=== PATIENT | male | born 1950 | race Caucasian/White ===

== ENCOUNTER 2019-06-21 09:45 | Emergency (ER) | payer MEDICARE, MEDICAID, SELFPAY ==
[2019-06-21 09:46] VITALS: BP 129/80; PULSE 106; RESP 15; TEMP 36.4; O2SAT 96; BMI 20.7
--- NOTE | 2019-06-21 10:43 | ED.VISSUMM ---
- ER Visit Summary Date of Service: 06/21/19 Chief Complaint: Nasal congestion and left-sided sinus pressure History of Present Illness: The patient is a 68 M presents with history of stroke, hypertension, high cholesterol bladder cancer and pulmonary fibrosis. Patient smokes. States last night he had a nosebleed in the left is since resolved. Has not bled at all today. He is on no blood thinners. He also states that it for at least 2 weeks he has had nasal congestion green and cloudy. Denies fever. He was seen in urgent care today and they sent him to the ER. Denies any problems moving his arms or legs. Physical Examination: Older male no acute distress vital signs stable afebrile. H EENT exam except for dried blood in his left nares but no active bleeding. Exact sinus pressure on the left maxillary sinus. Forehead nontender. Posterior pharynx normal. Moist his membranes. Neck nontender no lymphadenopathy. Lungs coarse breath sounds. Scattered wheezes from smoking. No rales or rhonchi. Heart regular rate and rhythm no murmur. Abdomen soft nontender. Patient is moving all 4 extremities. Neurovascular intact. No edema. Normal emt/dispatcher strength. Normal dorsi plantarflexion. Neurologic exam normal. NIH is 0. Test Results: None Emergency Department Course and Treatment: Clinically patient exam is unremarkable other than sinus congestion. A recent nosebleed that is stopped. Be treated with Zithromax for sinusitis. Treatment Plan: Zithromax. Follow-up as needed. Disposition: Discharge Impression: Left maxillary sinusitis This note was generated with [employer] dictation software. It may contain incorrect words, spelling, and punctuation that were not noted in review of the chart prior to signing ED Disposition - Plan for ED Patient: [facility] [[facility] Provider] -
--- NOTE | 2019-06-21 10:47 | DCINST.ED_ITS ---
ED Disposition - Plan for ED Patient: Disposition: Home or Assisted Living Instructions: Acute Sinusitis Prescriptions: Azithromycin [Zithromax Z-Jaron] 250 mg PO UD #1 box Transmission Status: Sent to [facility]errals: [facility] [Primary Care Provider] - 1 Week if not improving Additional Instructions: Stop smoking. There will be a Zithromax prescription at your pharmacy [facility].
[2019-06-21 11:05] VITALS: PULSE 97; RESP 16; O2SAT 95
--- NOTE | 2019-06-21 11:05 | ED.RN ---
REVIEWED D/C INSTRUCTIONS, FOLLOW UP CARE, PRESCRIPTION, AND S/S THAT WOULD WARRANT A RETURN TO THE ED WITH PT. PT VERBALIZED AN UNDERSTANDING AND DENIES FURTHER QUESTIONS FOR THIS RN. PT SKIN P/W/D, RESP EVEN AND UNLABORED, PT A&O X 3, NO DISTRESS NOTED. PT AMBULATED OUT OF ED, GAIT STEADY.
== END 2019-06-21 11:06 | disposition home or self-care (01) ==
LOC: ED 11:01
PROVIDERS: Emergency Provider Emergency Medicine; PCP Family Medicine
DX: J32.0 Chronic maxillary sinusitis (principal); I10 Essential (primary) hypertension; E78.00 Pure hypercholesterolemia, unspecified; J84.10 Pulmonary fibrosis, unspecified; F17.200 Nicotine dependence, unspecified, uncomplicated; Z79.82 Long term (current) use of aspirin; Z86.73 Personal history of transient ischemic attack (TIA), and cerebral infarction without residual deficits
CPT/HCPCS: 99282

== ENCOUNTER 2019-06-24 20:19 | Emergency (ER) | payer MEDICARE, MEDICAID, SELFPAY ==
[2019-06-24 20:21] VITALS: BP 168/85; PULSE 129; RESP 20; TEMP 36.6; O2SAT 94; BMI 21.2
--- NOTE | 2019-06-24 20:51 | ED.VISSUMM ---
- ER Visit Summary Date of Service: 06/24/19 Chief Complaint: [] History of Present Illness: The patient is a 68 M [] Physical Examination: [] Test Results: [] Emergency Department Course and Treatment: [] Treatment Plan: [] Disposition: [] Impression: [] This note was generated with [employer] dictation software. It may contain incorrect words, spelling, and punctuation that were not noted in review of the chart prior to signing ED Disposition - Plan for ED Patient: Referrals: Daquan Andrews MD [Primary Care Provider] -
--- NOTE | 2019-06-24 20:57 | ED.VIS.GEN ---
History of Present Illness Chief Complaint: Nosebleed Informant: Patient Onset: Days Context: Sudden Onset Timing: Intermittent Narrative: Patient is a 68-year-old male presenting with epistaxis. He states his most recent nosebleed started about 15 minutes prior to arrival. He states he had intermittent nosebleeds over the past few days. He states 2 years ago he had similar episode and eventually had to be cauterized in the emergency room. He does not have any ENT doctor. He is on a baby aspirin but takes no other blood thinners. He denies any trauma. He states he holds the bridge of his nose when he does bleed. He bleeds for up to 45 minutes at a time. He denies any other complaints at this time. Past Medical History - Allergies and Home Meds Allergies/Adverse Reactions: Allergies Penicillins Allergy (Verified 06/24/19 20:23) Unknown Primary Care Physician: Daquan Andrews MD [Primary Care Provider] - Past Medical History: None Surgical History: noncontributory Lives: Spouse/ Significant Other Smoking Status: Current every day smoker Alcohol: Sober Review of Systems General: Denies: Chills, Fever, Sweats Eyes: Denies: Visual changes - bilaterally, Diplopia ENT: Reports: - - nosebleed . Denies: Rhinorrhea, Sore throat Cardiovascular: Denies: Chest pain, Palpitations Respiratory: Denies: Dyspnea, Cough, Dyspnea on exertion Gastrointestinal: Denies: Abdominal pain, Nausea, Vomiting, Diarrhea, Melena, Hematochezia Skin: Denies: Rash, Wounds Neurological: Denies: Headache, Weakness, Numbness Hematologic: Denies: Easy bruising, Easy bleeding Physical Exam Vital Signs/Narrative: Vital Signs Temp Pulse Resp BP Pulse Ox 06/24/19 20:21 97.9 F 129 H 20 H 168/85 H 94 Inital Vital Signs reviewed: Yes General: Well nourished, Well developed, No Acute Distress Head: Normocephalic, Atraumatic Eyes: Perrl, EOMI ENT: Moist mucous membranes, No rhinorrhea, - - Brisk epistaxis from the left naris, source of bleeding seems to be the anterior nasal septum, no bleeding noted in the posterior oropharynx. No bleeding from the right Neck: Supple, Nontender Cardiovascular: Regular rhythm, No murmurs, Tachycardia Respiratory: No distress, CTA bilaterally, Chest nontender Abdomen: Soft, Nontender, Nondistended, Normal bowel sounds Back: Nontender, Normal Inspection Extremities: Nontender, No edema Skin: Normal color, No rash. Negative for: Pallor Neurological: Alert, Oriented x3, Cranial nerves II-XII grossly intact, Normal Strength, Normal Sensation Psychological: Normal affect, Normal Mood Diagnostic/Tx/Re-eval Laboratory Data 06/24/19 06/24/19 21:30 21:30 WBC 10.4 RBC 5.26 Hgb 16.3 Hct 49.4 MCV 93.9 MCH 31.0 MCHC 33.0 RDW Std Deviation 51.2 H RDW Coeff of Debra 14.7 H Plt Count 210 MPV 11.1 Immature Gran % (Auto) 0.600 Neut % (Auto) 60.4 Lymph % (Auto) 25.9 [place] % (Auto) 10.7 H Eos % (Auto) 2.0 Baso % (Auto) 0.4 Absolute Neuts (auto) 6.3 Absolute Lymphs (auto) 2.68 Nucleated RBC % 0 PT 12.6 INR 1.0 - Medical Decision Making Patient is evaluated for recurrent episodes of epistaxis. Patient does have consistent bleeding despite nasal pressure. 5.5 cm anterior nasal packing is placed. This tamponade the bleeding. Patient remains hemodynamically stable and has no further bleeding. Because of patient's recurrent episodes of bleeding I did check an H&H. This was normal if not slightly hemoconcentrated. Patient does admit to smoking. This is likely why he has a slight elevation of his red blood cell count. Patient does admit to history of alcohol and drug abuse. Initially the bleeding stopped with a 5.5 cm anterior nasal packing. When patient was ambulated he started bleeding again. 7.5 cm packing was placed. Patient continued to bleed despite pressure. Patient was asked to clear his nose of clots and then Vaseline gauze was packed into the nose. Again patient had bleeding that appeared to be anterior. Patient is given a gram of TXA. Patient continued to have bleeding and we ultimately called ENT on-call, Dr. Whalen. Patient evaluated by Dr. Whalen and cauterized. Patient had no further bleeding. No packing was placed. Patient is given return precautions. Patient is counseled on signs and symptoms requiring return to the emergency room. Patient verbalizes agreement and understand this plan. Patient discharged home in stable and improved condition. ED Disposition - Plan for ED Patient: Disposition: Home or Assisted Living Diagnosis: Epistaxis Instructions: Nosebleed Referrals: Aquilino Whalen MD [STAFF PHYSICIAN] - Additional Instructions: Follow up with ENT as needed.
[2019-06-24] MEDS: Mixture 30 ML Bottle 10 ML TOPICAL (21:28)
[2019-06-24 21:39] LABS: Absolute Lymphocyte Count 2.68 X10^3/uL (0.83-4.51); Absolute Neutrophil Count 6.3 X10^3/uL (2.0-7.7); Basophil# 0.04 X10^3/uL; Basophil% 0.4 % (0-1); Eosinophil# 0.21 X10^3/uL; Hematocrit 49.4 % (40-54); Hemoglobin 16.3 g/dL (13.0-16.5); Lymphocyte # 2.68 X10^3/ul (4.0); Lymphocyte % 25.9 % (19-41); Mean Corpuscular Volume 93.9 fL (80-94); Mean Platelet Vol. 11.1 fl (6.2-12.0); Monocyte# 1.11 X10^3/uL; Monocyte% 10.7 % (0-10); NRBC Flagged by Analyzer 0 % (0-5); Neutrophil # 6.26 X10^3/uL (2.7-7.7); Neutrophil % 60.4 % (47-70); Platelet Count 210 K/mm3 (150-450); RBC Distribution Width CV 14.7 % (11.6-14.6); RBC Distribution Width SD 51.2 fl (35.1-43.9); Red Blood Count 5.26 M/mm3 (4.6-6.2); White Blood Count 10.4 K/mm3 (4.4-11.0)
[2019-06-24 21:55] LABS: Prothrombin Time (Protime)PT. 12.6 SECONDS (11.7-14.9)
[2019-06-24] MEDS: Ibuprofen 600 MG Tablet PO (22:33)
[2019-06-24 23:41] VITALS: BP 126/76; PULSE 107; RESP 16; O2SAT 90
[2019-06-25] MEDS: Oxymetazoline 0.05% 1 SPRAY SPRAY.BTL 2 SPRAY NASAL (00:20)
[2019-06-25] MEDS: Silver Nitrate (BKC) 1 EACH TOPICAL (00:40)
--- NOTE | 2019-06-25 00:43 | PCM.OPRPT ---
Problem List (1) Epistaxis Status: Acute Report of Operation Date of Procedure: 06/25/19 Pre-Operative Diagnosis: Epistaxis, not controlled with nasal packing Post-Operative Diagnosis: Same Surgery/Procedure Performed:: Control of epistaxis, complex (40578) Description of Surgical Findings:: Mr. Avelar is a 68-year-old male presents emergency department for persistent left-sided nasal bleeding. He reports he has had off-and-on bleeding over the last several days and was treated recently for a presumed sinus infection by his primary care physician. He presented to the emergency department this evening however despite several attempts at packing was unable to get persistent control of the bleeding and subsequently I was consulted for evaluation. He denies any prior history of nasal trauma and other than a daily aspirin is not on any anticoagulation therapy. With patient permission, the left nasal cavity examined. There is no to be marketed rightward nasal septal deviation. There is a nasal pack in place which was removed. Vaseline gauze is in place and removed. The persistent clot is suctioned clear. There is noted to be an area of granulation tissue of the left nasal septum and this was cauterized with silver nitrate. Oxymetazoline was used to rinse the nasal cavity and the patient is asked to expectorate any retained material. He was able to then ambulate throughout the ER without recurrence of bleeding. This appeared to satisfactory control his bleeding and as such no further packing was required. Type of Anesthesia:: None Anesthesiologist: none Specimen's removed: none Estimated Blood Loss (mL): 50 mL Fluids Replaced: 0 Grafts/Implants Used: none - Complications none - Admit VTE Documentation VTE Present on Admission: No VTE Mechan Device Prophylaxis: None VTE Pharm Prophylaxis ordered?: No
== END 2019-06-25 00:57 | disposition home or self-care (01) ==
PROVIDERS: Emergency Provider Emergency Medicine; PCP Family Medicine
DX: R04.0 Epistaxis (principal); F17.200 Nicotine dependence, unspecified, uncomplicated; Z79.82 Long term (current) use of aspirin
CPT/HCPCS: 30903; 85025; 85610; 96374; 99283; A4216

== ENCOUNTER 2022-05-21 11:40 | Outpatient (CLI) | payer OTHER, SELFPAY ==
--- NOTE | 2022-05-21 12:50 | PR.HP_ITS ---
History of Present Illness Arrival date:: 05/21/22 Arrival time:: 12:50 Date of Referral:: 05/09/22 Date of Evaluation: 05/21/22 Referring Physician: ALYX Primary Diagnosis: COPD severe mMRC Breathless Scale: When is the patient short of breath? Y/N Grade: Description of Breathlessness: 0 I only get breathless with strenuous exercise. 1 I get short of breath when hurrying on level ground or walking up a slight hill. 2 On level ground, I walk slower than people of the same age because of breathless, or have to stop for breath when walking at my own pace. 3 I stop for breath after walking 100 yards or after a few minutes on level ground. 4 I am too breathless to leave the house or I am breathless when dressing. Respiratory Problems: Yes: Retain Secretions, Fatigue, Wheezing, Able to Speak in Full Sentences, Dizziness, Ankle Swelling, Hoarseness, Anxiety, Dyspnea at Rest, Dyspnea with Activity, Dyspnea Lying Down Flat, Cough with Secretions No: Limited Range of Motion, Chest Pain, Panic - Secretions Normal Color:: clear Thick:: Yes Thin:: No Amount/Day:: 2 TBSP Cough:: Yes AM: Yes PM: Yes Night Time: Yes Hx of Sleep Apnea: No Do you snore loudly (louder than talking or can be heard through closed doors)?: No Do you often feel tired/ fatigued/ sleepy during daytime?: No Has anyone observed you stop breathing during sleep?: No History of Hypertension (for STOP score): Yes STOP Results: Negative Home Medications: Home Medications albuterol sulfate 90 mcg/actuation aerosol inhaler (Ventolin HFA) 2 puff inhalation Q6H PRN PRN Sob &/Or Wheezing 02/21/15 amlodipine 5 mg tablet 5 mg PO DAILY 02/21/15 aspirin 81 mg chewable tablet 81 mg PO DAILY@0800 02/21/15 budesonide-formoterol HFA 160 mcg-4.5 mcg/actuation aerosol inhaler (Symbicort) 2 puff inhalation BID 02/21/15 ipratropium bromide 17 mcg/actuation HFA aerosol inhaler (Atrovent HFA) 1 puff inhalation 4X/DAY 02/21/15 lisinopril 40 mg tablet 40 mg PO BID 02/21/15 pravastatin 80 mg tablet 80 mg PO QHS 02/21/15 trazodone 100 mg tablet 100 mg PO QHS 02/21/15 azithromycin 250 mg tablet 250 mg PO UD ##1 06/21/19 Allergies/Adverse Reactions: Allergies Penicillins Allergy (Verified 06/24/19 20:23) Unknown Medical Utilization Do you use a spacer device with your inhalers?: No Number of hospital visits in the last year?: 0 Number of emergency room visits in the last year?: 0 Do you see your physician on a regular schedule?: Yes How often?: every 6 months Advanced Directives - Advanced Directives Power of Director Of Direct Marketing: No Living Will: No Advance Directives Information Provided: No Advance Directives on File: No DNR Order?:: No Past Medical History - Covid-19 Screening 65 years or older:: Yes Has a chronic lung disease or moderate to severe asthma:: Yes Social History - Smoking History Smoking Status: Current every day smoker Years Smokin Packs Smoked per Day: 1.5 Hx Tobacco Use: Yes - down to 4 cigarettes a day - Alcohol Use Alcohol Usage: No - Substance Abuse Hx Substance Use: No - Occupation Occupation (List type of work in comments):: Retired - Hobbies, Recreation, Social Activities Hobbies: Watch TV, Other - aa meetings Recreational Activities: I am able to engage in all my recreational activities Functioning ADL/IADL - Current Ability Current Ability: Independent Self-Care (e.g.,grooming, dressing, & bathing), Independent Ambulation, Independent Transfer, Independent Household tasks (e.g., light meal prep, laundry, shopping) - Pt Functioning Prior to Problem Prior Functioning: Self-Care (e.g.,grooming, dressing, & bathing): Independent, Ambulation: Independent, Transfer: Independent, Household tasks (e.g., light meal prep, laundry, shopping): Independent Social Environment - Status Marital Status: - Current Living Arrangements Living Environment:: Alone - Children How many children do you have?: 0 - Safety Do you feel safe in your surroundings?: Yes - Assistance Do you need any assistance at home?: no Review of Systems Review of Systems: Right click = Denies (Slash). Left click = Reports ([place]) Respiratory: Reports: Cough, Hemoptysis, SOB upon Exertion, Sputum production, Wheezing, Appetite, Normal, Fatigue. Denies: Pleuritic Pain, SOB at Rest, Dizziness/Lightheadedness, PVD, Sexual changes, Sleep, Normal Is Patient Pain Free?: No Risk Factor Assessment - Vital Signs Pulse Rate: 105 Pulse Rhythm: Regular Pulse Ox: 92 Blood Pressure: 110/72 - Diabetes Nutrition Referral for Diabetes: No - Obesity Height: 5 ft 8 in Weight:: 54.885 kg Weight in Pounds: 121.0 lbs Body Mass Index (BMI): 18.3 Nutritional Referral for Obesity: No - Physical Activity Physical Inactivity: Recreational activity - Risk Stratification Risk Guidelines: Lowest Risk: Risk Factor for Obesity, Moderate Risk: Risk Factor for Dyslipidemia, Risk Factor for Diabetes, Risk Factor for Sedentary Lifestyle, Risk Factor for Depression, Highest Risk: Risk Factor for Smoking, Risk Factor for Hypertension Motivation - Motivation to Participate On a scale of 1 to 10, how prepared are you to commit to attending program?: 10 What do you see as barriers to successfully being able to complete the program?: nothing What do you see as the benefits of succesfully completing the program? In other words, what do you hope to get out of participating in the program?: breath bett er, feel better Are there issues you are dealing with that will interfere with completing the program?: no Do you have a spouse or signficant other, family or friends who will help support you to complete the program?: yes Diagnostic Data Review - Pulmonary Function Test Gold Classification: GOLD class III(severe COPD)with FEV1/FVC<70, 30%</=FEV1< 50% predicted
[2022-05-21 13:48] VITALS: BP 110/72; PULSE 105; O2SAT 92; BMI 18.3
--- NOTE | 2022-05-21 13:49 | PCM.PR.TP ---
General Information2 - General Information Admitting Diagnosis: COPD severe - Education/Goals [place] Patient Goals: Quit Smoking: Initial Assessment, Increase muscle strength: Initial Assessment, Experience less dyspnea: Initial Assessment, Improve energy level: Initial Assessment, Participate in home exercise: Initial Assessment, Improve the ability to cope with ADLs: Initial Assessment, Understand how to use medications: Initial Assessment, Increase knowledge of oxygen use: Initial Assessment, Control panic/anxiety: Initial Assessment, Improve diet and nutrition: Initial Assessment, Improve my quality of life: Initial Assessment, Reduce Stress/relaxation techniques: Initial Assessment Exercise - Initial Assessment - Visit Date of Eval: 05/21/22 - Problem/Goals Problems: Deconditioning, No regular exercise, Knowledge deficit exercise guidelines, Knowledge deficit exercise safety Goals:: Resistance: 2-3x/weekly - Physician Prescribed Exercise Modalities: Treadmill, Rower, Airdyne, NuStep, SciFit, Lateral Loan Documentation Specialist Frequency (days/week): 3 Duration (Minutes):: 30-45 min Intensity: 60-80% of age predicted maximum heart rate reserve Current METSs:: 3 Resting Blood Pressure: 110/70 - Plan Plan and Plan to Review:: Benefits of exercise, Core components of exercise, How to measure dyspnea level, How to monitor dyspnea level, Exercise intensity, Exercise safety guideline, Home exercise guidelines, Yas: 3-/13 Nutrition/Wt Mgmt - Initial - Visit Date of Eval: 05/21/22 - initial eval - Problems/Goals Problems: Underweight Goals: Prevent further wt loss - Weight Management Admit Height:: 5 ft 8 in Admit Weight:: 54.885 kg Admit BMI:: 18.3 - Intervention Referral to dietitian:: No Will attend diet classes:: Yes Intervention/Plan: Instruct on ideal BMI & set weight loss goal w/patient, Assist pt to ID & incorporate diet changes for weight loss by S9, Refer to Structured Weight Loss program as appropriate, Encourage goal of using 250-300dcal per session for weight loss, Other additional plan/interventions Psychosocial - Initial Assess - Visit Date of Eval: 05/21/22 - initial eval - Problems/Goals History of Emotional Disorders: Anxious Psychosocial Goals: 1. Patient is free from overwhelming symtoms of depression (or anxiety Self-reported stressors: Other - Referral to Behavioral Health PS - Interventions: Yes Attend Stress Management Classes, No Referral to Behavioral Health if PHQ-9 score >9:, No [facility]erral [facility], No Referral to Physician if PHQ-9 if score is 5-9: - Intervention/Plan: See List Interventions/Plan:: Assess stressors,coping strategies & signs of derpression on admission, Instruct/assist pt to develop coping & personal stress Mgt strategies, Refer to Behavioral Health if appropriate, Refer to Physician if appropriate, Instruct patient to recognize signs & symptoms of depression, Instruct patient to recog, Other additional plan/intervention Oxygen & Oxygen Titration Init - Visit Date of Eval: 05/21/22 - initial eval - Initial Assessment Oxygen on Admission: Continuous home use - 2-4 liters SpO2:: 92 Patient Reports:: Prod cough daily >1 Tbsp - Goal Oxygen & Oxygen Tritration Goals: Uses O2 as Rx'd/safely - Plans Plan: Monitor SpO2 rest & with exercise, Recommend appropriate FiO2 to Pt/MD, Assist to contact DME for O2, Train appropriate O2 use at rest, Train appropriate O2 use with exercise, Train O2 safety & systems Reviewed prescribed medications:: Purpose, Schedule, Side effects, Importance of compliance Core Components - Initial - Visit Date of Eval: 05/21/22 - initial eval - Hypertension Hypertension Diagnosis:: Hypertension ICD-10 I10 BP: 110/70 [place] [employer] Hypertension Guidelines: [place] [employer] Hypertension Guidelines. Normal BP Less than 120/80. Elevated BP 120/80. Hypertension Stage 1: BP 130-139/80-89. Hypertesnion Stage 2: BP 140 or higher/90 or higher. Hypertension Crisis: BP higher than 180/120 Low Sodium diet: No Outcomes/Goals: Able to verbalize/achieve optimal blood pressure <130/80, Incorporates diet changes & exercise for blood pressure control by DC, Other additional outcomes/goals - Tobacco - Initial Assessment Tobacco Program Goals: Complete smoking cessation. Attend education classes. Improve Knowledge Test score Stages of Change:: Contemplate Do you have family support?: Yes Tobacco Use: Cigarettes - down to 4 cigarettes a day Do you use smokeless tobacco?: No Smoking Cessation Referral:: Yes Individual Education/Counseling:: Yes Education Schedule Given:: Yes Gave Education Materials For:: Tobacco Triggers, Pulmonary Disease, Risk Factors, Breathing Techniques, Medical Compliance, Pulmonary A&P, Exacerbation Signs & Symptoms, Stress & Relaxation - Exacerbation Mgmt & Airway Clearance Problems:: Poor knowledge of O2 use/safety Goals: Other Patient Reports:: Prod cough daily >1 Tbsp Plan: Monitor SpO2 rest & with exercise, Recommend appropriate FiO2 to Pt/MD, Assist to contact DME for O2, Train appropriate O2 use at rest, Train appropriate O2 use with exercise, Train O2 safety & systems - Medication Interventions/plans: Instruct on medication effects & side effects, Review medication list w/patient every two weeks, Instruct importance of taking meds as ordered & assist problem solving, Other additional Medication Goals: Adherence to prescribed medications, Correct technique/timing & care of MDI, DPI, nebulizer, and spacer. Does pt report taking home meds as prescribed?: Yes - Diabetes Referral to dietitian:: No Referral to Diabetic Clinic:: No Will attend diet classes:: Yes Core Components - 30 DAYS Core Components - 60 DAYS Core Components - 90 DAYS Core Components - Final Patient Health Questionnaire Initial Assessment 1. Little interest or pleasure in doing things: More than half the days 2. Feeling down, depressed, or hopeless: Nearly every day 3. Trouble falling or staying asleep, or sleeping too much: Nearly every day 4. Feeling tired or having little energy: Nearly every day 5. Poor appetite or overeating: Nearly every day 6. Feeling bad about yourself -- or that you are a failure or have let yourself or your family down: Nearly every day 7. Trouble concentrating on things, such as reading the newspaper or watching television: Not at all 8. Moving or speaking so slowly that other people could have noticed. Or the opposite - being so fidgety or restless that you have been moving around a lot more than usual: Not at all 9. Thoughts that you would be better off , or of hurting yourself in some way: Not at all How difficult have these problems made it for you to do your work, take care of things at home, or get along with other people?: Very difficult Total Score: 17 Knowledge Questionaire (BCKQ) - Information Information: [place] COPD Knowledge Questionnaire (BCKQ) This questionnaire is designed to find out what you know about your lung problem. It should be completed without help form anyone else. This usually takes between 10 and 20 minutes. Your answers will help us to find out what information you need to help you to understand and manage your lung condition. [place] which you think is the correct answer. - Questions b. COPD can only be confirmed by breathing tests: True c. In COPD ther is usually gradual worsening over time: True d. In COPD oxygen levels in the blood are always low: True e. COPD is usually in people less than 40 years old: False [place] than 80% of COPD cases are caused by cigarette smoking: True b. COPD can be caused by occupational dust exposure: True c. Longstanding asthma can develop into COPD: Don't know d. COPD is commonly an inherited disease: False e. Women are less vunerable to the effects of cigarette than men: False a. Swelling of the ankles is common in COPD:: False b. Fatigue [tiredness] is common in COPD: True c. Wheezing is common in COPD: True d. Crushing chest pain is common in COPD: Don't know e. Rapid weight loss is common in COPD: True a. Severe breathlessness prevents travel by air: False b. Breathlessness can be worsened by eating large meals: Don't know c. Breathlessness means that your oxygen levels are low: True d. Breathlessness is a normal response to exercise: Don't know e. Breathlessness is primarily caused by a narrowing of the bronchial tubes: True a. Coughing phlegm is a common symptom in COPD: True b. Clearing phlegm is more difficult if you get dehydrated: Don't know c. Bronchodilator inhalers can help clear phlegm: True d. Phlegm causes harm if swallowed: Don't know e. Clearing phlegm can be assisted by breathing exercises: Don't know a. Chest infections often cause coughing of blood: True b. Chest infection phlegm usually becomes coloured (ylw/grn): True cExerbations (episodes of worsening) can occur in the absence of chest infection: Don't know d. Chest infections are always accompanied by a high temperature: Don't know e. Steroid tablets should be taken whenever there is an exacerbation: Don't know aWalking excercises better than breathing to improve fitness: True b. Exercise should be avoided as it strains the lungs: False c. Exercise can help maintain your bone density: Don't know d. Exercise helps relieve depression: True e. Exercise should be stopped if it makes you breathless: Don't know a. Stopping smoking will reduce the risk of heart disease: True b. Stopping smoking will slow down further lung damage: True c. Stopping smoking is pointless as the damage is done: False d.Stopping smoking usually results in improved lung function: True eNicotine replacement therapy only available on prescription: Don't know a. A flu jab is recommended every year: True b. You can get flu from having a flu jab: Don't know c. You can only have a flu jab if you are 65 or over: False d. A pneumonia jab protects against all forms of pneumonia: False e.You can have a pneumonia jab and a flu job on the same day: True a. Bronchodilators act quickly (within 10 minutes): True b. Both short & long acting bronchodilators can be taken on the same day: True c. Spacers (volumatic,nebuhaler,serochamber)should be dried w/atowel after washing: False d. A spacer device increases the medication to the lungs: Don't know e. Tremor may be a side effect of bronchodilators: Don't know a. To be effective, the course should last at least 10 days: Don't know b. Excessive use of antibiotics can cause resistant bacteria (germs): Don't know c. Antibiotics will clear all chest infections: True d. Antibiotic treatment is necessary for an exacerbation (worsening) however mild: Don't know e. Seek advice if antibiotics cause severe diarrhoea: Don't know a. Steroid tablets help strengthen muscles: Don't know b. Steroid tablets should be avoided if there is a chest infection: Don't know c. The risk of long-term side effects due to steroids is less w/short courses then w/continous treatment: True dIndigestion is common side effect from using steroid tablet: Don't know e. Steroid tablets can increase your appetite: Don't know a. Inhaled steroids should be stopped if you are given steroid tablets: Don't know bSteroid inhalers can be used for rapid relief breathlessnes: Don't know c. Spacer devices reduce the risk of getting thrush in the mouth: Don't know d.Steroid inhaler should be taken before your bronchodilator: Don't know e. Inhaled steroids improve lung function in COPD: Don't know COPD Assessment Test [CAT] - Questions Never cough = 0, Cough all the time = 5: 4 No phlegm = 0, Chest full of phlegm = 5: 5 No chest tightness = 0, Chest very tight = 5: 4 No breathless w/exertion = 0, Very breathless w/exertion = 5: 5 No limitations w/activity = 0, Very limited w/activity = 5: 2 Confident leaving home = 0, Not at all confident = 5: 5 Sleep soundly = 0, Don't sleep soundly = 5: 5 Lots of energy = 0, No energy at all = 5: 5 Total CAT score:: 35 Self-Efficacy Initial Assessment We would like to know how confident you are in doing certain activities. Please select your confidence level for:: Select your confidence level for the following using the scale 1-10 where 1 is not at all confident and 10 is totally confident. Your score is the average of all 6 responses. Fatigue: How confident are you that you can keep the fatigue caused by your disease from interfering with the things you want to do? Select Number: 2 Physical Discomfort or Pain: How confident are you that you can keep the physical discomfort or pain of your disease from interfering with the things you want to do? Select Number: 2 Emotional Distress: How confident are you that you can keep the emotional distress caused by your disease from interfering with the things you want to do? Select Number: 5 Other Symptoms or Health Problems: How confident are you that you can keep other symptoms or health problems from interfering with the things you want to do? Select Number: 5 Different Tasks and Activities: How confident are you that you can do the different tasks and activities needed to manage your health condition so as to reduce your need to see a doctor? Select Number: 8 Medication: How confident are you that you can do things other than just taking medication to reduce how much your illness affects your everyday life? Select Number: 8 Total Score:: 5 Nutrition Survey - Nutrition Survey Initial Have you lost >10 lbs over the past 2 months without trying?: Yes Are you following a special diet at home for diabetes, low fat, or low salt?: No Are you interested in meeting with a dietitian for help understanding your diet?: No Do you eat less than 3 meals a day?: Yes Do you eat fatty meats (franco, sausage, ribs, etc), fried foods, desserts, large amounts of salad dressings, margarine, butter, or cheese most days?: Yes Do you have food allergies? [Enter types in comment field]: No Do you eat in restaurants more than 3 times a week?: No Do you season food with salt, seasoning salt, or garlic salt?: Yes Do you used canned, boxed, frozen meals, or soups, seasoning packets?: Yes Total Score:: 5
[2022-05-21 14:07] VITALS: BP 110/70; O2SAT 92; BMI 18.3
== END 2022-05-21 23:59 | disposition home or self-care (01) ==
DX: J44.9 Chronic obstructive pulmonary disease, unspecified (principal)

== ENCOUNTER 2022-05-30 10:30 | Outpatient (RCR) | payer OTHER, SELFPAY | END 2022-06-10 23:59 | LOC: PR 10:30 | DX: J44.9 Chronic obstructive pulmonary disease, unspecified (principal) | CPT/HCPCS: 97150; 94626 ==

== ENCOUNTER 2022-06-23 11:02 | Outpatient (RCR) | payer OTHER, SELFPAY ==
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
== END 2022-07-08 23:59 ==
LOC: PR 11:02
DX: J44.9 Chronic obstructive pulmonary disease, unspecified (principal)

== ENCOUNTER → 2022-11-03 | Outpatient (CLI) | payer OTHER, SELFPAY ==
--- NOTE | 2022-11-03 13:14 | CT_ITS ---
STUDY: CT CHEST WITHOUT CONTRAST REASON FOR EXAM: Male, 72 years old. HX OF PULMONARY NODULE. COPD. RADIATION DOSAGE (If Supplied By Facility): CTDIvol = ( 5.34 ) mGy, DLP = ( 201.86 ) mGycm TECHNIQUE: Transaxial imaging was performed without the administration of intravenous contrast material. Multiplanar coronal and sagittal images were reformatted. Individualized dose optimization techniques were used for this CT. COMPARISON: No relevant priors. FINDINGS: CHEST Hyperinflation. Diffuse emphysematous changes worse in the upper lobes. There is a 7 cm x 1 cm linear irregular density in the right lung apex and right upper lobe suggestive of a scarring with bronchiectasis. Linear scarring is also seen in the posterior aspect of the superior segment of the right lower lobe. Mild scarring in the right lower lobe as well. There is a 5.6 mm x 7.3 mm noncalcified nodule in the anterior aspect of the right middle lobe as seen on axial image #87 and coronal image #72. This abuts the posterior aspect of the right minor fissure. Focal calcific pleural plaques at the right lung base. There are calcifications of the coronary arteries. Mildly enlarged pretracheal lymph node is seen measuring 1.7 cm. Normal hilar regions. Normal unenhanced pulmonary arteries. There is atherosclerotic calcification of the aortic arch with tortuosity and elongation of the aortic arch and descending thoracic aorta. There are multi-level degenerative changes of the thoracic spine. There is no demonstrated abnormality of the visualized upper abdomen. CT/Chest without Contrast IMPRESSION: Hyperinflation and COPD with emphysematous changes. Findings suggestive scarring in the right upper lobe and right lung apex. 5.6 mm x 7.3 mm noncalcified nodule in the right middle lobe adjacent to the right minor fissure. 6 month follow-up CT scan is recommended for further evaluation. Electronically Signed: Brett Arango MD at 10:03 EDT ,
== END | disposition home or self-care (01) ==
LOC: CT 13:13
DX: R91.1 Solitary pulmonary nodule (principal)
CPT/HCPCS: 71250

== ENCOUNTER 2023-01-16 19:07 | Inpatient (IN) | payer MEDICARE, MEDICAID, SELFPAY ==
[2023-01-16] VITALS (27 sets, daily range): BP systolic 122–165; BP diastolic 76–145; PULSE 128–144; RESP 17–32; TEMP 36.9–37.4; O2SAT 89–97; BMI 18.6
--- NOTE | 2023-01-16 19:27 | EKG12_ITS ---
Test Reason : SOB Blood Pressure : / mmHG Vent. Rate : 139 BPM Atrial Rate : 139 BPM P-R Int : 122 ms QRS Dur : 144 ms QT Int : 298 ms P-R-T Axes : 090 171 061 degrees QTc Int : 453 ms Suspect arm lead reversal, interpretation assumes no reversal Sinus tachycardia with occasional Premature ventricular complexes and Fusion complexes Possible Left atrial enlargement Right bundle branch block Abnormal ECG Confirmed by FRED MATOS, RENE ([id number]), staff editor RAFIQ LLAMAS ([id number]) on 01/22/2023 2:17:48 PM Referred By: RJ Confirmed By:RENE IBARRA MD
[2023-01-16] MEDS: 0.9% Normal Saline (1000mL) 1,000 ML 999 ML IV ×3 (19:37→22:16)
[2023-01-16] MEDS: Albuterol 2.5 MG/3 ML VIAL.NEB. INHALATION (19:48)
[2023-01-16] MEDS: Ipratropium/Albuterol Sulfate 3 ML AMPUL.NEB INHALATION (19:48)
--- NOTE | 2023-01-16 20:04 | RAD_ITS ---
STUDY: X-RAY CHEST REASON FOR EXAM: Male, 72 years old. dyspnea TECHNIQUE: Single AP portable view of the chest. COMPARISON: CT scan 11/03/2022. FINDINGS: Severe hyperexpansion and COPD. Stable linear scarring across the right upper lobe. Infiltrate throughout most of the left lung consistent with pneumonia. No gross effusions. Normal size heart. Normal mediastinum and arti. Normal visualized pulmonary arteries. Normal visualized aortic arch and descending thoracic aorta. There are diffuse degenerative changes of the visualized thoracic spine. Normal visualized ribs, clavicles, and shoulders. There is no demonstrated abnormality of the visualized soft tissue structures of the upper abdomen. RAD/Chest 1 View (Portable) IMPRESSION: Airspace densities throughout the left lung most consistent with pneumonia. Severe COPD. Electronically Signed: Jorge L Conrad MD at 20:36 EDT ,
[2023-01-16 20:09] LABS: Absolute Neutrophil Count 15.1 X10^3/uL (2.0-7.7); Basophil# 0.12 X10^3/uL; Basophil% 0.7 % (0-1); Eosinophil# 0.13 X10^3/uL; Eosinophils% 0.8 % (0-5); Hematocrit 50.1 % (40-54); Hemoglobin 16.1 g/dL (13.0-16.5); Lymphocyte % 1.8 % (19-41); Mean Corp Hgb Conc 32.1 g/dL (32-36); Mean Corpuscular Hgb 29.3 pg (27.0-32.0); Mean Corpuscular Volume 91.1 fL (80-94); Mean Platelet Vol. 12.3 fl (6.2-12.0); Monocyte# 1.18 X10^3/uL; NRBC Flagged by Analyzer 0 % (0-5); Neutrophil # 15.06 X10^3/uL (2.7-7.7); Neutrophil % 88.9 % (47-70); POSITIVE DIFFERENTIAL YES; POSITIVE MORPHOLOGY YES; Platelet Count 236 K/mm3 (150-450); RBC Distribution Width CV 15.9 % (11.6-14.6); RBC Distribution Width SD 52.9 fl (35.1-43.9); White Blood Count 16.9 K/mm3 (4.4-11.0)
[2023-01-16 20:13] LABS: Differential Indicated SCAN CRITERIA MET
[2023-01-16 20:23] LABS: ALB/GLOB Ratio 0.6 RATIO (0.9-2.4); AST(SGOT) 14 U/L (15-37); Alanine Aminotransfer ALT/SGPT 12 U/L (16-61); Albumin, Serum 2.9 g/dL (3.2-5.0); Alkaline Phosphatase 103 U/L (45-117); Anion Gap 10 (5-15); BUN 25 mg/dL (7-18); BUN/Creat Ratio 20.5 RATIO (10-20); Chloride 95 mmol/L (98-107); Creatinine, Serum 1.22 mg/dL (0.70-1.30); EST Glomerular Filtration Rate 62 mL/min (>60); Est Glom Filt Rate - Afr Amer 76 mL/min (>60); Estimated Creatinine Clearance 44.35 ml/min; Globulin 5.1 g/dL (2.2-4.2); Glucose 154 mg/dL (74-106); Potassium 4.3 mmol/L (3.5-5.1); Sodium Level 129 mmol/L (136-145); Troponin-I HS 8 pg/mL (3.0-78.0)
[2023-01-16 20:24] LABS: Bacteria 0 SEEN /hpf (None Seen); Mucous, Urine 0 SEEN /hpf (<or=2+); Squamous Epithelial Cells - UA 0 SEEN /hpf (0-5); White Blood Cells 0 SEEN /hpf (0-5)
[2023-01-16 20:25] LABS: International Normalized Ratio 1.1; Partial Thromboplast Time 31.9 Seconds (24.1-36.2); Prothrombin Time (Protime)PT. 14.5 SECONDS (11.7-14.9)
[2023-01-16 20:27] LABS: Color, Urine Yellow (Yellow); Glucose, Dipstick Normal (Normal); Ketone-Dipstick 15 mg/dl (Negative); Leukocyte Esterase-Dipstick Negative /ul (Negative); Nitrite-Dipstick Negative (Negative); Occult Blood-Urine 10 /ul (Negative); Protein-Dipstick 30 mg/dl (Negative); Urine Bilirubin Dipstick Negative (Negative); Urine Clarity Clear (Clear); Urine Urobilinogen 1 mg/dl (Normal)
[2023-01-16 20:34] LABS: Anisocytosis RARE; Lactic Acid 2.6 mmol/L (0.4-1.9); Macrocytosis RARE; Ovalocyte RARE; Platelet Estimate ADEQUATE (ADEQ)
[2023-01-16 20:38] LABS: D-Dimer Quantitative (DVT/PE) 1.59 FEU/ug/m (0.27-0.49)
--- NOTE | 2023-01-16 20:41 | CT_ITS ---
STUDY: CTA CHEST REASON FOR EXAM: Male, 72 years old. dyspnea RADIATION DOSAGE (If Supplied By Facility): CTDIvol = ( 5.81 ) mGy, DLP = ( 159.36 ) mGycm TECHNIQUE: The examination was performed with the intravenous administration of IV 100mL Isovue-300. Post-processing of the angiographic images was performed, with multiplanar reformation and 3D reconstruction. Individualized dose optimization techniques were used for this CT. COMPARISON: 11/03/2022. FINDINGS: Normal enhancement of the main pulmonary artery and right and left pulmonary arteries. Normal enhancement of the bilateral peripheral pulmonary arteries. There is no demonstrated pulmonary embolism. Normal thoracic aorta and visualized great vessels. There is no demonstrated aortic dissection. Normal heart and pericardium. Normal mediastinum. Normal hilar regions. Normal visualized trachea and bronchi. The lungs are markedly hyper expanded, with flattening of the hemidiaphragms. There is marked COPD. Stable cortical scarring across the right upper lobe. Stable indeterminate microspiculated nodules in the right middle lobe based on the minor fissure with greatest dimension of 1.1 cm. Stable Extensive pulmonary opacification throughout the left upper lobe most consistent with pneumonia. No effusions. There are degenerative changes of thoracic spine. Normal visualized upper abdomen. CT/CTA Chest W/WO Contrast IMPRESSION: No demonstrated pulmonary embolism or arterial dissection. Severe COPD. Extensive infiltrate of the left upper lobe consistent with pneumonia. There are 2 suspicious nodules of the right middle lobe, suggest follow-up in 6 months. Electronically Signed: Jorge L Conrad MD at 21:20 EDT ,
[2023-01-16 20:45] LABS: Red Blood Cells-Urine 0-5 SEEN /hpf (0-5)
[2023-01-16] MEDS: Ceftriaxone 1 GM/50 ML BAG IV (21:15)
--- NOTE | 2023-01-16 21:51 | EKG12_ITS ---
Test Reason : REPEAT Blood Pressure : / mmHG Vent. Rate : 129 BPM Atrial Rate : 129 BPM P-R Int : 126 ms QRS Dur : 154 ms QT Int : 316 ms P-R-T Axes : 089 184 058 degrees QTc Int : 462 ms Sinus tachycardia with occasional Premature ventricular complexes and Fusion complexes Possible Left atrial enlargement Right bundle branch block Abnormal ECG Confirmed by RENE IBARRA MD ([id number]), development editor RAFIQ LLAMAS ([id number]) on 01/22/2023 2:18:22 PM Also confirmed by RENE IBARRA MD ([id number]), development editor RAFIQ LLAMAS ([id number]) on 01/22/2023 2:19:10 PM Referred By: RJ Confirmed By:RENE IBARRA MD
[2023-01-16] MEDS: Azithromycin 500 MG in Dextrose 5%-Water (250mL Bag) 250 ML 250 MG IV (21:57)
--- NOTE | 2023-01-16 22:39 | PCM.HP.STD ---
HPI - General General Date of Admission: 01/16/23 Date of Service: 01/16/23 Chief Complaint: Dyspnea, worsening. HPI Narrative The patient is a 72 y/o M w/ PMHx: Hypertension, Severe End Stage COPD/Hx Agent [place] exposure with Chronic Hypoxic Respiratory Failure ( 3L NC), Chronic issues per records with recurrent epistaxis, Tobacco use, Former EtOH abuse (sober) who presents to the [facility] ED on 01/16/23 with history of difficulty breathing which has been worsening over the last several days with upon EMS arrival ability to only speak in 1-2 word sentences with oxygenation noted to be 84% on his home 3 L nasal cannula supplementation prompting ED evaluation. He notes that the cough has been productive of various colors. He denies any fevers or chills. He does report significant wheezing. Work-up in the ED included T99.2, heart rate 134, BP 122/89, respiratory rate 23, initially 94% on 3 L with most recent vital signs heart rate 135, respiratory rate 24, 92% on 6 L nasal cannula as patient desaturated, CBC with WBC 16.9, hemoglobin 16.1, platelets 236 with left shift and lymphopenia, coags with D-dimer 1.59 otherwise not marked appearing, CMP with sodium 129, chloride 95, BUN/creatinine 25/1.22, glucose 156, lactic acid 2.6, hepatic profile not marked appearing, troponin 8, urinalysis with specific IV 1.020, ketone 15, occult blood 10, negative nitrite, negative leukocyte Estrace with no obvious evidence of UTI, chest x-ray with airspace densities throughout the left lung most consistent with pneumonia, severe COPD, CTPA with no evidence of any pulmonary embolism or arterial dissection, severe COPD, extensive infiltrate left upper lobe consistent with pneumonia with 2 suspicious nodules in the right middle lobe with recommended follow-up within 6 months per radiology, EKG with ST with repeat once slowed following IVFs w/ ST without acute evidence of ischemia. In the ED patient administered 1 L normal saline, albuterol and DuoNeb therapy as well as IV Rocephin and IV azithromycin. [facility] Medical History Agent orange exposure Chronic respiratory failure with hypoxia COPD (chronic obstructive pulmonary disease) Hypertension Tobacco use Home Medications albuterol sulfate 90 mcg/actuation aerosol inhaler (Ventolin HFA) 2 puff inhalation Q6H PRN PRN Sob &/Or Wheezing 02/21/15 [History Last Taken Unknown] doxycycline hyclate 100 mg tablet 100 mg PO BID 01/16/23 [History Last Taken Unknown] prednisone 10 mg tablet 10 mg PO 01/16/23 [History Last Taken Unknown] Allergy/AdvReac Type Severity Reaction Status Date / Time Penicillins Allergy Unknown Verified 01/16/23 19:11 Family History (Updated 01/16/23 @ 23:[address] Jackelyn Mcmanus MD) Mother CAD (coronary artery disease) Heart disease Hypertension Myocardial infarction Father Hypertension Brain aneurysm Surgical History (Updated 01/16/23 @ 23:[address] Jackelyn Mcmanus MD) No history of previous surgery Surgical History no surgical history no surgical history Social History (Updated 01/16/23 @ 23:[address] Jackelyn Mcmanus MD) household members: none Smoking Status: Current every day smoker tobacco type: cigarettes Smokeless tobacco user: other alcohol intake: former details: Sober x 16 years. substance use type: does not use ROS ROS Narrative Admission Review of Systems: CONSTITUTIONAL: No weight loss, fever, chills, + weakness or fatigue. HEENT: Eyes: No visual loss, blurred vision, double vision or yellow sclerae. Ears, Nose, Throat: No hearing loss, sneezing, congestion, runny nose or sore throat. SKIN: No rash or itching, lesions, wounds. CARDIOVASCULAR: No chest pain, chest pressure or chest discomfort, palpitations, edema, orthopnea, syncopal events. RESPIRATORY: + Notable shortness of breath, cough with productive sputum, wheezing. No hemoptysis. GASTROINTESTINAL: + anorexia. No nausea, vomiting or diarrhea, abdominal pain, melena, BRBPR. GENITOURINARY: No dysuria, frequency, urgency or retention. NEUROLOGICAL: No headache, dizziness, syncope, paralysis, ataxia, numbness or tingling in the extremities, focal weakness, change in bowel or bladder control, seizure. MUSCULOSKELETAL: + muscle, back pain, joint pain or stiffness. HEMATOLOGIC: + bleeding or bruising. LYMPHATICS: No enlarged nodes. No history of splenectomy. PSYCHIATRIC: No history of depression or anxiety. ENDOCRINOLOGIC: No reports of sweating, cold or heat intolerance. No polyuria or polydipsia. ALLERGIES: + History of rhinitis. Vital Signs Vital Signs Vital Signs: 01/16/23 19:07 01/16/23 19:36 01/16/23 19:10 Temperature 99 F 99 F Temperature Source Temporal Temporal Pulse Rate 144 H 134 H Respiratory Rate 22 H 23 H Respiratory Effort Respiratory Depth Respiratory Pattern Blood Pressure 138/91 H 122/89 H Blood Pressure Mean 106 100 Pulse Ox 90 94 Oxygen Delivery Method Nasal Cannula Nasal Cannula Nasal Cannula Oxygen Flow Rate (L/min) 3 3 3 01/16/23 20:07 01/16/23 20:10 01/16/23 20:00 Temperature 99.2 F H Temperature Source Oral Pulse Rate 136 H 135 H Respiratory Rate 23 H 23 H Respiratory Effort Short of Breath Labored Accessory Muscle Use Respiratory Depth Deep Respiratory Pattern Tachypnea Blood Pressure 138/82 H 125/90 H Blood Pressure Mean 100 101 Pulse Ox 93 94 Oxygen Delivery Method Nasal Cannula Nasal Cannula Nasal Cannula Oxygen Flow Rate (L/min) 3 4 3 01/16/23 19:49 01/16/23 20:30 01/16/23 20:40 Temperature Temperature Source Pulse Rate 131 H 141 H 137 H Respiratory Rate 24 H 29 H 17 Respiratory Effort Respiratory Depth Respiratory Pattern Tachypnea Blood Pressure 165/145 H Blood Pressure Mean 154 Pulse Ox 93 Oxygen Delivery Method Oxygen Flow Rate (L/min) 01/16/23 20:45 01/16/23 21:00 01/16/23 21:10 Temperature Temperature Source Pulse Rate 138 H 135 H Respiratory Rate 21 H 28 H Respiratory Effort Respiratory Depth Respiratory Pattern Blood Pressure 123/81 H 133/77 H Blood Pressure Mean 93 93 Pulse Ox 94 92 90 Oxygen Delivery Method Nasal Cannula Oxygen Flow Rate (L/min) 01/16/23 21:15 01/16/23 21:20 01/16/23 21:30 Temperature Temperature Source Pulse Rate 135 H 139 H 135 H Respiratory Rate 25 H 21 H 24 H Respiratory Effort Respiratory Depth Respiratory Pattern Blood Pressure 130/78 H Blood Pressure Mean 94 Pulse Ox 93 89 92 Oxygen Delivery Method Nasal Cannula Nasal Cannula Nasal Cannula Oxygen Flow Rate (L/min) 3 3 6 01/16/23 22:19 Temperature 98.4 F Temperature Source Oral Pulse Rate 128 H Respiratory Rate 28 H Respiratory Effort Respiratory Depth Respiratory Pattern Blood Pressure 124/83 H Blood Pressure Mean 96 Pulse Ox 94 Oxygen Delivery Method Nasal Cannula Oxygen Flow Rate (L/min) 6 Weight Weight: 122 lb 11.2 oz Body Mass Index (BMI) 18.6 Physical Exam Narrative Physical Examination: General: Awake, alert, oriented x 3 and cooperative, seated upright in the ED bed, fatigued, ongoing significant tachypnea, accessory muscle usage, belly breathing, fatigued, evidence of respiratory distress. Skin: Normal color, normal turgor, no icterus, no cyanosis except occasional staged ecchymoses/abrasion. HEENT: AT/NC, EOMI, PERRLA, dry MM, no carotid bruits or JVD noted. Lungs: Severely diffusely diminished with increased respiratory rate and accessory muscle usage, belly breathing, evidence of respiratory distress, no rales no rales, mildly rhonchorous left posterior base and mid region as well as laterally, and expiratory wheezing noted. Heart: Tachycardic with regular rhythm; no gallop, rub audible. Abdomen: Soft, cachectic appearing, NTTP, ND, distant normal BS, no HSM. Extremities: No cyanosis, clubbing, or edema. Neurological: Patient awake, alert, oriented as noted, cognitive function intact; pupils equally reactive to light and accommodation, cranial nerves II-XII grossly normal, moving all 4 extremities, no focal deficits, strength severely globally decreased secondary to acute presentation. Psychiatric: Affect appears fatigued, flat, evidence of respiratory distress as noted, no acute evidence of depressive or anxiety feelings. Results Lab / Micro Data 01/16/23 19:43 01/16/23 19:43 Labs: Laboratory Results - last 24 hr 01/16/23 19:43: WBC 16.9 H, RBC 5.50, Hgb 16.1, Hct 50.1, MCV 91.1, MCH 29.3, MCHC 32.1, RDW Std Deviation 52.9 H, RDW Coeff of Debra 15.9 H, Plt Count 236, MPV 12.3 H, Immature Gran % (Auto) 0.800, Neut % (Auto) 88.9 H, Lymph % (Auto) 1.8 L, [place] % (Auto) 7.0, Eos % (Auto) 0.8, Baso % (Auto) 0.7, Absolute Neuts (auto) 15.1 H, Absolute Lymphs (auto) 0.30 L, Nucleated RBC % 0, Differential Comment SEE COMMENT, Platelet Estimate ADEQUATE, Anisocytosis RARE, Macrocytosis RARE, Ovalocytes RARE, PT 14.5, INR 1.1, APTT 31.9, D-Dimer Quant (PE/DVT) 1.59 H*, Sodium 129 L, Potassium 4.3, Chloride 95 L, Carbon Dioxide 24.0, Anion Gap 10, BUN 25 H, Creatinine 1.22, Estim Creat Clear Calc 44.35, Est GFR (MDRD) Af Amer 76, Est GFR (MDRD) Non-Af 62, BUN/Creatinine Ratio 20.5 H, Glucose 154 H, Lactic Acid 2.6 H*, Calcium 10.0, Total Bilirubin 0.70, AST 14 L, ALT 12 L, Alkaline Phosphatase 103, Troponin I High Sens 8, Total Protein 8.0, Albumin 2.9 L, Globulin 5.1 H, Albumin/Globulin Ratio 0.6 L 01/16/23 20:14: Urine Color Yellow, Urine Clarity Clear, Urine pH 6.0, Ur Specific [place] 1.020, Urine Protein 30 H, Urine Glucose (UA) Normal, Urine Ketones 15 H, Urine Occult Blood 10 H, Urine Nitrite Negative, Urine Bilirubin Negative, Urine Urobilinogen 1 H, Ur Leukocyte Esterase Negative, Urine RBC 0-5 SEEN, Urine WBC 0 SEEN, Ur Squamous Epith Cells 0 SEEN, Urine Bacteria 0 SEEN, Urine Mucus 0 SEEN Micro: Microbiology 01/16/23 19:50 Nasal Secretion SARS-CoV-2 & FLU Antigen (Rapid) - Final Radiology Impression Chest X-Ray 01/16/23 20:04 IMPRESSION: Airspace densities throughout the left lung most consistent with pneumonia. Severe COPD. Electronically Signed: Jorge L Conrad MD at 20:36 EDT Reading Location ID and State: [facility] / [place] , Service support , Chest CTA 01/16/23 20:41 IMPRESSION: No demonstrated pulmonary embolism or arterial dissection. Severe COPD. Extensive infiltrate of the left upper lobe consistent with pneumonia. There are 2 suspicious nodules of the right middle lobe, suggest follow-up in 6 months. Electronically Signed: Jorge L Conrad MD at 21:20 EDT , Assessment & Plan Assessment/Plan (1) Pneumonia: PLAN: Plan The patient is a 72 y/o M w/ PMHx: Hypertension, Severe End Stage COPD/Hx Agent [place] exposure with Chronic Hypoxic Respiratory Failure ( 3L NC), Chronic issues per records with recurrent epistaxis, Tobacco use, Former EtOH abuse (sober) who presents to the [facility] ED on 01/16/23 with history of difficulty breathing which has been worsening over the last several days with upon EMS arrival ability to only speak in 1-2 word sentences with oxygenation noted to be 84% on his home 3 L nasal cannula supplementation prompting ED evaluation. #1. Acute Sepsis secondary to Acute on Chronic Hypoxic Respiratory Failure secondary to L sided Pneumonia and concurrent Acute on Chronic COPD exacerbation with underlying Severe End Stage COPD/Hx [place] exposure w/ mild Lactic acidosis suspected secondary to primarily hypoxia rather than acute infection but certainly could be from infection: Will admit to PCU, will obtain ABG, given appearance currently will request BIPAP, once able transition to NC and maintain on oxygen with wean as tolerated to home 3L NC oxygen supplementation, continue ATC duonebs, PRN albuterol, maintain on IV Rocephin and Azithromycin w/ MRSA screen requested, HOB, IS parameters w/ requested sputum cultures, COVID PCR, full respiratory viral panel and urine antigens, LA trending per protocol. #2. Hyperglycemia: Admission glucose 154, likely stress response and recent steroid usage outpatient, will obtain hemoglobin A1c to be cautious however again suspect these are likely the etiology. #3. Severe protein calorie malnutrition: Evidenced by habitus, reduced BMI, muscle and fat loss secondary to underlying severe chronic COPD and debility, nutrition consulted for education and teaching as well as recommendations. #4. Tobacco Abuse: Encouraged cessation, inpatient consultation per RT, NR if desired. #5. Hypertension: Per current list on a regimen, BP normal range upon ED presentation, will have as needed IV hydralazine but if elevated above goal low threshold to add oral regimen if appropriate. #6. DVT prophylaxis: SCDs, will hold on chemoprophylaxis as patient has significant history of epistaxis and given higher flow oxygen needs at this point would be higher risk especially following review of his frequent ED visits. #7. CODE status: Patient does not have HCPOA or LW in place. Discussed a possible candidate who he would want to make decisions for him medically and he was unable to identify someone. Discussed CODE status at length including difference between FULL code, DNR-CCA and DNR-CC status. Following discussions about the differences in these status, requested Full Code. Discussed BIPAP and patient noted willingness to try and denied ever having used prior. Advanced Care Planning Face to Face Time: 16 minutes. Charges/Coding Visit Charges Inpatient E&M: 90784 Init Hosp L3 Procedures Hospitalists Procedures: 34716 Advncd Care Plan 30 Min
--- NOTE | 2023-01-16 22:55 | ED.VIS.DYS ---
HPI History of Present Illness Chief Complaint: Shortness of Breath Narrative Narrative: 72-year-old male presenting with shortness of breath. He states has been ongoing for couple of days. He denies fevers or chills but does feel like the left side of his chest is burning. He has history of COPD and has had pneumonia before. He is not having chest pain. He states he wears 3 L of oxygen at baseline. He also has sputum production. He states it is dark and thick. PFSH PFS Medical History Agent orange exposure COPD (chronic obstructive pulmonary disease) Hypertension Home Medications albuterol sulfate 90 mcg/actuation aerosol inhaler (Ventolin HFA) 2 puff inhalation Q6H PRN PRN Sob &/Or Wheezing 02/21/15 [History Last Taken Unknown] doxycycline hyclate 100 mg tablet 100 mg PO BID 01/16/23 [History Last Taken Unknown] prednisone 10 mg tablet 10 mg PO 01/16/23 [History Last Taken Unknown] Allergy/AdvReac Type Severity Reaction Status Date / Time Penicillins Allergy Unknown Verified 01/16/23 19:11 Social History Smoking Status: Current every day smoker tobacco type: cigarettes ROS ROS ED Constitutional Constitutional ED: Denies chills, fever(s) or sweats Eyes Eyes: Denies blurry vision or change in vision ENT ENT ED: Denies ear pain or sore throat Cardiovascular Cardiovascular: Reports racing heartbeat; Denies chest pain or palpitations Respiratory/Chest Respiratory/Chest: Reports cough and dyspnea; Denies sputum Gastrointestinal Gastrointestinal: Denies abdominal pain, constipation, diarrhea, nausea or vomiting Genitourinary Genitourinary ED: Denies dysuria, hematuria or urinary frequency Musculoskeletal Musculoskeletal: Denies arthralgias, myalgias or neck pain Integumentary Denies abscess, Abrasions or rash Neurologic Neurologic: Denies headache(s), paresthesias or weakness Psychiatric Psychiatric: Denies anxiety, depression, suicidal ideation or suicidal thoughts Endocrine Endocrinology: Denies polydipsia or polyuria EXAM Physical Exam Const Vital Signs: 01/16/23 19:07 01/16/23 19:36 01/16/23 19:10 Temperature 99 F 99 F Temperature Source Temporal Temporal Pulse Rate 144 H 134 H Respiratory Rate 22 H 23 H Respiratory Effort Respiratory Depth Respiratory Pattern Blood Pressure 138/91 H 122/89 H Blood Pressure Mean 106 100 Pulse Ox 90 94 Oxygen Delivery Method Nasal Cannula Nasal Cannula Nasal Cannula Oxygen Flow Rate (L/min) 3 3 3 01/16/23 20:07 01/16/23 20:10 01/16/23 20:00 Temperature 99.2 F H Temperature Source Oral Pulse Rate 136 H 135 H Respiratory Rate 23 H 23 H Respiratory Effort Short of Breath Labored Accessory Muscle Use Respiratory Depth Deep Respiratory Pattern Tachypnea Blood Pressure 138/82 H 125/90 H Blood Pressure Mean 100 101 Pulse Ox 93 94 Oxygen Delivery Method Nasal Cannula Nasal Cannula Nasal Cannula Oxygen Flow Rate (L/min) 3 4 3 01/16/23 19:49 01/16/23 20:30 01/16/23 20:40 Temperature Temperature Source Pulse Rate 131 H 141 H 137 H Respiratory Rate 24 H 29 H 17 Respiratory Effort Respiratory Depth Respiratory Pattern Tachypnea Blood Pressure 165/145 H Blood Pressure Mean 154 Pulse Ox 93 Oxygen Delivery Method Oxygen Flow Rate (L/min) 01/16/23 20:45 01/16/23 21:00 01/16/23 21:10 Temperature Temperature Source Pulse Rate 138 H 135 H Respiratory Rate 21 H 28 H Respiratory Effort Respiratory Depth Respiratory Pattern Blood Pressure 123/81 H 133/77 H Blood Pressure Mean 93 93 Pulse Ox 94 92 90 Oxygen Delivery Method Nasal Cannula Oxygen Flow Rate (L/min) 01/16/23 21:15 01/16/23 21:20 01/16/23 21:30 Temperature Temperature Source Pulse Rate 135 H 139 H 135 H Respiratory Rate 25 H 21 H 24 H Respiratory Effort Respiratory Depth Respiratory Pattern Blood Pressure 130/78 H Blood Pressure Mean 94 Pulse Ox 93 89 92 Oxygen Delivery Method Nasal Cannula Nasal Cannula Nasal Cannula Oxygen Flow Rate (L/min) 3 3 6 01/16/23 22:19 Temperature 98.4 F Temperature Source Oral Pulse Rate 128 H Respiratory Rate 28 H Respiratory Effort Respiratory Depth Respiratory Pattern Blood Pressure 124/83 H Blood Pressure Mean 96 Pulse Ox 94 Oxygen Delivery Method Nasal Cannula Oxygen Flow Rate (L/min) 6 MDM MDM MDM Narrative Medical decision making narrative: Patient presented with tachycardia and shortness of breath. Given his hypoxia and tachycardia sepsis work-up was initiated. Patient given 2 L of IV fluids. EKG was obtained which shows a sinus tachycardia at a rate of 139 bpm with occasional PVCs on my interpretation. There is a right bundle branch block as well. Chest x-ray on my interpretation shows sided pneumonia. Patient given Rocephin and azithromycin. CBC shows a leukocytosis of 16.9. Hemoglobin stable at 16.1. Platelets 236. LFTs are unremarkable. Glucose 154 without anion gap. Sodium slightly low at 129 and chloride is low at 95. Lactic acid returned at 2.6. Urinalysis negative for infection. Patient given an additional liter of fluids to get his heart rate down as he is in sinus tachycardia. Repeat EKG was obtained and this shows a sinus rhythm at 129 bpm without sign of ischemic change on my interpretation. D-dimer was elevated so CTA of the chest was performed which shows some right-sided lung nodules which the patient was aware of. It also shows diffuse left upper lobe pneumonia. Discussed with hospitalist for admission. Impression: 1. Sepsis 2. Community-acquired pneumonia 3. Tachycardia 4. Dehydration 5. Lung nodules Lab Data Attestation: I reviewed the patient's lab results. Labs: Laboratory Results - last 24 hr 01/16/23 01/16/23 19:43 20:14 WBC 16.9 H RBC 5.50 Hgb 16.1 Hct 50.1 MCV 91.1 MCH 29.3 MCHC 32.1 RDW Std Deviation 52.9 H RDW Coeff of Debra 15.9 H Plt Count 236 MPV 12.3 H Immature Gran % (Auto) 0.800 Neut % (Auto) 88.9 H Lymph % (Auto) 1.8 L [place] % (Auto) 7.0 Eos % (Auto) 0.8 Baso % (Auto) 0.7 Absolute Neuts (auto) 15.1 H Absolute Lymphs (auto) 0.30 L Nucleated RBC % 0 Differential Comment SEE COMMENT Platelet Estimate ADEQUATE Anisocytosis RARE Macrocytosis RARE Ovalocytes RARE PT 14.5 INR 1.1 APTT 31.9 D-Dimer Quant (PE/DVT) 1.59 H* Sodium 129 L Potassium 4.3 Chloride 95 L Carbon Dioxide 24.0 Anion Gap 10 BUN 25 H Creatinine 1.22 Estim Creat Clear Calc 44.35 Est GFR (MDRD) Af Amer 76 Est GFR (MDRD) Non-Af 62 BUN/Creatinine Ratio 20.5 H Glucose 154 H Lactic Acid 2.6 H* Calcium 10.0 Total Bilirubin 0.70 AST 14 L ALT 12 L Alkaline Phosphatase 103 Troponin I High Sens 8 Total Protein 8.0 Albumin 2.9 L Globulin 5.1 H Albumin/Globulin Ratio 0.6 L Urine Color Yellow Urine Clarity Clear Urine pH 6.0 Ur Specific [place] 1.020 Urine Protein 30 H Urine Glucose (UA) Normal Urine Ketones 15 H Urine Occult Blood 10 H Urine Nitrite Negative Urine Bilirubin Negative Urine Urobilinogen 1 H Ur Leukocyte Esterase Negative Urine RBC 0-5 SEEN Urine WBC 0 SEEN Ur Squamous Epith Cells 0 SEEN Urine Bacteria 0 SEEN Urine Mucus 0 SEEN Radiography Diagnostic Testing: Clinical Impression(s) from Imaging Studies Chest X-Ray 01/16/23 20:04 IMPRESSION: Airspace densities throughout the left lung most consistent with pneumonia. Severe COPD. Electronically Signed: Jorge L Conrad MD at 20:36 EDT , Chest CTA 01/16/23 20:41 IMPRESSION: No demonstrated pulmonary embolism or arterial dissection. Severe COPD. Extensive infiltrate of the left upper lobe consistent with pneumonia. There are 2 suspicious nodules of the right middle lobe, suggest follow-up in 6 months. Electronically Signed: Jorge L Conrad MD at 21:20 EDT , Discharge Plan Triage Chief Complaint: Shortness of Breath ED Provider: Erwin Higuera Dx/Rx/DC Orders Prescriptions: No Action albuterol sulfate [Ventolin HFA] 1 INHALER inhaler 2 puff inhalation Q6H PRN PRN (Reason: Sob &/Or Wheezing) doxycycline hyclate 100 mg tablet 100 mg PO BID Patient Comments: Take 1 tablet by mouth twice daily for 7 days. prednisone 10 mg tablet 10 mg PO Patient Comments: Take 4 tabs daily for 3 days, then 2 tabs daily for 3 days, then 1 tab daily for 3 days with food. [facility] Provider[place] [facility] Referrals: [place] [Primary Care Provider] -
[2023-01-16 23:43] LABS: Magnesium 2.2 mg/dL (1.6-2.6); Phosphorus 2.1 mg/dL (2.5-4.9)
[2023-01-16 23:52] LABS: Reflex Lactate? Y
[2023-01-17] VITALS (25 sets, daily range): BP systolic 91–140; BP diastolic 58–106; PULSE 113–145; RESP 12–29; TEMP 36.4–36.7; O2SAT 92–99; BMI 18.4; BMI 18.8
[2023-01-17] MEDS: Ipratropium/Albuterol Sulfate 3 ML AMPUL.NEB INHALATION ×4 (01:00→19:23)
[2023-01-17] MEDS: 0.9% Normal Saline (1000mL) 1,000 ML 100 ML IV (01:13)
[2023-01-17] MEDS: guaiFENesin 1,200 MG Tablet 1200 MG PO ×3 (01:24→22:16)
[2023-01-17 01:30] LABS: Lactic Acid 2.1 mmol/L (0.4-1.9)
[2023-01-17 01:36] LABS: Procalcitonin 5.19 ng/mL (0.00-0.09)
[2023-01-17] MEDS: 0.9% Saline Lock 10 ML Syringe IV ×2 (01:50→15:53)
[2023-01-17 06:20] LABS: Allen Test Positive; Base Excess -4 mmol/L (-2 to +2); Bicarbonate 22.1 mmol/L (22-26); Blood Gas Specimen Type ART; O2 Delivery Device Cannula; PO2 77 mmHG (75-100); SITE R Radial; SO2 94 % (95-99); Total Carbon Dioxide 23 mmol/L; pCO2 43.1 mmHg (35-45); pH 7.32 (7.35-7.45)
[2023-01-17 06:34] LABS: Absolute Lymphocyte Count 0.29 X10^3/uL (0.83-4.51); Absolute Neutrophil Count 9.8 X10^3/uL (2.0-7.7); Basophil# 0.04 X10^3/uL; Basophil% 0.3 % (0-1); Eosinophil# 0.44 X10^3/uL; Eosinophils% 3.7 % (0-5); Hemoglobin 14.1 g/dL (13.0-16.5); Lymphocyte # 0.29 X10^3/ul (0.83-4.51); Lymphocyte % 2.5 % (19-41); Mean Corpuscular Hgb 29.4 pg (27.0-32.0); Mean Corpuscular Volume 91.7 fL (80-94); Mean Platelet Vol. 11.4 fl (6.2-12.0); Monocyte# 1.14 X10^3/uL; Monocyte% 9.7 % (0-10); NRBC Flagged by Analyzer 0 % (0-5); Neutrophil # 9.82 X10^3/uL (2.7-7.7); Neutrophil % 83.3 % (47-70); POSITIVE DIFFERENTIAL YES; Platelet Count 187 K/mm3 (150-450); RBC Distribution Width CV 15.9 % (11.6-14.6); RBC Distribution Width SD 54.2 fl (35.1-43.9); White Blood Count 11.8 K/mm3 (4.4-11.0)
[2023-01-17 06:42] LABS: Differential Indicated SCAN CRITERIA MET
[2023-01-17 07:10] LABS: Differential Comment SCANNED
[2023-01-17 07:14] LABS: ALB/GLOB Ratio 0.5 RATIO (0.9-2.4); AST(SGOT) 15 U/L (15-37); Alanine Aminotransfer ALT/SGPT 10 U/L (16-61); Albumin, Serum 2.1 g/dL (3.2-5.0); Alkaline Phosphatase 79 U/L (45-117); Anion Gap 7 (5-15); BUN 16 mg/dL (7-18); BUN/Creat Ratio 23.5 RATIO (10-20); Calcium,Total 8.7 mg/dL (8.5-10.1); Chloride 107 mmol/L (98-107); Creatinine, Serum 0.68 mg/dL (0.70-1.30); EST Glomerular Filtration Rate 122 mL/min (>60); Est Glom Filt Rate - Afr Amer 148 mL/min (>60); Estimated Creatinine Clearance 54.54 ml/min; Glucose 120 mg/dL (74-106); Potassium 3.7 mmol/L (3.5-5.1); Protein, Total 6.1 g/dL (6.4-8.2); Sodium Level 135 mmol/L (136-145)
--- NOTE | 2023-01-17 07:41 | PN.HOSP_ITS ---
Reason for Visit Reason for Visit: Diagnoses Pneumonia, unspecified organism (01/16/23) Objective Data Objective Data Vital Signs: Vital Signs Temp Pulse Resp BP Pulse Ox O2 Del Method O2 Flow Rate 97.6 F L 115 H 24 H 115/74 97 High Flow 8 01/17/23 01:00 01/17/23 06:00 01/17/23 06:00 01/17/23 06:00 01/17/23 06:00 01/17/23 06:00 01/17/23 06:00 FiO2 60 01/17/23 03:40 Oxygen Flow Rate (L/min) 8 Oxygen Delivery Method High Flow Weight: 123 lb 10.869 oz Body Mass Index (BMI) 18.8 Intake & Output: Intake and Output for Last 24 Hours 01/15/23 01/16/23 01/17/23 23:59 23:59 23:59 Intake Total 3305 / 3305 Output Total 150 / 150 Balance 3305 / 3305 -150 / -150 Lab / Micro Data 01/17/23 06:20 01/17/23 06:20 Labs: Laboratory Results - last 24 hr 01/16/23 19:43: WBC 16.9 H, RBC 5.50, Hgb 16.1, Hct 50.1, MCV 91.1, MCH 29.3, MCHC 32.1, RDW Std Deviation 52.9 H, RDW Coeff of Debra 15.9 H, Plt Count 236, MPV 12.3 H, Immature Gran % (Auto) 0.800, Neut % (Auto) 88.9 H, Lymph % (Auto) 1.8 L , [place] % (Auto) 7.0, Eos % (Auto) 0.8, Baso % (Auto) 0.7, Absolute Neuts (auto) 15.1 H, Absolute Lymphs (auto) 0.30 L, Nucleated RBC % 0, Differential Comment SEE COMMENT, Platelet Estimate ADEQUATE, Anisocytosis RARE, Macrocytosis RARE, Ovalocytes RARE, PT 14.5, INR 1.1, APTT 31.9, D-Dimer Quant (PE/DVT) 1.59 H*, Sodium 129 L, Potassium 4.3, Chloride 95 L, Carbon Dioxide 24.0, Anion Gap 10, BUN 25 H, Creatinine 1.22, Estim Creat Clear Calc 44.35, Est GFR (MDRD) Af Amer 76, Est GFR (MDRD) Non-Af 62, BUN/Creatinine Ratio 20.5 H, Glucose 154 H, Lactic Acid 2.6 H*, Calcium 10.0, Phosphorus 2.1 L, Magnesium 2.2, Total Bilirubin 0.70, AST 14 L, ALT 12 L, Alkaline Phosphatase 103, Troponin I High Sens 8, Total Protein 8.0, Albumin 2.9 L, Globulin 5.1 H, Albumin/Globulin Ratio 0.6 L 01/16/23 20:14: Urine Color Yellow, Urine Clarity Clear, Urine pH 6.0, Ur Specific [place] 1.020, Urine Protein 30 H, Urine Glucose (UA) Normal, Urine Ketones 15 H, Urine Occult Blood 10 H, Urine Nitrite Negative, Urine Bilirubin Negative, Urine Urobilinogen 1 H, Ur Leukocyte Esterase Negative, Urine RBC 0-5 SEEN, Urine WBC 0 SEEN, Ur Squamous Epith Cells 0 SEEN, Urine Bacteria 0 SEEN, Urine Mucus 0 SEEN 01/17/23 00:50: Lactic Acid 2.1 H*, Procalcitonin 5.19 H 01/17/23 06:20: WBC 11.8 H, RBC 4.80, Hgb 14.1, Hct 44.0, MCV 91.7, MCH 29.4, MCHC 32.0, RDW Std Deviation 54.2 H, RDW Coeff of Debra 15.9 H, Plt Count 187, MPV 11.4, Immature Gran % (Auto) 0.500, Neut % (Auto) 83.3 H, Lymph % (Auto) 2.5 L, [place] % (Auto) 9.7, Eos % (Auto) 3.7, Baso % (Auto) 0.3, Absolute Neuts (auto) 9.8 H, Absolute Lymphs (auto) 0.29 L, Nucleated RBC % 0, Differential Comment SCANNED Sodium 135 L, Potassium 3.7, Chloride 107, Carbon Dioxide 21.0, Anion Gap 7, BUN 16, Creatinine 0.68 L, Estim Creat Clear Calc 54.54, Est GFR (MDRD) Af Amer 148, Est GFR (MDRD) Non-Af 122, BUN/Creatinine Ratio 23.5 H, Glucose 120 H, Calcium 8.7, Total Bilirubin 0.40, AST 15, ALT 10 L, Alkaline Phosphatase 79, Total Protein 6.1 L, Albumin 2.1 L, Globulin 4.0, Albumin/Globulin Ratio 0.5 L Micro: Microbiology 01/17/23 00:45 Mucosa - Nasopharyngeal Coronavirus COVID-19 PCR - Final 01/16/23 00:45 Mucosa - Nasopharyngeal Respiratory Panel (PCR) - Final 01/17/23 00:27 Urine, Random Legionella Antigen - Final 01/17/23 00:27 Urine, Random Streptococcus pneumoniae Antigen (M - Final 01/16/23 19:50 Nasal Secretion SARS-CoV-2 & FLU Antigen (Rapid) - Final ABG Data ABG results: ABG 01/17/23 06:16 Specimen Type ART Sample Site R Radial pH 7.32 L Bicarbonate Actual 22.1 Total CO2 23 Base Excess -4 L O2 Saturation 94 L ABG pCO2 43.1 ABG pO2 77 Lino Test Positive O2 Delivery Device Cannula Liter Flow 8.0 Radiography Diagnostic Testing: Radiology Impression Chest X-Ray 01/16/23 20:04 IMPRESSION: Airspace densities throughout the left lung most consistent with pneumonia. Severe COPD. Electronically Signed: Jorge L Conrad MD at 20:36 EDT , Chest CTA 01/16/23 20:41 IMPRESSION: No demonstrated pulmonary embolism or arterial dissection. Severe COPD. Extensive infiltrate of the left upper lobe consistent with pneumonia. There are 2 suspicious nodules of the right middle lobe, suggest follow-up in 6 months. Electronically Signed: Jorge L Conrad MD at 21:20 EDT , Physical Exam Narrative Seen and examined. Patient has mild to minimal dyspnea on exertion progressively worsening for 5 years. For last several days patient got very short of breath with brownish sputum production and left-sided pleuritic chest pain. Chest pain has much improved. History of COPD and pneumonia before. Wears 2 L of home oxygen at baseline. Denies chronic heart disease including CAD or CHF Physical exam General: Alert, Oriented x3, Cooperative HEENT: Atraumatic, PERRLA, EOMI, Normocephalic Oral: Oral mucosa dry. No Gingival or Mucosal Lesions/ Ulcerations Neck: Supple, No JVD, Negative Carotid Bruits Lungs: Air entry severely diminished. Bilateral coarse rhonchi predominant left side with pleural rub. Severe hypoxia and tachypnea. Cardiovascular: Sinus tachycardia, Normal S1, Normal S2, No murmurs Abdomen: Bowel Sounds Present, Soft, Non Tender, Non-Distended : No renal angle tenderness. No suprapubic tenderness. Extremities: No edema, Capillary Refill Less than 3 Seconds Skin: Dry skin with fine scales Musculoskeletal: No Tenderness to Palpation of Joints or Extremities. Moderate muscle atrophy of extremities, vertebral and chest muscles Neurological: Cranial nerves II-XII grossly intact, DTR 2+/4. No acute focal neurological deficit. Psych/Mental Status: Normal Affect, Appropriate. Assessment & Plan Assessment/Plan (1) Pneumonia: PLAN: Plan The patient is a 72 y/o M brought to ED by EMS for shortness of breath for several days, speaking 1-2 words, hypoxia 84% on 3 L of home oxygen. #1. Acute Sepsis secondary to Acute on Chronic Hypoxic Respiratory Failure due to COPD exacerbation from left-sided pneumonia with end-stage COPD, chronic scarring/bronchiectasis or any exposure: Patient is being admitted in PCU. The patient presented with sepsis with clinical indicators of tachycardia, tachypnea, dyspnea, severe hypoxia requiring 12 L of oxygen due to left-sided pneumonia with acute sepsis-related organ dysfunction as evidenced by acute on chronic hypoxic respiratory failure and lactic acidosis and high procalcitonin. Chest x-ray individually reviewed and shows left upper lobe dense alveolar opacity and lower lobe with infiltrate. Severe hyperexpansion and COPD. Stable scarring over right upper lobe. CTPA individually reviewed. No PE but severe COPD with extensive infiltrate of left upper lobe. Cobweb appearance/traction bronchiectasis left upper lobe with blebs consistent right upper lobe. 2 suspicious nodule in right middle lobes suggesting follow-up in 6 months. Press Pipe Inspector/director product development consulted Respiratory panel negative. COVID-19 PCR and urinary antigens are negative. Patient on IV Solu-Medrol, bronchodilator, incentive spirometry and Pep. IV c eftriaxone and Zithromax.Clinically patient looks better with improvement in shortness of breath. He follows [facility] director product development. #2. Hyperglycemia: Admission glucose 154, likely stressresponse and steroid. A1c 6.1% suggestive of prediabetes. #3. 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 #4. Tobacco Abuse: Encouraged cessation, inpatient consultation per RT, NR if desired. #5. Hypertension: BP 123/70. #6. DVT prophylaxis: SCDs, will hold on chemoprophylaxis as patient has significant history of epistaxis and given higher flow oxygen needs at this point would be higher risk especially following review of his frequent ED visits. #7. CODE status: Patient does not have HCPOA or LW in place. Discussed a possible candidate who he would want to make decisions for him medically and he was unable to identify someone. Discussed CODE status at length including difference between FULL code, DNR-CCA and DNR-CC status. Following discussions about the differences in these status, requested Full Code. Discussed BIPAP and patient noted willingness to try and denied ever having used prior. Charges/Coding Addendum Addendum: Total time of the visit including total time spent in counseling or coordination of care, (more than 50% of the total time, spent in obtaining medical informatio n from nurses and other ancillary care providers,explaining to the patient about labs, imaging, diagnosis and management of active complex medical conditions), , review of labs and imaging and discussion with director product development is 45 minutes. Visit Charges Inpatient E&M: 78875 Subs Hosp L3
[2023-01-17 08:00] LABS: Hemoglobin A1c 6.1 % (3.8-5.6)
[2023-01-17] MEDS: Multivitamins,Ther W-Minerals Tablet 1 TABLET PO (08:39)
--- NOTE | 2023-01-17 12:24 | CON.PCM.CC_ITS ---
Assessment & Plan Assessment/Plan (1) CAP (community acquired pneumonia): QUALIFIERS: Laterality: left Lung location: upper lobe of lung Qualified Code(s): J18.9 - Pneumonia, unspecified organism (2) COPD exacerbation: (3) Acute and chronic respiratory failure with hypoxia: (4) Agent orange exposure: (5) Tobacco use: PLAN: Plan * Chest CT done on this admission showing new findings in left upper lobe. Given recent CT chest in October with no findings on left upper lung, the patient's current presentation these changes are most likely related to an infectious process. The right upper lobe scar seen on right lung in October and appears to be improving. Nodules in the right middle lobe appear to be stable from October 2022. However given his history patient remains high risk and would recommend repeat CT scan in 6 to 8 weeks to ensure resolution and further evaluation of nodules in right middle lobe. This was discussed with the patient and he is agreeable and verbalized understanding * Continue current antibiotic regimen. Legionella is negative however continue azithromycin due to its antiinflammatory properties COPD exacerbation. He will need 5-7 days of antibiotics. Follow-up sputum culture * Continue Solu-Medrol 40 every 8 and as needed DuoNebs * Wean oxygen as tolerated * Patient was counseled about the importance of smoking cessation HPI Consult Data Date of Consult: 01/17/23 HPI Narrative HPI Narrative: GARY LIU, is a 72 M with past medical history of lifelong tobacco use, end- stage COPD, chronic hypoxic respiratory failure on 3 L of oxygen at home, and hypertension. Patient presented with worsening shortness of breath and cough productive of sputum. He reports that he has not been feeling well for the past couple of weeks. He also reports that he had seen his junior assistant manager at the [employer] and was given oral antibiotics a few weeks ago. He started to feel better but then felt worse again. He reported that he noted desaturation at home on his 3 L of oxygen as low as 74%. He continues to smoke. Patient underwent CTA scan of his chest which was negative for PE however showed infiltrate involving left upper lung and nodules in the right lung. Patient reports that he is aware of right lung nodules and that his junior assistant manager at the [employer] has been following them. [facility] Medical History Agent orange exposure Chronic respiratory failure with hypoxia COPD (chronic obstructive pulmonary disease) Hypertension Tobacco use Home Medications albuterol sulfate 90 mcg/actuation aerosol inhaler (Ventolin HFA) 2 puff inh alation Q6H PRN PRN Sob &/Or Wheezing 02/21/15 [History Last Taken Unknown] doxycycline hyclate 100 mg tablet 100 mg PO BID 01/16/23 [History Last Taken Unknown] prednisone 10 mg tablet 20 mg PO BID infection 01/16/23 [History Last Taken 01/16/23 40 mg] Allergy/AdvReac Type Severity Reaction Status Date / Time Penicillins Allergy Unknown Verified 01/16/23 19:11 Family History Mother CAD (coronary artery disease) Heart disease Hypertension Myocardial infarction Father Hypertension Brain aneurysm Surgical History No history of previous surgery Surgical History no surgical history Social History household members: none Smoking Status: Current every day smoker tobacco type: cigarettes Smokeless tobacco user: other alcohol intake: former details: Sober x 16 years. substance use type: does not use ROS ROS Narrative Negative except as mentioned above in HPI Physical Exam Narrative General alert oriented in no acute distress HEENT. Normocephalic atraumatic, pupils equal and reactive Respiratory reduced air entry bilaterally, mild end expiratory wheeze, no crackles Cardiac S1-S2, regular rate and rhythm GI abdomen soft and nontender MSK no lower extremity edema Skin no rashes Neuro moves all extremities, no dysarthria, no facial droop Medical Records Data Attestation: I reviewed the patient's medical records Lab / Micro Data Attestation: I reviewed the patient's lab results. 01/17/23 06:20 01/17/23 06:20 Labs: Laboratory Results - last 24 hr 01/16/23 19:43: WBC 16.9 H, RBC 5.50, Hgb 16.1, Hct 50.1, MCV 91.1, MCH 29.3, MCHC 32.1, RDW Std Deviation 52.9 H, RDW Coeff of Debra 15.9 H, Plt Count 236, MPV 12.3 H, Immature Gran % (Auto) 0.800, Neut % (Auto) 88.9 H, Lymph % (Auto) 1.8 L , [place] % (Auto) 7.0, Eos % (Auto) 0.8, Baso % (Auto) 0.7, Absolute Neuts (auto) 15.1 H, Absolute Lymphs (auto) 0.30 L, Nucleated RBC % 0, Differential Comment SEE COMMENT, Platelet Estimate ADEQUATE, Anisocytosis RARE, Macrocytosis RARE, Ovalocytes RARE, PT 14.5, INR 1.1, APTT 31.9, D-Dimer Quant (PE/DVT) 1.59 H*, Sodium 129 L, Potassium 4.3, Chloride 95 L, Carbon Dioxide 24.0, Anion Gap 10, BUN 25 H, Creatinine 1.22, Estim Creat Clear Calc 44.35, Est GFR (MDRD) Af Amer 76, Est GFR (MDRD) Non-Af 62, BUN/Creatinine Ratio 20.5 H, Glucose 154 H, Lactic Acid 2.6 H*, Calcium 10.0, Phosphorus 2.1 L, Magnesium 2.2, Total Bilirubin 0.70, AST 14 L, ALT 12 L, Alkaline Phosphatase 103, Troponin I High Sens 8, Tot al Protein 8.0, Albumin 2.9 L, Globulin 5.1 H, Albumin/Globulin Ratio 0.6 L 01/16/23 20:14: Urine Color Yellow, Urine Clarity Clear, Urine pH 6.0, Ur Specific [place] 1.020, Urine Protein 30 H, Urine Glucose (UA) Normal, Urine Ketones 15 H, Urine Occult Blood 10 H, Urine Nitrite Negative, Urine Bilirubin Negative, Urine Urobilinogen 1 H, Ur Leukocyte Esterase Negative, Urine RBC 0-5 SEEN, Urine WBC 0 SEEN, Ur Squamous Epith Cells 0 SEEN, Urine Bacteria 0 SEEN, Urine Mucus 0 SEEN 01/17/23 00:50: Lactic Acid 2.1 H*, Procalcitonin 5.19 H 01/17/23 06:20: WBC 11.8 H, RBC 4.80, Hgb 14.1, Hct 44.0, MCV 91.7, MCH 29.4, MCHC 32.0, RDW Std Deviation 54.2 H, RDW Coeff of Debra 15.9 H, Plt Count 187, MPV 11.4, Immature Gran % (Auto) 0.500, Neut % (Auto) 83.3 H, Lymph % (Auto) 2.5 L, [place] % (Auto) 9.7, Eos % (Auto) 3.7, Baso % (Auto) 0.3, Absolute Neuts (auto) 9.8 H, Absolute Lymphs (auto) 0.29 L, Nucleated RBC % 0, Differential Comment SCANNED, Sodium 135 L, Potassium 3.7, Chloride 107, Carbon Dioxide 21.0, Anion Gap 7, BUN 16, Creatinine 0.68 L, Estim Creat Clear Calc 54.54, Est GFR (MDRD) Af Amer 148, Est GFR (MDRD) Non-Af 122, BUN/Creatinine Ratio 23.5 H, Glucose 120 H, Hemoglobin A1c 6.1 H, Calcium 8.7, Total Bilirubin 0.40, AST 15, ALT 10 L, Alkaline Phosphatase 79, Total Protein 6.1 L, Albumin 2.1 L, Globulin 4.0, Albumin/Globulin Ratio 0.5 L Micro: Microbiology 01/17/23 00:45 Mucosa - Nasopharyngeal Coronavirus COVID-19 PCR - Final 01/16/23 00:45 Mucosa - Nasopharyngeal Respiratory Panel (PCR) - Final 01/17/23 00:27 Urine, Random Legionella Antigen - Final 01/17/23 00:27 Urine, Random Streptococcus pneumoniae Antigen (M - Final 01/16/23 19:50 Nasal Secretion SARS-CoV-2 & FLU Antigen (Rapid) - Final ABG Data ABG results: ABG 01/17/23 06:16 Specimen Type ART Sample Site R Radial pH 7.32 L Bicarbonate Actual 22.1 Total CO2 23 Base Excess -4 L O2 Saturation 94 L ABG pCO2 43.1 ABG pO2 77 Lino Test Positive O2 Delivery Device Cannula Liter Flow 8.0 Radiology Impression Chest X-Ray 01/16/23 20:04 IMPRESSION: Airspace densities throughout the left lung most consistent with pneumonia. Severe COPD. Electronically Signed: Jorge L Conrad MD at 20:36 EDT , Chest CTA 01/16/23 20:41 IMPRESSION: No demonstrated pulmonary embolism or arterial dissection. Severe COPD. Extensive infiltrate of the left upper lobe consistent with pneumonia. There are 2 suspicious nodules of the right middle lobe, suggest follow-up in 6 months. Electronically Signed: Jorge L Conrad MD at 21:20 EDT , Charges/Coding Visit Charges Inpatient E&M: 31704 Init Hosp L3
--- NOTE | 2023-01-17 15:30 | CASEMGMT ---
RN?CM?ELECTRICAL TECH/PROJECT MANAGER?CM?to room to meet with patient for initial transition planning/care coordination?assessment.?RN?CM?introduced self and role at [facility].? Pt voices understanding and consents to?assessment?at this time.? Pt resting in bed in no distress at this time.? Pt is A/O at this time and answers all questions appropriately.?? Care providers, pharmacy, and demographics verified/updated at this time. 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 [place] for [place]term [place], MCR, [facility] [employer] Prescription Benefit:?Yes Living Will/HPOA:?Pt does not currently have LW/HCPOA and declines info at this time.? Pt made aware that he can contact as an out-pt and make appt in the future if he decides he would like to talk with someone about this or would like to utilize [facility] social work for advanced directive completion.? LNOK: No contacts listed on pt's chart. Pt states he has no one. Pt states his parents, siblings, aunts/uncles, and cousins have all and states he has no nieces and nephews. He states he has a son but has seen him since he was 7 yrs-old. He states his landlord is Sotero Baez who owns [employer] in [place] but he does not know his phone #. He states he does not want him contacted unless necessary. Pt states he has no friends he wants listed as emergency contact or anyone else. Living Arrangements: Lives alone in 1st-floor/one-story apartment w/no steps to enter. Pt is independent w/ADL's, IADL's, and manages his own medications. Transportation:?Pt states drives self and states no transportation concerns at this time.?He states he will be able to contact someone to take him home. Made aware, if unable to find transportation home, to let staff know. DME: States has the following DME:?shower chair, functioning glucometer w/supplies, pulse ox, nebulizer, and oxygen through [facility]. Pt states he wears 2-3 L/M continuous. Has a concentrator @ home and POC @ his home, but states does not have anyone that can get it from his home to bring to the hospital to go home on @ d/c. Pt states no need for further DME at this time.? HHC/SNF: No hx of either. Pt wishes to return home and denies need for HHC. He states he would like an aide to assist w/cleaning/home mgnt tasks. He has not checked the [facility] yet to see if he would qualify for this or not. RN CM advised him to inquire @ the [facility] about this. Pt wishes to return home and states has no concerns with going home at time of discharge.?CM?to follow for any increase in home oxygen needs and any further discharge planning/needs.? Pt voices no further concerns/needs at this time.? Advised pt to ask for?CM?if any further questions/concerns/needs arise.? Voices understanding. PLAN:??Home. Follow for any increase in home oxygen needs. [facility] to be contacted @ d/c to deliver portable O2 tank to [facility] for pt to go home on. Jose Antonio SIMMONSN?RN?CM
[2023-01-17] MEDS: Metoprolol Tartrate 25 MG Tablet PO (18:59)
[2023-01-17] MEDS: Albuterol 2.5 MG/3 ML VIAL.NEB. INHALATION (21:29)
[2023-01-17] MEDS: 0.9% Normal Saline (250mL Bag) 250 ML 15 ML IV (22:20)
[2023-01-17] MEDS: Ceftriaxone 1 GM/50 ML BAG IV (22:28)
[2023-01-17] MEDS: Azithromycin 500 MG in Dextrose 5%-Water (250mL Bag) 250 ML 250 MG IV (23:33)
[2023-01-18] VITALS (48 sets, daily range): BP systolic 61–164; BP diastolic 47–91; PULSE 21–128; RESP 14–95; TEMP 35.6–38.7; O2SAT 84–966; BMI 18.9
[2023-01-18] MEDS: 0.9% Saline Lock 10 ML Syringe IV ×2 (05:50→23:06)
[2023-01-18] MEDS: Metoprolol Tartrate 25 MG Tablet PO (06:29)
[2023-01-18] MEDS: Ipratropium/Albuterol Sulfate 3 ML AMPUL.NEB INHALATION ×5 (07:18→22:38)
--- NOTE | 2023-01-18 08:09 | PCM.PN.HOSP ---
Reason for Visit Reason for Visit: Diagnoses Pneumonia, unspecified organism (01/16/23) Chronic obstructive pulmonary disease with (acute) exacerbation (01/16/23) Acute and chronic respiratory failure with hypoxia (01/16/23) Tobacco use (01/16/23) Contact with and (suspected) exposure to other hazardous, chiefly nonmedicinal, chemicals (01/16/23) Objective Data Objective Data Vital Signs: Vital Signs Temp Pulse Resp BP Pulse Ox O2 Del Method O2 Flow Rate 96.1 F L 115 H 20 H 126/72 H 86 High Flow 10 01/18/23 08:04 01/18/23 08:04 01/18/23 08:04 01/18/23 08:04 01/18/23 08:04 01/18/23 08:04 01/18/23 08:04 FiO2 60 01/17/23 03:40 Oxygen Flow Rate (L/min) 10 Oxygen Delivery Method High Flow Weight: 124 lb 8.979 oz Body Mass Index (BMI) 18.9 Intake & Output: Intake and Output for Last 24 Hours 01/16/23 01/17/23 01/18/23 23:59 23:59 23:59 Intake Total 3305 / 3305 1470 / 1470 322.25 / 322.25 Output Total 1150 / 1150 150 / 150 Balance 3305 / 3305 320 / 320 172.25 / 172.25 Lab / Micro Data 01/17/23 06:20 01/17/23 06:20 Micro: Microbiology 01/17/23 00:45 Mucosa - Nasopharyngeal Coronavirus COVID-19 PCR - Final 01/16/23 00:45 Mucosa - Nasopharyngeal Respiratory Panel (PCR) - Final 01/17/23 00:27 Urine, Random Legionella Antigen - Final 01/17/23 00:27 Urine, Random Streptococcus pneumoniae Antigen (M - Final 01/16/23 19:50 Nasal Secretion SARS-CoV-2 & FLU Antigen (Rapid) - Final Physical Exam Narrative Seen and examined. Patient has been tachycardia in the evening it was about 120s, though due to respiratory failure. Patient also refusing to wear BiPAP therefore discussed with nursing staff for Airvo. In the morning is still very short of breath tachycardic and tachypneic, hypoxic 86% on 10 L of high flow oxygen therefore transferred to ICU Physical exam General: Alert, Oriented x3, Cooperative HEENT: Atraumatic, PERRLA, EOMI, Normocephalic Oral: Oral mucosa dry. No Gingival or Mucosal Lesions/ Ulcerations Neck: Supple, No JVD, Negative Carotid Bruits Lungs: Air entry severely diminished. Bilateral rhonchi predominant left side with pleural rub. Severe hypoxia and tachypnea. Cardiovascular: Sinus tachycardia, Normal S1, Normal S2, No murmurs Abdomen: Bowel Sounds Present, Soft, Non Tender, Non-Distended : No renal angle tenderness. No suprapubic tenderness. Extremities: No edema, Capillary Refill Less than 3 Seconds Skin: Dry skin with fine scales Musculoskeletal: No Tenderness to Palpation of Joints or Extremities. Moderate muscle atrophy of extremities, vertebral and chest muscles Neurological: Cranial nerves II-XII grossly intact, DTR 2+/4. No acute focal neurological deficit. Psych/Mental Status: Normal Affect, Appropriate. Assessment & Plan Assessment/Plan (1) Pneumonia: QUALIFIERS: Pneumonia type: due to unspecified organism Laterality: left Lung location: upper lobe of lung Qualified Code(s): J18.9 - Pneumonia, unspecified organism PLAN: Plan The patient is a 72 y/o M brought to ED by EMS for shortness of breath for several days, speaking 1-2 words, hypoxia 84% on 3 L of home oxygen. Patient has mild to minimal dyspnea on exertion progressively worsening for 5 years. For last several days patient got very short of breath with brownish sputum production and left-sided pleuritic chest pain. Chest pain has much improved. History of COPD and pneumonia before. Wears 2 L of home oxygen at baseline. Denies chronic heart disease including CAD or CHF #1. Acute Sepsis secondary to Acute on Chronic Hypoxic and hypercarbic respiratory Failure due to COPD exacerbation from left-sided pneumonia with end-stage COPD, chronic scarring/bronchiectasis or any exposure: Patient is being admitted in PCU. The patient presented with sepsis with clinical indicators of tachycardia, tachypnea, dyspnea, severe hypoxia requiring 12 L of oxygen due to left-sided pneumonia with acute sepsis-related organ dysfunction as evidenced by acute on chronic hypoxic respiratory failure and lactic acidosis and high procalcitonin. Chest x-ray individually reviewed and shows left upper lobe dense alveolar opacity and lower lobe with infiltrate. Severe hyperexpansion and COPD. Stable scarring over right upper lobe. CTPA individually reviewed. No PE but severe COPD with extensive infiltrate of left upper lobe. Cobweb appearance/traction bronchiectasis left upper lobe with blebs consistent right upper lobe. 2 suspicious nodule in right middle lobes suggesting follow-up in 6 months. Cool Roofing Installer/hospital cook consulted Respiratory panel negative. COVID-19 PCR and urinary antigens are negative. Patient on IV Solu-Medrol, bronchodilator, incentive spirometry and Pep. IV ceftriaxone and Zithromax.Clinically patient looks better with improvement in shortness of breath. He follows [place] hospital cook. 01/18: Patient was tachycardic last night in 120s now 115/min. Tachycardia mainly due to increased respiratory drive. Patient was refusing BiPAP. Patient is hypoxic even on 2 L of high flow oxygen therefore discussed with car greaser and patient transferred to ICU. In ICU, decision made to intubate and intubated. After intubation, patient was put on Precedex and midazolam as needed. After that patient blood pressure dropped therefore started on IV Levophed. Right IJ CVC catheter in progress by car greaser. IV antibiotics also uptitrated to IV cefepime and vancomycin. Continue azithromycin. ABG after intubation 7.15/74/89 on ventilator, AC mode 100% FiO2/450 mm / 14/8 mmHg. #2. Hyperglycemia: Admission glucose 154, likely stressresponse and steroid. A1c 6.1% suggestive of prediabetes. #3. 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 #4. Tobacco Abuse: Encouraged cessation, inpatient consultation per RT, NR if desired. #5. Hypertension: BP 123/70. 01/18 shock, multifactorial unclear whether sedative medications/distributive or septic shock. There is high suspicion of sepsis with clinical indicators of tachycardia, tachypnea, leukocytosis with lymphopenia due to left-sided pneumonia with with acute sepsis-related organ dysfunction as evidenced by Acute combined respiratory failure requiring noninvasive and then invasive ventilator, hypotension, refractory to IV fluid, requiring IV vasopressors. Patient is on resuscitation, CVC catheter and IV Levophed drip. #6. DVT prophylaxis: SCDs, will hold on chemoprophylaxis as patient has significant history of epistaxis and given higher flow oxygen needs at this point would be higher risk especially following review of his frequent ED visits. #7. CODE status: Patient does not have HCPOA or LW in place. Patient reaffirmed that he wants to get intubated and ventilator before intubation. Charges/Coding Visit Charges Inpatient E&M: 60379 [facility] Hosp L3
[2023-01-18] MEDS: guaiFENesin 1,200 MG Tablet 1200 MG PO (08:13)
[2023-01-18] MEDS: Multivitamins,Ther W-Minerals Tablet 1 TABLET PO (08:13)
--- NOTE | 2023-01-18 08:19 | EKG12_ITS ---
Test Reason : Blood Pressure : / mmHG Vent. Rate : 112 BPM Atrial Rate : 112 BPM P-R Int : 132 ms QRS Dur : 162 ms QT Int : 382 ms P-R-T Axes : 092 168 067 degrees QTc Int : 521 ms Suspect arm lead reversal, interpretation assumes no reversal Sinus tachycardia with Premature atrial complexes with Aberrant conduction Possible Left atrial enlargement Right bundle branch block Abnormal ECG When compared with ECG of 16-JAN-2023 21:58, MANUAL COMPARISON REQUIRED, DATA IS UNCONFIRMED Confirmed by FRED MATOS, RENE ([id number]), social media editor RAFIQ LLAMAS ([id number]) on 03/12/2023 6:52:26 AM Referred By: TOD Confirmed By:RENE IBARRA MD
[2023-01-18 09:09] LABS: Allen Test Positive; Base Excess -1 mmol/L (-2 to +2); Bicarbonate 26.3 mmol/L (22-26); Blood Gas Specimen Type ART; O2 Delivery Device CPAP; PO2 52 mmHG (75-100); SITE L Radial; SO2 78 % (95-99); Total Carbon Dioxide 28 mmol/L; pCO2 63.7 mmHg (35-45); pH 7.22 (7.35-7.45)
--- NOTE | 2023-01-18 09:15 | RAD_ITS ---
INDICATION: dyspnea EXAMINATION/TECHNIQUE: X-RAY - XR Chest 1 View COMPARISON: 01/16/2023. FINDINGS: LINES/DEVICES: None. LUNGS: Extensive left lung infiltrate increased since previous exam. No evidence of pleural effusions. MEDIASTINUM AND CARDIOVASCULAR STRUCTURES: Cardiac silhouette not enlarged. Central airways and mediastinal contour are unremarkable. BONES AND SOFT TISSUES: Stable soft tissues and osseous structures. RAD/Chest 1 View (Portable) IMPRESSION: Left lung infiltrate increased since the previous exam. Electronically Signed: Madi Baxter MD at 9:42 EDT ,
--- NOTE | 2023-01-18 09:56 | NURSING ---
0940 Report given to ICU nurse
[2023-01-18] MEDS: Succinylcholine Chloride 200 MG/10 ML SYRINGE 50 MG IV (10:21)
[2023-01-18] MEDS: Etomidate 20 MG/10 ML Vial IV (10:21)
[2023-01-18] MEDS: fentaNYL drip 100 ML 10 MCG CONT INF ×2 (10:22→23:48)
--- NOTE | 2023-01-18 10:27 | RAD_ITS ---
INDICATION: oral endotube placement EXAMINATION/TECHNIQUE: X-RAY - XR Chest 1 View COMPARISON: FINDINGS: LINES/DEVICES: New endotracheal tube with its approximately 5.2 cm proximal to the linda. Nasogastric tube extends below the level of the diaphragm. The sidehole is close to the gastroesophageal junction. LUNGS: Persistent extensive left lung infiltrate essentially unchanged. No evidence of pleural effusions. MEDIASTINUM AND CARDIOVASCULAR STRUCTURES: Cardiac silhouette not enlarged. Central airways and mediastinal contour are unremarkable. BONES AND SOFT TISSUES: Unremarkable. RAD/Chest 1 View (Portable) IMPRESSION: Status post intubation and nasogastric tube placement as described above. Extensive left lung infiltrate essentially unchanged. Electronically Signed: Madi Baxter MD at 11:26 EDT ,
--- NOTE | 2023-01-18 10:50 | RAD_ITS ---
INDICATION: OG Placement, ETT PLACEMENT EXAMINATION/TECHNIQUE: X-RAY - XR Abdomen 1 View COMPARISON: None. FINDINGS: BOWEL GAS PATTERN: Orogastric tube with the tip in the region of the stomach however the sidehole is close to the gastroesophageal junction and should be advanced. Specific somewhat distended gaseous bowel loops. The pelvic region is not entirely excluded on this exam. Rectal line is seen. FREE AIR: Not assessed on a single supine view. ORGANOMEGALY: Not seen. CALCIFICATIONS: No abnormal calcifications observed. LOWER CHEST: No acute pathology. BONES AND SOFT TISSUES: No acute pathology. RAD/Abdomen Single View IMPRESSION: Orogastric tube with tip in the region of the stomach but the sidehole is close to the gastroesophageal junction and should be advanced. Distended gaseous bowel loops could be due to ileus. Early bowel obstruction is less likely but possible. Electronically Signed: Madi Baxter MD at 12:04 EDT ,
[2023-01-18] MEDS: Norepinephrine 8 MG in 0.9% Normal Saline (250mL Bag) 242 ML 9.4 MG CONT INF (11:05)
[2023-01-18] MEDS: dexMEDEtomidine 400 MCG in 0.9% Normal Saline (100mL Bag) 96 ML 7.1 MCG CONT INF (11:17)
[2023-01-18 11:23] LABS: Base Excess -3 mmol/L (-2 to +2); Bicarbonate 25.9 mmol/L (22-26); Blood Gas Specimen Type ART; Mode AC; O2 Delivery Device Adult Vent; PEEP 8; PO2 89 mmHG (75-100); RR 14; SITE R Brach; SO2 93 % (95-99); Total Carbon Dioxide 28 mmol/L; pCO2 74.5 mmHg (35-45); pH 7.15 (7.35-7.45)
[2023-01-18] MEDS: Vancomycin HCl 1,500 MG in 0.9% Normal Saline (500mL Bag) 500 ML 250 MG IV (11:36)
--- NOTE | 2023-01-18 11:57 | PCM.RX.CS ---
Consult Antibiotic Management Pharmacy has been consulted to manage selected antiobiotic: Vancomycin Type of Intervention Type of Consult: New start Suspected Infection Suspected Infection: Pneumonia Prior Doses of Antibiotics Prior Doses of Antibiotics Received/Current Regimen: Vancomycin 1500 mg IV x 1 given 01/18/23 @ 1136 Labs Labs: Sodium 135 mmol/L (136-145) L 01/17/23 06:20 Potassium 3.7 mmol/L (3.5-5.1) 01/17/23 06:20 Chloride 107 mmol/L (98-107) 01/17/23 06:20 Carbon Dioxide 21.0 mmol/L (21.0-32.0) 01/17/23 06:20 Anion Gap 7 (5-15) 01/17/23 06:20 BUN 16 mg/dL (7-18) 01/17/23 06:20 Creatinine 0.68 mg/dL (0.70-1.30) L 01/17/23 06:20 Est GFR (MDRD) Af Amer 148 mL/min (>60) 01/17/23 06:20 Est GFR (MDRD) Non-Af 122 mL/min (>60) 01/17/23 06:20 BUN/Creatinine Ratio 23.5 RATIO (10-20) H 01/17/23 06:20 Glucose 120 mg/dL (74-106) H 01/17/23 06:20 Microbiology Microbiology: Microbiology 01/16/23 20:14 Urine, Clean Catch Urine Culture - Preliminary Culture exhibits no growth. 01/17/23 00:45 Mucosa - Nasopharyngeal Coronavirus COVID-19 PCR - Final 01/16/23 00:45 Mucosa - Nasopharyngeal Respiratory Panel (PCR) - Final 01/17/23 00:27 Urine, Random Legionella Antigen - Final 01/17/23 00:27 Urine, Random Streptococcus pneumoniae Antigen (M - Final 01/16/23 19:50 Nasal Secretion SARS-CoV-2 & FLU Antigen (Rapid) - Final Dosing Weight Weight used for dosin.5 kg Estimated Creatinine Clearance Estimated Creatinine Clearance: 54 Goal Trough Goal Trough: 15-20 mcg/mL Pharmacy Plan for Drug Dosing Pharmacy Plan for Drug Dosing: Vancomycin 1500 mg IV x 1 loading dose, followed by 500 mg IV Q12H starting 01/19/23 @ 0000. Trough prior to 4th dose. Pharmacy Service will continue to monitor and adjust dosing as required. Follow-Up Labs Follow-Up Labs: Trough: Vancomycin Date/Time Labs Ordered Labs to be done on [date and time ordered]: 01/19/23 @ 9381
--- NOTE | 2023-01-18 12:00 | RAD_ITS ---
INDICATION: L IJ CVC EXAMINATION/TECHNIQUE: X-RAY - XR Chest 1 View COMPARISON: Prior examination of the same date done earlier. FINDINGS: LINES/DEVICES: New left internal jugular central venous catheter with its tip just within the superior vena cava. Orogastric tube in stable position. LUNGS: Since the left lung infiltrate is again seen. No definite pleural effusions. MEDIASTINUM AND CARDIOVASCULAR STRUCTURES: Cardiac silhouette not enlarged. Central airways and mediastinal contour are unremarkable. BONES AND SOFT TISSUES: Unremarkable. RAD/CXR for Line Placement IMPRESSION: 1. Status post left internal jugular central venous catheter placement. 2. Otherwise no significant change. Electronically Signed: Madi Baxter MD at 12:48 EDT ,
[2023-01-18] MEDS: Enoxaparin 40 MG/0.4 ML Syringe SC (12:26)
[2023-01-18] MEDS: Methylprednisolone Sod Succ 40 MG/ML VIAL IV ×3 (12:27→23:09)
--- NOTE | 2023-01-18 12:30 | PN.CC_ITS ---
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 Acute hypoxic and hypercapnic respiratory failure, requiring intubation on 01/18/2023 2. Septic shock likely secondary to left-sided pneumonia 3. COPD exacerbation 4. Tobacco use 5. Pulmonary nodules Plan * Patient was intubated and sedated this morning due to worsening respiratory status and inability to tolerate BiPAP. * Chest x-ray showing worsening left-sided pneumonia with almost complete whiteout of left hemithorax. Emergent bronchoscopy today showed mucous plug in the left lung as well. This was aspirated however there was no significant improvement of his chest x-ray. * Multiple ventilator adjustments performed today in order to address his hypercapnia and hypoxia * Given his worsening hemodynamics and respiratory status he was switched to vancomycin and cefepime. Continue azithromycin. Obtained deep tracheal aspirate for cultures. Repeat blood cultures. * He received a liter of normal saline, will administer another liter for a total of 30 cc/kg and he is currently on Levophed. Wean levo as tolerated * Increase Solu-Medrol to 40 every 6 and scheduled DuoNebs * Wean FiO2 as tolerated * DVT prophylaxis subcu Lovenox * Chest CT done on this admission showing new findings in left upper lobe. Given recent CT chest in October with no findings on left upper lung, the patient's current presentation these changes are most likely related to an infectious process. The right upper lobe scar seen on right lung in October and appears to be improving. Nodules in the right middle lobe appear to be stable from October 2022. However given his history patient remains high risk and would recommend repeat CT scan in 6 to 8 weeks to ensure resolution and further evaluation of nodules in right middle lobe. This was discussed with the patient and he is agreeable and verbalized understanding Critical care time spent 40 minutes excluding procedures in addressing above problems Subjective Subjective Twice doing much worse this morning. He was tachypneic and in respiratory distress upon evaluation. He was refusing to wear his BiPAP. Decision was made to transfer patient to the ICU. In the ICU he continued to be tachypneic despite being on BiPAP he was pulling low tidal volumes on AVAPS mode. Decision was made to intubate the patient. There was no family contact in his chart. And he noted that he would like to be full code. Intubation was successful with on first attempt however patient was not returnin g appropriate tidal volumes on the ventilator although he was not hypoxic. Bronchoscope introduced into the ET tube showed mucous plug into the left main and that was suctioned. Unfortunately there was no specimen trap available so a sample could not be collected. Objective Data Objective Data Vital Signs: Vital Signs Temp Pulse Resp BP Pulse Ox O2 Del Method O2 Flow Rate 37.2 C 88 18 65/49 L 98 Mechanical Ventilator 01/18/23 11:01/18/23 11:01/18/23 11:01/18/23 11:01/18/23 11:01/18/23 11:01/18/23 08:04 FiO2 100 01/18/23 11:05 Oxygen Flow Rate (L/min) 10 Oxygen Delivery Method Mechanical Ventilator Weight: 56.5 kg Body Mass Index (BMI) 18.9 Intake & Output: Intake and Output for Last 24 Hours 01/16/23 01/17/23 01/18/23 23:59 23:59 23:59 Intake Total 3305 / 3305 1470 / 1470 322.25 / 322.25 Output Total 1150 / 1150 200 / 200 Balance 3305 / 3305 320 / 320 122.25 / 122.25 Lab / Micro Data Attestation: I reviewed the patient's lab results. 01/17/23 06:20 01/17/23 06:20 Micro: Microbiology 01/16/23 20:14 Urine, Clean Catch Urine Culture - Preliminary Culture exhibits no growth. 01/17/23 00:45 Mucosa - Nasopharyngeal Coronavirus COVID-19 PCR - Final 01/16/23 00:45 Mucosa - Nasopharyngeal Respiratory Panel (PCR) - Final 01/17/23 00:27 Urine, Random Legionella Antigen - Final 01/17/23 00:27 Urine, Random Streptococcus pneumoniae Antigen (M - Final 01/16/23 19:50 Nasal Secretion SARS-CoV-2 & FLU Antigen (Rapid) - Final ABG Data ABG results: ABG 01/18/23 01/18/23 09:06 11:17 Specimen Type ART ART Sample Site L Radial R Brach pH 7.22 L 7.15 L* Bicarbonate Actual 26.3 H 25.9 Total CO2 28 28 Base Excess -1 -3 L O2 Saturation 78 L 93 L O2 % 52.0 100.0 ABG pCO2 63.7 H 74.5 H* ABG pO2 52 L 89 Lino Test Positive Respiration Rate 14 O2 Delivery Device CPAP Adult Vent Vent Mode AC Tidal Volume 450.0 POC PEEP 8 Crit Call To/Read Back Yes Blood Gas Notified Whom LOIS Attestation: I personally reviewed and interpreted this ABG as follows: Interpretation: resp acidosis Radiography Diagnostic Testing: Radiology Impression Chest X-Ray 01/18/23 09:15 IMPRESSION: Left lung infiltrate increased since the previous exam. Electronically Signed: Madi Baxter MD at 9:42 EDT , Chest X-Ray 01/18/23 10:27 IMPRESSION: Status post intubation and nasogastric tube placement as described above. Extensive left lung infiltrate essentially unchanged. Electronically Signed: Madi Baxter MD at 11:26 EDT , KUB X-Ray 01/18/23 10:50 IMPRESSION: Orogastric tube with tip in the region of the stomach but the sidehole is close to the gastroesophageal junction and should be advanced. Distended gaseous bowel loops could be due to ileus. Early bowel obstruction is less likely but possible. Electronically Signed: Madi Batxer MD at 12:04 EDT , Physical Exam Narrative General intubated and sedate Respiratory reduced air entry bilaterally, mechanical breath sounds Cardiac S1-S2, regular rate and rhythm GI abdomen soft and nontender MSK no lower extremity edema Skin no rashes Neuro intubated and sedated Sepsis Attestation Sepsis Attestation: Agree w/Sepsis Possible Source of Sepsis: Pulmonary Sepsis Organ Dysfunction Criteria Present: SBP < 90 mmHg or MAP < 65 mmHg and Acute Respiratory Failure (New need for BiPAP/CPAP or MV) Fluid Resuscitation Fluid resuscitation indicated?: Yes Fluid Resuscitation ordered: 30 ml/kg fluid bolus ordered Reason for lesser fluid bolus:: Other (Patient had received fluids from the day before as well) Sepsis Note Date exam was performed: 01/18/23 Time exam was performed: 09:00 Sepsis Attestation: Sepsis re-evaluation was performed Response to fluids: Non Fluid responsive hypotension and Vasopressors started Charges/Coding Procedures Hospitalists Procedures: 80083 Critial Care 1st Hr
--- NOTE | 2023-01-18 12:49 | PCM.OP.PRO ---
Procedure Report Date of Procedure: 01/18/23 Central Line Procedure Note INDICATION: Shock PROCEDURE DENTAL SCHEDULER: Rita Khan MD Consent The procedure was emergent, the patient was unable to provide consent, and a designee was not immediately available. PROCEDURE SUMMARY: A time out was performed. My hands were washed immediately prior to the procedure. I wore a surgical cap, mask with protective eyewear, full gown and sterile gloves throughout the procedure. The patient was placed in Trendelenburg position. LEFT chest region was prepped using chlorhexidine scrub and draped in sterile fashion using a full drape and sterile probe cover and sterile gel employed. The medial and lateral heads of the sternocleidomastoid muscle were identified as was the carotid pulse. The Internal Jugular vein was identified using the ultrasound. The CVC catheter was flushed prior to use Using real-time out of plane guidance, the introducer needle was inserted into the Internal Jugular vein under direct ultrasound visualization. Venous blood was withdrawn. The syringe was removed and a guidewire was advanced into the introducer needle. The guidewire was visualized in the Internal Jugular Vein by ultrasound. A small incision was made at the skin surface with a scalpel and the introducer needle was exchanged for a dilator over the guidewire. After appropriate dilation was obtained, the dilator was exchanged over the wire for a 7 fr 16 cm central venous catheter. The wire was removed and the catheter was sutured in place at 16cm. sterile dressing and biopatch placed over the catheter. The patient tolerated the procedure without any hemodynamic compromise. At time of procedure completion, all ports aspirated and flushed properly. Post-procedure chest x-ray is pending at this time. Estimated blood loss is <5ml Procedures Hospitalists Procedures: 54559 Insert Non-tunnel CV Cath
--- NOTE | 2023-01-18 12:56 | PRO.PCM_ITS ---
Procedure Report Date of Procedure: 01/18/23 Endotracheal Intubation Procedure Note INDICATION: Acute hypoxic and hypercapnic resp failure, failed bipap PROCEDURE PERIOPERATIVE MANAGER: Rita Khan MD The procedure was emergent, the patient was unable to provide consent, and a designee was not immediately available. PROCEDURE SUMMARY: A time out was performed. My hands were washed immediately prior to the procedure. I wore a surgical cap, mask and gloves throughout the procedure. The patient was placed on a cardiac monitor technician including continuous pulse oximetry. Rapid Sequence Intubation was conducted. The patient received 20 mg of etomidate for induction and 50 mg of Succinylcholine for adequate paralysis. Using a Mac 4 Direct laryngoscope and a size 7.5 endotracheal tube with stylet, the patient was intubated on the 1st attempt. The stylet was removed and cuff balloon was inflated. Appropriate endotracheal tube position was confirmed by direct visualization of vocal cord passage, fogging of the tube, CO2 colormetric indicator and symmetric breath sounds. The tube was secured at 27 cm at the lips. Patient was not returning appropriate tidal volumes on the ventilator although he was not hypoxic. Bronchoscope introduced into the ET tube showed mucous plug into the left main and that was suctioned. Unfortunately there was no specimen trap available so a sample could not be collected. Slight improvement of TV, RT at bedside noted a leak in vent circuit and fixed it with improvement of tidal volumes Procedures Hospitalists Procedures: [id number] Insert Emergency Airway
--- NOTE | 2023-01-18 13:03 | PCM.OP.PRO ---
Procedure Report Date of Procedure: 01/18/23 Procedure: bedside flexible bronchoscopy Consent: < emergent> Indication: airway surveillance, Patient was not returning appropriate tidal volumes, concern for mucus plug Monitoring: EKG, blood pressure, pulse oximetry Anesthesia: pt intubated and sedated in the ICU Physician: Rita Khan MD Complications: none Entry: A bronchoscope was lubricated and introduced through the indwelling <ETT> in the standard fashion. Specimens: <none> Findings Holly was sharp, left main bronchus had a large mucous plug which was suctioned easily. There was copious secretions from the left lung. Lingula and left lower lobe as well as subsegments evaluated. No endobronchial lesions. Right long and right subsegments evaluated no endobronchial lesions, less copious secretions in comparison to the left side. There was no specimen trap available in the unit to collect sample. Summary left main bronchus mucous plug Assessment & Plan Assessment/Plan (1) Acute and chronic respiratory failure with hypoxia: Procedures Pulmonary CF Procedures Pulmonary: OTHER (84054 Bronchoscopy)
[2023-01-18 13:05] LABS: Lactic Acid 1.8 mmol/L (0.4-1.9)
[2023-01-18] MEDS: Lactated Ringers 1,000 ML 999 ML IV (14:08)
[2023-01-18] MEDS: Cefepime HCl 1 GM in 0.9% Normal Saline (50mL MB+) 50 ML IV ×2 (14:11→20:35)
[2023-01-18 14:19] LABS: Blood Gas Specimen Type VEN; O2 Delivery Device Adult Vent; PEEP 5; RR 18; SITE R Brach; VBG BASE EXCESS -3 mmol/L (-1.0-3.5); VBG Bicarbonate 24 mmol/L (22-26); VBG PO2 50 mmHg (25-40); VBG SO2 80 % (50-70); VBG TCO2 25 mmol/L (23-33); VBG pCO2 49.8 mmHg (41-51); VBG pH 7.28 (7.32-7.42)
[2023-01-18 16:11] LABS: Hematocrit 42.9 % (40-54); Hemoglobin 13.2 g/dL (13.0-16.5); Mean Corp Hgb Conc 30.8 g/dL (32-36); Mean Corpuscular Hgb 28.8 pg (27.0-32.0); Mean Corpuscular Volume 93.7 fL (80-94); Mean Platelet Vol. 11.3 fl (6.2-12.0); POSITIVE DIFFERENTIAL YES; POSITIVE MORPHOLOGY YES; Platelet Count 215 K/mm3 (150-450); RBC Distribution Width CV 16.1 % (11.6-14.6); RBC Distribution Width SD 56.1 fl (35.1-43.9); Red Blood Count 4.58 M/mm3 (4.6-6.2); White Blood Count 16.1 K/mm3 (4.4-11.0)
[2023-01-18 16:23] LABS: Anion Gap 5 (5-15); BUN 24 mg/dL (7-18); BUN/Creat Ratio 35.7 RATIO (10-20); Chloride 109 mmol/L (98-107); Creatinine, Serum 0.67 mg/dL (0.70-1.30); EST Glomerular Filtration Rate 124 mL/min (>60); Est Glom Filt Rate - Afr Amer 150 mL/min (>60); Estimated Creatinine Clearance 54.93 ml/min; Glucose 131 mg/dL (74-106); Magnesium 1.9 mg/dL (1.6-2.6); Potassium 3.8 mmol/L (3.5-5.1); Sodium Level 139 mmol/L (136-145)
[2023-01-18] MEDS: Jevity 1.5 1,000 ML 20 ML GT (16:24)
[2023-01-18 16:39] LABS: Differential Indicated MANUAL DIFF
[2023-01-18 16:42] LABS: Lymphocyte 2 % (19-41); Metamyelocyte 6 % (0-1); Monocyte 8 % (0-10); Neutrophil-Band 16 % (0-5); Neutrophil-Segmented 68 % (47-70); Platelet Estimate ADEQUATE (ADEQ); Red Cell Morphology NORM C+C NORMAL (NORM C&C); Total Cells Counted 100 (MANUAL DIFF)
[2023-01-18 16:44] LABS: Absolute Lymphocyte Count 0.32 X10^3/uL (0.83-4.51); Absolute Neutrophil Count 14.5 X10^3/uL (2.0-7.7); Lymphocyte # 0.32 X10^3/ul (0.83-4.51)
[2023-01-18 17:07] LABS: Bedside Glucose 116 mg/dL (74-106)
[2023-01-18 17:47] LABS: M R Staph aureus DNA By PCR Negative (Negative); Probe Check PASS; Specimen Processing Control PASS
--- NOTE | 2023-01-18 19:15 | NURSING ---
Received report from bryon RN, levophed reported to be running at 5mcg/min. IV pumps checked to verify drips/ rates, levo noted to be running at 10 mcg/min. Titrated pt to 5mcg, MAP stable.
[2023-01-18] MEDS: Azithromycin 500 MG in Dextrose 5%-Water (250mL Bag) 250 ML 250 MG IV (21:14)
[2023-01-18] MEDS: dexMEDEtomidine 400 MCG in 0.9% Normal Saline (100mL Bag) 96 ML 15.5 MCG CONT INF (22:58)
[2023-01-18] MEDS: Chlorhexidine 15 ML PO (23:06)
[2023-01-18] MEDS: Vancomycin IV 500 MG/100 ML BAG 100 MG IV (23:06)
[2023-01-19] VITALS (52 sets, daily range): BP systolic 71–134; BP diastolic 51–96; PULSE 90–184; RESP 13–90; TEMP 36.6–39.4; O2SAT 65–95; BMI 19.4
[2023-01-19 00:10] LABS: Bedside Glucose 226 mg/dL (74-106)
[2023-01-19] MEDS: Acetaminophen 650 MG/20 ML UDC GT ×2 (00:47→05:41)
[2023-01-19 03:47] LABS: Absolute Lymphocyte Count 0.22 X10^3/uL (0.83-4.51); Absolute Neutrophil Count 11.7 X10^3/uL (2.0-7.7); Basophil# 0.02 X10^3/uL; Basophil% 0.1 % (0-1); Eosinophil# 0.02 X10^3/uL; Eosinophils% 0.1 % (0-5); Hematocrit 42.9 % (40-54); Hemoglobin 13.6 g/dL (13.0-16.5); Lymphocyte # 0.22 X10^3/ul (0.83-4.51); Lymphocyte % 1.6 % (19-41); Mean Corp Hgb Conc 31.7 g/dL (32-36); Mean Corpuscular Hgb 29.4 pg (27.0-32.0); Mean Corpuscular Volume 92.7 fL (80-94); Mean Platelet Vol. 11.6 fl (6.2-12.0); Monocyte# 1.29 X10^3/uL; Monocyte% 9.6 % (0-10); NRBC Flagged by Analyzer 0.4 % (0-5); Neutrophil # 11.66 X10^3/uL (2.7-7.7); Neutrophil % 87.1 % (47-70); POSITIVE DIFFERENTIAL YES; POSITIVE MORPHOLOGY YES; Platelet Count 192 K/mm3 (150-450); RBC Distribution Width CV 16.3 % (11.6-14.6); RBC Distribution Width SD 55.8 fl (35.1-43.9); Red Blood Count 4.63 M/mm3 (4.6-6.2); White Blood Count 13.4 K/mm3 (4.4-11.0)
[2023-01-19 03:51] LABS: Ionized Calcium 5.05 mg/dL (4.36-5.20)
[2023-01-19 03:52] LABS: Differential Indicated SCAN CRITERIA MET; Ionized Calcium Order 5.05
[2023-01-19 04:04] LABS: ALB/GLOB Ratio 0.4 RATIO (0.9-2.4); AST(SGOT) 16 U/L (15-37); Alanine Aminotransfer ALT/SGPT 16 U/L (16-61); Albumin, Serum 1.6 g/dL (3.2-5.0); Alkaline Phosphatase 71 U/L (45-117); Anion Gap 4 (5-15); BUN 26 mg/dL (7-18); Calcium,Total 8.9 mg/dL (8.5-10.1); Chloride 111 mmol/L (98-107); EST Glomerular Filtration Rate 89 mL/min (>60); Est Glom Filt Rate - Afr Amer 108 mL/min (>60); Estimated Creatinine Clearance 61.03 ml/min; Globulin 4.1 g/dL (2.2-4.2); Glucose 188 mg/dL (74-106); Protein, Total 5.7 g/dL (6.4-8.2); Sodium Level 142 mmol/L (136-145)
[2023-01-19 04:19] LABS: Differential Comment SCANNED
[2023-01-19] MEDS: Norepinephrine 8 MG in 0.9% Normal Saline (250mL Bag) 242 ML 5.6 MG CONT INF (04:51)
[2023-01-19] MEDS: dexMEDEtomidine 400 MCG in 0.9% Normal Saline (100mL Bag) 96 ML 11.3 MCG CONT INF (05:07)
--- NOTE | 2023-01-19 05:26 | RAD_ITS ---
EXAM: XR CHEST, 1 VIEW CLINICAL INDICATION: pneumonia pneumonia TECHNIQUE: Frontal view of the chest. COMPARISON: Chest x-ray 01/18/2023 and 01/16/2023. FINDINGS: LUNGS AND PLEURAL SPACES: There are persistent pulmonary infiltrates in the left lung field. There is increased density in the left lower lung field compared to previous study consistent with worsened infiltrate and are probably small left pleural effusion. There is a new density overlying the right midlung field which also extends beyond the right chest wall and is probably overlying artifact. No pneumothorax. HEART: Unremarkable. Cardiac silhouette not enlarged. MEDIASTINUM: See below. BONES/JOINTS: There are multilevel degenerative changes in the visualized spine. SOFT TISSUES: See above. TUBES, LINES AND DEVICES: There is a nasogastric tube with its tip overlying the stomach. Sidehole for the tube is above the level of diaphragmatic hiatus and is probably in the distal esophagus. The nasogastric tube should be advanced at least 5 cm. The endotracheal tube (ETT) is in satisfactory position with tip 5.1 cm above the linda. There is a left internal jugular central venous catheter with its tip overlying the superior vena cava. RAD/Chest 1 View (Portable) IMPRESSION: 1. Nasogastric tube should be advanced at least 5 cm. 2. Endotracheal tube and central line are in adequate position. 3. Persistent left pulmonary infiltrates with interval worsening in the left basilar region. Overlying small left pleural effusion is suspected. Electronically Signed: Gordon Keller MD at 6:32 EDT ,
[2023-01-19 05:39] LABS: Base Excess -1 mmol/L (-2 to +2); Bicarbonate 25.2 mmol/L (22-26); Blood Gas Specimen Type ART; Mode AC; O2 Delivery Device Adult Vent; PEEP 5; PO2 61 mmHG (75-100); RR 16; SITE R Radial; SO2 89 % (95-99); Total Carbon Dioxide 27 mmol/L; pCO2 47.3 mmHg (35-45); pH 7.33 (7.35-7.45)
[2023-01-19] MEDS: Cefepime HCl 1 GM in 0.9% Normal Saline (50mL MB+) 50 ML IV ×3 (05:41→21:41)
[2023-01-19] MEDS: Methylprednisolone Sod Succ 40 MG/ML VIAL IV ×4 (05:45→23:41)
[2023-01-19] MEDS: 0.9% Saline Lock 10 ML Syringe IV ×2 (05:51→23:47)
[2023-01-19] MEDS: CHLORHEXIDINE GLUC 2% CLOTH 1 EACH TOWELETTE TOPICAL ×2 (05:52→21:58)
--- NOTE | 2023-01-19 05:55 | ECHOD_ITS ---
Reason For Study: SOB Procedure This was a 2D Doppler, Color Flow transthoracic echocardiogram. The study was technically difficult. Exam performed portable in ICU/CCU. Left Ventricle Normal LV size. D shaped septum in systole and diastole. The estimated ejection fraction is 50 %. No regional wall motion abnormalities noted. Right Ventricle Severely dilated right ventricle. Moderate global right ventricular systolic dysfunction. Atria Normal left atrium. Normal right atrium. Mitral Valve Normal mitral valve. Tricuspid Valve Normal tricuspid valve. Moderate (2+) tricuspid valve insufficiency. Pulmonary artery systolic pressure is 47 mmHg. Aortic Valve Trisinus/trileaflet aortic valve. Pulmonic Valve Normal pulmonic valve. Great Vessels Normal aortic root. The pulmonary artery is normal size. No collapse of the inferior vena cava. Plethoric inferior vena cava. The inferior vena cava is dilated. Pericardium/Pleural No pericardial effusion. MMode/2D Measurements & Calculations LVIDd: 4.0 cm IVSd: 0.85 cm LAV(MOD-bp): 45.3 ml LVIDs: 2.6 cm LVPWd: 0.72 cm LAV(MOD-bp) Indexed: 27.1 ml/m2 RVDd: 4.9 cm FS: 35.3 % LAV(MOD-sp2): 46.7 ml LAV(MOD-sp4): 40.6 ml SV(MOD-sp4): 29.9 ml SV(sp4-el): 27.8 ml LVAd ap4: 20.2 cm2 LVLd ap4: 6.6 cm EDV(MOD-sp4): 55.1 ml EDV(sp4-el): 52.4 ml LVAs ap4: 12.5 cm2 LVLs ap4: 5.4 cm ESV(MOD-sp4): 25.2 ml ESV(sp4-el): 24.6 ml EF(MOD-sp4): 54.2 % EF(sp4-el): 53.1 % LA A4 area: 15.2 cm2 LA dimension(2D): 2.8 cm Doppler Measurements & Calculations Ao V2 max: 86.1 cm/sec LV V1 max: 59.6 cm/sec PA V2 max: 34.2 cm/sec Ao max P.0 mmHg LV V1 max P.4 mmHg Ao V2 mean: 66.2 cm/sec LV V1 mean P.71 mmHg Ao mean P.9 mmHg LV V1 mean: 39.6 cm/sec Ao V2 VTI: 10.8 cm LV V1 VTI: 8.2 cm AV (velocity ratio): 0.76 TR max conrad: 284.6 cm/sec TR max P.4 mmHg ECHO/Echo Complete Interpretation Summary Normal LV size. D shaped septum in systole and diastole. The estimated ejection fraction is 50 %. Severely dilated right ventricle. Moderate global right ventricular systolic dysfunction. Pulmonary artery systolic pressure is 47 mmHg. Ordering Physician: Iftikhar Dumont Referring Physician: [facility] Performed By: Madeleine Hernandez RDCS, RVT
[2023-01-19 06:12] LABS: Bedside Glucose 161 mg/dL (74-106)
[2023-01-19] MEDS: TITRATION PARAMETER CHANGE 1 EACH IV (06:51)
[2023-01-19] MEDS: Ipratropium/Albuterol Sulfate 3 ML AMPUL.NEB INHALATION ×4 (07:09→22:52)
[2023-01-19] MEDS: Chlorhexidine 15 ML PO ×2 (08:38→20:30)
[2023-01-19] MEDS: Enoxaparin 40 MG/0.4 ML Syringe SC (08:38)
[2023-01-19] MEDS: Multivitamins,Ther W-Minerals Tablet 1 TABLET PO (08:49)
--- NOTE | 2023-01-19 09:55 | PN.CC_ITS ---
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 Acute hypoxic and hypercapnic respiratory failure, requiring intubation on 01/18/2023 2. Septic shock likely secondary to left-sided pneumonia 3. COPD exacerbation 4. Tobacco use 5. Pulmonary nodules Plan * Patient was intubated and sedated on 01/18 due to worsening respiratory status and inability to tolerate BiPAP. * He is satting around 90 to 92% on PEEP of 8 and 65% FiO2. Instructed RN to place patient good lung down i.e.: on his right side as his left lung is merritt out. There are minimal secretions. * MRSA swab was negative. DC vancomycin. Continue cefepime and azithromycin. Follow sputum and blood cultures * He remains on Levophed at 2 mics which is improved from yesterday. Obtain echocardiogram * Continue Solu-Medrol and DuoNebs * Wean FiO2 as tolerated * Advance tube feeds to goal. Advance NG tube 5 cm discussed with RN * DVT prophylaxis subcu Lovenox * GI prophylaxis Protonix * Chest CT done on this admission showing new findings in left upper lobe. Given recent CT chest in October with no findings on left upper lung, the patient's current presentation these changes are most likely related to an infectious process. The right upper lobe scar seen on right lung in October and appears to be improving. Nodules in the right middle lobe appear to be stable from October 2022. However given his history patient remains high risk and would recommend repeat CT scan in 6 to 8 weeks to ensure resolution and further evaluation of nodules in right middle lobe. This was discussed with the patient and he is agreeable and verbalized understanding * Prior to becoming ill. Patient informed manager social responsibility and myself that he has no family and that he lives alone. * Poor prognosis given unilateral pneumonia and underlying severe COPD with multiple lung nodules Critical care time spent 40 minutes excluding procedures in addressing above problems Subjective Subjective He remains on the vent, difficulty weaning down his FiO2 due to hypoxia. Discussed today on multidisciplinary rounds, concern that pt has no family or next of kin. Before he got ill and intubated he mentioned to the SW that he has no relatives. Objective Data Objective Data Vital Signs: Vital Signs Temp Pulse Resp BP Pulse Ox O2 Del Method O2 Flow Rate 39.1 C H 101 H 16 85/58 L 93 Mechanical Ventilator 10 01/19/23 07:00 01/19/23 07:09 01/19/23 07:09 01/19/23 07:00 01/19/23 07:09 01/19/23 07:09 01/18/23 08:04 FiO2 70 01/19/23 07:09 Oxygen Flow Rate (L/min) 10 Oxygen Delivery Method Mechanical Ventilator Weight: 58 kg Body Mass Index (BMI) 19.4 Intake & Output: Intake and Output for Last 24 Hours 01/17/23 01/18/23 01/19/23 23:59 23:59 23:59 Intake Total 1470 / 1470 2599.25 / 2618.63 369.78 / 369.78 Output Total 1150 / 1150 1720 / 1720 280 / 280 Balance 320 / 320 879.25 / 898.63 89.78 / 89.78 Lab / Micro Data Attestation: I reviewed the patient's lab results. 01/19/23 03:40 01/19/23 03:40 Labs: Laboratory Results - last 24 hr 01/18/23 11:50: Lactic Acid 1.8 01/18/23 16:00: WBC 16.1 H, RBC 4.58 L, Hgb 13.2, Hct 42.9, MCV 93.7, MCH 28.8, MCHC 30.8 L, RDW Std Deviation 56.1 H, RDW Coeff of Debra 16.1 H, Plt Count 215, MPV 11.3, Immature Gran % (Auto) [employer], Neut % (Auto) [employer], Lymph % (Auto) [employer], [place] % (Auto) [employer], Eos % (Auto) [employer], Baso % (Auto) [employer], Absolute Neuts (auto) 14.5 H, Absolute Lymphs (auto) 0.32 L, Total Counted 100, Neutrophils % (Manual) 68, Band Neutrophils % 16 H, Lymphocytes % (Manual) 2 L, Monocytes % (Manual) 8, Metamyelocytes % 6 H, Nucleated RBC % [employer], Diff Path Review September, Platelet Estimate ADEQUATE, RBC Morphology NORM C+C, Sodium 139, Potassium 3.8, Chloride 109 H, Carbon Dioxide 25.0, Anion Gap 5, BUN 24 H, Creatinine 0.67 L, Estim Creat Clear Calc 54.93, Est GFR (MDRD) Af Amer 150, Est GFR (MDRD) Non-Af 124, BUN/Creatinine Ratio 35.7 H, Glucose 131 H, Calcium 9.0, Magnesium 1.9, MRSA (PC R) Negative 01/18/23 16:49: POC Glucose 116 H 01/18/23 23:51: POC Glucose 226 H 01/19/23 03:40: WBC 13.4 H, RBC 4.63, Hgb 13.6, Hct 42.9, MCV 92.7, MCH 29.4, MCHC 31.7 L, RDW Std Deviation 55.8 H, RDW Coeff of Debra 16.3 H, Plt Count 192, MPV 11.6, Immature Gran % (Auto) 1.500 H, Neut % (Auto) 87.1 H, Lymph % (Auto) 1.6 L, [place] % (Auto) 9.6, Eos % (Auto) 0.1, Baso % (Auto) 0.1, Absolute Neuts (auto) 11.7 H, Absolute Lymphs (auto) 0.22 L, Nucleated RBC % 0.4, Differential Comment SCANNED, Sodium 142, Potassium 4.0, Chloride 111 H, Carbon Dioxide 27.0, Anion Gap 4 L, BUN 26 H, Creatinine 0.90, Estim Creat Clear Calc 61.03, Est GFR (MDRD) Af Amer 108, Est GFR (MDRD) Non-Af 89, BUN/Creatinine Ratio 29.0 H, Glucose 188 H, Calcium 8.9, Magnesium 2.0, Total Bilirubin 0.30, AST 16, ALT 16, Alkaline Phosphatase 71, Total Protein 5.7 L, Albumin 1.6 L, Globulin 4.1, Albumin/Globulin Ratio 0.4 L 01/19/23 03:48: Ionized Calcium 5.05 01/19/23 05:37: POC Glucose 161 H Micro: Microbiology 01/16/23 20:14 Urine, Clean Catch Urine Culture - Final Culture exhibits no growth. 01/17/23 22:30 Sputum, Expectorated/Coughed Gram Stain - Final 01/17/23 00:45 Mucosa - Nasopharyngeal Coronavirus COVID-19 PCR - Final 01/16/23 00:45 Mucosa - Nasopharyngeal Respiratory Panel (PCR) - Final 01/17/23 00:27 Urine, Random Legionella Antigen - Final 01/17/23 00:27 Urine, Random Streptococcus pneumoniae Antigen (M - Final 01/16/23 19:50 Nasal Secretion SARS-CoV-2 & FLU Antigen (Rapid) - Final ABG Data ABG results: ABG 01/18/23 01/18/23 01/19/23 11:17 14:14 05:34 Specimen Type ART BRADLY ART Sample Site R Brach R Brach R Radial pH 7.15 L* 7.33 L Bicarbonate Actual 25.9 25.2 Total CO2 28 27 Base Excess -3 L -1 O2 Saturation 93 L 89 L O2 % 100.0 70.0 ABG pCO2 74.5 H* 47.3 H ABG pO2 89 61 L Lino Test N/A VBG pH 7.28 L VBG pO2 50 H VBG HCO3 24 VBG Total CO2 25 VBG O2 Sat (Calc) 80 H VBG Base Excess -3 L POC Mix VBG pCO2 Pt Tmp 49.8 Respiration Rate 14 18 16 O2 Delivery Device Adult Vent Adult Vent Adult Vent Vent Mode AC AC Tidal Volume 450.0 450.0 POC PEEP 8 5 5 Crit Call To/Read Back Yes Blood Gas Notified Whom LOIS Attestation: I personally reviewed and interpreted this ABG as follows: Interpretation: improved resp acidosis Radiography Diagnostic Testing: Radiology Impression Chest X-Ray 01/18/23 10:27 IMPRESSION: Status post intubation and nasogastric tube placement as described above. Extensive left lung infiltrate essentially unchanged. Electronically Signed: Madi Baxter MD at 11:26 EDT , KUB X-Ray 01/18/23 10:50 IMPRESSION: Orogastric tube with tip in the region of the stomach but the sidehole is close to the gastroesophageal junction and should be advanced. Distended gaseous bowel loops could be due to ileus. Early bowel obstruction is less likely but possible. Electronically Signed: Madi Baxter MD at 12:04 EDT , Chest X-Ray 01/18/23 12:00 IMPRESSION: 1. Status post left internal jugular central venous catheter placement. 2. Otherwise no significant change. Electronically Signed: Madi Baxter MD at 12:48 EDT , Chest X-Ray 01/19/23 05:26 IMPRESSION: 1. Nasogastric tube should be advanced at least 5 cm. 2. Endotracheal tube and central line are in adequate position. 3. Persistent left pulmonary infiltrates with interval worsening in the left basilar region. Overlying small left pleural effusion is suspected. Electronically Signed: Gordon Keller MD at 6:32 EDT , Physical Exam Narrative General intubated and sedate Respiratory reduced air entry bilaterally, mechanical breath sounds Cardiac S1-S2, regular rate and rhythm GI abdomen soft and nontender MSK no lower extremity edema Skin no rashes Neuro intubated and sedated Charges/Coding Procedures Hospitalists Procedures: 29907 Critial Care 1st Hr
[2023-01-19] MEDS: fentaNYL drip 100 ML 10 MCG CONT INF (09:58)
[2023-01-19] MEDS: Pantoprazole Sodium 40 MG in 0.9% Normal Saline (100mL MB+) 100 ML 330 MG IV (11:08)
[2023-01-19] MEDS: Vital AF 1.2 Cal Liquid 1,000 ML 40 ML GT (11:12)
[2023-01-19] MEDS: Polyethylene Glycol 3350 17 GM PACKET PO (11:52)
[2023-01-19] MEDS: Senna/Docusate Sodium 1 Tablet PO (11:52)
[2023-01-19] MEDS: Amiodarone 150 MG in Dextrose 5%-Water (100mL Bag) 100 ML 600 MG IV BOLUS (13:19)
[2023-01-19 13:31] LABS: International Normalized Ratio 1.3; Prothrombin Time (Protime)PT. 15.7 SECONDS (11.7-14.9)
[2023-01-19 13:32] LABS: Partial Thromboplast Time 30.2 Seconds (24.1-36.2)
[2023-01-19] MEDS: Amiodarone 360 MG in Dextrose 5% Viaflo Bag 192.8 ML 33.3 MG CONT INF (13:32)
[2023-01-19 13:34] LABS: Troponin-I HS 26 pg/mL (3.0-78.0)
[2023-01-19] MEDS: Heparin Injection (Vial) 5,000 UNIT/ML VIAL IV ×2 (13:52→21:40)
[2023-01-19] MEDS: HEPARIN/D5w 25,000 UNITS 25,000 UNITS/250 ML IV.SOLN. 8 UNITS CONT INF (14:00)
[2023-01-19] MEDS: dexMEDEtomidine 400 MCG in 0.9% Normal Saline (100mL Bag) 96 ML 10.2 MCG CONT INF ×2 (14:03→23:39)
[2023-01-19] MEDS: Magnesium Sulfate 4gm/100mL 4 GM/100 ML IV.SOLN. IV (14:28)
[2023-01-19 15:42] LABS: Troponin-I HS 26 pg/mL (3.0-78.0)
--- NOTE | 2023-01-19 16:04 | CON.PCM.CA_ITS ---
Assessment & Plan Assessment/Plan (1) Afib: QUALIFIERS: Atrial fibrillation type: persistent (not longstanding) Qualified Code(s): I48.19 - Other persistent atrial fibrillation PLAN: He appears to have persistent atrial fibrillation. This is likely the result of his significant lung condition. My recommendation at this time is to continue with IV amiodarone as well as anticoagulation with heparin. We will decide how to triaged him further. His left ventricular systolic function is noted to be borderline but he does have a dilated right ventricle. (2) RVF (right ventricular failure): PLAN: He does have evidence of right ventricular failure. The plan will be to keep him on the current medical therapy. He is probably volume dependent. There is no evidence of pulmonary embolism present. * The above has been discussed with dirt shoveler. HPI Consult Data Date of Consult: 01/19/23 HPI Narrative HPI Narrative: GARY LIU, is a 72 M who presents with a history of lifelong tobacco use end-stage COPD chronic hypoxic failure and hypertension. He was being treated for pneumonia and went into atrial fibrillation with a rapid ventricular response rate with hypotension. Cardiology was called to evaluate him. Prior to this he was being bolused with intravenous amiodarone. He was subsequently intubated and started on pressor agents. At this time history is not very immediately available. [facility] Medical History Agent orange exposure Chronic respiratory failure with hypoxia COPD (chronic obstructive pulmonary disease) Hypertension Tobacco use Home Medications albuterol sulfate 90 mcg/actuation aerosol inhaler (Ventolin HFA) 2 puff inhalation Q6H PRN PRN Sob &/Or Wheezing 02/21/15 [History Last Taken Unknown] doxycycline hyclate 100 mg tablet 100 mg PO BID 01/16/23 [History Last Taken Unknown] prednisone 10 mg tablet 20 mg PO BID infection 01/16/23 [History Last Taken 01/16/23 40 mg] Allergy/AdvReac Type Severity Reaction Status Date / Time Penicillins Allergy Unknown Verified 01/16/23 19:11 Family History Mother CAD (coronary artery disease) Heart disease Hypertension Myocardial infarction Father Hypertension Brain aneurysm Surgical History No history of previous surgery Surgical History no surgical history Social History household members: none Smoking Status: Current every day smoker tobacco type: cigarettes Smokeless tobacco user: other alcohol intake: former details: Sober x 16 years. substance use type: does not use ROS Constitutional Constitutional: Denies fever(s) or weight loss Eyes Eyes: Reports systems reviewed and no addt'l complaints, except as documented ENT HEENT: Reports systems reviewed and no addt'l complaints, except as documented Cardiovascular Cardiovascular: Denies chest pain at rest, chest pain with activity, dyspnea at rest, dyspnea on exertion, edema, palpitations or paroxysmal nocturnal dyspnea Respiratory/Chest Respiratory/Chest: Reports dyspnea on exertion, productive cough, shortness of breath at rest and shortness of breath with exertion Gastrointestinal Gastrointestinal: Denies change in bowel habits, nausea, vomiting or weight changes Genitourinary Genitourinary: Denies difficulty urinating Musculoskeletal Musculoskeletal: Denies joint stiffness or muscle weakness Integumentary Integumentary: Denies lesions Neurologic Neurologic: Denies dizziness or syncope Psychiatric Psychiatric: Denies anxiety Endocrine Endocrinology: Denies excessive sweating or fatigue Hematologic/Lymphatic Hematologic/Lymphatic: Denies anemia Allergic/Immunologic Allergic/Immunologic: Denies seasonal rhinorrhea Physical Exam Const no apparent distress Constitutional Narrative: Intubated HEENT hearing grossly normal bilaterally Head and Scalp: atraumatic Eyes EOMs intact bilaterally Neck General: normal visual inspection Chest inspection of chest normal and palpation of chest normal Resp normal respiratory effort Auscultation: clear to auscultation bilaterally Cardio S1 normal heart sound and S2 normal heart sound Cardio Narrative: Irregular rate and rhythm Jugular Venous Distention: JVD GI normal to inspection, nondistended, normoactive bowel sounds Extremity normal capillary refill and no pedal edema Peripheral Pulses: Yes pulses 2+ throughout and femoral pulses present Skin no rashes or lesions noted Neuro oriented x3 and CN's II-XII intact bilaterally Psych Appearance: grossly normal and appropriate Risk Stratification Risk Stratification Applicable: No Objective Data Vital Signs: Vital Signs Temp Pulse Resp BP Pulse Ox O2 Del Method O2 Flow Rate 97.9 F 131 H 16 111/62 92 Mechanical Ventilator 01/19/23 14:00 01/19/23 14:12 01/19/23 14:12 01/19/23 14:00 01/19/23 14:12 01/19/23 14:00 01/18/23 08:04 FiO2 65 01/19/23 14:12 Oxygen Flow Rate (L/min) 10 Oxygen Delivery Method Mechanical Ventilator Weight: 127 lb 13.89 oz Body Mass Index (BMI) 19.4 Intake & Output: Intake and Output for Last 24 Hours 01/17/23 01/18/23 01/19/23 23:59 23:59 23:59 Intake Total 1470 / 1470 2599.25 / 2618.63 1115.18 / 1115.18 Output Total 1150 / 1150 1720 / 1720 280 / 280 Balance 320 / 320 879.25 / 898.63 835.18 / 835.18 Lab / Micro Data 01/19/23 03:40 01/19/23 03:40 Labs: Laboratory Results - last 24 hr 01/18/23 16:00: WBC 16.1 H, RBC 4.58 L, Hgb 13.2, Hct 42.9, MCV 93.7, MCH 28.8, MCHC 30.8 L, RDW Std Deviation 56.1 H, RDW Coeff of Debra 16.1 H, Plt Count 215, MPV 11.3, Immature Gran % (Auto) [employer], Neut % (Auto) [employer], Lymph % (Auto) [employer], [place] % (Auto) [employer], Eos % (Auto) [employer], Baso % (Auto) [employer], Absolute Neuts (auto) 14.5 H, Absolute Lymphs (auto) 0.32 L, Total Counted 100, Neutrophils % (Manual) 68, Band Neutrophils % 16 H, Lymphocytes % (Manual) 2 L, Monocytes % (Manual) 8, Metamyelocytes % 6 H, Nucleated RBC % [employer], Diff Path Review May foll, Platelet Estimate ADEQUATE, RBC Morphology NORM C+C, Sodium 139, Potassium 3.8, Chloride 109 H, Carbon Dioxide 25.0, Anion Gap 5, BUN 24 H, Creatinine 0.67 L, Estim Creat Clear Calc 54.93, Est GFR (MDRD) Af Amer 150, Est GFR (MDRD) Non-Af 124, BUN/Creatinine Ratio 35.7 H, Glucose 131 H, Calcium 9.0, Magnesium 1.9, MRSA (PCR) Negative 01/18/23 16:49: POC Glucose 116 H 01/18/23 23:51: POC Glucose 226 H 01/19/23 03:40: WBC 13.4 H, RBC 4.63, Hgb 13.6, Hct 42.9, MCV 92.7, MCH 29.4, MCHC 31.7 L, RDW Std Deviation 55.8 H, RDW Coeff of Debra 16.3 H, Plt Count 192, MPV 11.6, Immature Gran % (Auto) 1.500 H, Neut % (Auto) 87.1 H, Lymph % (Auto) 1.6 L, [place] % (Auto) 9.6, Eos % (Auto) 0.1, Baso % (Auto) 0.1, Absolute Neuts (auto) 11.7 H, Absolute Lymphs (auto) 0.22 L, Nucleated RBC % 0.4, Differential Comment SCANNED, Sodium 142, Potassium 4.0, Chloride 111 H, Carbon Dioxide 27.0, Anion Gap 4 L, BUN 26 H, Creatinine 0.90, Estim Creat Clear Calc 61.03, Est GFR (MDRD) Af Amer 108, Est GFR (MDRD) Non-Af 89, BUN/Creatinine Ratio 29.0 H, Glucose 188 H, Calcium 8.9, Magnesium 2.0, Total Bilirubin 0.30, AST 16, ALT 16, Alkaline Phosphatase 71, Total Protein 5.7 L, Albumin 1.6 L, Globulin 4.1, Albumin/Globulin Ratio 0.4 L 01/19/23 03:48: Ionized Calcium 5.05 01/19/23 05:37: POC Glucose 161 H 01/19/23 12:55: Troponin I High Sens 26 01/19/23 13:05: PT 15.7 H, INR 1.3, APTT 30.2 01/19/23 15:10: Troponin I High Sens 26 Micro: Microbiology 01/18/23 11:00 Sputum, Induced/Lukens Gram Stain - Final 01/18/23 11:00 Sputum, Induced/Lukens Respiratory Culture - Preliminary GNR Poss Pseudomonas sp 01/16/23 20:14 Blood Culture (Wb) - Right Forearm Blood Culture - Preliminary No growth in 48 hours. 01/16/23 19:43 Blood Culture (Wb) - Anticubital Left Blood Culture - Preliminary No growth in 48 hours. 01/17/23 22:30 Sputum, Expectorated/Coughed Gram Stain - Final 01/17/23 22:30 Sputum, Expectorated/Coughed Respiratory Culture - Preliminary GNR Poss Pseudomonas sp 01/16/23 20:14 Urine, Clean Catch Urine Culture - Final Culture exhibits no growth. ABG Data ABG results: ABG 01/19/23 05:34 Specimen Type ART Sample Site R Radial pH 7.33 L Bicarbonate Actual 25.2 Total CO2 27 Base Excess -1 O2 Saturation 89 L O2 % 70.0 ABG pCO2 47.3 H ABG pO2 61 L Lino Test N/A Respiration Rate 16 O2 Delivery Device Adult Vent Vent Mode AC Tidal Volume 450.0 POC PEEP 5 Cardiology Labs/Tests 01/18/23 16:00: WBC 16.1 H, RBC 4.58 L, Hgb 13.2, Hct 42.9, MCV 93.7, MCH 28.8, MCHC 30.8 L, Plt Count 215, MPV 11.3, Immature Gran % (Auto) [employer], Neut % (Auto) [employer], Lymph % (Auto) [employer], [place] % (Auto) [employer], Eos % (Auto) [employer], Baso % (Auto) [employer], Absolute Neuts (auto) 14.5 H, Total Counted 100, Neutrophils % (Manual) 68, Band Neutrophils % 16 H, Lymphocytes % (Manual) 2 L, Monocytes % (Manual) 8, Metamyelocytes % 6 H, Nucleated RBC % [employer], Sodium 139, Potassium 3.8, Chloride 109 H, Carbon Dioxide 25.0, Anion Gap 5, BUN 24 H, Creatinine 0.67 L, Est GFR (MDRD) Af Amer 150, Est GFR (MDRD) Non-Af 124, BUN/Creatinine Ratio 35.7 H, Glucose 131 H, Calcium 9.0, Magnesium 1.9 01/19/23 03:40: WBC 13.4 H, RBC 4.63, Hgb 13.6, Hct 42.9, MCV 92.7, MCH 29.4, MCHC 31.7 L, Plt Count 192, MPV 11.6, Immature Gran % (Auto) 1.500 H, Neut % (Auto) 87.1 H, Lymph % (Auto) 1.6 L, [place] % (Auto) 9.6, Eos % (Auto) 0.1, Baso % (Auto) 0.1, Absolute Neuts (auto) 11.7 H, Nucleated RBC % 0.4, Sodium 142, Potassium 4.0, Chloride 111 H, Carbon Dioxide 27.0, Anion Gap 4 L, BUN 26 H, Creatinine 0.90, Est GFR (MDRD) Af Amer 108, Est GFR (MDRD) Non-Af 89, BUN/Creatinine Ratio 29.0 H, Glucose 188 H, Calcium 8.9, Magnesium 2.0, Total Bilirubin 0.30 01/19/23 03:48: Ionized Calcium 5.05 01/19/23 05:34: pH 7.33 L, Bicarbonate Actual 25.2, Base Excess -1, O2 Saturation 89 L, ABG pCO2 47.3 H, ABG pO2 61 L, Lino Test N/A 01/19/23 13:05: PT 15.7 H, INR 1.3, APTT 30.2 Rhythm: EKG: ECHO: Stress Test: Cardiac Cath: PCI: CT Surgery: Holter monitor: EPS: PPM: CXR: Chest CT Scan: Radiography Diagnostic Testing: Radiology Impression Chest X-Ray 01/19/23 05:26 IMPRESSION: 1. Nasogastric tube should be advanced at least 5 cm. 2. Endotracheal tube and central line are in adequate position. 3. Persistent left pulmonary infiltrates with interval worsening in the left basilar region. Overlying small left pleural effusion is suspected. Electronically Signed: Gordon Keller MD at 6:32 EDT Reading Location ID and State: [facility] / [place] , Service support , Echocardiogram 01/19/23 05:55 Interpretation Summary Normal LV size. D shaped septum in systole and diastole. The estimated ejection fraction is 50 %. Severely dilated right ventricle. Moderate global right ventricular systolic dysfunction. Pulmonary artery systolic pressure is 47 mmHg. Ordering Physician: Iftikhar Dumont Referring Physician: [facility] Performed By: Madeleine Hernandez RDCS, RVT
[2023-01-19] MEDS: Lactated Ringers 1,000 ML 75 ML IV (16:22)
[2023-01-19 17:25] LABS: Bedside Glucose 273 mg/dL (74-106)
--- NOTE | 2023-01-19 18:05 | PN.HOSP_ITS ---
Reason for Visit Reason for Visit: Shortness of breath Subjective Subjective Patient is a 72-year-old white male with severe end-stage COPD and history of agent orange exposure chronically on 3 L nasal cannula who presented to emergency department on 01/16/2023 with worsening shortness of breath. Patient reported that his symptoms had been worsening over the last several days and upon EMS arrival was only able to speak in 1-2 word sentences with his oxygen s aturation 84% on his baseline 3 L nasal cannula. Patient reported he has had a cough with sputum production of various colors. He denied any fever or chills but did report significant wheezing at home. Initial vital signs in the emergency department showed a temperature of 99.2, heart rate 134, blood pressure 122/89, respiratory was 23 and oxygen saturation was initially 94% on 3 L however he desatted and required an increased titration to 6 L nasal cannula. CBC showed a white count of 16.9 with a hemoglobin of 16.1 and a platelet count of 236,000. Left shift was present. Coags were normal and his D-dimer was 1.59. CMP showed chronic hyponatremia with a stable sodium of 129, glucose of 156 and a lactic acidosis with a lactic acid of 2.6. Initial troponin was 8 and his UA showed dehydration with a specific gravity of 1.02, ketones, occult blood, but no signs of infection. Chest x-ray showed air space densities throughout the left lung consistent with pneumonia and severe COPD. CTA of his chest showed no evidence of PE or dissection but did show severe COPD with extensive infiltrate in his left upper lobe consistent with pneumonia and 2 suspicious nodules in the right middle lobe. EKG showed sinus rhythm initially with improved with IV fluids. There was no evidence of ischemia. He was given IV fluids, nebulizers and IV Rocephin and azithromycin in the emergency depar tment. He was initially mated to the medical floor. COVID PCR and strep pneumo and Legionella antigens were negative. He was also placed on IV steroids and was improved initially. Pulmonary medicine was consulted. Patient's respiratory status slowly worsened throughout the day on 01/17/2023 to 01/18/2023 and he required intubation in the afternoon of 01/18/2023 by pulmonary medicine. A central line was also placed at that time. Flexible bronchoscopy was done as well. Follow-up chest x-ray at the time of worsening showed worsening left- sided pneumonia with almost complete whiteout of his left hemithorax an emergent bronchoscopy was performed as noted and showed mucous plugging of the left lung. That was aspirated however his chest x-ray did not dramatically improved. Given his worsening status he was transition from ceftriaxone azithromycin to vancomycin and cefepime and azithromycin was continued. Repeat cultures were performed. Echocardiogram was today and showed an EF of 50% with a severely dilated RV and moderate global RV dysfunction with pulmonary artery systolic pressures of 47 mmHg. Patient has no next of kin and prior to intubation he did mention to social work that he has no relatives. During the day today he developed A-fib with RVR and hypotension. He was given IV amiodarone. At this time he remains on pressors which have had to be uptitrated throughout the day today. Objective Data Objective Data Vital Signs: Vital Signs Temp Pulse Resp BP Pulse Ox O2 Del Method O2 Flow Rate 97.9 F 99 16 111/62 91 Mechanical Ventilator 10 01/19/23 14:00 01/19/23 17:12 01/19/23 17:12 01/19/23 14:00 01/19/23 17:12 01/19/23 16:00 01/18/23 08:04 FiO2 65 01/19/23 17:12 Oxygen Flow Rate (L/min) 10 Oxygen Delivery Method Mechanical Ventilator Weight: 58 kg Body Mass Index (BMI) 19.4 Intake & Output: Intake and Output for Last 24 Hours 01/17/23 01/18/23 01/19/23 23:59 23:59 23:59 Intake Total 1470 / 1470 2599.25 / 2618.63 1115.18 / 1115.18 Output Total 1150 / 1150 1720 / 1720 280 / 280 Balance 320 / 320 879.25 / 898.63 835.18 / 835.18 Lab / Micro Data 01/19/23 03:40 01/19/23 03:40 Labs: Laboratory Results - last 24 hr 01/18/23 23:51: POC Glucose 226 H 01/19/23 03:40: WBC 13.4 H, RBC 4.63, Hgb 13.6, Hct 42.9, MCV 92.7, MCH 29.4, MCHC 31.7 L, RDW Std Deviation 55.8 H, RDW Coeff of Debra 16.3 H, Plt Count 192, MPV 11.6, Immature Gran % (Auto) 1.500 H, Neut % (Auto) 87.1 H, Lymph % (Auto) 1.6 L, [place] % (Auto) 9.6, Eos % (Auto) 0.1, Baso % (Auto) 0.1, Absolute Neuts (auto) 11.7 H, Absolute Lymphs (auto) 0.22 L, Nucleated RBC % 0.4, Differential Comment SCANNED, Sodium 142, Potassium 4.0, Chloride 111 H, Carbon Dioxide 27.0, Anion Gap 4 L, BUN 26 H, Creatinine 0.90, Estim Creat Clear Calc 61.03, Est GFR (MDRD) Af Amer 108, Est GFR (MDRD) Non-Af 89, BUN/Creatinine Ratio 29.0 H, Glucose 188 H, Calcium 8.9, Magnesium 2.0, Total Bilirubin 0.30, AST 16, ALT 16, Alkaline Phosphatase 71, Total Protein 5.7 L, Albumin 1.6 L, Globulin 4.1, Albumin/Globulin Ratio 0.4 L 01/19/23 03:48: Ionized Calcium 5.05 01/19/23 05:37: POC Glucose 161 H 01/19/23 12:55: Troponin I High Sens 26 01/19/23 13:05: PT 15.7 H, INR 1.3, APTT 30.2 01/19/23 15:10: Troponin I High Sens 26 01/19/23 17:06: POC Glucose 273 H Micro: Microbiology 01/18/23 11:00 Sputum, Induced/Lukens Gram Stain - Final 01/18/23 11:00 Sputum, Induced/Lukens Respiratory Culture - Preliminary GNR Poss Pseudomonas sp 01/16/23 20:14 Blood Culture (Wb) - Right Forearm Blood Culture - Preliminary No growth in 48 hours. 01/16/23 19:43 Blood Culture (Wb) - Anticubital Left Blood Culture - Preliminary No growth in 48 hours. 01/17/23 22:30 Sputum, Expectorated/Coughed Gram Stain - Final 01/17/23 22:30 Sputum, Expectorated/Coughed Respiratory Culture - Preliminary GNR Poss Pseudomonas sp 01/16/23 20:14 Urine, Clean Catch Urine Culture - Final Culture exhibits no growth. 01/17/23 00:45 Mucosa - Nasopharyngeal Coronavirus COVID-19 PCR - Final 01/16/23 00:45 Mucosa - Nasopharyngeal Respiratory Panel (PCR) - Final 01/17/23 00:27 Urine, Random Legionella Antigen - Final 01/17/23 00:27 Urine, Random Streptococcus pneumoniae Antigen (M - Final 01/16/23 19:50 Nasal Secretion SARS-CoV-2 & FLU Antigen (Rapid) - Final ABG Data ABG results: ABG 01/19/23 05:34 Specimen Type ART Sample Site R Radial pH 7.33 L Bicarbonate Actual 25.2 Total CO2 27 Base Excess -1 O2 Saturation 89 L O2 % 70.0 ABG pCO2 47.3 H ABG pO2 61 L Lino Test N/A Respiration Rate 16 O2 Delivery Device Adult Vent Vent Mode AC Tidal Volume 450.0 POC PEEP 5 Radiography Diagnostic Testing: Radiology Impression Chest X-Ray 01/19/23 05:26 IMPRESSION: 1. Nasogastric tube should be advanced at least 5 cm. 2. Endotracheal tube and central line are in adequate position. 3. Persistent left pulmonary infiltrates with interval worsening in the left basilar region. Overlying small left pleural effusion is suspected. Electronically Signed: Gordon Keller MD at 6:32 EDT Reading Location ID and State: [facility] / [place] , Service support , Echocardiogram 01/19/23 05:55 Interpretation Summary Normal LV size. D shaped septum in systole and diastole. The estimated ejection fraction is 50 %. Severely dilated right ventricle. Moderate global right ventricular systolic dysfunction. Pulmonary artery systolic pressure is 47 mmHg. Ordering Physician: Iftikhar Dumont Referring Physician: [facility] Performed By: Madeleine Hernandez, CARTER, RVT Physical Exam Const Constitutional Narrative: Older white male who appears much older than stated age lying in bed, currently intubated and sedated and on pressor HEENT head/scalp atraumatic and moist oral mucous membranes HEENT Narrative: ET tube in place, dentition is poor Resp No normal respiratory effort, no retractions and no use of accessory muscles Resp Narrative: Diffusely diminished with significant diminishment in the right lung field, scattered rhonchi, patient intubated on a ventilator Auscultation: rhonchi; Negative for rales or wheezes Cardio regular rate, regular rhythm, S1 normal heart sound, S2 normal heart sound, no murmurs, no rub, no gallops and no clicks GI normal to inspection, nondistended, normoactive bowel sounds and non-tender Extremity no clubbing, cyanosis or edema Extremity Narrative: Pedal pulses are 2+ Skin Skin Narrative: Left IJ in place-clean and dry Neuro Neuro Narrative: Intubated and sedated-exam is difficult Psych Psych Narrative: Unable to examine due to intubation and sedation Assessment & Plan Assessment/Plan (1) Afib: QUALIFIERS: Atrial fibrillation type: persistent (not longstanding) Qualified Code(s): I48.19 - Other persistent atrial fibrillation (2) RVF (right ventricular failure): (3) Acute and chronic respiratory failure with hypoxia: PLAN: Plan Acute hypoxic respiratory failure secondary to right-sided pneumonia/acute exacerbation of COPD -Intubated 01/18/2023 -Remains on significant vent settings with an FiO2 of 65% -Status post bronchoscopy -MRSA swab was negative -Vancomycin discontinued and patient will remain on cefepime and azithromycin awaiting blood culture and sputum culture results -Echocardiogram shows significant right-sided heart failure and elevated pulmonary pressures -Would likely benefit from Lasix once more hemodynamically stable -Continue aggressive pulmonary toilet -Chest CT done on admission showed significant findings in left upper lobe that were new compared to previous -Overall prognosis is poor with severe pneumonia and COPD with multiple lung nodules -Pulmonary medicine/critical care following-appreciate input Septic shock due to the above -Remains on Levophed -We will wean pressors as able -Continue antibiotics as ordered -Await cultures to finalize -LR at 75 cc/h added by pulmonary medicine New onset A-fib with RVR -Echocardiogram performed and shows RV dysfunction likely related to pulmonary issues at baseline -LV is normal -Suspect this was precipitated by pulmonary dysfunction -Was bolused with amiodarone and will continue amiodarone drip as well as heparin drip -No PE noted on presentation History of COPD -See above Pulmonary nodules -If patient survives will need follow-up CT after discharge Hypertension -Antihypertensives on hold due to pressor requirement -Monitor for ability to reinitiate DM-2 -Hemoglobin A1c is 6.1 -We will add sliding scale insulin as blood sugars have been elevated due to acute infection and use of steroids -Every 6 hours SSI added -Trend blood sugars DVT/GI prophylaxis -Patient is now on a heparin drip -Protonix 40 daily Code Status -Full Code Charges/Coding Visit Charges Inpatient E&M: 01473 Subs Hosp L1
--- NOTE | 2023-01-19 19:00 | NURSING ---
Received verbal report at shift change that patients levophed was running at 10mcg/ min. Upon verifying pumps, Levophed noted to be running at 15 mcg, levo documented in MAR as running at 10mcg/min. Titrated levo in MAR to 15mcg/min at this time.
[2023-01-19 19:20] LABS: Troponin-I HS 21 pg/mL (3.0-78.0)
[2023-01-19] MEDS: Amiodarone 360 MG in Dextrose 5% Viaflo Bag 192.8 ML 16.7 MG CONT INF (19:44)
[2023-01-19 20:34] LABS: Partial Thromboplast Time 42.7 Seconds (24.1-36.2)
--- NOTE | 2023-01-19 20:45 | NURSING ---
2044- pt's cardiac monitors shows pt w/ conversion to sinus rhythm from afib. EKG to confirm, EKG cortexted to provider.
--- NOTE | 2023-01-19 20:52 | EKG12_ITS ---
Test Reason : Rhythm Change Blood Pressure : / mmHG Vent. Rate : 102 BPM Atrial Rate : 102 BPM P-R Int : 138 ms QRS Dur : 168 ms QT Int : 366 ms P-R-T Axes : 085 138 069 degrees QTc Int : 477 ms Sinus tachycardia Possible Left atrial enlargement Right bundle branch block Abnormal ECG When compared with ECG of 19-JAN-2023 12:47, MANUAL COMPARISON REQUIRED, DATA IS UNCONFIRMED Confirmed by FRED MATOS, RENE ([id number]), editor house organ RAFIQ LLAMAS ([id number]) on 02/24/2023 1:02:24 PM Referred By: Erin Confirmed By:RENE IBARRA MD
[2023-01-19] MEDS: Norepinephrine 8 MG in 0.9% Normal Saline (250mL Bag) 242 ML 28.1 MG CONT INF (21:51)
--- NOTE | 2023-01-19 22:00 | NURSING ---
According to MAR, levo showing infused at 2144, levo not actually infused until 2150.
[2023-01-19] MEDS: Azithromycin 500 MG in Dextrose 5%-Water (250mL Bag) 250 ML 250 MG IV (22:31)
[2023-01-19] MEDS: fentaNYL drip 100 ML 5 MCG CONT INF (23:39)
[2023-01-19] MEDS: Insulin Lispro 100 UNIT/ML INSULN.PEN SC (23:40)
[2023-01-19] MEDS: Glycerin/Hypromellose/PEG400 15 ml Bottle 2 DRP EACH EYE (23:40)
[2023-01-19 23:50] LABS: Bedside Glucose 380 mg/dL (74-106)
[2023-01-20] VITALS (55 sets, daily range): BP systolic 70–124; BP diastolic 54–77; PULSE 94–114; RESP 15–19; TEMP 37.3–38.3; O2SAT 89–96
[2023-01-20] MEDS: TITRATION PARAMETER CHANGE 1 EACH IV (01:33)
[2023-01-20] MEDS: Ipratropium/Albuterol Sulfate 3 ML AMPUL.NEB INHALATION ×6 (02:04→22:51)
[2023-01-20 04:13] LABS: Absolute Lymphocyte Count 0.27 X10^3/uL (0.83-4.51); Absolute Neutrophil Count 13.2 X10^3/uL (2.0-7.7); Basophil# 0.14 X10^3/uL; Basophil% 0.9 % (0-1); Eosinophil# 0.01 X10^3/uL; Eosinophils% 0.1 % (0-5); Hematocrit 39.8 % (40-54); Hemoglobin 12.5 g/dL (13.0-16.5); Lymphocyte # 0.27 X10^3/ul (0.83-4.51); Lymphocyte % 1.8 % (19-41); Mean Corp Hgb Conc 31.4 g/dL (32-36); Mean Corpuscular Hgb 29.4 pg (27.0-32.0); Mean Corpuscular Volume 93.6 fL (80-94); Mean Platelet Vol. 11.5 fl (6.2-12.0); Monocyte# 0.85 X10^3/uL; Monocyte% 5.7 % (0-10); NRBC Flagged by Analyzer 0.4 % (0-5); Neutrophil % 88.5 % (47-70); POSITIVE DIFFERENTIAL YES; POSITIVE MORPHOLOGY YES; Platelet Count 163 K/mm3 (150-450); RBC Distribution Width CV 16.6 % (11.6-14.6); Red Blood Count 4.25 M/mm3 (4.6-6.2); White Blood Count 14.9 K/mm3 (4.4-11.0)
[2023-01-20] MEDS: 0.9% Saline Lock 10 ML Syringe IV ×3 (04:15→05:15)
[2023-01-20 04:16] LABS: Differential Indicated SCAN CRITERIA MET
[2023-01-20 05:00] LABS: ALB/GLOB Ratio 0.4 RATIO (0.9-2.4); AST(SGOT) 3365 U/L (15-37); Alanine Aminotransfer ALT/SGPT 2100 U/L (16-61); Albumin, Serum 1.5 g/dL (3.2-5.0); Alkaline Phosphatase 75 U/L (45-117); Anion Gap 3 (5-15); BUN 47 mg/dL (7-18); BUN/Creat Ratio 40.9 RATIO (10-20); Calcium,Total 8.9 mg/dL (8.5-10.1); Chloride 109 mmol/L (98-107); Creatinine, Serum 1.15 mg/dL (0.70-1.30); Differential Comment SCANNED; EST Glomerular Filtration Rate 67 mL/min (>60); Est Glom Filt Rate - Afr Amer 81 mL/min (>60); Estimated Creatinine Clearance 50.64 ml/min; Globulin 4.1 g/dL (2.2-4.2); Glucose 333 mg/dL (74-106); Potassium 3.9 mmol/L (3.5-5.1); Protein, Total 5.6 g/dL (6.4-8.2); Sodium Level 140 mmol/L (136-145)
[2023-01-20] MEDS: Insulin Lispro 100 UNIT/ML INSULN.PEN SC ×4 (05:05→23:29)
[2023-01-20] MEDS: Cefepime HCl 1 GM in 0.9% Normal Saline (50mL MB+) 50 ML IV ×3 (05:05→21:20)
[2023-01-20] MEDS: Glycerin/Hypromellose/PEG400 15 ml Bottle 2 DRP EACH EYE ×5 (05:06→22:32)
[2023-01-20] MEDS: Methylprednisolone Sod Succ 40 MG/ML VIAL IV ×4 (05:06→23:29)
[2023-01-20 05:12] LABS: Partial Thromboplast Time 39.8 Seconds (24.1-36.2)
[2023-01-20 05:16] LABS: Bedside Glucose 322 mg/dL (74-106)
[2023-01-20] MEDS: Lactated Ringers 1,000 ML 75 ML IV (05:51)
[2023-01-20] MEDS: Heparin Injection (Vial) 5,000 UNIT/ML VIAL IV ×2 (05:52→20:09)
--- NOTE | 2023-01-20 07:43 | US_ITS ---
STUDY: ABDOMINAL ULTRASOUND - RIGHT UPPER QUADRANT REASON FOR VISIT: Male, 72 years old transaminitis TECHNIQUE: Ultrasound evaluation of the right upper quadrant was performed with real-time and static reynoso-scale imaging. TECHNICAL QUALITY: Limited. Examination limited due to the patient?s condition. COMPARISON: None. FINDINGS: Liver: The liver measures 16.1 cm. There is increased echogenicity consistent with fatty infiltration. The bile ducts are within normal limits. There is hepatic color flow. The direction of portal flow is hepatopetal. There is no demonstrated mass lesion. Gallbladder: Normal distended gallbladder. The gallbladder wall measures 2.5 mm. There is a negative sonographic Berman''s sign. Small amount of pericholecystic fluid. There are no gallstones. Sludge is seen within the gallbladder lumen. Common Bile Duct (C.B.D.): The common bile duct measures 7.6 mm. Pancreas: Normal body of the pancreas. Tilt portion is obscured uterine bowel gas. There is normal echogenicity of the pancreas. There is no demonstrated pancreatic mass or cyst. Right Kidney: Normal size of the right kidney. The right kidney measures 11.4 cm x 4.8 cm x 3.8 cm. Normal renal cortex. The right cortex measures 1.1 cm. There is no demonstrated renal mass or cyst. There is no right hydronephrosis. Minimal ascites. US/Liver IMPRESSION: Fatty infiltration of the liver. Sludge in the gallbladder lumen. Minimal pericholecystic fluid. Limited visualization of the pancreas due to overlying bowel gas. Minimal ascites. Electronically Signed: Brett Arango MD at 15:25 EDT ,
--- NOTE | 2023-01-20 08:05 | PCM.PN.CARD ---
Subjective Subjective Patient seen and evaluated. Still intubated. Sedated. Objective Data Vital Signs: Vital Signs Temp Pulse Resp BP Pulse Ox O2 Del Method O2 Flow Rate 100.0 F H 99 18 104/63 92 Mechanical Ventilator 10 01/20/23 04:00 01/20/23 07:04 01/20/23 07:04 01/20/23 07:00 01/20/23 07:04 01/20/23 07:00 01/18/23 08:04 FiO2 75 01/20/23 07:04 Oxygen Flow Rate (L/min) 10 Oxygen Delivery Method Mechanical Ventilator Weight: 132 lb 0.91 oz Body Mass Index (BMI) 20.0 Intake & Output: Intake and Output for Last 24 Hours 01/18/23 01/19/23 01/20/23 23:59 23:59 23:59 Intake Total 2599.25 / 2618.63 2239.89 / 2259.31 1974.58 / 1974.58 Output Total 1720 / 1720 605 / 605 230 / 230 Balance 879.25 / 898.63 1634.89 / 1654.31 1744.58 / 1744.58 Lab / Micro Data 01/20/23 04:06 01/20/23 04:06 Labs: Laboratory Results - last 24 hr 01/19/23 12:55: Troponin I High Sens 26 01/19/23 13:05: PT 15.7 H, INR 1.3, APTT 30.2 01/19/23 15:10: Troponin I High Sens 26 01/19/23 17:06: POC Glucose 273 H 01/19/23 18:50: Troponin I High Sens 21 01/19/23 20:15: APTT 42.7 H 01/19/23 23:32: POC Glucose 380 H 01/20/23 04:06: WBC 14.9 H, RBC 4.25 L, Hgb 12.5 L, Hct 39.8 L, MCV 93.6, MCH 29.4, MCHC 31.4 L, RDW Std Deviation 57.0 H, RDW Coeff of Debra 16.6 H, Plt Count 163, MPV 11.5, Immature Gran % (Auto) 3.000 H, Neut % (Auto) 88.5 H, Lymph % (Auto) 1.8 L, Stephenson % (Auto) 5.7, Eos % (Auto) 0.1, Baso % (Auto) 0.9, Absolute Neuts (auto) 13.2 H, Absolute Lymphs (auto) 0.27 L, Nucleated RBC % 0.4, Differential Comment SCANNED, Sodium 140, Potassium 3.9, Chloride 109 H, Carbon Dioxide 28.0, Anion Gap 3 L, BUN 47 H, Creatinine 1.15, Estim Creat Clear Calc 50.64, Est GFR (MDRD) Af Amer 81, Est GFR (MDRD) Non-Af 67, BUN/Creatinine Ratio 40.9 H, Glucose 333 H, Calcium 8.9, Magnesium 3.0 H, Total Bilirubin 0.30, AST 3365 H, ALT 2100 H, Alkaline Phosphatase 75, Total Protein 5.6 L, Albumin 1.5 L, Globulin 4.1, Albumin/Globulin Ratio 0.4 L 01/20/23 04:15: Ionized Calcium 5.20 01/20/23 04:45: APTT 39.8 H 01/20/23 04:53: POC Glucose 322 H Micro: Microbiology 01/18/23 11:00 Sputum, Induced/Lukens Gram Stain - Final 01/18/23 11:00 Sputum, Induced/Lukens Respiratory Culture - Final Pseudomonas aeruginosa 01/17/23 22:30 Sputum, Expectorated/Coughed Gram Stain - Final 01/17/23 22:30 Sputum, Expectorated/Coughed Respiratory Culture - Final Pseudomonas aeruginosa 01/16/23 20:14 Blood Culture (Wb) - Right Forearm Blood Culture - Preliminary No growth in 48 hours. 01/16/23 19:43 Blood Culture (Wb) - Anticubital Left Blood Culture - Preliminary No growth in 48 hours. 01/16/23 20:14 Urine, Clean Catch Urine Culture - Final Culture exhibits no growth. Cardiology Labs/Tests 01/19/23 13:05: PT 15.7 H, INR 1.3, APTT 30.2 01/19/23 20:15: APTT 42.7 H 01/20/23 04:06: WBC 14.9 H, RBC 4.25 L, Hgb 12.5 L, Hct 39.8 L, MCV 93.6, MCH 29.4, MCHC 31.4 L, Plt Count 163, MPV 11.5, Immature Gran % (Auto) 3.000 H, Neut % (Auto) 88.5 H, Lymph % (Auto) 1.8 L, Stephenson % (Auto) 5.7, Eos % (Auto) 0.1, Baso % (Auto) 0.9, Absolute Neuts (auto) 13.2 H, Nucleated RBC % 0.4, Sodium 140, Potassium 3.9, Chloride 109 H, Carbon Dioxide 28.0, Anion Gap 3 L, BUN 47 H, Creatinine 1.15, Est GFR (MDRD) Af Amer 81, Est GFR (MDRD) Non-Af 67, BUN/Creatinine Ratio 40.9 H, Glucose 333 H, Calcium 8.9, Magnesium 3.0 H, Total Bilirubin 0.30 01/20/23 04:15: Ionized Calcium 5.20 01/20/23 04:45: APTT 39.8 H Rhythm: EKG: ECHO: Stress Test: Cardiac Cath: PCI: CT Surgery: Holter monitor: EPS: PPM: CXR: Chest CT Scan: Radiography Diagnostic Testing: Radiology Impression Echocardiogram 01/19/23 05:55 Interpretation Summary Normal LV size. D shaped septum in systole and diastole. The estimated ejection fraction is 50 %. Severely dilated right ventricle. Moderate global right ventricular systolic dysfunction. Pulmonary artery systolic pressure is 47 mmHg. Ordering Physician: Iftikhar Dumont Referring Physician: [facility] Performed By: Madeleine Hernandez, CARTER, RVT Physical Exam Const Constitutional Narrative: Older white male who appears much older than stated age lying in bed, currently intubated and sedated and on pressor HEENT head/scalp atraumatic and moist oral mucous membranes HEENT Narrative: ET tube in place, dentition is poor Resp No normal respiratory effort, no retractions and no use of accessory muscles Resp Narrative: Diffusely diminished with significant diminishment in the right lung field, scattered rhonchi, patient intubated on a ventilator Auscultation: rhonchi; Negative for rales or wheezes Cardio regular rate, regular rhythm, S1 normal heart sound, S2 normal heart sound, no murmurs, no rub, no gallops and no clicks GI normal to inspection, nondistended, normoactive bowel sounds and non-tender Extremity no clubbing, cyanosis or edema Extremity Narrative: Pedal pulses are 2+ Skin Skin Narrative: Left IJ in place-clean and dry Neuro Neuro Narrative: Intubated and sedated-exam is difficult Psych Psych Narrative: Unable to examine due to intubation and sedation Assessment & Plan Assessment/Plan (1) Afib: QUALIFIERS: Atrial fibrillation type: persistent (not longstanding) Qualified Code(s): I48.19 - Other persistent atrial fibrillation PLAN: He appears to have persistent atrial fibrillation. He appears to have converted to sinus rhythm. Echocardiographic findings demonstrated borderline preserved left ventricular systolic function and a dilated right ventricle. Recommendation will be to continue anticoagulation for now Now that the acute phase is over we will probably wait for this bag of amiodarone to be done and then discontinue. (2) RVF (right ventricular failure): PLAN: He does have evidence of right ventricular failure. The plan will be to keep him on the current medical therapy. He is probably volume dependent. There is no evidence of pulmonary embolism present. The above has been discussed with cupola liner helper. His markedly elevated liver enzymes could be secondary to shock liver. I doubt it is from intravenous amiodarone however it may be helpful to discontinue this at this time.
--- NOTE | 2023-01-20 08:10 | RAD_ITS ---
STUDY: X-RAY CHEST REASON FOR EXAM: Male, 72 years old. Hypoxia TECHNIQUE: Single AP portable view of the chest. COMPARISON: Comparison is made with prior study dated January 19, 2023. FINDINGS: An endotracheal tube is in situ. The tip is at 4.7 sinus proximal to the linda. An orogastric tube is seen with stability left hemidiaphragm. A left-sided internal jugular venous catheter seen with the tip in the midportion of the superior vena cava. This is unchanged. Persistent consolidation in the right upper lobe. Small left pleural effusion with infiltrate in the posteromedial segment of the left lower lobe. Since prior study, there has been improvement in aeration of the left hemithorax. Stable linear scarring in the right upper lobe with decreased bronchovascular markings suggestive of emphysematous change. There is no demonstrated pleural abnormality. Normal size heart. Normal mediastinum and arti. Normal visualized pulmonary arteries. Normal visualized aortic arch and descending thoracic aorta. There are diffuse degenerative changes of the visualized thoracic spine. Normal visualized ribs, clavicles, and shoulders. There is no demonstrated abnormality of the visualized soft tissue structures of the upper abdomen. RAD/Chest 1 View (Portable) IMPRESSION: Persistent consolidation in the left hemithorax although there has been improvement. All the support tubes are in good position. Electronically Signed: Brett Arango MD at 9:13 EDT ,
[2023-01-20] MEDS: Chlorhexidine 15 ML PO ×2 (08:26→19:51)
[2023-01-20] MEDS: dexMEDEtomidine 400 MCG in 0.9% Normal Saline (100mL Bag) 96 ML 10.5 MCG CONT INF ×2 (08:33→17:24)
[2023-01-20] MEDS: Pantoprazole Sodium 40 MG in 0.9% Normal Saline (100mL MB+) 100 ML 330 MG IV (08:46)
[2023-01-20] MEDS: Midazolam 2 MG/2 ML Syringe IV (08:51)
[2023-01-20] MEDS: Insulin Glargine-YFGN 100 UNIT/ML Pen 14 UNIT SC (09:44)
[2023-01-20] MEDS: Furosemide 20 MG/2 ML VIAL IV (11:03)
[2023-01-20 11:48] LABS: Bedside Glucose 287 mg/dL (74-106)
[2023-01-20 12:34] LABS: Partial Thromboplast Time 49.2 Seconds (24.1-36.2)
--- NOTE | 2023-01-20 13:30 | PN.CC_ITS ---
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 Acute hypoxic and hypercapnic respiratory failure, requiring intubation on 01/18/2023. Currently behaving like ARDS 2. Septic shock secondary to left-sided Pseudomonas pneumonia 3. COPD exacerbation 4. Shock liver 5. A-fib with RVR 6. Pulmonary hypertension with RV dysfunction 7. Tobacco use 8. Pulmonary nodules 9. Debility Plan * Patient was intubated and sedated on 01/18 due to worsening respiratory status and inability to tolerate BiPAP. * Patient is currently behaving like ARDS requiring high PEEP and FiO2 and difficulty oxygenating. This may be further worsening his pulmonary hypertension. He was given a bolus of 500 cc overnight due to worsening hypotension and concern for RV failure. However given ARDS picture he would benefit from light diuresis as we are having difficulty oxygenating him. He was given a small dose of Lasix today. DC IV fluids for now continue tube feeds. He may require to be proned if he continues to deteriorate * Multiple attempts at adjusting vent settings today. He is now on a PEEP of 12 and FiO2 of 85% * Due to his hypotension he developed shock liver. Amiodarone was discontinued. liver US ordered * Instructed RN to place patient good lung down i.e.: on his right side as his left lung is merritt out. There are minimal secretions. * Serum cultures growing Pseudomonas. Continue cefepime * He remains on Levophed * Continue Solu-Medrol and DuoNebs * Wean FiO2 as tolerated * DVT prophylaxis subcu Lovenox * GI prophylaxis Protonix * Regimen MiraLAX and senna docusate daily * Chest CT done on this admission showing new findings in left upper lobe. Given recent CT chest in October with no findings on left upper lung, the patient's current presentation these changes are most likely related to an infectious process. The right upper lobe scar seen on right lung in October and appears to be improving. Nodules in the right middle lobe appear to be stable from October 2022. However given his history patient remains high risk and would recommend repeat CT scan in 6 to 8 weeks to ensure resolution and further evaluation of nodules in right middle lobe. This was discussed with the patient and he is agreeable and verbalized understanding * Prior to becoming ill. Patient informed criminal justice social worker and myself that he has no family and that he lives alone. * Poor prognosis given unilateral pneumonia and underlying severe COPD with multiple lung nodules Critical care time spent 35 minutes excluding procedures in addressing above problems Subjective Subjective Patient was hypotensive overnight and required increased Levophed. He has shock liver. He has also been having difficulty oxygenating. Objective Data Objective Data Vital Signs: Vital Signs Temp Pulse Resp BP Pulse Ox O2 Del Method O2 Flow Rate 38.3 C H 110 H 17 90/63 93 Mechanical Ventilator 10 01/20/23 12:00 01/20/23 13:23 01/20/23 13:23 01/20/23 12:00 01/20/23 13:23 01/20/23 12:00 01/18/23 08:04 FiO2 85 01/20/23 13:23 Oxygen Flow Rate (L/min) 10 Oxygen Delivery Method Mechanical Ventilator Weight: 59.9 kg Body Mass Index (BMI) 20.0 Intake & Output: Intake and Output for Last 24 Hours 01/18/23 01/19/23 01/20/23 23:59 23:59 23:59 Intake Total 2599.25 / 2618.63 2239.89 / 2259.31 2613.17 / 2613.17 Output Total 1720 / 1720 605 / 605 1330 / 1330 Balance 879.25 / 898.63 1634.89 / 1654.31 1283.17 / 1283.17 Lab / Micro Data 01/20/23 04:06 01/20/23 04:06 Labs: Laboratory Results - last 24 hr 01/19/23 12:55: Troponin I High Sens 01/19/23 13:05: PT 15.7 H, INR 1.3, APTT 30.2 01/19/23 15:10: Troponin I High Sens 01/19/23 17:06: POC Glucose 273 H 01/19/23 18:50: Troponin I High Sens 01/19/23 20:15: APTT 42.7 H 01/19/23 23:32: POC Glucose 380 H 01/20/23 04:06: WBC 14.9 H, RBC 4.25 L, Hgb 12.5 L, Hct 39.8 L, MCV 93.6, MCH 29.4, MCHC 31.4 L, RDW Std Deviation 57.0 H, RDW Coeff of Debra 16.6 H, Plt Count 163, MPV 11.5, Immature Gran % (Auto) 3.000 H, Neut % (Auto) 88.5 H, Lymph % (Auto) 1.8 L, [place] % (Auto) 5.7, Eos % (Auto) 0.1, Baso % (Auto) 0.9, Absolute Neuts (auto) 13.2 H, Absolute Lymphs (auto) 0.27 L, Nucleated RBC % 0.4, Differential Comment SCANNED, Sodium 140, Potassium 3.9, Chloride 109 H, Carbon Dioxide 28.0, Anion Gap 3 L, BUN 47 H, Creatinine 1.15, Estim Creat Clear Calc 50.64, Est GFR (MDRD) Af Amer 81, Est GFR (MDRD) Non-Af 67, BUN/Creatinine Ratio 40.9 H, Glucose 333 H, Calcium 8.9, Magnesium 3.0 H, Total Bilirubin 0.30, AST 3365 H, ALT 2100 H, Alkaline Phosphatase 75, Total Protein 5.6 L, Albumin 1.5 L, Globulin 4.1, Albumin/Globulin Ratio 0.4 L 01/20/23 04:15: Ionized Calcium 5.20 01/20/23 04:45: APTT 39.8 H 01/20/23 04:53: POC Glucose 322 H 01/20/23 10:59: POC Glucose 287 H 01/20/23 11:45: APTT 49.2 H Micro: Microbiology 01/18/23 11:50 Blood Culture (Wb) - Left Forearm Blood Culture - Preliminary No growth in 48 hours. 01/18/23 11:50 Blood Culture (Wb) - Port Blood Culture - Preliminary No growth in 48 hours. 01/18/23 11:00 Sputum, Induced/Lukens Gram Stain - Final 01/18/23 11:00 Sputum, Induced/Lukens Respiratory Culture - Final Pseudomonas aeruginosa 01/17/23 22:30 Sputum, Expectorated/Coughed Gram Stain - Final 01/17/23 22:30 Sputum, Expectorated/Coughed Respiratory Culture - Final Pseudomonas aeruginosa 01/16/23 20:14 Blood Culture (Wb) - Right Forearm Blood Culture - Preliminary No growth in 48 hours. 01/16/23 19:43 Blood Culture (Wb) - Anticubital Left Blood Culture - Preliminary No growth in 48 hours. 01/16/23 20:14 Urine, Clean Catch Urine Culture - Final Culture exhibits no growth. 01/17/23 00:45 Mucosa - Nasopharyngeal Coronavirus COVID-19 PCR - Final 01/16/23 00:45 Mucosa - Nasopharyngeal Respiratory Panel (PCR) - Final 01/17/23 00:27 Urine, Random Legionella Antigen - Final 01/17/23 00:27 Urine, Random Streptococcus pneumoniae Antigen (M - Final 01/16/23 19:50 Nasal Secretion SARS-CoV-2 & FLU Antigen (Rapid) - Final Radiography Diagnostic Testing: Radiology Impression Chest X-Ray 01/20/23 08:10 IMPRESSION: Persistent consolidation in the left hemithorax although there has been improvement. All the support tubes are in good position. Electronically Signed: Brett Arango MD at 9:13 EDT , Physical Exam Narrative General intubated and sedated, critically ill looking Respiratory reduced air entry bilaterally, mechanical breath sounds Cardiac S1-S2, regular rate and rhythm GI abdomen soft and nontender MSK no lower extremity edema Skin no rashes Neuro intubated and sedated
[2023-01-20] MEDS: Vital AF 1.2 Cal Liquid 1,000 ML 55 ML GT (14:17)
[2023-01-20] MEDS: Acetaminophen 650 MG/20 ML UDC GT (14:27)
--- NOTE | 2023-01-20 15:34 | CASEMGMT ---
NAI called [facility] and left a message for community mental health social worker Adam. [facility] [place]. NAI is checking to see if [facility] has any contact people listed for patient. Pat JAQUEZ
--- NOTE | 2023-01-20 15:40 | CASEMGMT ---
NAI received a return call from Adam at the [facility]. The only emergency contact they have listed for patient is a friend/other named Nasreen [phone]. NAI attempted to call this number and a recording indicating the number has been changed or disconnected. NAI looked up the phone number for patient's landlord and called him, however there was no answer. NAI will try again. Pat Salazar INFORMATION DIRECTOR GISELE
[2023-01-20] MEDS: HEPARIN/D5w 25,000 UNITS 25,000 UNITS/250 ML IV.SOLN. 11 UNITS CONT INF (16:28)
--- NOTE | 2023-01-20 16:28 | PN.HOSP_ITS ---
Reason for Visit Reason for Visit: Shortness of breath Subjective Subjective Patiently converted back to normal sinus rhythm last evening with amiodarone however he has had some intermittent spurts of A-fib with RVR periodically since that time. Oxygen demands are increasing. No next of kin identified and overall prognosis is poor. Objective Data Objective Data Vital Signs: Vital Signs Temp Pulse Resp BP Pulse Ox O2 Del Method O2 Flow Rate 100.9 F H 106 H 17 83/62 L 93 Mechanical Ventilator 10 01/20/23 12:00 01/20/23 15:05 01/20/23 15:05 01/20/23 14:00 01/20/23 15:05 01/20/23 14:00 01/18/23 08:04 FiO2 85 01/20/23 15:05 Oxygen Flow Rate (L/min) 10 Oxygen Delivery Method Mechanical Ventilator Weight: 59.9 kg Body Mass Index (BMI) 20.0 Intake & Output: Intake and Output for Last 24 Hours 01/18/23 01/19/23 01/20/23 23:59 23:59 23:59 Intake Total 2599.25 / 2618.63 2239.89 / 2259.31 2658.97 / 2658.97 Output Total 1720 / 1720 605 / 605 1330 / 1330 Balance 879.25 / 898.63 1634.89 / 1654.31 1328.97 / 1328.97 Lab / Micro Data 01/20/23 04:06 01/20/23 04:06 Labs: Laboratory Results - last 24 hr 01/19/23 17:06: POC Glucose 273 H 01/19/23 18:50: Troponin I High Sens 21 01/19/23 20:15: APTT 42.7 H 01/19/23 23:32: POC Glucose 380 H 01/20/23 04:06: WBC 14.9 H, RBC 4.25 L, Hgb 12.5 L, Hct 39.8 L, MCV 93.6, MCH 29.4, MCHC 31.4 L, RDW Std Deviation 57.0 H, RDW Coeff of Debra 16.6 H, Plt Count 163, MPV 11.5, Immature Gran % (Auto) 3.000 H, Neut % (Auto) 88.5 H, Lymph % (Auto) 1.8 L, [place] % (Auto) 5.7, Eos % (Auto) 0.1, Baso % (Auto) 0.9, Absolute Neuts (auto) 13.2 H, Absolute Lymphs (auto) 0.27 L, Nucleated RBC % 0.4, Differential Comment SCANNED, Sodium 140, Potassium 3.9, Chloride 109 H, Carbon Dioxide 28.0, Anion Gap 3 L, BUN 47 H, Creatinine 1.15, Estim Creat Clear Calc 50.64, Est GFR (MDRD) Af Amer 81, Est GFR (MDRD) Non-Af 67, BUN/Creatinine Ratio 40.9 H, Glucose 333 H, Calcium 8.9, Magnesium 3.0 H, Total Bilirubin 0.30, AST 3365 H, ALT 2100 H, Alkaline Phosphatase 75, Total Protein 5.6 L, Albumin 1.5 L, Globulin 4.1, Albumin/Globulin Ratio 0.4 L 01/20/23 04:15: Ionized Calcium 5.20 01/20/23 04:45: APTT 39.8 H 01/20/23 04:53: POC Glucose 322 H 01/20/23 10:59: POC Glucose 287 H 01/20/23 11:45: APTT 49.2 H Micro: Microbiology 01/18/23 11:50 Blood Culture (Wb) - Left Forearm Blood Culture - Preliminary No growth in 48 hours. 01/18/23 11:50 Blood Culture (Wb) - Port Blood Culture - Preliminary No growth in 48 hours. 01/18/23 11:00 Sputum, Induced/Lukens Gram Stain - Final 01/18/23 11:00 Sputum, Induced/Lukens Respiratory Culture - Final Pseudomonas aeruginosa 01/17/23 22:30 Sputum, Expectorated/Coughed Gram Stain - Final 01/17/23 22:30 Sputum, Expectorated/Coughed Respiratory Culture - Final Pseudomonas aeruginosa 01/16/23 20:14 Blood Culture (Wb) - Right Forearm Blood Culture - Preliminary No growth in 48 hours. 01/16/23 19:43 Blood Culture (Wb) - Anticubital Left Blood Culture - Preliminary No growth in 48 hours. 01/16/23 20:14 Urine, Clean Catch Urine Culture - Final Culture exhibits no growth. 01/17/23 00:45 Mucosa - Nasopharyngeal Coronavirus COVID-19 PCR - Final 01/16/23 00:45 Mucosa - Nasopharyngeal Respiratory Panel (PCR) - Final 01/17/23 00:27 Urine, Random Legionella Antigen - Final 01/17/23 00:27 Urine, Random Streptococcus pneumoniae Antigen (M - Final 01/16/23 19:50 Nasal Secretion SARS-CoV-2 & FLU Antigen (Rapid) - Final Radiography Diagnostic Testing: Radiology Impression Liver Ultrasound 01/20/23 07:43 IMPRESSION: Fatty infiltration of the liver. Sludge in the gallbladder lumen. Minimal pericholecystic fluid. Limited visualization of the pancreas due to overlying bowel gas. Minimal ascites. Electronically Signed: Brett Arango MD at 15:25 EDT , Chest X-Ray 01/20/23 08:10 IMPRESSION: Persistent consolidation in the left hemithorax although there has been improvement. All the support tubes are in good position. Electronically Signed: Brett Arango MD at 9:13 EDT , Physical Exam Const Constitutional Narrative: Older white male who appears much older than stated age lying in bed, currently intubated and sedated and on pressors HEENT head/scalp atraumatic and moist oral mucous membranes HEENT Narrative: ET tube in place, dentition is poor Resp No normal respiratory effort, no retractions and no use of accessory muscles Resp Narrative: Diffusely diminished with significant diminishment in the right lung field, scattered rhonchi, patient intubated on a ventilator Auscultation: rhonchi; Negative for rales or wheezes Cardio regular rhythm, S1 normal heart sound, S2 normal heart sound, no murmurs, no rub, no gallops and no clicks Cardio Narrative: Mild tachycardia with regular rhythm GI normal to inspection, nondistended, normoactive bowel sounds and non-tender Extremity no clubbing, cyanosis or edema Extremity Narrative: Pedal pulses are 2+ Skin Skin Narrative: Left IJ in place-clean and dry Neuro Neuro Narrative: Intubated and sedated Psych Psych Narrative: Unable to examine due to intubation and sedation Assessment & Plan Assessment/Plan (1) Afib: QUALIFIERS: Atrial fibrillation type: persistent (not longstanding) Qualified Code(s): I48.19 - Other persistent atrial fibrillation (2) RVF (right ventricular failure): (3) Acute and chronic respiratory failure with hypoxia: PLAN: Plan Acute hypoxic respiratory failure secondary to right-sided pseudomonal pneumonia/acute exacerbation of COPD -Intubated 01/18/2023 -Remains on significant vent settings with an FiO2 of 90% and PEEP of 12 -Status post bronchoscopy -MRSA swab was negative -Cultures showing Pseudomonas-continue cefepime -Echocardiogram shows significant right-sided heart failure and elevated pulmonary pressures -Would likely benefit from gentle diuresis once more hemodynamically stable -Continue aggressive pulmonary toilet -Chest CT done on admission showed significant findings in left upper lobe that were new compared to previous -Overall prognosis is poor with severe pneumonia and COPD with multiple lung nodules -Pulmonary medicine/critical care following-appreciate input Septic shock due to the above -Remains on Levophed--> wean as able -We will wean pressors as able -Continue antibiotics as ordered -Await cultures to finalize -IV fluids discontinued as I suspect patient may be mildly volume overloaded and has ARDS concerns -Low-dose diuretics attempted today Shock liver -Amiodarone discontinued due to transaminase elevation -Liver ultrasound pending -Trend liver enzymes New onset A-fib with RVR -Echocardiogram performed and shows RV dysfunction likely related to pulmonary issues at baseline -LV is normal -Suspect this was precipitated by pulmonary dysfunction -Continue heparin drip -Amiodarone discontinued due to transaminase elevation -No PE noted on presentation History of COPD -See above Pulmonary nodules -If patient survives will need follow-up CT after discharge Hypertension -Antihypertensives on hold due to pressor requirement -Monitor for ability to reinitiate DM-2 -Hemoglobin A1c is 6.1 -Blood sugars are markedly elevated with a fasting this morning of 300 -Add glargine 14 units -Continue SSI -Every 6 hours SSI added -Trend blood sugars DVT/GI prophylaxis -Patient is now on a heparin drip -Protonix 40 daily Code Status -Full Code -Prognosis is extremely poor Charges/Coding Visit Charges Inpatient E&M: 62144 Subs Hosp L2
[2023-01-20 16:35] LABS: Bedside Glucose 198 mg/dL (74-106)
--- NOTE | 2023-01-20 17:54 | NURSING ---
Friend Celine Grace [phone] came to visit she available to answers questions pertaining to [place] if neccessary
[2023-01-20 18:36] LABS: Partial Thromboplast Time 53.9 Seconds (24.1-36.2)
--- NOTE | 2023-01-20 19:00 | NURSING ---
EMAR showing fentanyl should be infused/ empty at 1939, said fentanyl bag still running at 2100
[2023-01-20] MEDS: Azithromycin 500 MG in Dextrose 5%-Water (250mL Bag) 250 ML 250 MG IV (21:55)
[2023-01-20] MEDS: fentaNYL drip 100 ML 5 MCG CONT INF (22:32)
[2023-01-20 23:54] LABS: Bedside Glucose 323 mg/dL (74-106)
[2023-01-21] VITALS (58 sets, daily range): BP systolic 70–154; BP diastolic 51–80; PULSE 84–130; RESP 15–20; TEMP 35.6–37.4; O2SAT 90–97; BMI 21.4
[2023-01-21] MEDS: Ipratropium/Albuterol Sulfate 3 ML AMPUL.NEB INHALATION ×3 (02:01→15:39)
[2023-01-21 02:19] LABS: Partial Thromboplast Time 101.3 Seconds (24.1-36.2)
[2023-01-21 03:38] LABS: Ionized Calcium Order 5.12
[2023-01-21 03:39] LABS: Ionized Calcium 5.12 mg/dL (4.36-5.20)
[2023-01-21] MEDS: CHLORHEXIDINE GLUC 2% CLOTH 1 EACH TOWELETTE TOPICAL (03:59)
[2023-01-21] MEDS: Glycerin/Hypromellose/PEG400 15 ml Bottle 2 DRP EACH EYE ×4 (04:00→22:07)
--- NOTE | 2023-01-21 04:13 | EKG12_ITS ---
Test Reason : afib Blood Pressure : / mmHG Vent. Rate : 134 BPM Atrial Rate : 000 BPM P-R Int : 000 ms QRS Dur : 172 ms QT Int : 316 ms P-R-T Axes : 000 119 035 degrees QTc Int : 471 ms Atrial fibrillation with rapid ventricular response Right bundle branch block Left posterior fascicular block Bifascicular block Abnormal ECG No previous ECGs available Confirmed by FRED MATOS, RENE ([id number]), sound editor RAFIQ LLAMAS ([id number]) on 02/18/2023 10:32:06 AM Referred By: Yonathan Confirmed By:RENE IBARRA MD
[2023-01-21 04:22] LABS: ALB/GLOB Ratio 0.4 RATIO (0.9-2.4); AST(SGOT) 1035 U/L (15-37); Alanine Aminotransfer ALT/SGPT 1768 U/L (16-61); Albumin, Serum 1.5 g/dL (3.2-5.0); Alkaline Phosphatase 97 U/L (45-117); Anion Gap 6 (5-15); BUN 73 mg/dL (7-18); BUN/Creat Ratio 45.3 RATIO (10-20); Calcium,Total 8.6 mg/dL (8.5-10.1); Chloride 109 mmol/L (98-107); Creatinine, Serum 1.61 mg/dL (0.70-1.30); EST Glomerular Filtration Rate 45 mL/min (>60); Est Glom Filt Rate - Afr Amer 55 mL/min (>60); Estimated Creatinine Clearance 36.17 ml/min; Globulin 4.2 g/dL (2.2-4.2); Glucose 312 mg/dL (74-106); Magnesium 3.1 mg/dL (1.6-2.6); Potassium 4.3 mmol/L (3.5-5.1); Protein, Total 5.7 g/dL (6.4-8.2); Sodium Level 140 mmol/L (136-145)
[2023-01-21 05:07] LABS: HEPATITIS B SURFACE AG Negative (Negative); Hep C Antibodies Non Reactive (Non Reactive); Hepatitis A IgM Antibody Negative (Negative); Hepatitis B Core AB IgM Negative (Negative)
[2023-01-21] MEDS: Insulin Lispro 100 UNIT/ML INSULN.PEN SC ×4 (05:24→23:06)
[2023-01-21] MEDS: Methylprednisolone Sod Succ 40 MG/ML VIAL IV ×4 (05:25→23:06)
[2023-01-21] MEDS: Cefepime HCl 1 GM in 0.9% Normal Saline (50mL MB+) 50 ML IV ×3 (05:25→22:03)
[2023-01-21] MEDS: 0.9% Saline Lock 10 ML Syringe IV ×3 (05:30→23:10)
[2023-01-21 05:52] LABS: Bedside Glucose 280 mg/dL (74-106)
[2023-01-21] MEDS: TITRATION PARAMETER CHANGE 1 EACH IV (05:54)
--- NOTE | 2023-01-21 05:55 | RAD_ITS ---
EXAM: XR CHEST, 1 VIEW CLINICAL INDICATION: Hypoxia Hypoxia TECHNIQUE: Frontal view of the chest. COMPARISON: Chest x-ray 01/20/2023. FINDINGS: LUNGS AND PLEURAL SPACES: There are infiltrates in the left upper and lower lung alvarez as well as a small left pleural effusion. These show no significant interval change. There are fibrotic changes and emphysematous changes in the right upper lung field. No pneumothorax. HEART: Unremarkable. Cardiac silhouette not enlarged. MEDIASTINUM: Central airways and mediastinal contour are unremarkable. BONES/JOINTS: There are multilevel degenerative changes in the visualized spine. SOFT TISSUES: Unremarkable. TUBES, LINES AND DEVICES: Endotracheal tube tip is 5.4 cm above the linda. Left internal jugular central venous catheter tip overlies the superior vena cava. Nasogastric tube extends at least as far as the body the stomach. RAD/Chest 1 View (Portable) IMPRESSION: 1. Tubes are in adequate position. 2. Left pulmonary infiltrates and pleural effusion, not significantly changed. 3. COPD. Electronically Signed: Gordon Keller MD at 7:48 EDT ,
[2023-01-21] MEDS: dexMEDEtomidine 400 MCG in 0.9% Normal Saline (100mL Bag) 96 ML 8 MCG CONT INF (07:09)
[2023-01-21 07:14] LABS: Absolute Lymphocyte Count 0.54 X10^3/uL (0.83-4.51); Absolute Neutrophil Count 24.7 X10^3/uL (2.0-7.7); Basophil# 0.05 X10^3/uL; Basophil% 0.2 % (0-1); Hemoglobin 11.9 g/dL (13.0-16.5); Lymphocyte # 0.54 X10^3/ul (0.83-4.51); Mean Corpuscular Hgb 28.8 pg (27.0-32.0); Mean Corpuscular Volume 99.3 fL (80-94); Mean Platelet Vol. 12.6 fl (6.2-12.0); Monocyte# 1.16 X10^3/uL; Monocyte% 4.2 % (0-10); NRBC Flagged by Analyzer 0.5 % (0-5); Neutrophil # 24.72 X10^3/uL (2.7-7.7); Neutrophil % 90.5 % (47-70); POSITIVE DIFFERENTIAL YES; POSITIVE MORPHOLOGY YES; Platelet Count 145 K/mm3 (150-450); RBC Distribution Width CV 17.7 % (11.6-14.6); RBC Distribution Width SD 64.4 fl (35.1-43.9); Red Blood Count 4.13 M/mm3 (4.6-6.2); White Blood Count 27.3 K/mm3 (4.4-11.0)
[2023-01-21] MEDS: Digoxin 250 MCG/ML Ampul 500 MCG IV (07:51)
[2023-01-21 07:58] LABS: Differential Indicated SCAN CRITERIA MET
[2023-01-21 09:45] LABS: Pathologist Review Reviewed
--- NOTE | 2023-01-21 09:56 | PN.CC_ITS ---
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 Acute hypoxic and hypercapnic respiratory failure, requiring intubation on 01/18/2023. Currently behaving like ARDS 2. Septic shock secondary to left-sided Pseudomonas pneumonia 3. COPD exacerbation 4. Shock liver 5. A-fib with RVR 6. Pulmonary hypertension with RV dysfunction 7. Tobacco use 8. Pulmonary nodules 9. Debility Plan * Patient was intubated and sedated on 01/18 due to worsening respiratory status and inability to tolerate BiPAP. * Patient is currently behaving like ARDS requiring high PEEP and FiO2 and difficulty oxygenating. This may be further worsening his pulmonary hypertension. Patient tolerated Lasix yesterday and he was in negative balance which improved his oxygenation. He is now on PEEP of 12 and FiO2 of 65%. His kidney function however appears to be worsening. will hold further diuresis today. he may require to be proned if his oxygenation deteriorates * I have reviewed his vent settings and adjusted throughout the day * Due to his hypotension he developed shock liver. Amiodarone was discontinued. liver US shows no acute findings. He required a dose of digoxin this AM for another run of afib with RVR * Sputum cultures growing Pseudomonas. Continue cefepime. However patient has a white count today that is worsening and had a Tmax of 38.3 overnight. Repeat blood cultures. His levo requirements are stable. Will consult ID * He was hyperglycemic overnight. Noted adjustments of insulin regimen by primary team * Continue Solu-Medrol and DuoNebs * Wean FiO2 as tolerated * DVT prophylaxis subcu Lovenox * GI prophylaxis Protonix * Bowel Regimen MiraLAX and senna docusate daily. Continues to be constipated will administer a couple of doses of lactulose * Chest CT done on this admission showing new findings in left upper lobe. Given recent CT chest in October with no findings on left upper lung, the patient's current presentation these changes are most likely related to an infectious process. The right upper lobe scar seen on right lung in October and appears to be improving. Nodules in the right middle lobe appear to be stable from October 2022. However given his history patient remains high risk and would recommend repeat CT scan in 6 to 8 weeks to ensure resolution and further evaluation of nodules in right middle lobe. * Prior to becoming ill. Patient informed drug abuse social worker and myself that he has no family and that he lives alone. * Poor prognosis given unilateral pneumonia and underlying severe COPD with multiple lung nodules Critical care time spent 35 minutes excluding procedures in addressing above problems Subjective Subjective Patient discussed on multidisciplinary rounds this morning. He went into A-fib with RVR which responded to digoxin. He continues to have an ARDS-like picture with high PEEP and high FiO2 requirements. His kidney function appears to be worsening. Discussed with social work if no family be located then he may need state appointed guardian. Objective Data Objective Data Vital Signs: Vital Signs Temp Pulse Resp BP Pulse Ox O2 Del Method O2 Flow Rate 36.1 C L 113 H 16 79/56 L 92 Mechanical Ventilator 10 01/21/23 04:00 01/21/23 07:51 01/21/23 07:00 01/21/23 07:00 01/21/23 07:00 01/21/23 08:00 01/18/23 08:04 FiO2 75 01/21/23 08:00 Oxygen Flow Rate (L/min) 10 Oxygen Delivery Method Mechanical Ventilator Weight: 64.1 kg Body Mass Index (BMI) 21.4 Intake & Output: Intake and Output for Last 24 Hours 01/19/23 01/20/23 01/21/23 23:59 23:59 23:59 Intake Total 2239.89 / 2259.31 3273.92 / 3290.22 253.5 / 253.5 Output Total 605 / 605 1825 / 1825 105 / 105 Balance 1634.89 / 1654.31 1448.92 / 1465.22 148.5 / 148.5 Lab / Micro Data 01/21/23 03:28 01/21/23 03:25 Labs: Laboratory Results - last 24 hr 01/18/23 16:00: Diff Path Review Reviewed 01/20/23 08:00: Hepatitis A IgM Ab Negative, Hep Bs Antigen Negative, Hep B Core IgM Ab Negative, Hepatitis C Ab (EIA) Non Reactive, Hep C Ab Comment Comment 01/20/23 10:59: POC Glucose 287 H 01/20/23 11:45: APTT 49.2 H 01/20/23 16:17: POC Glucose 198 H 01/20/23 18:00: APTT 53.9 H 01/20/23 23:26: POC Glucose 323 H 01/21/23 02:00: APTT 101.3 H* 01/21/23 03:25: Sodium 140, Potassium 4.3, Chloride 109 H, Carbon Dioxide 25.0, Anion Gap 6, BUN 73 H, Creatinine 1.61 H, Estim Creat Clear Calc 36.17, Est GFR (MDRD) Af Amer 55 L, Est GFR (MDRD) Non-Af 45 L, BUN/Creatinine Ratio 45.3 H, Glucose 312 H, Calcium 8.6, Magnesium 3.1 H, Total Bilirubin 0.30, AST 1035 H, ALT 1768 H, Alkaline Phosphatase 97, Total Protein 5.7 L, Albumin 1.5 L, Globulin 4.2, Albumin/Globulin Ratio 0.4 L 01/21/23 03:28: WBC 27.3 H, RBC 4.13 L, Hgb 11.9 L, Hct 41.0, MCV 99.3 H D, MCH 28.8, MCHC 29.0 L D, RDW Std Deviation 64.4 H, RDW Coeff of Debra 17.7 H, Plt Count 145 L, MPV 12.6 H, Immature Gran % (Auto) 3.100 H, Neut % (Auto) 90.5 H, Lymph % (Auto) 2.0 L, [place] % (Auto) 4.2, Eos % (Auto) 0.0, Baso % (Auto) 0.2, Absolute Neuts (auto) 24.7 H, Absolute Lymphs (auto) 0.54 L, Nucleated RBC % 0.5 01/21/23 03:36: Ionized Calcium 5.12 01/21/23 04:50: Ammonia 74.0 H 01/21/23 05:24: POC Glucose 280 H Micro: Microbiology 01/18/23 11:50 Blood Culture (Wb) - Left Forearm Blood Culture - Preliminary No growth in 48 hours. 01/18/23 11:50 Blood Culture (Wb) - Port Blood Culture - Preliminary No growth in 48 hours. 01/18/23 11:00 Sputum, Induced/Lukens Gram Stain - Final 01/18/23 11:00 Sputum, Induced/Lukens Respiratory Culture - Final Pseudomonas aeruginosa 01/17/23 22:30 Sputum, Expectorated/Coughed Gram Stain - Final 01/17/23 22:30 Sputum, Expectorated/Coughed Respiratory Culture - Final Pseudomonas aeruginosa 01/16/23 20:14 Blood Culture (Wb) - Right Forearm Blood Culture - Preliminary No growth in 48 hours. 01/16/23 19:43 Blood Culture (Wb) - Anticubital Left Blood Culture - Preliminary No growth in 48 hours. 01/16/23 20:14 Urine, Clean Catch Urine Culture - Final Culture exhibits no growth. 01/17/23 00:45 Mucosa - Nasopharyngeal Coronavirus COVID-19 PCR - Final 01/16/23 00:45 Mucosa - Nasopharyngeal Respiratory Panel (PCR) - Final 01/17/23 00:27 Urine, Random Legionella Antigen - Final 01/17/23 00:27 Urine, Random Streptococcus pneumoniae Antigen (M - Final 01/16/23 19:50 Nasal Secretion SARS-CoV-2 & FLU Antigen (Rapid) - Final Radiography Diagnostic Testing: Radiology Impression Liver Ultrasound 01/20/23 07:43 IMPRESSION: Fatty infiltration of the liver. Sludge in the gallbladder lumen. Minimal pericholecystic fluid. Limited visualization of the pancreas due to overlying bowel gas. Minimal ascites. Electronically Signed: Brett Arango MD at 15:25 EDT , Chest X-Ray 01/21/23 05:55 IMPRESSION: 1. Tubes are in adequate position. 2. Left pulmonary infiltrates and pleural effusion, not significantly changed. 3. COPD. Electronically Signed: Gordon Keller MD at 7:48 EDT , Physical Exam Narrative General intubated and sedated, critically ill looking Respiratory reduced air entry bilaterally, mechanical breath sounds Cardiac S1-S2, regular rate and rhythm GI abdomen soft and nontender MSK no lower extremity edema Skin no rashes Neuro intubated and sedated Charges/Coding Procedures Hospitalists Procedures: [id number] [facility]
[2023-01-21] MEDS: Polyethylene Glycol 3350 17 GM PACKET PO (10:17)
[2023-01-21] MEDS: Chlorhexidine 15 ML PO ×2 (10:17→20:26)
[2023-01-21 10:18] LABS: Blood Gas Specimen Type VEN; O2 Delivery Device Adult Vent; PEEP 12; RR 16; SITE Not entered; VBG BASE EXCESS -4 mmol/L (-1.0-3.5); VBG Bicarbonate 25 mmol/L (22-26); VBG PO2 51 mmHg (25-40); VBG SO2 72 % (50-70); VBG TCO2 28 mmol/L (23-33); VBG pCO2 75.8 mmHg (41-51); VBG pH 7.13 (7.32-7.42)
[2023-01-21] MEDS: Senna/Docusate Sodium 1 Tablet PO (10:18)
[2023-01-21] MEDS: Lactulose 20 GM/30 ML UDC 10 GM PO ×2 (10:24→20:25)
[2023-01-21] MEDS: Pantoprazole Sodium 40 MG in 0.9% Normal Saline (100mL MB+) 100 ML 330 MG IV (10:24)
--- NOTE | 2023-01-21 10:28 | CASEMGMT ---
NAI contacted patient's visitor Celine Grace ([phone]) to inquire about patient's family. Kiki said patient's family has all . Patient just has some friends that care a lot about him. NAI asked about patient's son. Celine said she does not know patient's son's name or whereabouts. Celine said when patient mentioned to her he had a son he was embarrassed that he walked out and never had a relationship with his son. Celine said she will see if she can find out anything. NAI called patient's landlord and left him a voice mail requesting a return call. Pat JAQUEZ
[2023-01-21 10:31] LABS: Partial Thromboplast Time 73.6 Seconds (24.1-36.2)
[2023-01-21 10:31] LABS: Differential Comment SCANNED
[2023-01-21] MEDS: Vital AF 1.2 Cal Liquid 1,000 ML 55 ML GT (10:43)
[2023-01-21] MEDS: Insulin Glargine-YFGN 100 UNIT/ML Pen 25 UNIT SC (11:22)
[2023-01-21 11:45] LABS: Allen Test Positive; Base Excess -3 mmol/L (-2 to +2); Bicarbonate 25.3 mmol/L (22-26); Blood Gas Specimen Type ART; Mode AC; O2 Delivery Device Adult Vent; PEEP 12; PO2 58 mmHG (75-100); RR 18; SITE R Radial; SO2 82 % (95-99); Total Carbon Dioxide 27 mmol/L; pCO2 66.4 mmHg (35-45); pH 7.19 (7.35-7.45)
[2023-01-21 13:10] LABS: Allen Test Positive; Base Excess -3 mmol/L (-2 to +2); Bicarbonate 24.7 mmol/L (22-26); Blood Gas Specimen Type ART; Mode AC; O2 Delivery Device Adult Vent; PEEP 12; PO2 60 mmHG (75-100); RR 20; SITE R Radial; SO2 84 % (95-99); Total Carbon Dioxide 27 mmol/L; pCO2 62.5 mmHg (35-45); pH 7.21 (7.35-7.45)
--- NOTE | 2023-01-21 14:18 | PN.HOSP_ITS ---
Reason for Visit Reason for Visit: Shortness of breath Subjective Subjective Patient had another brief episode of A-fib with RVR last night. Was given digoxin actually self converted back to normal sinus rhythm. Remains in normal sinus rhythm this morning. Oxygen has been weaned slightly but still remains on 12 of PEEP. Current FiO2 is 65%. Dramatic increase in white count overnight so repeat cultures are been obtained. Objective Data Objective Data Vital Signs: Vital Signs Temp Pulse Resp BP Pulse Ox O2 Del Method O2 Flow Rate 96.2 F L 98 20 H 133/80 H 92 Mechanical Ventilator 10 01/21/23 12:00 01/21/23 12:00 01/21/23 12:00 01/21/23 12:00 01/21/23 12:00 01/21/23 12:00 01/18/23 08:04 FiO2 70 01/21/23 12:00 Oxygen Flow Rate (L/min) 10 Oxygen Delivery Method Mechanical Ventilator Weight: 64.1 kg Body Mass Index (BMI) 21.4 Intake & Output: Intake and Output for Last 24 Hours 01/19/23 01/20/23 01/21/23 23:59 23:59 23:59 Intake Total 2239.89 / 2259.31 3273.92 / 3290.22 1523.63 / 1523.63 Output Total 605 / 605 1825 / 1825 255 / 255 Balance 1634.89 / 1654.31 1448.92 / 1465.22 1268.63 / 1268.63 Lab / Micro Data 01/21/23 03:28 01/21/23 03:25 Labs: Laboratory Results - last 24 hr 01/18/23 16:00: Diff Path Review Reviewed 01/20/23 08:00: Hepatitis A IgM Ab Negative, Hep Bs Antigen Negative, Hep B Core IgM Ab Negative, Hepatitis C Ab (EIA) Non Reactive, Hep C Ab Comment Comment 01/20/23 16:17: POC Glucose 198 H 01/20/23 18:00: APTT 53.9 H 01/20/23 23:26: POC Glucose 323 H 01/21/23 02:00: APTT 101.3 H* 01/21/23 03:25: Sodium 140, Potassium 4.3, Chloride 109 H, Carbon Dioxide 25.0, Anion Gap 6, BUN 73 H, Creatinine 1.61 H, Estim Creat Clear Calc 36.17, Est GFR (MDRD) Af Amer 55 L, Est GFR (MDRD) Non-Af 45 L, BUN/Creatinine Ratio 45.3 H, Glucose 312 H, Calcium 8.6, Magnesium 3.1 H, Total Bilirubin 0.30, AST 1035 H, ALT 1768 H, Alkaline Phosphatase 97, Total Protein 5.7 L, Albumin 1.5 L, Globulin 4.2, Albumin/Globulin Ratio 0.4 L 01/21/23 03:28: WBC 27.3 H, RBC 4.13 L, Hgb 11.9 L, Hct 41.0, MCV 99.3 H D, MCH 28.8, MCHC 29.0 L D, RDW Std Deviation 64.4 H, RDW Coeff of Debra 17.7 H, Plt Count 145 L, MPV 12.6 H, Immature Gran % (Auto) 3.100 H, Neut % (Auto) 90.5 H, Lymph % (Auto) 2.0 L, Clinch % (Auto) 4.2, Eos % (Auto) 0.0, Baso % (Auto) 0.2, Absolute Neuts (auto) 24.7 H, Absolute Lymphs (auto) 0.54 L, Nucleated RBC % 0.5, Differential Comment SCANNED 01/21/23 03:36: Ionized Calcium 5.12 01/21/23 04:50: Ammonia 74.0 H 01/21/23 05:24: POC Glucose 280 H 01/21/23 10:05: APTT 73.6 H Micro: Microbiology 01/18/23 11:50 Blood Culture (Wb) - Left Forearm Blood Culture - Preliminary No growth in 48 hours. 01/18/23 11:50 Blood Culture (Wb) - Port Blood Culture - Preliminary No growth in 48 hours. 01/18/23 11:00 Sputum, Induced/Lukens Gram Stain - Final 01/18/23 11:00 Sputum, Induced/Lukens Respiratory Culture - Final Pseudomonas aeruginosa 01/17/23 22:30 Sputum, Expectorated/Coughed Gram Stain - Final 01/17/23 22:30 Sputum, Expectorated/Coughed Respiratory Culture - Final Pseudomonas aeruginosa 01/16/23 20:14 Blood Culture (Wb) - Right Forearm Blood Culture - Preliminary No growth in 48 hours. 01/16/23 19:43 Blood Culture (Wb) - Anticubital Left Blood Culture - Preliminary No growth in 48 hours. 01/16/23 20:14 Urine, Clean Catch Urine Culture - Final Culture exhibits no growth. 01/17/23 00:45 Mucosa - Nasopharyngeal Coronavirus COVID-19 PCR - Final 01/16/23 00:45 Mucosa - Nasopharyngeal Respiratory Panel (PCR) - Final 01/17/23 00:27 Urine, Random Legionella Antigen - Final 01/17/23 00:27 Urine, Random Streptococcus pneumoniae Antigen (M - Final 01/16/23 19:50 Nasal Secretion SARS-CoV-2 & FLU Antigen (Rapid) - Final ABG Data ABG results: ABG 01/21/23 01/21/23 01/21/23 10:13 11:40 13:07 Specimen Type BRADLY ART ART Sample Site Not entered R Radial R Radial pH 7.19 L* 7.21 L Bicarbonate Actual 25.3 24.7 Total CO2 27 27 Base Excess -3 L -3 L O2 Saturation 82 L 84 L O2 % 65.0 65.0 65.0 ABG pCO2 66.4 H 62.5 H ABG pO2 58 L 60 L Lino Test Positive Positive VBG pH 7.13 L* VBG pO2 51 H VBG HCO3 25 VBG Total CO2 28 VBG O2 Sat (Calc) 72 H VBG Base Excess -4 L POC Mix VBG pCO2 Pt Tmp 75.8 H* Respiration Rate 16 18 20 O2 Delivery Device Adult Vent Adult Vent Adult Vent Vent Mode AC AC Tidal Volume 450.0 500.0 500.0 POC PEEP 12 12 12 Crit Call To/Read Back Yes Yes Yes Blood Gas Notified Whom LOIS ABREU Blood Gas Notified Time 10:15:10 11:42:57 13:08:33 Radiography Diagnostic Testing: Radiology Impression Liver Ultrasound 01/20/23 07:43 IMPRESSION: Fatty infiltration of the liver. Sludge in the gallbladder lumen. Minimal pericholecystic fluid. Limited visualization of the pancreas due to overlying bowel gas. Minimal ascites. Electronically Signed: Brett Arango MD at 15:25 EDT , Chest X-Ray 01/21/23 05:55 IMPRESSION: 1. Tubes are in adequate position. 2. Left pulmonary infiltrates and pleural effusion, not significantly changed. 3. COPD. Electronically Signed: Gordon Keller MD at 7:48 EDT Reading Location ID and State: [facility] / [place] , Service support , Physical Exam Const Constitutional Narrative: Cachectic, chronically ill-appearing, older white male who appears much older than stated age lying in bed, currently intubated and sedated and on pressors, nursing at bedside HEENT head/scalp atraumatic and moist oral mucous membranes HEENT Narrative: ET tube and OG in place Head and Scalp: normocephalic Resp No normal respiratory effort, no retractions and no use of accessory muscles Resp Narrative: Diffusely diminished with significant diminishment in the right lung field, scattered rhonchi but seem to be somewhat improved, patient intubated on a ventilator Auscultation: rhonchi; Negative for rales or wheezes Cardio regular rate, regular rhythm, S1 normal heart sound, S2 normal heart sound, no murmurs, no rub, no gallops and no clicks GI normal to inspection, nondistended, normoactive bowel sounds, soft to palpation and non-tender Extremity no clubbing, cyanosis or edema Extremity Narrative: Pedal pulses are 2+ Skin Skin Narrative: Left IJ in place-clean and dry Neuro Neuro Narrative: Intubated and sedated Psych Psych Narrative: Unable to examine due to intubation and sedation Assessment & Plan Assessment/Plan (1) Afib: QUALIFIERS: Atrial fibrillation type: persistent (not longstanding) Qualified Code(s): I48.19 - Other persistent atrial fibrillation (2) RVF (right ventricular failure): (3) Acute and chronic respiratory failure with hypoxia: (4) Severe malnutrition: PLAN: Plan Acute hypoxic respiratory failure secondary to right-sided pseudomonal pneumonia/acute exacerbation of COPD -Intubated 01/18/2023 -Remains on significant vent settings with an FiO2 of 65% and PEEP of 12 -Status post bronchoscopy -MRSA swab was negative -Cultures showing Pseudomonas-continue cefepime -Echocardiogram shows significant right-sided heart failure and elevated pulmonary pressures -Diuresis as able--did well with diuretics yesterday and patient is in negative balance now which has improved his oxygenation some however renal function is up today likely related to hypotension previously -Continue aggressive pulmonary toilet -Chest CT done on admission showed significant findings in left upper lobe that were new compared to previous -Overall prognosis is poor with severe pneumonia and COPD with multiple lung nodules -Pulmonary medicine/critical care following-appreciate input Septic shock due to the above -Remains on Levophed--> wean as able -We will wean pressors as able -Continue antibiotics as ordered -White count has increased significantly in the last 24 hours and he was febrile through the night -Repeat blood cultures were obtained -ID consultation pending -Await cultures to finalize -IV fluids discontinued as I suspect patient may be mildly volume overloaded and has ARDS concerns -Low-dose diuretics attempted today Shock liver -Amiodarone discontinued due to transaminase elevation -Transaminases are trending down -Ammonia level is elevated and lactulose was added -Liver ultrasound showed fatty infiltration with sludge in the gallbladder and minimal pericholecystic fluid with minimal ascites -Trend liver enzymes Pulmonary hypertension with RV dysfunction -Diuresis per pulmonary medicine New onset A-fib with RVR -Echocardiogram performed and shows RV dysfunction likely related to pulmonary issues at baseline -LV is normal -Suspect this was precipitated by pulmonary dysfunction -Continue heparin drip -Patient was given a dose of digoxin this morning and spontaneously converted -Amiodarone discontinued due to transaminase elevation -No PE noted on presentation History of COPD -See above Pulmonary nodules -If patient survives will need follow-up CT after discharge Hypertension -Antihypertensives on hold due to pressor requirement -Monitor for ability to reinitiate DM-2 -Hemoglobin A1c is 6.1 -Blood sugars are markedly elevated with a fasting this morning of 312 -Increase glargine to 25 units -Continue SSI but increase to high-dose -Every 6 hours SSI added -Trend blood sugars DVT/GI prophylaxis -Patient is now on a heparin drip -Protonix 40 daily Code Status -Full Code -Prognosis is extremely poor--> there are no next of kin in the area however apparently there is a son that lives in [place] who the patient has not seen since he was 7 years old and we are coming to contact him Charges/Coding Visit Charges Inpatient E&M: 85630 Subs Hosp L2
--- NOTE | 2023-01-21 15:23 | PCM.CONS.GEN ---
Assessment & Plan Assessment/Plan (1) Septic shock: PLAN: septic shock due to pseudomonas pneumonia with end stage COPD - on azithro/cefepime. LFTs now improving. Hep panel neg. Fever resolved. wbc up but is on iv steroids. Will repeat covid pcr due to lymphopenia and transaminitis and check full resp pcr panel as well. Will follow, thank you, d/w Dr. Abreu (2) CAP (community acquired pneumonia): QUALIFIERS: Laterality: left Lung location: upper lobe of lung Qualified Code(s): J18.9 - Pneumonia, unspecified organism HPI Consult Data Date of Consult: 01/21/23 HPI Narrative Reason for Consultation: pneumonia HPI Narrative: GARY LIU, is a 72 M with COPD, on 3L at home, presented with aobut 2 weeks worsening cough, SOB. Started on po doxy as outpt without much improvement. Admitted here from ED 01/16 with fever up to 102.9. Started on azithro, cefepime. Remains on vent. ROS unobtainable due to intubation PFSH Medical History Agent orange exposure Chronic respiratory failure with hypoxia COPD (chronic obstructive pulmonary disease) History of alcoholism Hypertension Tobacco use Home Medications albuterol sulfate 90 mcg/actuation aerosol inhaler (Ventolin HFA) 2 puff inhalation Q6H PRN PRN Sob &/Or Wheezing 02/21/15 [History Last Taken Unknown] doxycycline hyclate 100 mg tablet 100 mg PO BID 01/16/23 [History Last Taken Unknown] prednisone 10 mg tablet 20 mg PO BID infection 01/16/23 [History Last Taken 01/16/23 40 mg] Allergy/AdvReac Type Severity Reaction Status Date / Time Penicillins Allergy Unknown Verified 01/16/23 19:11 Family History Mother CAD (coronary artery disease) Heart disease Hypertension Myocardial infarction Father Hypertension Brain aneurysm Surgical History No history of previous surgery Surgical History no surgical history Social History household members: none Smoking Status: Current every day smoker tobacco type: cigarettes Smokeless tobacco user: other alcohol intake: former details: Sober x 16 years. substance use type: does not use Physical Exam Const no apparent distress HEENT normocephalic and head/scalp atraumatic Eyes PERRL Neck supple and No nodes Resp Effort and Inspection: mechanically ventilated Auscultation: rhonchi and diminished lung sounds Cardio Rate: tachycardic GI soft to palpation, non-tender and non-distended Extremity General Extremity: Negative for edema Skin no rashes or lesions noted Neuro Neuro Narrative: not following commands Lab / Micro Data Attestation: I reviewed the patient's lab results. 01/21/23 03:28 01/21/23 03:25 Labs: Laboratory Results - last 24 hr 01/18/23 16:00: Diff Path Review Reviewed 01/20/23 08:00: Hepatitis A IgM Ab Negative, Hep Bs Antigen Negative, Hep B Core IgM Ab Negative, Hepatitis C Ab (EIA) Non Reactive, Hep C Ab Comment Comment 01/20/23 16:17: POC Glucose 198 H 01/20/23 18:00: APTT 53.9 H 01/20/23 23:26: POC Glucose 323 H 01/21/23 02:00: APTT 101.3 H* 01/21/23 03:25: Sodium 140, Potassium 4.3, Chloride 109 H, Carbon Dioxide 25.0, Anion Gap 6, BUN 73 H, Creatinine 1.61 H, Estim Creat Clear Calc 36.17, Est GFR (MDRD) Af Amer 55 L, Est GFR (MDRD) Non-Af 45 L, BUN/Creatinine Ratio 45.3 H, Glucose 312 H, Calcium 8.6, Magnesium 3.1 H, Total Bilirubin 0.30, AST 1035 H, ALT 1768 H, Alkaline Phosphatase 97, Total Protein 5.7 L, Albumin 1.5 L, Globulin 4.2, Albumin/Globulin Ratio 0.4 L 01/21/23 03:28: WBC 27.3 H, RBC 4.13 L, Hgb 11.9 L, Hct 41.0, MCV 99.3 H D, MCH 28.8, MCHC 29.0 L D, RDW Std Deviation 64.4 H, RDW Coeff of Debra 17.7 H, Plt Count 145 L, MPV 12.6 H, Immature Gran % (Auto) 3.100 H, Neut % (Auto) 90.5 H, Lymph % (Auto) 2.0 L, [place] % (Auto) 4.2, Eos % (Auto) 0.0, Baso % (Auto) 0.2, Absolute Neuts (auto) 24.7 H, Absolute Lymphs (auto) 0.54 L, Nucleated RBC % 0.5, Differential Comment SCANNED 01/21/23 03:36: Ionized Calcium 5.12 01/21/23 04:50: Ammonia 74.0 H 01/21/23 05:24: POC Glucose 280 H 01/21/23 10:05: APTT 73.6 H Micro: Microbiology 01/18/23 11:50 Blood Culture (Wb) - Left Forearm Blood Culture - Preliminary No growth in 48 hours. 01/18/23 11:50 Blood Culture (Wb) - Port Blood Culture - Preliminary No growth in 48 hours. ABG Data ABG results: ABG 01/21/23 01/21/23 01/21/23 10:13 11:40 13:07 Specimen Type BRADLY ART ART Sample Site Not entered R Radial R Radial pH 7.19 L* 7.21 L Bicarbonate Actual 25.3 24.7 Total CO2 27 27 Base Excess -3 L -3 L O2 Saturation 82 L 84 L O2 % 65.0 65.0 65.0 ABG pCO2 66.4 H 62.5 H ABG pO2 58 L 60 L Lino Test Positive Positive VBG pH 7.13 L* VBG pO2 51 H VBG HCO3 25 VBG Total CO2 28 VBG O2 Sat (Calc) 72 H VBG Base Excess -4 L POC Mix VBG pCO2 Pt Tmp 75.8 H* Respiration Rate 16 18 20 O2 Delivery Device Adult Vent Adult Vent Adult Vent Vent Mode AC AC Tidal Volume 450.0 500.0 500.0 POC PEEP 12 12 12 Crit Call To/Read Back Yes Yes Yes Blood Gas Notified Whom LOIS ABREU Blood Gas Notified Time 10:15:10 11:42:57 13:08:33 Radiology Impression Liver Ultrasound 01/20/23 07:43 IMPRESSION: Fatty infiltration of the liver. Sludge in the gallbladder lumen. Minimal pericholecystic fluid. Limited visualization of the pancreas due to overlying bowel gas. Minimal ascites. Electronically Signed: Brett Arango MD at 15:25 EDT , Chest X-Ray 01/21/23 05:55 IMPRESSION: 1. Tubes are in adequate position. 2. Left pulmonary infiltrates and pleural effusion, not significantly changed. 3. COPD. Electronically Signed: Gordon Keller MD at 7:48 EDT Reading Location ID and State: [facility] / [place] , Service support ,
--- NOTE | 2023-01-21 16:30 | CASEMGMT ---
Social Work Spoke with Lesli, Desk Maker regarding this patient, his situation, and possible need for emergency guardian for medical decision making. -MOSHE Flanagan
[2023-01-21 16:59] LABS: Partial Thromboplast Time 60.4 Seconds (24.1-36.2)
[2023-01-21] MEDS: HEPARIN/D5w 25,000 UNITS 25,000 UNITS/250 ML IV.SOLN. 10 UNITS CONT INF (18:16)
[2023-01-21] MEDS: dexMEDEtomidine 400 MCG in 0.9% Normal Saline (100mL Bag) 96 ML 9.6 MCG CONT INF (18:17)
[2023-01-21] MEDS: fentaNYL drip 100 ML 7.5 MCG CONT INF (18:18)
--- NOTE | 2023-01-21 18:39 | NURSING ---
Received phone call from Leonie Santana stating that she is patient's next of kin. States she is patient's niece through patient's late ex-. She states there are other family members as well. No information given about patient but got phone number at [phone] and notified that social work will call the next day.
[2023-01-21 20:55] LABS: Bedside Glucose 216 mg/dL (74-106)
[2023-01-21 20:55] LABS: Bedside Glucose 189 mg/dL (74-106)
[2023-01-21] MEDS: Azithromycin 500 MG in Dextrose 5%-Water (250mL Bag) 250 ML 250 MG IV (22:44)
--- NOTE | 2023-01-21 22:55 | NURSING ---
Bladder scan complete secondary to low output in dowd cath with no kinks or dependent loops noted in catheter, patient noted to have lower abdominal distention, patient found to have 312cc of urine in bladder with dowd cath in place.
[2023-01-21 23:33] LABS: Bedside Glucose 233 mg/dL (74-106)
[2023-01-22] VITALS (40 sets, daily range): BP systolic 78–150; BP diastolic 48–78; PULSE 94–120; RESP 18–23; TEMP 37.3–38.1; O2SAT 90–97; BMI 21.3
[2023-01-22 02:29] LABS: Bedside Glucose 233 mg/dL (74-106)
[2023-01-22] MEDS: 0.9% Normal Saline (250mL Bag) 250 ML 15 ML IV ×2 (03:09→21:23)
[2023-01-22 03:29] LABS: Absolute Lymphocyte Count 0.33 X10^3/uL (0.83-4.51); Absolute Neutrophil Count 28.3 X10^3/uL (2.0-7.7); Basophil# 0.13 X10^3/uL; Basophil% 0.4 % (0-1); Hematocrit 35.7 % (40-54); Hemoglobin 11.2 g/dL (13.0-16.5); Lymphocyte # 0.33 X10^3/ul (0.83-4.51); Lymphocyte % 1.1 % (19-41); Mean Corp Hgb Conc 31.4 g/dL (32-36); Mean Corpuscular Hgb 29.6 pg (27.0-32.0); Mean Corpuscular Volume 94.2 fL (80-94); Mean Platelet Vol. 11.9 fl (6.2-12.0); Monocyte# 0.88 X10^3/uL; Monocyte% 2.9 % (0-10); NRBC Flagged by Analyzer 0.4 % (0-5); Neutrophil # 28.25 X10^3/uL (2.7-7.7); Neutrophil % 91.8 % (47-70); POSITIVE COUNT YES; POSITIVE DIFFERENTIAL YES; Platelet Count 119 K/mm3 (150-450); RBC Distribution Width SD 58.8 fl (35.1-43.9); Red Blood Count 3.79 M/mm3 (4.6-6.2)
[2023-01-22 03:34] LABS: Ionized Calcium 4.98 mg/dL (4.36-5.20)
[2023-01-22 03:35] LABS: Differential Indicated SCAN CRITERIA MET
[2023-01-22 03:36] LABS: White Blood Count 30.8 K/mm3 (4.4-11.0)
[2023-01-22] MEDS: CHLORHEXIDINE GLUC 2% CLOTH 1 EACH TOWELETTE TOPICAL (03:53)
[2023-01-22 03:54] LABS: Partial Thromboplast Time 44.8 Seconds (24.1-36.2)
[2023-01-22 03:56] LABS: Differential Comment SCANNED
[2023-01-22 04:00] LABS: ALB/GLOB Ratio 0.3 RATIO (0.9-2.4); AST(SGOT) 580 U/L (15-37); Alanine Aminotransfer ALT/SGPT 1391 U/L (16-61); Albumin, Serum 1.3 g/dL (3.2-5.0); Alkaline Phosphatase 113 U/L (45-117); Anion Gap 4 (5-15); BUN 81 mg/dL (7-18); BUN/Creat Ratio 52.3 RATIO (10-20); Calcium,Total 8.3 mg/dL (8.5-10.1); Chloride 110 mmol/L (98-107); Creatinine, Serum 1.55 mg/dL (0.70-1.30); EST Glomerular Filtration Rate 47 mL/min (>60); Est Glom Filt Rate - Afr Amer 57 mL/min (>60); Estimated Creatinine Clearance 40.21 ml/min; Glucose 261 mg/dL (74-106); Magnesium 2.9 mg/dL (1.6-2.6); Potassium 4.6 mmol/L (3.5-5.1); Protein, Total 5.3 g/dL (6.4-8.2); Sodium Level 141 mmol/L (136-145)
[2023-01-22] MEDS: Heparin Injection (Vial) 5,000 UNIT/ML VIAL IV (04:05)
[2023-01-22] MEDS: dexMEDEtomidine 400 MCG in 0.9% Normal Saline (100mL Bag) 96 ML 9.6 MCG CONT INF (04:46)
[2023-01-22] MEDS: Vital AF 1.2 Cal Liquid 1,000 ML 55 ML GT ×2 (04:57→23:41)
[2023-01-22] MEDS: Cefepime HCl 1 GM in 0.9% Normal Saline (50mL MB+) 50 ML IV ×2 (05:00→12:31)
[2023-01-22] MEDS: Glycerin/Hypromellose/PEG400 15 ml Bottle 2 DRP EACH EYE ×3 (05:04→23:43)
[2023-01-22] MEDS: Insulin Lispro 100 UNIT/ML INSULN.PEN SC ×4 (05:04→23:40)
[2023-01-22] MEDS: Methylprednisolone Sod Succ 40 MG/ML VIAL IV ×3 (05:05→18:07)
--- NOTE | 2023-01-22 05:17 | EKG12_ITS ---
Test Reason : ARHYTHMIA Blood Pressure : / mmHG Vent. Rate : 138 BPM Atrial Rate : 000 BPM P-R Int : 000 ms QRS Dur : 158 ms QT Int : 336 ms P-R-T Axes : 000 131 051 degrees QTc Int : 509 ms Atrial fibrillation with rapid ventricular response Right bundle branch block Left posterior fascicular block Bifascicular block Abnormal ECG When compared with ECG of 18-JAN-2023 08:29, MANUAL COMPARISON REQUIRED, DATA IS UNCONFIRMED Confirmed by FRED MATOS, RENE ([id number]), writer editor RAFIQ LLAMAS ([id number]) on 02/24/2023 12:59:28 PM Referred By: SHARRON Confirmed By:RENE IBARRA MD
--- NOTE | 2023-01-22 05:27 | NURSING ---
RN and RT bedside with patient RT obtaining ABG when patient HR because tachy up into the 180's appeared to be in SVT or A-fib RVR, EKG obtained at bedside which confirms a-fib RVR. Dr. Janell Britt notified via phone of new findings.
[2023-01-22 05:34] LABS: Base Excess -1 mmol/L (-2 to +2); Bicarbonate 25.6 mmol/L (22-26); Blood Gas Specimen Type ART; Mode AC; O2 Delivery Device Adult Vent; PEEP 12; PO2 66 mmHG (75-100); RR 20; SITE R Radial; SO2 89 % (95-99); Total Carbon Dioxide 27 mmol/L; pCO2 55.6 mmHg (35-45); pH 7.27 (7.35-7.45)
[2023-01-22] MEDS: Digoxin 250 MCG/ML Ampul 500 MCG IV (05:49)
[2023-01-22 05:57] LABS: Bedside Glucose 229 mg/dL (74-106)
[2023-01-22] MEDS: Norepinephrine 8 MG in 0.9% Normal Saline (250mL Bag) 242 ML 1.9 MG CONT INF (06:00)
[2023-01-22] MEDS: 0.9% Saline Lock 10 ML Syringe IV ×2 (06:11→12:24)
[2023-01-22] MEDS: fentaNYL drip 100 ML 7.5 MCG CONT INF ×2 (07:09→18:38)
[2023-01-22] MEDS: Lactulose 20 GM/30 ML UDC 10 GM PO ×2 (07:55→21:23)
[2023-01-22] MEDS: Chlorhexidine 15 ML PO ×2 (07:55→21:24)
[2023-01-22] MEDS: Polyethylene Glycol 3350 17 GM PACKET PO (07:56)
[2023-01-22] MEDS: Insulin Glargine-YFGN 100 UNIT/ML Pen 30 UNIT SC (07:56)
[2023-01-22] MEDS: Pantoprazole Sodium 40 MG in 0.9% Normal Saline (100mL MB+) 100 ML 330 MG IV (07:56)
[2023-01-22] MEDS: Senna/Docusate Sodium 1 Tablet PO (07:56)
[2023-01-22] MEDS: Ipratropium/Albuterol Sulfate 3 ML AMPUL.NEB INHALATION ×4 (08:12→19:06)
--- NOTE | 2023-01-22 08:14 | VDLE_ITS ---
Reason For Study: Bilateral leg sweling RIGHT LEFT GSV is normal. GSV is normal. CFV is compressible, spontaneous, phasic, CFV is compressible, spontaneous, phasic, competent and demonstrates normal competent, and demonstrates normal augmentation. augmentation. FV is compressible, spontaneous, phasic, FV is compressible, spontaneous, phasic, competent and demonstrates normal competent and demonstrates normal augmentation. augmentation. POP V is compressible, spontaneous, phasic, POP V is compressible, spontaneous, phasic, competent and demonstrates normal competent and demonstrates normal augmentation. augmentation. T/P Trunk is compressible. T/P Trunk is compressible. PTV is compressible. PTV is compressible. RT PerV is compressible. LT PerV is compressible. Procedure This is a venous duplex using B-mode, color flow and spectral Doppler. Exam performed portable in ICU/CCU. A preliminary report was called and/or faxed to Dr. Khan. VL/Venous Duplex US - Herson Extrem Interpretation Summary Deep veins of the bilateral lower extremities are patent and compressible segme ntally. There is no evidence of bilateral lower extremity deep vein thrombosis. The bilateral great saphenous veins appear patent and compressible segmentally. Ordering Physician: Rita Khan Referring Physician: [facility] Performed By: Betsy Walker RVT
--- NOTE | 2023-01-22 08:52 | CASEMGMT ---
SW spoke with SW Retail Event Coordinator and patient's case is being discussed with Risk Management at [facility] regarding possible guardianship. Pat Salazar MSW GISELE
[2023-01-22 09:14] LABS: Lactic Acid 1.1 mmol/L (0.4-1.9)
[2023-01-22] MEDS: Alteplase 2 MG/2 ML Vial IV (09:46)
--- NOTE | 2023-01-22 09:52 | PCM.PN.ID ---
Physical Exam Narrative On vent, no fever, off pressor Const no apparent distress Resp Effort and Inspection: mechanically ventilated Auscultation: rhonchi Cardio regular rate and regular rhythm GI soft to palpation, non-tender and non-distended Skin no rashes or lesions noted ID ID: Route of nutrition/ use of supplements: [] Nutritional Intake: [] IV Site: [] Vargas Catheter: [] Assessment & Plan Assessment/Plan (1) Septic shock: PLAN: septic shock due to pseudomonas pneumonia with end stage COPD - on azithro/cefepime. LFTs now improving. Hep panel neg. Fever resolved. wbc up but is on iv steroids. Repeat covid and resp pcr panel neg. Off pressor this AM. Will follow (2) CAP (community acquired pneumonia): QUALIFIERS: Laterality: left Lung location: upper lobe of lung Qualified Code(s): J18.9 - Pneumonia, unspecified organism
[2023-01-22 10:19] LABS: Partial Thromboplast Time 73.6 Seconds (24.1-36.2)
[2023-01-22] MEDS: Digoxin 250 MCG/ML Ampul IV (11:02)
[2023-01-22 11:26] LABS: Ionized Calcium Order ORDER TUBE
[2023-01-22 11:27] LABS: Bedside Glucose 200 mg/dL (74-106)
--- NOTE | 2023-01-22 11:59 | PCM.PN.INT ---
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 Acute hypoxic and hypercapnic respiratory failure, requiring intubation on 01/18/2023. Currently behaving like ARDS 2. Septic shock secondary to left-sided Pseudomonas pneumonia 3. COPD exacerbation 4. Shock liver 5. A-fib with RVR 6. Pulmonary hypertension with RV dysfunction 7. Tobacco use 8. Pulmonary nodules 9. Debility Plan Patient was intubated and sedated on 01/18 due to worsening respiratory status and inability to tolerate BiPAP. Patient is currently behaving like ARDS requiring high PEEP and FiO2 and difficulty oxygenating. This may be further worsening his pulmonary hypertension. FiO2 increased to 80% overnight. Discussed with RT and RN patient's goal oxygen saturation is 88% given his ARDS and COPD. FiO2 weaned down to 65%. He remains on a PEEP of 12. He was hypercapnic yesterday adjusted vent settings. Today his pH is above 7.2 which is acceptable given his ARDS. Reduced respiratory rate to 18 as an attempt to maintain lung protective vent settings. Plateau remains below 30 however his peak pressure is between 32 and 36. He is at high risk of developing pneumothorax Due to his hypotension he developed shock liver. Amiodarone was discontinued. liver US shows no acute findings. He is currently on digoxin for A-fib. Will obtain level tomorrow as he is developing LAUREN Kidney function stable. Will administer another dose of Lasix today Sputum cultures growing Pseudomonas. Continue cefepime. His WBC count continues to trend up. Lactic acid within normal limits. Will obtain KUB as he has had no bowel movements despite lactulose. His abdomen is soft and he is tolerating tube feeds. He is also off Levophed today . DVT scan ordered he completed azithromycin for COPD exacerbation He remains hyperglycemic. Lantus increased to 20 twice daily Continue Solu-Medrol and DuoNebs He remains on heparin drip for A-fib GI prophylaxis Protonix Bowel Regimen MiraLAX and senna docusate daily Chest CT done on this admission showing new findings in left upper lobe. Given recent CT chest in October with no findings on left upper lung, the patient's current presentation these changes are most likely related to an infectious process. The right upper lobe scar seen on right lung in October and appears to be improving. Nodules in the right middle lobe appear to be stable from October 2022. However given his history patient remains high risk and would recommend repeat CT scan in 6 to 8 weeks to ensure resolution and further evaluation of nodules in right middle lobe. Prior to becoming ill. Patient informed social work associate and myself that he has no family and that he lives alone. Poor prognosis given unilateral pneumonia and underlying severe COPD with multiple lung nodules Critical care time spent 35 minutes excluding procedures in addressing above problems Subjective Subjective He remains on the vent. He was hypoxic overnight FiO2 increased to 80%. Discussed with RN and RT , goal oxygen saturation of 88 given his ARDS and severe COPD. Objective Data Objective Data Vital Signs: Vital Signs Temp Pulse Resp BP Pulse Ox O2 Del Method O2 Flow Rate 37.7 C H 99 19 H 97/54 L 92 Mechanical Ventilator 75 01/22/23 10:00 01/22/23 11:12 01/22/23 11:12 01/22/23 10:00 01/22/23 10:00 01/22/23 10:00 01/21/23 21:00 FiO2 65 01/22/23 11:12 Oxygen Flow Rate (L/min) 75 Oxygen Delivery Method Mechanical Ventilator Weight: 63.6 kg Body Mass Index (BMI) 21.3 Intake & Output: Intake and Output for Last 24 Hours 01/20/23 01/21/23 01/22/23 23:59 23:59 23:59 Intake Total 3273.92 / 3290.22 2316.89 / 2333.99 1864.08 / 1864.08 Output Total 1825 / 1825 955 / 955 1050 / 1050 Balance 1448.92 / 1465.22 1361.89 / 1378.99 814.08 / 814.08 Lab / Micro Data 01/22/23 03:20 01/22/23 03:20 Labs: Laboratory Results - last 24 hr 01/21/23 11:20: POC Glucose 189 H 01/21/23 16:35: APTT 60.4 H 01/21/23 18:46: POC Glucose 233 H 01/21/23 20:22: POC Glucose 216 H 01/21/23 23:05: POC Glucose 233 H 01/22/23 03:20: WBC 30.8 H*, RBC 3.79 L, Hgb 11.2 L, Hct 35.7 L, MCV 94.2 H D, MCH 29.6, MCHC 31.4 L D, RDW Std Deviation 58.8 H, RDW Coeff of Debra 17.0 H, Plt Count 119 L, MPV 11.9, Immature Gran % (Auto) 3.800 H, Neut % (Auto) 91.8 H, Lymph % (Auto) 1.1 L, [place] % (Auto) 2.9, Eos % (Auto) 0.0, Baso % (Auto) 0.4, Absolute Neuts (auto) 28.3 H, Absolute Lymphs (auto) 0.33 L, Nucleated RBC % 0.4, Differential Comment SCANNED, Diff Path Review September, Sodium 141, Potassium 4.6, Chloride 110 H, Carbon Dioxide 27.0, Anion Gap 4 L, BUN 81 H, Creatinine 1.55 H, Estim Creat Clear Calc 40.21, Est GFR (MDRD) Af Amer 57 L, Est GFR (MDRD) Non-Af 47 L, BUN/Creatinine Ratio 52.3 H, Glucose 261 H, Calcium 8.3 L, Magnesium 2.9 H, Total Bilirubin 0.30, AST 580 H, ALT 1391 H, Alkaline Phosphatase 113, Total Protein 5.3 L, Albumin 1.3 L, Globulin 4.0, Albumin/Globulin Ratio 0.3 L 01/22/23 03:30: APTT 44.8 H 01/22/23 03:31: Ionized Calcium 4.98 01/22/23 05:03: POC Glucose 229 H 01/22/23 08:35: Lactic Acid 1.1 01/22/23 10:00: APTT 73.6 H 01/22/23 11:03: POC Glucose 200 H Micro: Microbiology 01/16/23 19:43 Blood Culture (Wb) - Anticubital Left Blood Culture - Final No growth in 5 days. 01/16/23 20:14 Blood Culture (Wb) - Right Forearm Blood Culture - Final No growth in 5 days. 01/21/23 14:04 Mucosa - Nose Coronavirus COVID-19 PCR - Final 01/21/23 14:04 Mucosa - Nose Respiratory Panel (PCR) - Final 01/18/23 11:50 Blood Culture (Wb) - Left Forearm Blood Culture - Preliminary No growth in 48 hours. 01/18/23 11:50 Blood Culture (Wb) - Port Blood Culture - Preliminary No growth in 48 hours. 01/18/23 11:00 Sputum, Induced/Lukens Gram Stain - Final 01/18/23 11:00 Sputum, Induced/Lukens Respiratory Culture - Final Pseudomonas aeruginosa 01/17/23 22:30 Sputum, Expectorated/Coughed Gram Stain - Final 01/17/23 22:30 Sputum, Expectorated/Coughed Respiratory Culture - Final Pseudomonas aeruginosa 01/16/23 20:14 Urine, Clean Catch Urine Culture - Final Culture exhibits no growth. 01/17/23 00:45 Mucosa - Nasopharyngeal Coronavirus COVID-19 PCR - Final 01/16/23 00:45 Mucosa - Nasopharyngeal Respiratory Panel (PCR) - Final 01/17/23 00:27 Urine, Random Legionella Antigen - Final 01/17/23 00:27 Urine, Random Streptococcus pneumoniae Antigen (M - Final 01/16/23 19:50 Nasal Secretion SARS-CoV-2 & FLU Antigen (Rapid) - Final ABG Data ABG results: ABG 01/21/23 01/22/23 13:07 05:29 Specimen Type ART ART Sample Site R Radial R Radial pH 7.21 L 7.27 L Bicarbonate Actual 24.7 25.6 Total CO2 27 27 Base Excess -3 L -1 O2 Saturation 84 L 89 L O2 % 65.0 75.0 ABG pCO2 62.5 H 55.6 H ABG pO2 60 L 66 L Lino Test Positive N/A Respiration Rate 20 20 O2 Delivery Device Adult Vent Adult Vent Vent Mode AC AC Tidal Volume 500.0 500.0 POC PEEP 12 12 Crit Call To/Read Back Yes Blood Gas Not[facility] Notified Time 13:08:33 Radiography Diagnostic Testing: Radiology Impression Venous Doppler Study 01/22/23 08:14 Interpretation Summary Deep veins of the bilateral lower extremities are patent and compressible segmentally. There is no evidence of bilateral lower extremity deep vein thrombosis. The bilateral great saphenous veins appear patent and compressible segmentally. Ordering Physician: Rita Khan Referring Physician: [facility] Performed By: Betsy Walker RVT Physical Exam Narrative General intubated and sedated, critically ill looking Respiratory reduced air entry bilaterally, mechanical breath sounds Cardiac S1-S2, regular rate and rhythm GI abdomen soft and nontender MSK no lower extremity edema Skin no rashes Neuro intubated and sedated Charges/Coding Procedures Hospitalists Procedures: 84825 Critial Care 1st Hr
[2023-01-22] MEDS: Furosemide 20 MG/2 ML VIAL IV (12:24)
[2023-01-22] MEDS: Acetaminophen 650 MG/20 ML UDC GT ×2 (12:28→21:22)
[2023-01-22] MEDS: dexMEDEtomidine 400 MCG in 0.9% Normal Saline (100mL Bag) 96 ML 11.1 MCG CONT INF (12:34)
--- NOTE | 2023-01-22 12:45 | RAD_ITS ---
STUDY: X-RAY - ABDOMEN/PELVIS REASON FOR EXAM: Male, 72 years old. Constipation TECHNIQUE: Single AP view of the abdomen / pelvis. COMPARISON: Comparison is made with prior study dated January 18, 2023. FINDINGS: The tip of the nasogastric tube is in the distal portion of the stomach. Gaseous distention of the colon. No significant fecal material is seen. Fecal material and gas are seen in the rectum. A rectal tube is seen. The visualized liver, spleen and kidneys are grossly normal in size and morphology. Normal soft tissue structures. There are diffuse degenerative changes of the visualized lumbar spine. RAD/Abdomen Single View IMPRESSION: No significant amount of fecal material is seen in the colon. Gaseous distention of the colon down to the rectum. Electronically Signed: Brett Arango MD at 13:10 EDT ,
[2023-01-22] MEDS: Meropenem 1 GM in 0.9% Normal Saline (100mL MB+) 100 ML IV ×2 (13:42→21:24)
[2023-01-22] MEDS: Lactulose 20 GM/30 ML UDC 10 GM GT (13:43)
--- NOTE | 2023-01-22 13:54 | CHAPLAIN ---
Type of Pastoral Visit _x__ Initial Visit ___ Follow-up Visit ___ On-call Visit ___ General Patient Visit ___ Spiritual Assessment ___ Family Conference ___ Bereavement ___ Rapid Response ___ Code Blue ___ Other (describe below) Pastoral Care Referral From ___ Patient ___ Family ___ Nurse ___ Physician ___ Cottrell Blower ___ [place] Alarm Installer _x__ Other (describe below) Sacrament/Intervention ___ Active listening ___ Anointing ___ Yarsani ___ Bereavement ___ Communion ___ Mary exploration ___ ___ Life review _x__ Prayer ___ Reconciliation ___ Sacrament of Sick _x__ Supportive presence ___ Wedding ___ Other (describe below) Pastoral Comments patient is intubated and unable to respond at this time; calming presence and words given to patient whose eyes are partially open but not focusing; prayer given audibly with words of assurance that God is present to patient;
--- NOTE | 2023-01-22 15:38 | PN.HOSP_ITS ---
Reason for Visit Reason for Visit: Shortness of breath Subjective Subjective Mild RVR overnight. Patient seems to go in and out of this and is mildly tachycardic at baseline. White count continues to rise. Cultures are pending. FiO2 was increased to 70% overnight and PEEP is still at 12. Case has been discussed with risk-management regarding possible guardianship as we have not been able to contact any family. Objective Data Objective Data Vital Signs: Vital Signs Temp Pulse Resp BP Pulse Ox O2 Del Method O2 Flow Rate 100.3 F H 108 H 20 H 104/56 L 92 Mechanical Ventilator 75 01/22/23 14:00 01/22/23 14:00 01/22/23 14:00 01/22/23 14:00 01/22/23 14:00 01/22/23 14:00 01/21/23 21:00 FiO2 65 01/22/23 14:00 Oxygen Flow Rate (L/min) 75 Oxygen Delivery Method Mechanical Ventilator Weight: 63.6 kg Body Mass Index (BMI) 21.3 Intake & Output: Intake and Output for Last 24 Hours 01/20/23 01/21/23 01/22/23 23:59 23:59 23:59 Intake Total 3273.92 / 3290.22 2316.89 / 2333.99 2072.05 / 2072.05 Output Total 1825 / 1825 955 / 955 2100 / 2100 Balance 1448.92 / 1465.22 1361.89 / 1378.99 -27.95 / -27.95 Lab / Micro Data 01/22/23 03:20 01/22/23 03:20 Labs: Laboratory Results - last 24 hr 01/21/23 11:20: POC Glucose 189 H 01/21/23 16:35: APTT 60.4 H 01/21/23 18:46: POC Glucose 233 H 01/21/23 20:22: POC Glucose 216 H 01/21/23 23:05: POC Glucose 233 H 01/22/23 03:20: WBC 30.8 H*, RBC 3.79 L, Hgb 11.2 L, Hct 35.7 L, MCV 94.2 H D, MCH 29.6, MCHC 31.4 L D, RDW Std Deviation 58.8 H, RDW Coeff of Debra 17.0 H, Plt Count 119 L, MPV 11.9, Immature Gran % (Auto) 3.800 H, Neut % (Auto) 91.8 H, Lymph % (Auto) 1.1 L, [place] % (Auto) 2.9, Eos % (Auto) 0.0, Baso % (Auto) 0.4, Absolute Neuts (auto) 28.3 H, Absolute Lymphs (auto) 0.33 L, Nucleated RBC % 0.4, Differential Comment SCANNED, Diff Path Review September, Sodium 141, Potassium 4.6, Chloride 110 H, Carbon Dioxide 27.0, Anion Gap 4 L, BUN 81 H, Creatinine 1.55 H, Estim Creat Clear Calc 40.21, Est GFR (MDRD) Af Amer 57 L, Est GFR (MDRD) Non-Af 47 L, BUN/Creatinine Ratio 52.3 H, Glucose 261 H, Calcium 8.3 L, Magnesium 2.9 H, Total Bilirubin 0.30, AST 580 H, ALT 1391 H, Alkaline Phosphatase 113, Total Protein 5.3 L, Albumin 1.3 L, Globulin 4.0, Albumin/Globulin Ratio 0.3 L 01/22/23 03:30: APTT 44.8 H 01/22/23 03:31: Ionized Calcium 4.98 01/22/23 05:03: POC Glucose 229 H 01/22/23 08:35: Lactic Acid 1.1 01/22/23 10:00: APTT 73.6 H 01/22/23 11:03: POC Glucose 200 H Micro: Microbiology 01/16/23 19:43 Blood Culture (Wb) - Anticubital Left Blood Culture - Final No growth in 5 days. 01/16/23 20:14 Blood Culture (Wb) - Right Forearm Blood Culture - Final No growth in 5 days. 01/21/23 14:04 Mucosa - Nose Coronavirus COVID-19 PCR - Final 01/21/23 14:04 Mucosa - Nose Respiratory Panel (PCR) - Final 01/18/23 11:50 Blood Culture (Wb) - Left Forearm Blood Culture - Preliminary No growth in 48 hours. 01/18/23 11:50 Blood Culture (Wb) - Port Blood Culture - Preliminary No growth in 48 hours. 01/18/23 11:00 Sputum, Induced/Lukens Gram Stain - Final 01/18/23 11:00 Sputum, Induced/Lukens Respiratory Culture - Final Pseudomonas aeruginosa 01/17/23 22:30 Sputum, Expectorated/Coughed Gram Stain - Final 01/17/23 22:30 Sputum, Expectorated/Coughed Respiratory Culture - Final Pseudomonas aeruginosa 01/16/23 20:14 Urine, Clean Catch Urine Culture - Final Culture exhibits no growth. 01/17/23 00:45 Mucosa - Nasopharyngeal Coronavirus COVID-19 PCR - Final 01/16/23 00:45 Mucosa - Nasopharyngeal Respiratory Panel (PCR) - Final 01/17/23 00:27 Urine, Random Legionella Antigen - Final 01/17/23 00:27 Urine, Random Streptococcus pneumoniae Antigen (M - Final 01/16/23 19:50 Nasal Secretion SARS-CoV-2 & FLU Antigen (Rapid) - Final ABG Data ABG results: ABG 01/22/23 05:29 Specimen Type ART Sample Site R Radial pH 7.27 L Bicarbonate Actual 25.6 Total CO2 27 Base Excess -1 O2 Saturation 89 L O2 % 75.0 ABG pCO2 55.6 H ABG pO2 66 L Lino Test N/A Respiration Rate 20 O2 Delivery Device Adult Vent Vent Mode AC Tidal Volume 500.0 POC PEEP 12 Radiography Diagnostic Testing: Radiology Impression Venous Doppler Study 01/22/23 08:14 Interpretation Summary Deep veins of the bilateral lower extremities are patent and compressible segmentally. There is no evidence of bilateral lower extremity deep vein thrombosis. The bilateral great saphenous veins appear patent and compressible segmentally. Ordering Physician: Rita Khan Referring Physician: [facility] Performed By: Betsy Walker RVT X-Ray 01/22/23 12:45 IMPRESSION: No significant amount of fecal material is seen in the colon. Gaseous distention of the colon down to the rectum. Electronically Signed: Brett Arango MD at 13:10 EDT , Physical Exam Const Constitutional Narrative: Cachectic, chronically ill-appearing, older white male who appears much older than stated age lying in bed, currently intubated and sedated and on pressors, nursing at bedside HEENT head/scalp atraumatic and moist oral mucous membranes HEENT Narrative: ET tube and OG in place Resp No normal respiratory effort, no retractions and no use of accessory muscles Resp Narrative: Diffusely diminished with significant diminishment in the right lung field, scattered rhonchi right greater than left, patient intubated on a ventilator Auscultation: rhonchi; Negative for rales or wheezes Cardio regular rhythm, S1 normal heart sound, S2 normal heart sound, no murmurs, no rub, no gallops and no clicks Cardio Narrative: Mild tachycardia with regular rhythm GI normal to inspection, nondistended, normoactive bowel sounds, soft to palpation and non-tender Extremity no clubbing, cyanosis or edema Extremity Narrative: Pedal pulses are 2+ Skin Skin Narrative: Left IJ in place-clean and dry Neuro Neuro Narrative: Intubated and sedated Psych Psych Narrative: Unable to examine due to intubation and sedation Assessment & Plan Assessment/Plan (1) Afib: QUALIFIERS: Atrial fibrillation type: persistent (not longstanding) Qualified Code(s): I48.19 - Other persistent atrial fibrillation (2) RVF (right ventricular failure): (3) Acute and chronic respiratory failure with hypoxia: (4) Severe malnutrition: PLAN: Plan Acute hypoxic respiratory failure secondary to right-sided pseudomonal pneumonia/acute exacerbation of COPD -Intubated 01/18/2023 -Remains on significant vent settings with an FiO2 of 70% and PEEP of 12 -Status post bronchoscopy -MRSA swab was negative -Allowing for permissive hypercapnia with ARDS protocol -Cultures showing Pseudomonas-continue cefepime -Echocardiogram shows significant right-sided heart failure and elevated pulmonary pressures -Diuresis as able--patient did receive another dose of Lasix 20 mg IV push x1 dose today -Continue aggressive pulmonary toilet -Chest CT done on admission showed significant findings in left upper lobe that were new compared to previous -Overall prognosis is poor with severe pneumonia and COPD with multiple lung nodules--> -Pulmonary medicine/critical care following-appreciate input Septic shock due to the above -Levophed was able to be discontinued this morning -Continue antibiotics as ordered--> continue meropenem -White count has increased significantly in the last 24 hours and he was febrile through the night -Repeat blood and urine cultures are pending, COVID was negative, respiratory viral panel was negative -ID following -IV fluids discontinued as I suspect patient may be mildly volume overloaded and has ARDS concerns -Low-dose diuretics attempted today Shock liver -Amiodarone discontinued due to transaminase elevation -Transaminases continue to trend down -Ammonia level is elevated and lactulose was added -Liver ultrasound showed fatty infiltration with sludge in the gallbladder and minimal pericholecystic fluid with minimal ascites -Trend liver enzymes Pulmonary hypertension with RV dysfunction -Diuresis per pulmonary medicine New onset A-fib with RVR -Echocardiogram performed and shows RV dysfunction likely related to pulmonary issues at baseline -LV is normal -Suspect this was precipitated by pulmonary dysfunction -Continue heparin drip -Patient was given 1 dose of digoxin overnight and 2 doses today -Amiodarone discontinued due to transaminase elevation -No PE noted on presentation History of COPD -See above Pulmonary nodules -If patient survives will need follow-up CT after discharge Hypertension -Antihypertensives on hold due to pressor requirement -Monitor for ability to reinitiate DM-2 -Hemoglobin A1c is 6.1 -Blood sugars are markedly elevated with a fasting this morning of 261 -Basal insulin was increased to 20 units twice daily -Continue SSI but increase to high-dose -Every 6 hours SSI added -Trend blood sugars DVT/GI prophylaxis -Patient is now on a heparin drip -Protonix 40 daily Code Status -Full Code -Prognosis is extremely poor--> risk-management has been contacted with regards to pursuing guardianship as we have not been able to identify any family members Charges/Coding Visit Charges Inpatient E&M: 08316 Subs Hosp L2
[2023-01-22 18:12] LABS: Partial Thromboplast Time 55.1 Seconds (24.1-36.2)
[2023-01-22 18:27] LABS: Bedside Glucose 210 mg/dL (74-106)
[2023-01-22] MEDS: HEPARIN/D5w 25,000 UNITS 25,000 UNITS/250 ML IV.SOLN. 11 UNITS CONT INF (18:35)
--- NOTE | 2023-01-22 18:35 | CASEMGMT ---
Addendum entered by Reema Zamora 01/23/23 10:00: Addendum: Virgilio Vargas, she is pt's 1/2 niece, Britney is also 1/2 niece, and Benjamin is 1/2 nephew to patient. Original Note: [place] NOTE: RN CM informed that pt's niece was in to see pt and requested to talk w/CM. RN CM to room. Introduced self and role. Leonie Mendez @ pt's bedside. She refers to herself as pt's niece, but states, they are not blood-related. She states her aunt, Nasreen, was pt's significant other for approx 25 yrs and they lived together, but they never got . She states Nasreen was the love of his life and in 2019. She states she has known pt since she was about 10 yrs old and states, He helped raise me. She reports pt has stayed in contact with Nasreen's family even after his passing. She states pt has a son, Marcio, that he has not seen since he was a child, stating that pt admitted that he abandoned Marcio and his mom back then. Leonie states she and another one of her family members have been trying to do research to try and find any other living relatives and found out pt has a relative, Alicia. She states Alicia was going to be calling into [facility] to speak w/someone in ICU. Pt's niece, Alicia, called ICU while [facility]OR M[place]ILLA on unit. [place]ST[place]A spoke w/Alicia. Alicia states she is pt's niece and she has stayed in contact with patient over the years and states she last communicated w/pt via [employer] about 6 months ago. Alicia states she has 2 siblings, and all 3 of them are blood-related to pt. NieceAlicia (maiden name Avelar): [phone] NieceBritney Daniela: (maiden name Rosio): [phone] NephewBenjamin Rosio: [phone]. She states, as far as she knows there are no other living relatives to pt. She states pt does have a son, Marcio, but pt has not been in contact with him since he was a child. Virgilio Vargas, her does geneology and had located kaycee's son, Marcio 2-3 yrs ago, in the hopes of them reconnecting. Per her , Marcio had his name legally changed to Marcio Aguilar and would not provide his phone # to her , d/t He didn't want to have anything to do with Candelario. The only contact info her had for Marcio was an e-mail address: [email or web address] Jose Antonio MOORE RN CM
[2023-01-22] MEDS: Insulin Glargine-YFGN 100 UNIT/ML Pen 20 UNIT SC (21:24)
[2023-01-22] MEDS: dexMEDEtomidine 400 MCG in 0.9% Normal Saline (100mL Bag) 96 ML 8 MCG CONT INF (21:28)
[2023-01-23] VITALS (32 sets, daily range): BP systolic 85–178; BP diastolic 51–79; PULSE 20–120; RESP 18–27; TEMP 37.1–38.1; O2SAT 88–95; BMI 21.2
[2023-01-23 00:05] LABS: Bedside Glucose 183 mg/dL (74-106)
[2023-01-23] MEDS: Methylprednisolone Sod Succ 40 MG/ML VIAL IV ×4 (00:30→18:30)
[2023-01-23] MEDS: 0.9% Saline Lock 10 ML Syringe IV (00:31)
[2023-01-23] MEDS: CHLORHEXIDINE GLUC 2% CLOTH 1 EACH TOWELETTE TOPICAL (04:32)
[2023-01-23 04:33] LABS: Hematocrit 36.1 % (40-54); Mean Corp Hgb Conc 30.5 g/dL (32-36); Mean Corpuscular Hgb 28.7 pg (27.0-32.0); Mean Corpuscular Volume 94.3 fL (80-94); POSITIVE COUNT YES; POSITIVE DIFFERENTIAL YES; POSITIVE MORPHOLOGY YES; Platelet Count 129 K/mm3 (150-450); RBC Distribution Width CV 17.2 % (11.6-14.6); RBC Distribution Width SD 59.7 fl (35.1-43.9); Red Blood Count 3.83 M/mm3 (4.6-6.2)
[2023-01-23 04:36] LABS: Ionized Calcium 4.97 mg/dL (4.36-5.20)
[2023-01-23 04:49] LABS: Differential Indicated MANUAL DIFF; White Blood Count 33.1 K/mm3 (4.4-11.0)
[2023-01-23 04:51] LABS: Partial Thromboplast Time 58.7 Seconds (24.1-36.2)
[2023-01-23 05:04] LABS: Absolute Neutrophil Count 31.8 X10^3/uL (2.0-7.7); Lymphocyte 1 % (19-41); Metamyelocyte 1 % (0-1); Monocyte 2 % (0-10); Neutrophil # 31.75 X10^3/uL (2.7-7.7); Neutrophil-Band 6 % (0-5); Neutrophil-Segmented 90 % (47-70); Platelet Estimate ADEQUATE (ADEQ); Red Cell Morphology NORM C+C NORMAL (NORM C&C); Total Cells Counted 100 (MANUAL DIFF)
[2023-01-23 05:05] LABS: Absolute Lymphocyte Count 0.33 X10^3/uL (0.83-4.51); Lymphocyte # 0.33 X10^3/ul (0.83-4.51)
[2023-01-23] MEDS: Insulin Lispro 100 UNIT/ML INSULN.PEN SC ×3 (05:19→23:14)
[2023-01-23 05:20] LABS: ALB/GLOB Ratio 0.3 RATIO (0.9-2.4); AST(SGOT) 344 U/L (15-37); Alanine Aminotransfer ALT/SGPT 1154 U/L (16-61); Albumin, Serum 1.3 g/dL (3.2-5.0); Alkaline Phosphatase 124 U/L (45-117); Anion Gap 2 (5-15); BUN 95 mg/dL (7-18); BUN/Creat Ratio 57.2 RATIO (10-20); Calcium,Total 8.5 mg/dL (8.5-10.1); Chloride 113 mmol/L (98-107); Creatinine, Serum 1.66 mg/dL (0.70-1.30); EST Glomerular Filtration Rate 44 mL/min (>60); Est Glom Filt Rate - Afr Amer 53 mL/min (>60); Estimated Creatinine Clearance 37.19 ml/min; Globulin 4.2 g/dL (2.2-4.2); Glucose 185 mg/dL (74-106); Magnesium 3.2 mg/dL (1.6-2.6); Potassium 5.5 mmol/L (3.5-5.1); Protein, Total 5.5 g/dL (6.4-8.2); Sodium Level 144 mmol/L (136-145)
[2023-01-23 05:35] LABS: Base Excess 1 mmol/L (-2 to +2); Bicarbonate 27.7 mmol/L (22-26); Blood Gas Specimen Type ART; Mode AC; O2 Delivery Device Adult Vent; PEEP 12; PO2 62 mmHG (75-100); RR 18; SITE R Radial; SO2 88 % (95-99); Total Carbon Dioxide 30 mmol/L; pCO2 58.1 mmHg (35-45); pH 7.29 (7.35-7.45)
[2023-01-23 05:54] LABS: Bedside Glucose 165 mg/dL (74-106)
--- NOTE | 2023-01-23 05:55 | RAD_ITS ---
EXAM: XR CHEST, 1 VIEW CLINICAL INDICATION: hypoxia TECHNIQUE: Frontal view of the chest. COMPARISON: Single view chest 01/21/2023 FINDINGS: LUNGS AND PLEURAL SPACES: Continued patchy airspace disease in the left upper lobe, superimposed on chronic emphysematous changes. No pneumothorax. No effusion. HEART: Unremarkable. Cardiac silhouette not enlarged. MEDIASTINUM: Central airways and mediastinal contour are unremarkable. BONES/JOINTS: Unremarkable. SOFT TISSUES: Unremarkable. TUBES, LINES AND DEVICES: Stable endotracheal tube, enteric tube and left jugular central venous line. RAD/Chest 1 View (Portable) IMPRESSION: Continued patchy airspace disease in the left upper lobe, superimposed on chronic emphysematous changes. Findings likely indicate pneumonia. Electronically Signed: Paras Howard MD at 6:42 EDT ,
[2023-01-23] MEDS: fentaNYL drip 100 ML 7.5 MCG CONT INF (06:37)
[2023-01-23] MEDS: Ipratropium/Albuterol Sulfate 3 ML AMPUL.NEB INHALATION ×4 (07:13→19:00)
--- NOTE | 2023-01-23 09:34 | CT_ITS ---
STUDY: CT CHEST, ABDOMEN T PELVIS WITHOUT CONTRAST REASON FOR EXAM: Male, 72 years old. Sepsis. Endstage COPD. RADIATION DOSAGE (If Supplied By Facility): CTDIvol = ( 4.87 ) mGy, DLP = ( 455.87 ) mGycm TECHNIQUE: Transaxial imaging was performed without the administration of intravenous contrast material. Individualized dose optimization techniques were used for this CT. COMPARISON: Comparison is made with prior CT scan of thorax dated November 03, 2022. FINDINGS: CHEST An endotracheal tube is in situ. Emphysematous changes. Heterogeneous consolidation with cystic changes seen in the left upper lobe. This abuts the left major fissure. This also evidence of a small left pleural effusion with left basilar infiltrate. 1.3 cm nodular density in the posterior aspect of the right lower lobe. This may represent a focal infiltrate. Follow-up is recommended. There is no demonstrated pleural abnormality. There are calcifications of the coronary arteries. Normal mediastinum. Normal hilar regions. Normal unenhanced pulmonary arteries. There is atherosclerotic calcification of the aortic arch with tortuosity and elongation of the aortic arch and descending thoracic aorta. There are multi-level degenerative changes of the thoracic spine. An orogastric tube is seen within the body of the stomach. ABDOMEN Normal liver. Minimal perihepatic fluid. Normal gallbladder and extrahepatic biliary system. Normal spleen. Normal pancreas. Normal bilateral adrenal glands. 6.5 mm nonobstructive calculus in the midpole calyx of the right kidney. Normal left kidney. Normal visualized stomach. Normal small intestine. There are scattered colonic diverticula consistent with diverticulosis. The appendix is visualized and appears normal. There is diffuse atherosclerotic calcification of the abdominal aorta and its major visceral branches, without a demonstrated aneurysm. Normal inferior vena cava. Normal retroperitoneum. Normal abdominal wall. There are diffuse degenerative changes of the visualized lumbar spine. PELVIS A Vargas catheter is seen within a decompressed urinary bladder. Small amount of free fluid is seen in the pelvis. There is diffuse atherosclerotic calcification of the pelvic arteries. CT/CT Chest, Abd, Pelvis WO Cont IMPRESSION: Dense and heterogeneous consolidation in the left upper lobe as described. Patchy infiltrate is also seen in the left lower lobe. Questionable nodular infiltration in the right lower lobe. Follow-up recommended. Hyperinflation and emphysematous changes. Electronically Signed: Brett Arango MD at 11:15 EDT ,
--- NOTE | 2023-01-23 09:34 | CT_ITS ---
STUDY: CT BRAIN WITHOUT CONTRAST REASON FOR EXAM: Male, 72 years old. AMS. Sepsis. RADIATION DOSAGE (If Supplied By Facility): CTDIvol = ( 44.99 ) mGy, DLP = ( 897.35 ) mGycm TECHNIQUE: Transaxial CT imaging of the brain was performed without administration of intravenous contrast material. Individualized dose optimization techniques were used for this CT. COMPARISON: No relevant priors. FINDINGS: Normal soft tissue structures. Normal calvarium. There is mild cerebral atrophy with widening of the extra-axial spaces and ventricular dilatation. There are areas of decreased attenuation within the white matter tracts of the supratentorial brain, consistent with microvascular disease changes. Normal basal ganglia and thalami. Normal brainstem. Normal cerebellum. There is no intracranial hemorrhage. There are no findings of an acute ischemic infarction. Normal visualized paranasal sinuses. CT/Brain/Head without Contrast IMPRESSION: Chronic involutional changes of the brain. Electronically Signed: Brett Arango MD at 11:09 EDT ,
--- NOTE | 2023-01-23 09:45 | CASEMGMT ---
NESTOR CM NOTE: Per Jaye BAEZ, she has received a call from Terri Avelar, requesting information. Per Alicia, pt's 1/2 niece, she states Terri Avelar's father was Zoltan (who is ) and Zoltan was Alicia's 1/2 uncle. Jose Antonio MOORE RN CM
[2023-01-23] MEDS: dexMEDEtomidine 400 MCG in 0.9% Normal Saline (100mL Bag) 96 ML 8 MCG CONT INF (09:57)
[2023-01-23 10:36] LABS: Potassium 5.5 mmol/L (3.5-5.1)
--- NOTE | 2023-01-23 11:07 | PN.CC_ITS ---
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 Acute hypoxic and hypercapnic respiratory failure, requiring intubation on 01/18/2023. Currently behaving like ARDS 2. Septic shock secondary to left-sided Pseudomonas pneumonia 3. COPD exacerbation 4. Shock liver 5. A-fib with RVR 6. Pulmonary hypertension with RV dysfunction 7. Tobacco use 8. Pulmonary nodules 9. Debility Plan * Patient was intubated and sedated on 01/18 due to worsening respiratory status and inability to tolerate BiPAP. * Patient is currently behaving like ARDS requiring high PEEP and FiO2 and difficulty oxygenating. This may be further worsening his pulmonary hypertension. He remains on FiO2 of 65% and peep of 12 O2 sats between 88- 90%. Today his pH remains above 7.2 which is acceptable given his ARDS. Reduced TV to 450 in attempts to maintain lung protective vent settings. Plateau remains below 30 and peak pressure is slightly improved to 28-34. He remains at high risk of developing pneumothorax * Due to his shock he developed shock liver. Amiodarone was discontinued. liver US shows no acute findings. Liver enzymes are trending down * Today digoxin level was elevated and his kidney function is worsening. Hold Digoxin. Nephrology consulted * BP labile but he is off levophed at the moment. * Sepsis parameters appear to be worsening, he continues to be febrile with uptrending WBC count, he was switched to merrem yesterday. CT head/chest/abd/pelvis ordered w/out contrast given kidney. Will consider adding antifungal. DVT scan was negative
--- NOTE | 2023-01-23 11:07 | PCM.PN.INT ---
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 Acute hypoxic and hypercapnic respiratory failure, requiring intubation on 01/18/2023. Currently behaving like ARDS 2. Septic shock secondary to left-sided Pseudomonas pneumonia 3. COPD exacerbation 4. Shock liver 5. A-fib with RVR 6. Pulmonary hypertension with RV dysfunction 7. Tobacco use 8. Pulmonary nodules 9. Debility Plan Patient was intubated and sedated on 01/18 due to worsening respiratory status and inability to tolerate BiPAP. Patient is currently behaving like ARDS requiring high PEEP and FiO2 and difficulty oxygenating. This may be further worsening his pulmonary hypertension. He remains on FiO2 of 65% and peep of 12 O2 sats between 88-90%. Today his pH remains above 7.2 which is acceptable given his ARDS. Reduced TV to 450 in attempts to maintain lung protective vent settings. Plateau remains below 30 and peak pressure is slightly improved to 28-34. He remains at high risk of developing pneumothorax Due to his shock he developed shock liver. Amiodarone was discontinued. liver US shows no acute findings. Liver enzymes are trending down Today digoxin level was elevated and his kidney function is worsening. Hold Digoxin. Nephrology consulted BP labile but he is off levophed at the moment. Sepsis parameters appear to be worsening, he continues to be febrile with uptrending WBC count, he was switched to merrem yesterday. CT head/chest/abd/pelvis ordered w/out contrast given kidney. Will consider adding antifungal. DVT scan was negative he completed azithromycin for COPD exacerbation He remains hyperglycemic. cont Lantus 20 twice daily Continue Solu-Medrol and DuoNebs He remains on heparin drip for A-fib GI prophylaxis Protonix Bowel Regimen MiraLAX and senna docusate daily Chest CT done on this admission showing new findings in left upper lobe. Given recent CT chest in October with no findings on left upper lung, the patient's current presentation these changes are most likely related to an infectious process. The right upper lobe scar seen on right lung in October and appears to be improving. Nodules in the right middle lobe appear to be stable from October 2022. However given his history patient remains high risk and would recommend repeat CT scan in 6 to 8 weeks to ensure resolution and further evaluation of nodules in right middle lobe. Prior to becoming ill. 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 Poor prognosis given unilateral pneumonia, sepsis, LAUREN, shock liver and underlying severe COPD with multiple lung nodules Critical care time spent 45 minutes excluding procedures in addressing above problems Discussed pt with his half niece over the phone during multidisciplinary rounds this AM. Please refer to subjective Subjective Subjective He is on a PEEP of 12 and FiO2 of 65%. Kidney function is worsening. He had a large bowel movement yesterday. SW was able to reach out to the pt's half niece Alicia who lives in [place]. She was present on our multidisciplinary rounds over the phone. we discussed the pt's current status and poor prognosis. She noted that she did not think patient would want to be on long-term mechanical ventilation. We discussed the patient's current medical Status. Awaiting recommendations from our risk management in regards to further guidance of family situation and appropriate next of kin as there appears to be a son that the patient has not seen in many years and he lives out of the [facility] and per reports from Alicia the son didn't want to get in touch with the pt. Objective Data Objective Data Vital Signs: Vital Signs Temp Pulse Resp BP Pulse Ox O2 Del Method O2 Flow Rate 37.9 C H 108 H 20 H 150/79 H 93 Mechanical Ventilator 75 01/23/23 10:00 01/23/23 10:38 01/23/23 10:38 01/23/23 10:00 01/23/23 10:38 01/23/23 10:00 01/21/23 21:00 FiO2 65 01/23/23 10:38 Oxygen Flow Rate (L/min) 75 Oxygen Delivery Method Mechanical Ventilator Weight: 63.5 kg Body Mass Index (BMI) 21.2 Intake & Output: Intake and Output for Last 24 Hours 01/21/23 01/22/23 01/23/23 23:59 23:59 23:59 Intake Total 2316.89 / 2333.99 3671.68 / 3772.18 628.00 / 628.00 Output Total 955 / 955 3500 / 3500 1400 / 1400 Balance 1361.89 / 1378.99 171.68 / 272.18 -772.00 / -772.00 Lab / Micro Data 01/23/23 04:25 01/23/23 09:50 Labs: Laboratory Results - last 24 hr 01/22/23 11:03: POC Glucose 200 H 01/22/23 17:25: APTT 55.1 H 01/22/23 18:06: POC Glucose 210 H 01/22/23 23:38: POC Glucose 183 H 01/23/23 04:25: WBC 33.1 H*, RBC 3.83 L, Hgb 11.0 L, Hct 36.1 L, MCV 94.3 H, MCH 28.7, MCHC 30.5 L, RDW Std Deviation 59.7 H, RDW Coeff of Debra 17.2 H, Plt Count 129 L, MPV 12.0, Neut % (Auto) Not Reportable, Absolute Neuts (auto) 31.8 H, Absolute Lymphs (auto) 0.33 L, Total Counted 100, Neutrophils % (Manual) 90 H, Band Neutrophils % 6 H, Lymphocytes % (Manual) 1 L, Monocytes % (Manual) 2, Metamyelocytes % 1, Diff Path Review September, Platelet Estimate ADEQUATE, RBC Morphology NORM C+C, APTT 58.7 H, Sodium 144, Potassium 5.5 H, Chloride 113 H, Carbon Dioxide 29.0, Anion Gap 2 L, BUN 95 H, Creatinine 1.66 H, Estim Creat Clear Calc 37.19, Est GFR (MDRD) Af Amer 53 L, Est GFR (MDRD) Non-Af 44 L, BUN/Creatinine Ratio 57.2 H, Glucose 185 H, Calcium 8.5, Magnesium 3.2 H, Total Bilirubin 0.30, AST 344 H, ALT 1154 H, Alkaline Phosphatase 124 H, Total Protein 5.5 L, Albumin 1.3 L, Globulin 4.2, Albumin/Globulin Ratio 0.3 L, Digoxin 3.70 H* 01/23/23 04:33: Ionized Calcium 4.97 01/23/23 05:18: POC Glucose 165 H 01/23/23 09:50: Potassium 5.5 H Micro: Microbiology 01/21/23 11:10 Blood Culture (Wb) - Right Forearm Blood Culture - Preliminary No growth in 48 hours. 01/21/23 11:00 Blood Culture (Wb) - Anticubital Left Blood Culture - Preliminary No growth in 48 hours. 01/16/23 19:43 Blood Culture (Wb) - Anticubital Left Blood Culture - Final No growth in 5 days. 01/16/23 20:14 Blood Culture (Wb) - Right Forearm Blood Culture - Final No growth in 5 days. 01/21/23 14:04 Mucosa - Nose Coronavirus COVID-19 PCR - Final 01/21/23 14:04 Mucosa - Nose Respiratory Panel (PCR) - Final 01/18/23 11:50 Blood Culture (Wb) - Left Forearm Blood Culture - Preliminary No growth in 48 hours. 01/18/23 11:50 Blood Culture (Wb) - Port Blood Culture - Preliminary No growth in 48 hours. 01/18/23 11:00 Sputum, Induced/Lukens Gram Stain - Final 01/18/23 11:00 Sputum, Induced/Lukens Respiratory Culture - Final Pseudomonas aeruginosa 01/17/23 22:30 Sputum, Expectorated/Coughed Gram Stain - Final 01/17/23 22:30 Sputum, Expectorated/Coughed Respiratory Culture - Final Pseudomonas aeruginosa 01/16/23 20:14 Urine, Clean Catch Urine Culture - Final Culture exhibits no growth. 01/17/23 00:45 Mucosa - Nasopharyngeal Coronavirus COVID-19 PCR - Final 01/16/23 00:45 Mucosa - Nasopharyngeal Respiratory Panel (PCR) - Final 01/17/23 00:27 Urine, Random Legionella Antigen - Final 01/17/23 00:27 Urine, Random Streptococcus pneumoniae Antigen (M - Final 01/16/23 19:50 Nasal Secretion SARS-CoV-2 & FLU Antigen (Rapid) - Final ABG Data ABG results: ABG 01/23/23 05:30 Specimen Type ART Sample Site R Radial pH 7.29 L Bicarbonate Actual 27.7 H Total CO2 30 Base Excess 1 O2 Saturation 88 L O2 % 65.0 ABG pCO2 58.1 H ABG pO2 62 L Lino Test N/A Respiration Rate 18 O2 Delivery Device Adult Vent Vent Mode AC Tidal Volume 500.0 POC PEEP 12 Radiography Diagnostic Testing: Radiology Impression Venous Doppler Study 01/22/23 08:14 Interpretation Summary Deep veins of the bilateral lower extremities are patent and compressible segmentally. There is no evidence of bilateral lower extremity deep vein thrombosis. The bilateral great saphenous veins appear patent and compressible segmentally. Ordering Physician: Rita Khan Referring Physician: [facility] Performed By: Betsy Walker T X-Ray 01/22/23 12:45 IMPRESSION: No significant amount of fecal material is seen in the colon. Gaseous distention of the colon down to the rectum. Electronically Signed: Brett Arango MD at 13:10 EDT , Chest X-Ray 01/23/23 05:55 IMPRESSION: Continued patchy airspace disease in the left upper lobe, superimposed on chronic emphysematous changes. Findings likely indicate pneumonia. Electronically Signed: Paras Howard MD at 6:42 EDT , Physical Exam Narrative General intubated and sedated, critically ill looking Respiratory reduced air entry bilaterally, mechanical breath sounds Cardiac S1-S2, regular rate and rhythm GI abdomen soft and nontender MSK no lower extremity edema Skin no rashes Neuro intubated and sedated Charges/Coding Procedures Hospitalists Procedures: 67184 Critial Care 1st Hr
--- NOTE | 2023-01-23 11:22 | CON.PCM.RE_ITS ---
Assessment & Plan Assessment/Plan (1) LAUREN (acute kidney injury): (2) Hyperkalemia: (3) Acute and chronic respiratory failure with hypoxia: (4) Septic shock: PLAN: Plan This is a 72 M with past medical history significant for hypertension, severe end-stage COPD/history of agent orange exposure with chronic hypoxic respiratory failure on home O2 3 L nasal cannula who was brought to the emergency room on December 16 for evaluation with complaints of shortness of breath, admitted for acute hypoxic respiratory failure from pneumonia and exacerbation of COPD. Unfortunately patient's respiratory status worsened and he was intubated on January 18. Information gathered from the chart. Nephrology consulted for LAUREN and hyperkalemia. Baseline serum creatinine unknown but expect likely near normal creatinine and potassium as both were near normal at time of admission. During hospitalization patient has been in and out of A-fib with RVR, new onset. He is also required Levophed; currently blood pressures have improved and off pressor support at this time. Nonoliguric LAUREN likely multifactorial, prerenal in setting of sepsis, hypotension, A-fib with RVR with poor renal perfusion. Serum creatinine 1.22 mg/dL on admission, improved to 0.67 mg/dL on January 18. On January 21 serum creatinine 1.61 and today his creatinine is 1.66 mg/dL. Urinalysis on admission negative for leukocyte esterase, 30 protein, 10 occult blood. Patient has had good response with IV Lasix, he is nonoliguric. Patient has not received any IV Lasix today. Recommend on holding off on any diuretic today. Reviewed noncontrast CT of chest/abdomen/pelvis showed normal left kidney, 6.5 mm nonobstructive calculus midpole calyx right kidney: KUB kidneys grossly normal in size and morphology. Potassium normal on admission, yesterday potassium 4.6, today potassium is 5.5. Today patient received insulin, dextrose and calcium gluconate IV for hyperkalemia. Received 20 mg IV Lasix on 01/20 and 01/22, also received LR 01/18-01/19. Patient received multiple doses of IV digoxin. No recent potassium supplements. Off LR and digoxin now. Hyperkalemia also likely multifactorial from medications and LAUREN. We will also give dose of Kayexalate. At this time there is no acute indication for renal replacement therapy, patient is nonoliguric, volume status stable, acid/base acceptable with mild hyperkalemia, and though serum potassium mildly elevated he is receiving medications now. May also need to consider tube feeding with lower potassium concentration. Labs ordered for morning. Discussed nephrology plan with solutions engineer. Further orders forthcoming as hospitalization evolves, thank you for allowing us to participate in the care of Mr. Avelar. HPI Consult Data Date of Consult: 01/23/23 HPI Narrative HPI Narrative: GARY AVELAR, is a 72 M with past medical history significant for hypertension, severe end-stage COPD/history of agent orange exposure with chronic hypoxic respiratory failure on home O2 3 L nasal cannula, chronic tobacco use who was brought to the emergency room on December 16 for evaluation with complaints of dyspnea. Patient was admitted for acute sepsis secondary to acute on chronic hypoxic respiratory failure, pneumonia. Patient was initially admitted to PCU however unfortunately respiratory status worsened and patient was intubated on 01/18. Nephrology consulted for LAUREN and hyperkalemia. Information is gathered from the chart. Patient has friend at bedside, hospital trying to make contact with distant relatives. PFSH Medical History Agent orange exposure Chronic respiratory failure with hypoxia COPD (chronic obstructive pulmonary disease) History of alcoholism Hypertension Tobacco use Home Medications albuterol sulfate 90 mcg/actuation aerosol inhaler (Ventolin HFA) 2 puff inhalation Q6H PRN PRN Sob &/Or Wheezing 02/21/15 [History Last Taken Unknown] doxycycline hyclate 100 mg tablet 100 mg PO BID 01/16/23 [History Last Taken Unknown] prednisone 10 mg tablet 20 mg PO BID infection 01/16/23 [History Last Taken 01/16/23 40 mg] Allergy/AdvReac Type Severity Reaction Status Date / Time Penicillins Allergy Unknown Verified 01/16/23 19:11 Family History Mother CAD (coronary artery disease) Heart disease Hypertension Myocardial infarction Father Hypertension Brain aneurysm Surgical History No history of previous surgery Surgical History no surgical history Social History household members: none Smoking Status: Current every day smoker tobacco type: cigarettes Smokeless tobacco user: other alcohol intake: former details: Sober x 16 years. substance use type: does not use ROS ROS Narrative Unable to be obtained Lab / Micro Data 01/23/23 04:25 01/23/23 09:50 Labs: Laboratory Results - last 24 hr 01/22/23 11:03: POC Glucose 200 H 01/22/23 17:25: APTT 55.1 H 01/22/23 18:06: POC Glucose 210 H 01/22/23 23:38: POC Glucose 183 H 01/23/23 04:25: WBC 33.1 H*, RBC 3.83 L, Hgb 11.0 L, Hct 36.1 L, MCV 94.3 H, MCH 28.7, MCHC 30.5 L, RDW Std Deviation 59.7 H, RDW Coeff of Debra 17.2 H, Plt Count 129 L, MPV 12.0, Neut % (Auto) Not Reportable, Absolute Neuts (auto) 31.8 H, Absolute Lymphs (auto) 0.33 L, Total Counted 100, Neutrophils % (Manual) 90 H, Band Neutrophils % 6 H, Lymphocytes % (Manual) 1 L, Monocytes % (Manual) 2, Metamyelocytes % 1, Diff Path Review May , Platelet Estimate ADEQUATE, RBC Morphology NORM C+C, APTT 58.7 H, Sodium 144, Potassium 5.5 H, Chloride 113 H, Carbon Dioxide 29.0, Anion Gap 2 L, BUN 95 H, Creatinine 1.66 H, Estim Creat Clear Calc 37.19, Est GFR (MDRD) Af Amer 53 L, Est GFR (MDRD) Non-Af 44 L, BUN/Creatinine Ratio 57.2 H, Glucose 185 H, Calcium 8.5, Magnesium 3.2 H, Total Bilirubin 0.30, AST 344 H, ALT 1154 H, Alkaline Phosphatase 124 H, Total Protein 5.5 L, Albumin 1.3 L, Globulin 4.2, Albumin/Globulin Ratio 0.3 L, Digoxin 3.70 H * 01/23/23 04:33: Ionized Calcium 4.97 01/23/23 05:18: POC Glucose 165 H 01/23/23 09:50: Potassium 5.5 H Micro: Microbiology 01/21/23 11:10 Blood Culture (Wb) - Right Forearm Blood Culture - Preliminary No growth in 48 hours. 01/21/23 11:00 Blood Culture (Wb) - Anticubital Left Blood Culture - Preliminary No growth in 48 hours. ABG Data ABG results: ABG 01/23/23 05:30 Specimen Type ART Sample Site R Radial pH 7.29 L Bicarbonate Actual 27.7 H Total CO2 30 Base Excess 1 O2 Saturation 88 L O2 % 65.0 ABG pCO2 58.1 H ABG pO2 62 L Lino Test N/A Respiration Rate 18 O2 Delivery Device Adult Vent Vent Mode AC Tidal Volume 500.0 POC PEEP 12 Radiology Impression Venous Doppler Study 01/22/23 08:14 Interpretation Summary Deep veins of the bilateral lower extremities are patent and compressible segmentally. There is no evidence of bilateral lower extremity deep vein thrombosis. The bilateral great saphenous veins appear patent and compressible segmentally. Ordering Physician: Rita Khan Referring Physician: [facility] Performed By: Betsy Walker Fco X-Ray 01/22/23 12:45 IMPRESSION: No significant amount of fecal material is seen in the colon. Gaseous distention of the colon down to the rectum. Electronically Signed: Brett Arango MD at 13:10 EDT , Chest X-Ray 01/23/23 05:55 IMPRESSION: Continued patchy airspace disease in the left upper lobe, superimposed on chronic emphysematous changes. Findings likely indicate pneumonia. Electronically Signed: Paras Howard MD at 6:42 EDT , Brain CT 01/23/23 09:34 IMPRESSION: Chronic involutional changes of the brain. Electronically Signed: Brett Arango MD at 11:09 EDT , Chest/Abdomen/Pelvis CT 01/23/23 09:34 IMPRESSION: Dense and heterogeneous consolidation in the left upper lobe as described. Patchy infiltrate is also seen in the left lower lobe. Questionable nodular infiltration in the right lower lobe. Follow-up recommended. Hyperinflation and emphysematous changes. Electronically Signed: Brett Arango MD at 11:15 EDT ,
[2023-01-23] MEDS: Pantoprazole Sodium 40 MG in 0.9% Normal Saline (100mL MB+) 100 ML 330 MG IV (11:40)
[2023-01-23] MEDS: Chlorhexidine 15 ML PO ×2 (11:42→21:09)
[2023-01-23] MEDS: Senna/Docusate Sodium 1 Tablet PO (11:44)
[2023-01-23] MEDS: Insulin Glargine-YFGN 100 UNIT/ML Pen 20 UNIT SC ×2 (11:59→23:14)
[2023-01-23] MEDS: Dextrose 50%-Water 25 GM/50 ML DISP.SYRIN IV (12:03)
[2023-01-23] MEDS: Calcium Gluconate IV 2 GM in 0.9% Normal Saline (100mL Bag) 100 ML IV (12:03)
[2023-01-23] MEDS: Meropenem 1 GM in 0.9% Normal Saline (100mL MB+) 100 ML IV ×2 (12:18→21:08)
[2023-01-23 12:31] LABS: Ionized Calcium Order ORDER TUBE
[2023-01-23 12:38] LABS: Bedside Glucose 148 mg/dL (74-106)
[2023-01-23] MEDS: Sodium Polystyrene Sulfonate 15 GM/60 ML UDC 30 GM PO (13:14)
--- NOTE | 2023-01-23 14:17 | PCM.PN.ID ---
Physical Exam Narrative Worsened O2 and fever. On vent, pressor on hold currently. Const Constitutional Narrative: ill appearing Resp Effort and Inspection: mechanically ventilated Auscultation: rhonchi and diminished lung sounds Cardio Rate: tachycardic GI soft to palpation, non-tender and non-distended Skin no rashes or lesions noted ID ID: Route of nutrition/ use of supplements: [] Nutritional Intake: [] IV Site: [] Vargas Catheter: [] Assessment & Plan Assessment/Plan (1) Septic shock: PLAN: septic shock due to pseudomonas pneumonia with end stage COPD - had been on cefepime. Hep panel neg. Repeat covid and resp pcr panel neg. Now worsened wbc, temps. O2 slightly improved. Changed to meropenem 01/22. Will check repeat bcx and sputum cx given worsening. Will add vanc empirically. Will follow, d/w nursing (2) CAP (community acquired pneumonia): QUALIFIERS: Laterality: left Lung location: upper lobe of lung Qualified Code(s): J18.9 - Pneumonia, unspecified organism
--- NOTE | 2023-01-23 15:26 | PN.HOSP_ITS ---
Reason for Visit Reason for Visit: Shortness of breath Subjective Subjective She remains intubated and sedated. Febrile throughout the night and white count continues to rise. Discussed with intensive care medicine and they are considering adding an antifungal. Still searching for family. Objective Data Objective Data Vital Signs: Vital Signs Temp Pulse Resp BP Pulse Ox O2 Del Method O2 Flow Rate 99.5 F H 108 H 19 H 128/69 H 92 Mechanical Ventilator 75 01/23/23 12:00 01/23/23 14:00 01/23/23 14:00 01/23/23 14:00 01/23/23 14:00 01/23/23 14:00 01/21/23 21:00 FiO2 65 01/23/23 14:00 Oxygen Flow Rate (L/min) 75 Oxygen Delivery Method Mechanical Ventilator Weight: 63.5 kg Body Mass Index (BMI) 21.2 Intake & Output: Intake and Output for Last 24 Hours 01/21/23 01/22/23 01/23/23 23:59 23:59 23:59 Intake Total 2316.89 / 2333.99 3671.68 / 3772.18 1301.77 / 1301.77 Output Total 955 / 955 3500 / 3500 2150 / 2150 Balance 1361.89 / 1378.99 171.68 / 272.18 -848.23 / -848.23 Lab / Micro Data 01/23/23 04:25 01/23/23 09:50 Labs: Laboratory Results - last 24 hr 01/22/23 17:25: APTT 55.1 H 01/22/23 18:06: POC Glucose 210 H 01/22/23 23:38: POC Glucose 183 H 01/23/23 04:25: WBC 33.1 H*, RBC 3.83 L, Hgb 11.0 L, Hct 36.1 L, MCV 94.3 H, MCH 28.7, MCHC 30.5 L, RDW Std Deviation 59.7 H, RDW Coeff of Debra 17.2 H, Plt Count 129 L, MPV 12.0, Neut % (Auto) Not Reportable, Absolute Neuts (auto) 31.8 H, Absolute Lymphs (auto) 0.33 L, Total Counted 100, Neutrophils % (Manual) 90 H, Band Neutrophils % 6 H, Lymphocytes % (Manual) 1 L, Monocytes % (Manual) 2, Metamyelocytes % 1, Diff Path Review May , Platelet Estimate ADEQUATE, RBC Morphology NORM C+C, APTT 58.7 H, Sodium 144, Potassium 5.5 H, Chloride 113 H, Carbon Dioxide 29.0, Anion Gap 2 L, BUN 95 H, Creatinine 1.66 H, Estim Creat Clear Calc 37.19, Est GFR (MDRD) Af Amer 53 L, Est GFR (MDRD) Non-Af 44 L, BUN/Creatinine Ratio 57.2 H, Glucose 185 H, Calcium 8.5, Magnesium 3.2 H, Total Bilirubin 0.30, AST 344 H, ALT 1154 H, Alkaline Phosphatase 124 H, Total Protein 5.5 L, Albumin 1.3 L, Globulin 4.2, Albumin/Globulin Ratio 0.3 L, Digoxin 3.70 H* 01/23/23 04:33: Ionized Calcium 4.97 01/23/23 05:18: POC Glucose 165 H 01/23/23 09:50: Potassium 5.5 H 01/23/23 11:58: POC Glucose 148 H Micro: Microbiology 01/18/23 11:50 Blood Culture (Wb) - Port Blood Culture - Final No growth in 5 days. 01/18/23 11:50 Blood Culture (Wb) - Left Forearm Blood Culture - Final No growth in 5 days. 01/21/23 11:10 Blood Culture (Wb) - Right Forearm Blood Culture - Preliminary No growth in 48 hours. 01/21/23 11:00 Blood Culture (Wb) - Anticubital Left Blood Culture - Preliminary No growth in 48 hours. 01/16/23 19:43 Blood Culture (Wb) - Anticubital Left Blood Culture - Final No growth in 5 days. 01/16/23 20:14 Blood Culture (Wb) - Right Forearm Blood Culture - Final No growth in 5 days. 01/21/23 14:04 Mucosa - Nose Coronavirus COVID-19 PCR - Final 01/21/23 14:04 Mucosa - Nose Respiratory Panel (PCR) - Final 01/18/23 11:00 Sputum, Induced/Lukens Gram Stain - Final 01/18/23 11:00 Sputum, Induced/Lukens Respiratory Culture - Final Pseudomonas aeruginosa 01/17/23 22:30 Sputum, Expectorated/Coughed Gram Stain - Final 01/17/23 22:30 Sputum, Expectorated/Coughed Respiratory Culture - Final Pseudomonas aeruginosa 01/16/23 20:14 Urine, Clean Catch Urine Culture - Final Culture exhibits no growth. 01/17/23 00:45 Mucosa - Nasopharyngeal Coronavirus COVID-19 PCR - Final 01/16/23 00:45 Mucosa - Nasopharyngeal Respiratory Panel (PCR) - Final 01/17/23 00:27 Urine, Random Legionella Antigen - Final 01/17/23 00:27 Urine, Random Streptococcus pneumoniae Antigen (M - Final 01/16/23 19:50 Nasal Secretion SARS-CoV-2 & FLU Antigen (Rapid) - Final ABG Data ABG results: ABG 01/23/23 05:30 Specimen Type ART Sample Site R Radial pH 7.29 L Bicarbonate Actual 27.7 H Total CO2 30 Base Excess 1 O2 Saturation 88 L O2 % 65.0 ABG pCO2 58.1 H ABG pO2 62 L Lino Test N/A Respiration Rate 18 O2 Delivery Device Adult Vent Vent Mode AC Tidal Volume 500.0 POC PEEP 12 Radiography Diagnostic Testing: Radiology Impression Chest X-Ray 01/23/23 05:55 IMPRESSION: Continued patchy airspace disease in the left upper lobe, superimposed on chronic emphysematous changes. Findings likely indicate pneumonia. Electronically Signed: Paras Howard MD at 6:42 EDT , Brain CT 01/23/23 09:34 IMPRESSION: Chronic involutional changes of the brain. Electronically Signed: Brett Arango MD at 11:09 EDT , Chest/Abdomen/Pelvis CT 01/23/23 09:34 IMPRESSION: Dense and heterogeneous consolidation in the left upper lobe as described. Patchy infiltrate is also seen in the left lower lobe. Questionable nodular infiltration in the right lower lobe. Follow-up recommended. Hyperinflation and emphysematous changes. Electronically Signed: Brett Arango MD at 11:15 EDT , Physical Exam Const Constitutional Narrative: Cachectic, chronically ill-appearing, older white male who appears much older than stated age lying in bed, currently intubated and sedated and on pressors HEENT head/scalp atraumatic and moist oral mucous membranes HEENT Narrative: ET tube and OG in oropharynx Resp No normal respiratory effort, no retractions and no use of accessory muscles Resp Narrative: Diffusely diminished with scattered rhonchi Auscultation: rhonchi; Negative for rales or wheezes Cardio regular rate, regular rhythm, S1 normal heart sound, S2 normal heart sound, no murmurs, no rub, no gallops and no clicks Cardio Narrative: Mild tachycardia with regular rhythm GI normal to inspection, nondistended, normoactive bowel sounds, soft to palpation and non-tender Extremity no clubbing, cyanosis or edema Extremity Narrative: Pedal pulses are 2+ Skin Skin Narrative: Left IJ in place-clean and dry Neuro Neuro Narrative: Intubated and sedated Psych Psych Narrative: Unable to examine due to intubation and sedation Assessment & Plan Assessment/Plan (1) Afib: QUALIFIERS: Atrial fibrillation type: persistent (not longstanding) Qualified Code(s): I48.19 - Other persistent atrial fibrillation (2) RVF (right ventricular failure): (3) Acute and chronic respiratory failure with hypoxia: (4) Severe malnutrition: (5) Elevated digoxin level: (6) Septic shock: (7) LAUREN (acute kidney injury): (8) Hyperkalemia: PLAN: Plan Acute hypoxic respiratory failure secondary to right-sided pseudomonal pneumonia/acute exacerbation of COPD -Intubated 01/18/2023 -Remains on significant vent settings with an FiO2 of 70% and PEEP of 12 -Allowing for permissive hypercapnia with ARDS protocol -Cultures showing Pseudomonas-on meropenem and vancomycin -Echocardiogram shows significant right-sided heart failure and elevated pulmonary pressures -We will have to hold diuretics due to worsening renal function -Continue aggressive pulmonary toilet -Chest CT done on admission showed significant findings in left upper lobe that were new compared to previous -Overall prognosis is poor with severe pneumonia and COPD with multiple lung nodules -Pulmonary medicine/critical care following-appreciate input Septic shock due to the above -Levophed had been discontinued however he remains on and off of Levophed -Continue antibiotics as ordered--> continue meropenem/vancomycin added today by infectious disease -Patient continues to have elevated white count and fevers through the night -CT chest abdomen pelvis performed with no identifiable process found cont ributing to ongoing shock and sepsis other than his pneumonia -IV fluids discontinued as I suspect patient may be mildly volume overloaded and has ARDS concerns -Low-dose diuretics attempted today Shock liver -Amiodarone discontinued due to transaminase elevation -Transaminases continue to trend down -Ammonia -Liver ultrasound showed fatty infiltration with sludge in the gallbladder and minimal pericholecystic fluid with minimal ascites -Trend liver enzymes Hyperkalemia -Likely related to permissive hypercapnia with ARDS protocol -Continue to monitor LAUREN -Slightly worse in the last 24 hours -Likely related to hypotensive episode and ischemic ATN -Continue to monitor -No current need for renal replacement therapy -Nephrology is following Elevated digoxin level -Would avoid any further doses of digoxin for A-fib -Patient given calcium gluconate Pulmonary hypertension with RV dysfunction -Diuresis per pulmonary medicine New onset A-fib with RVR -Echocardiogram performed and shows RV dysfunction likely related to pulmonary issues at baseline -LV is normal -Suspect this was precipitated by pulmonary dysfunction -Continue heparin drip -Amiodarone discontinued due to transaminase elevation -No PE noted on presentation History of COPD -See above Pulmonary nodules -If patient survives will need follow-up CT after discharge Hypertension -Antihypertensives on hold due to pressor requirement -Monitor for ability to reinitiate DM-2 -Hemoglobin A1c is 6.1 -Blood sugars are markedly elevated with a fasting this morning of 261 -Basal insulin was increased to 20 units twice daily -Continue SSI but increase to high-dose -Every 6 hours SSI added -Trend blood sugars DVT/GI prophylaxis -Patient is now on a heparin drip -Protonix 40 daily Code Status -Full Code -Prognosis is extremely poor--> risk-management has been contacted with regards to pursuing guardianship as we have not been able to identify any family members Charges/Coding Visit Charges Inpatient E&M: 08382 [facility] Hosp L1
[2023-01-23] MEDS: Vancomycin HCl 1,500 MG in 0.9% Normal Saline (500mL Bag) 500 ML 250 MG IV (16:35)
--- NOTE | 2023-01-23 16:44 | PHA.PHARE_ITS ---
Consult Antibiotic Management Pharmacy has been consulted to manage selected antiobiotic: Vancomycin Type of Intervention Type of Consult: New start Suspected Infection Suspected Infection: Sepsis and Pneumonia Prior Doses of Antibiotics Prior Doses of Antibiotics Received/Current Regimen: The patient previously received a dose of vanc 1500mg x1 and then another 500mg dose 12 hours later on 01/18/23 before it was discontinued Labs Labs: Sodium 144 mmol/L (136-145) 01/23/23 04:25 Potassium 5.5 mmol/L (3.5-5.1) H 01/23/23 09:50 Chloride 113 mmol/L (98-107) H 01/23/23 04:25 Carbon Dioxide 29.0 mmol/L (21.0-32.0) 01/23/23 04:25 Anion Gap 2 (5-15) L 01/23/23 04:25 BUN 95 mg/dL (7-18) H 01/23/23 04:25 Creatinine 1.66 mg/dL (0.70-1.30) H 01/23/23 04:25 Est GFR (MDRD) Af Amer 53 mL/min (>60) L 01/23/23 04:25 Est GFR (MDRD) Non-Af 44 mL/min (>60) L 01/23/23 04:25 BUN/Creatinine Ratio 57.2 RATIO (10-20) H 01/23/23 04:25 Glucose 185 mg/dL (74-106) H 01/23/23 04:25 Microbiology Microbiology: Microbiology 01/18/23 11:50 Blood Culture (Wb) - Port Blood Culture - Final No growth in 5 days. 01/18/23 11:50 Blood Culture (Wb) - Left Forearm Blood Culture - Final No growth in 5 days. 01/21/23 11:10 Blood Culture (Wb) - Right Forearm Blood Culture - Preliminary No growth in 48 hours. 01/21/23 11:00 Blood Culture (Wb) - Anticubital Left Blood Culture - Preliminary No growth in 48 hours. 01/16/23 19:43 Blood Culture (Wb) - Anticubital Left Blood Culture - Final No growth in 5 days. 01/16/23 20:14 Blood Culture (Wb) - Right Forearm Blood Culture - Final No growth in 5 days. 01/21/23 14:04 Mucosa - Nose Coronavirus COVID-19 PCR - Final 01/21/23 14:04 Mucosa - Nose Respiratory Panel (PCR) - Final 01/18/23 11:00 Sputum, Induced/Lukens Gram Stain - Final 01/18/23 11:00 Sputum, Induced/Lukens Respiratory Culture - Final Pseudomonas aeruginosa 01/17/23 22:30 Sputum, Expectorated/Coughed Gram Stain - Final 01/17/23 22:30 Sputum, Expectorated/Coughed Respiratory Culture - Final Pseudomonas aeruginosa 01/16/23 20:14 Urine, Clean Catch Urine Culture - Final Culture exhibits no growth. 01/17/23 00:45 Mucosa - Nasopharyngeal Coronavirus COVID-19 PCR - Final 01/16/23 00:45 Mucosa - Nasopharyngeal Respiratory Panel (PCR) - Final 01/17/23 00:27 Urine, Random Legionella Antigen - Final 01/17/23 00:27 Urine, Random Streptococcus pneumoniae Antigen (M - Final 01/16/23 19:50 Nasal Secretion SARS-CoV-2 & FLU Antigen (Rapid) - Final Dosing Weight Weight used for dosin.5 kg Estimated Creatinine Clearance Estimated Creatinine Clearance: 37 ML/MIN Goal Trough Goal Trough: 15-20 mcg/mL Pharmacy Plan for Drug Dosing Pharmacy Plan for Drug Dosing: Since the previous dosing was 5 days ago, will give vanc 1500mg IV x1 initial d ose now, then continue with 750mg IV q24h. Will check a trough before the 3rd total dose. Pharmacy Service will continue to monitor and adjust dosing as required. Follow-Up Labs Follow-Up Labs: Trough: Vancomycin Date/Time Labs Ordered Labs to be done on [date and time ordered]: 01/25/23 16:30
[2023-01-23 17:40] LABS: Potassium 4.4 mmol/L (3.5-5.1)
[2023-01-23] MEDS: HEPARIN/D5w 25,000 UNITS 25,000 UNITS/250 ML IV.SOLN. 11 UNITS CONT INF (18:18)
[2023-01-23] MEDS: fentaNYL drip 100 ML 10 MCG CONT INF (18:33)
[2023-01-23] MEDS: Vital AF 1.2 Cal Liquid 1,000 ML 55 ML GT (18:37)
[2023-01-23 18:53] LABS: Bedside Glucose 163 mg/dL (74-106)
--- NOTE | 2023-01-23 20:20 | CASEMGMT ---
Social Work This curriculum writer received handoff report from NESTOR Benavidez regarding developments in the patient?s next of kin.? Concern is present due to plan of care issues, and patient?s prognosis and care needs continuing to be critical.??? Patient is full code status and has no advanced directives in place.? Had no emergency contacts at time of admission, and refused to provide emergency contacts when initially assessed by NESTOR MONTILLA.?? Per discussion with Pat GUERRERO this week, record review and discussion with NESTOR MONTILLA today: Reported NEXT of KIN include: Marcio Aguilar - whom patient has not seen since the son was a child. Per record the son had reportedly changed name and refused to give number to family listed below as reportedly did not want anything to do with the patient. Last known e-mail address: [email or web address] Lakhwinder Aliciafilomena Hwang (maiden name Avelar): [phone] NimelizaBritney Daniela: (maiden name Avelar): [phone] Nephew, Benjamin Avelar: [phone] Per Alicia, she is pt's 1/2 niece, Britney is also 1/2 niece, and Benjamin is 1/2 nephew to patient. Lakhwinder Terri Avelar. ? called in and asked for update.? Per record, Alicia reported Terri is also pt's 1/2 niece.? Terri Avelar's father was Zoltan (who is ) and Zoltan was Alicia's 1/2 uncle. ? Conferred with Lesli in risk management about individuals who have come forward stating to be distant relatives.? Updated to status of the son as well, as reported by the family who has called in.?? Discussed need for decision making for this patient.? PLAN:? Patient remains a full code.? Should resuscitation be needed, and efforts are futile, and patient passes, then if reported involved family call in they can be given general update.? Release of body would be determined in collaboration of Risk Management input.? Should patient continue to be ventilated and in critical condition on 01.26.23, in conjunction with Grocery Store Manager can make further effort to look at an emergency appointed guardian.? Statement of Expert evaluation is on the chart, as this will need to be completed by a physician regarding why patient needs a guardian and emergency decision maker.?? Emergency guardian supplement is also attached.?Handoff to [employer] working on Thursday of need to follow up with medical provider on need for this form.?? -Romi Vera,? MOSHE ?
[2023-01-23] MEDS: dexMEDEtomidine 400 MCG in 0.9% Normal Saline (100mL Bag) 96 ML 9.5 MCG CONT INF (20:58)
[2023-01-23] MEDS: 0.9% Normal Saline (250mL Bag) 250 ML 15 ML IV (21:08)
[2023-01-23 23:41] LABS: Bedside Glucose 185 mg/dL (74-106)
[2023-01-24] VITALS (35 sets, daily range): BP systolic 92–144; BP diastolic 50–80; PULSE 87–117; RESP 14–26; TEMP 36.9–38.2; O2SAT 88–98; BMI 21.4
[2023-01-24] MEDS: Methylprednisolone Sod Succ 40 MG/ML VIAL IV ×5 (00:58→23:00)
[2023-01-24 03:50] LABS: Hemoglobin 10.7 g/dL (13.0-16.5); Mean Corp Hgb Conc 30.6 g/dL (32-36); Mean Corpuscular Hgb 29.1 pg (27.0-32.0); Mean Corpuscular Volume 95.1 fL (80-94); POSITIVE DIFFERENTIAL YES; POSITIVE MORPHOLOGY YES; Platelet Count 135 K/mm3 (150-450); RBC Distribution Width CV 17.3 % (11.6-14.6); Red Blood Count 3.68 M/mm3 (4.6-6.2)
[2023-01-24 03:52] LABS: Differential Indicated MANUAL DIFF
[2023-01-24 04:00] LABS: Partial Thromboplast Time 49.1 Seconds (24.1-36.2)
[2023-01-24 04:08] LABS: ALB/GLOB Ratio 0.3 RATIO (0.9-2.4); AST(SGOT) 108 U/L (15-37); Alanine Aminotransfer ALT/SGPT 756 U/L (16-61); Albumin, Serum 1.3 g/dL (3.2-5.0); Alkaline Phosphatase 118 U/L (45-117); Anion Gap 1 (5-15); BUN 89 mg/dL (7-18); BUN/Creat Ratio 65.4 RATIO (10-20); Calcium,Total 8.5 mg/dL (8.5-10.1); Chloride 117 mmol/L (98-107); Creatinine, Serum 1.36 mg/dL (0.70-1.30); EST Glomerular Filtration Rate 55 mL/min (>60); Est Glom Filt Rate - Afr Amer 67 mL/min (>60); Estimated Creatinine Clearance 45.39 ml/min; Glucose 156 mg/dL (74-106); Potassium 4.4 mmol/L (3.5-5.1); Protein, Total 5.3 g/dL (6.4-8.2); Sodium Level 152 mmol/L (136-145)
[2023-01-24 04:49] LABS: Absolute Neutrophil Count 28.2 X10^3/uL (2.0-7.7); Lymphocyte 0 % (19-41); Metamyelocyte 1 % (0-1); Monocyte 4 % (0-10); Myelocyte 1 % (0-0); Neutrophil-Band 6 % (0-5); Neutrophil-Segmented 88 % (47-70); Nucleated Red Bld Cells,Manual 1 % (0-5); Platelet Estimate ADEQUATE (ADEQ); Red Cell Morphology NORM C+C NORMAL (NORM C&C); Total Cells Counted 100 (MANUAL DIFF)
[2023-01-24] MEDS: Heparin Injection (Vial) 5,000 UNIT/ML VIAL IV ×2 (04:49→11:31)
[2023-01-24] MEDS: CHLORHEXIDINE GLUC 2% CLOTH 1 EACH TOWELETTE TOPICAL (04:51)
[2023-01-24] MEDS: 0.9% Saline Lock 10 ML Syringe IV ×4 (04:51→09:11)
[2023-01-24] MEDS: fentaNYL drip 100 ML 10 MCG CONT INF (05:00)
[2023-01-24 05:25] LABS: Allen Test Positive; Base Excess 4 mmol/L (-2 to +2); Bicarbonate 30.5 mmol/L (22-26); Blood Gas Specimen Type ART; Mode AC; O2 Delivery Device Adult Vent; PEEP 12; PO2 61 mmHG (75-100); RR 18; SITE R Radial; SO2 86 % (95-99); Total Carbon Dioxide 33 mmol/L; pCO2 65.9 mmHg (35-45); pH 7.27 (7.35-7.45)
--- NOTE | 2023-01-24 05:50 | RAD_ITS ---
STUDY: X-RAY CHEST REASON FOR EXAM: Male, 72 years old. Hypoxia TECHNIQUE: 2 AP portable views COMPARISON: Yesterday FINDINGS: Stable appearance of the ETT tube, NG tube, and left IJ central venous catheter. EKG leads overlie the chest Lungs are hyperexpanded with chronic interstitial changes and persistent left upper lobe pneumonia infiltrate which appears to be cavitary. Stable blunting of both costophrenic angles. Normal size heart. Normal mediastinum and arti. Normal visualized pulmonary arteries. Normal visualized aortic arch and descending thoracic aorta. There are diffuse degenerative changes of the visualized thoracic spine. Normal visualized ribs, clavicles, and shoulders. There is no demonstrated abnormality of the visualized soft tissue structures of the upper abdomen. RAD/Chest 1 View (Portable) IMPRESSION: No interval change Electronically Signed: Byron Tripathi MD at 9:07 EDT ,
[2023-01-24 06:27] LABS: Bedside Glucose 136 mg/dL (74-106)
[2023-01-24] MEDS: Ipratropium/Albuterol Sulfate 3 ML AMPUL.NEB INHALATION ×4 (07:27→19:25)
[2023-01-24] MEDS: Chlorhexidine 15 ML PO ×2 (07:50→21:07)
[2023-01-24 08:11] LABS: Bedside Glucose 164 mg/dL (74-106)
--- NOTE | 2023-01-24 08:26 | NURSING ---
patient dropping sats to 85%, lavage ETT suctioned with minimal secretions, DR. Khan at bedside, increased PEEP to 14 and changed TV to 420. Paul RT notified of change. Patients sats improved to 90%.
[2023-01-24] MEDS: Pantoprazole Sodium 40 MG in 0.9% Normal Saline (100mL MB+) 100 ML 330 MG IV (08:52)
[2023-01-24] MEDS: Insulin Glargine-YFGN 100 UNIT/ML Pen 20 UNIT SC ×2 (08:52→22:53)
[2023-01-24] MEDS: Furosemide 20 MG/2 ML VIAL IV (08:52)
[2023-01-24] MEDS: Meropenem 1 GM in 0.9% Normal Saline (100mL MB+) 100 ML IV ×2 (08:52→21:02)
[2023-01-24] MEDS: Senna/Docusate Sodium 1 Tablet PO (08:53)
[2023-01-24] MEDS: Midazolam 2 MG/2 ML Syringe IV (09:11)
--- NOTE | 2023-01-24 09:16 | PN.CC_ITS ---
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 Acute hypoxic and hypercapnic respiratory failure, requiring intubation on 01/18/2023. Currently behaving like ARDS 2. Septic shock secondary to left-sided Pseudomonas pneumonia 3. COPD exacerbation 4. Shock liver 5. HyperK, hyperNa 6. A-fib with RVR 7. Pulmonary hypertension with RV dysfunction 8. Tobacco use 9. Pulmonary nodules 10. Debility Plan * Patient was intubated and sedated on 01/18 due to worsening respiratory status and inability to tolerate BiPAP. * Patient is currently behaving like ARDS requiring high PEEP and FiO2 and difficulty oxygenating. This may be further worsening his pulmonary hypertension. * O2 requirements increased overnight, now he's on 100% FiO2. Had to increase peep to 14. He also received a dose of paralytic. He responded when placed on his R side. Try to wean FiO2 slowly * Given acceptable pH, decreased TV to 420 in order to attempt to maintain lung protective vent settings. Plateau remains below 30 and peak pressure is now around 32-34. He remains at high risk of developing pneumothorax. * Due to his shock he developed shock liver. Amiodarone was discontinued. liver US shows no acute findings. Liver enzymes are trending down * Digoxin level was elevated and his kidney function is stable today. Cont to Hold Digoxin. Nephrology on board. Will administer a dose of lasix today * BP trended down today after versed and paralytic * He is currently on merrem and vanc due to worsening sepsis. CTchest/abd/pelvis showed no new findings. He continues to have L PNA * K improved after shifting yesterday. Repeat BMP, if Na remains elevated will increase H2O flushes. * BS better controlled. Cont Lantus 20 twice daily * Continue Solu-Medrol and DuoNebs * He remains on heparin drip for A-fib * GI prophylaxis Protonix * Bowel Regimen MiraLAX and senna docusate daily * Chest CT done on this admission showing new findings in left upper lobe. Given recent CT chest in October with no findings on left upper lung, the p atient's current presentation these changes are related to an infectious process. The right upper lobe scar seen on right lung in October and appears to be improving. Nodules in the right middle lobe appear to be stable from October 2022. However given his history patient remains high risk for malignancy and would benefit from repeat CT scan in 6 to 8 weeks to ensure resolution and further evaluation of nodules in right middle lobe if he survives ICU stay. * SW working to find blood relatives. At this time there is a half niece who lives in [place] and reportedly a son who the patient has not made contact with since the son was 5 years old and he's supposedly out of the [place]. * Poor prognosis given unilateral pneumonia, sepsis, LAUREN, shock liver and underlying severe COPD with multiple lung nodules Critical care time spent 45 minutes excluding procedures in addressing above problems. Multiple adjustments to the vent performed today due to severe hypoxia Subjective Subjective hypoxia continues to worsen. required a dose of paralytic. He had several large BMs. Objective Data Objective Data Vital Signs: Vital Signs Temp Pulse Resp BP Pulse Ox O2 Del Method O2 Flow Rate 37.5 C H 113 H 16 120/68 90 Mechanical Ventilator 75 01/24/23 08:00 01/24/23 08:00 01/24/23 08:00 01/24/23 08:00 01/24/23 08:00 01/24/23 08:00 01/21/23 21:00 FiO2 75 01/24/23 08:00 Oxygen Flow Rate (L/min) 75 Oxygen Delivery Method Mechanical Ventilator Weight: 64.1 kg Body Mass Index (BMI) 21.4 Intake & Output: Intake and Output for Last 24 Hours 01/22/23 01/23/23 01/24/23 23:59 23:59 23:59 Intake Total 3671.68 / 3772.18 3344.87 / 3441.47 646.86 / 646.86 Output Total 3500 / 3500 3200 / 3200 975 / 975 Balance 171.68 / 272.18 144.87 / 241.47 -328.14 / -328.14 Lab / Micro Data 01/24/23 03:45 01/24/23 03:45 Labs: Laboratory Results - last 24 hr 01/23/23 09:50: Potassium 5.5 H 01/23/23 11:58: POC Glucose 148 H 01/23/23 17:15: Potassium 4.4 01/23/23 18:28: POC Glucose 163 H 01/23/23 23:13: POC Glucose 185 H 01/24/23 03:45: WBC 30.0 H*, RBC 3.68 L, Hgb 10.7 L, Hct 35.0 L, MCV 95.1 H, MCH 29.1, MCHC 30.6 L, RDW Std Deviation 61.0 H, RDW Coeff of Debra 17.3 H, Plt Count 135 L, MPV 13.0 H, Neut % (Auto) Not Reportable, Absolute Neuts (auto) 28.2 H, Absolute Lymphs (auto) 0.00 L, Total Counted 100, Neutrophils % (Manual) 88 H, Band Neutrophils % 6 H, Lymphocytes % (Manual) 0 L, Monocytes % (Manual) 4, Metamyelocytes % 1, Myelocytes % 1 H, Nucleated RBCs/100 WBC 1, Diff Path Review September, Platelet Estimate ADEQUATE, RBC Morphology NORM C+C, APTT 49.1 H, Sodium 152 H, Potassium 4.4, Chloride 117 H, Carbon Dioxide 34.0 H, Anion Gap 1 L, BUN 89 H, Creatinine 1.36 H, Estim Creat Clear Calc 45.39, Est GFR (MDRD) Af Amer 67, Est GFR (MDRD) Non-Af 55 L, BUN/Creatinine Ratio 65.4 H, Glucose 156 H, Calcium 8.5, Total Bilirubin 0.30, AST 108 H, ALT 756 H, Alkaline Phosphatase 118 H, Total Protein 5.3 L, Albumin 1.3 L, Globulin 4.0, Albumin/Globulin Ratio 0.3 L 01/24/23 06:02: POC Glucose 136 H 01/24/23 07:51: POC Glucose 164 H Micro: Microbiology 01/22/23 10:00 Urine Catheter - Catheter Urine Culture - Final Culture exhibits no growth. 01/18/23 11:50 Blood Culture (Wb) - Port Blood Culture - Final No growth in 5 days. 01/18/23 11:50 Blood Culture (Wb) - Left Forearm Blood Culture - Final No growth in 5 days. 01/21/23 11:10 Blood Culture (Wb) - Right Forearm Blood Culture - Preliminary No growth in 48 hours. 01/21/23 11:00 Blood Culture (Wb) - Anticubital Left Blood Culture - Preliminary No growth in 48 hours. 01/16/23 19:43 Blood Culture (Wb) - Anticubital Left Blood Culture - Final No growth in 5 days. 01/16/23 20:14 Blood Culture (Wb) - Right Forearm Blood Culture - Final No growth in 5 days. 01/21/23 14:04 Mucosa - Nose Coronavirus COVID-19 PCR - Final 01/21/23 14:04 Mucosa - Nose Respiratory Panel (PCR) - Final 01/18/23 11:00 Sputum, Induced/Lukens Gram Stain - Final 01/18/23 11:00 Sputum, Induced/Lukens Respiratory Culture - Final Pseudomonas aeruginosa 01/17/23 22:30 Sputum, Expectorated/Coughed Gram Stain - Final 01/17/23 22:30 Sputum, Expectorated/Coughed Respiratory Culture - Final Pseudomonas aeruginosa 01/16/23 20:14 Urine, Clean Catch Urine Culture - Final Culture exhibits no growth. 01/17/23 00:45 Mucosa - Nasopharyngeal Coronavirus COVID-19 PCR - Final 01/16/23 00:45 Mucosa - Nasopharyngeal Respiratory Panel (PCR) - Final 01/17/23 00:27 Urine, Random Legionella Antigen - Final 01/17/23 00:27 Urine, Random Streptococcus pneumoniae Antigen (M - Final 01/16/23 19:50 Nasal Secretion SARS-CoV-2 & FLU Antigen (Rapid) - Final ABG Data ABG results: ABG 01/24/23 05:21 Specimen Type ART Sample Site R Radial pH 7.27 L Bicarbonate Actual 30.5 H Total CO2 33 Base Excess 4 H O2 Saturation 86 L O2 % 75.0 ABG pCO2 65.9 H ABG pO2 61 L Lino Test Positive Respiration Rate 18 O2 Delivery Device Adult Vent Vent Mode AC Tidal Volume 450.0 POC PEEP 12 Radiography Diagnostic Testing: Radiology Impression Brain CT 01/23/23 09:34 IMPRESSION: Chronic involutional changes of the brain. Electronically Signed: Brett Arango MD at 11:09 EDT , Chest/Abdomen/Pelvis CT 01/23/23 09:34 IMPRESSION: Dense and heterogeneous consolidation in the left upper lobe as described. Patchy infiltrate is also seen in the left lower lobe. Questionable nodular infiltration in the right lower lobe. Follow-up recommended. Hyperinflation and emphysematous changes. Electronically Signed: Brett Arango MD at 11:15 EDT , Chest X-Ray 01/24/23 05:50 IMPRESSION: No interval change Electronically Signed: Byron Tripathi MD at 9:07 EDT , Physical Exam Narrative General intubated and sedated, critically ill looking Respiratory reduced air entry bilaterally, mechanical breath sounds Cardiac S1-S2, regular rate and rhythm GI abdomen soft and nontender MSK no lower extremity edema Skin no rashes Neuro intubated and sedated Charges/Coding Procedures Hospitalists Procedures: 16968 Critial Care 1st Hr
[2023-01-24] MEDS: Rocuronium Bromide 50 MG/5 ML Vial IV (09:26)
--- NOTE | 2023-01-24 09:33 | NURSING ---
0910- Erin at bedside requesting this RN to give versed 2 mg now 0911- versed 2 mg given per order 0915- O2 sats maintaining low 80s, RT at bedside, 100% FiO2 delivered 3 times, Erin back at bedside- ordered to change FiO2 to 100%, give rocuronium 50 mg IV x1 now, max fentanyl and increase precedex to 1 mcg/kg/min. Order to change RASS to -3 goal and turn on right side for good lung down. This RN and RT turned patient to right side. O2 sats improved to mid 90s. Per Erin, can wean FiO2 if sats maintain mid-high 90s. 09- rocuronium 50 mg IV given
--- NOTE | 2023-01-24 09:55 | PN.RENAL_ITS ---
Subjective Subjective Follow-up on acute kidney injury secondary to renal hypoperfusion. Patient is in ICU setting, hemodynamically stable, no pressors. He is on ventilator, sedated with fentanyl. FiO2 100%, PEEP of 14. Has Vargas catheter in, makes good urine. Objective Data Objective Data Vital Signs: Vital Signs Temp Pulse Resp BP Pulse Ox O2 Del Method O2 Flow Rate 100.0 F H 100 18 144/80 H 97 Mechanical Ventilator 75 01/24/23 09:00 01/24/23 09:00 01/24/23 09:00 01/24/23 09:00 01/24/23 09:00 01/24/23 09:00 01/21/23 21:00 FiO2 100 01/24/23 09:00 Oxygen Flow Rate (L/min) 75 Oxygen Delivery Method Mechanical Ventilator Weight: 64.1 kg Body Mass Index (BMI) 21.4 Intake & Output: Intake and Output for Last 24 Hours 01/22/23 01/23/23 01/24/23 23:59 23:59 23:59 Intake Total 3671.68 / 3772.18 3344.87 / 3441.47 765.60 / 765.60 Output Total 3500 / 3500 3200 / 3200 1075 / 1075 Balance 171.68 / 272.18 144.87 / 241.47 -309.40 / -309.40 Lab / Micro Data Attestation: I reviewed the patient's lab results. 01/24/23 03:45 01/24/23 03:45 Labs: Laboratory Results - last 24 hr 01/23/23 09:50: Potassium 5.5 H 01/23/23 11:58: POC Glucose 148 H 01/23/23 17:15: Potassium 4.4 01/23/23 18:28: POC Glucose 163 H 01/23/23 23:13: POC Glucose 185 H 01/24/23 03:45: WBC 30.0 H*, RBC 3.68 L, Hgb 10.7 L, Hct 35.0 L, MCV 95.1 H, MCH 29.1, MCHC 30.6 L, RDW Std Deviation 61.0 H, RDW Coeff of Debra 17.3 H, Plt Count 135 L, MPV 13.0 H, Neut % (Auto) Not Reportable, Absolute Neuts (auto) 28.2 H, Absolute Lymphs (auto) 0.00 L, Total Counted 100, Neutrophils % (Manual) 88 H, Band Neutrophils % 6 H, Lymphocytes % (Manual) 0 L, Monocytes % (Manual) 4, Me tamyelocytes % 1, Myelocytes % 1 H, Nucleated RBCs/100 WBC 1, Diff Path Review September, Platelet Estimate ADEQUATE, RBC Morphology NORM C+C, APTT 49.1 H, Sodium 152 H, Potassium 4.4, Chloride 117 H, Carbon Dioxide 34.0 H, Anion Gap 1 L, BUN 89 H, Creatinine 1.36 H, Estim Creat Clear Calc 45.39, Est GFR (MDRD) Af Amer 67, Est GFR (MDRD) Non-Af 55 L, BUN/Creatinine Ratio 65.4 H, Glucose 156 H, Calcium 8.5, Total Bilirubin 0.30, AST 108 H, ALT 756 H, Alkaline Phosphatase 118 H, Total Protein 5.3 L, Albumin 1.3 L, Globulin 4.0, Albumin/Globulin Ratio 0.3 L 01/24/23 06:02: POC Glucose 136 H 01/24/23 07:51: POC Glucose 164 H Micro: Microbiology 01/22/23 10:00 Urine Catheter - Catheter Urine Culture - Final Culture exhibits no growth. 01/18/23 11:50 Blood Culture (Wb) - Port Blood Culture - Final No growth in 5 days. 01/18/23 11:50 Blood Culture (Wb) - Left Forearm Blood Culture - Final No growth in 5 days. 01/21/23 11:10 Blood Culture (Wb) - Right Forearm Blood Culture - Preliminary No growth in 48 hours. 01/21/23 11:00 Blood Culture (Wb) - Anticubital Left Blood Culture - Preliminary No growth in 48 hours. 01/16/23 19:43 Blood Culture (Wb) - Anticubital Left Blood Culture - Final No growth in 5 days. 01/16/23 20:14 Blood Culture (Wb) - Right Forearm Blood Culture - Final No growth in 5 days. 01/21/23 14:04 Mucosa - Nose Coronavirus COVID-19 PCR - Final 01/21/23 14:04 Mucosa - Nose Respiratory Panel (PCR) - Final 01/18/23 11:00 Sputum, Induced/Lukens Gram Stain - Final 01/18/23 11:00 Sputum, Induced/Lukens Respiratory Culture - Final Pseudomonas aeruginosa 01/17/23 22:30 Sputum, Expectorated/Coughed Gram Stain - Final 01/17/23 22:30 Sputum, Expectorated/Coughed Respiratory Culture - Final Pseudomonas aeruginosa 01/16/23 20:14 Urine, Clean Catch Urine Culture - Final Culture exhibits no growth. 01/17/23 00:45 Mucosa - Nasopharyngeal Coronavirus COVID-19 PCR - Final 01/16/23 00:45 Mucosa - Nasopharyngeal Respiratory Panel (PCR) - Final 01/17/23 00:27 Urine, Random Legionella Antigen - Final 01/17/23 00:27 Urine, Random Streptococcus pneumoniae Antigen (M - Final 01/16/23 19:50 Nasal Secretion SARS-CoV-2 & FLU Antigen (Rapid) - Final ABG Data ABG results: ABG 01/24/23 05:21 Specimen Type ART Sample Site R Radial pH 7.27 L Bicarbonate Actual 30.5 H Total CO2 33 Base Excess 4 H O2 Saturation 86 L O2 % 75.0 ABG pCO2 65.9 H ABG pO2 61 L Lino Test Positive Respiration Rate 18 O2 Delivery Device Adult Vent Vent Mode AC Tidal Volume 450.0 POC PEEP 12 Attestation: I personally reviewed and interpreted this ABG as follows: Radiography Diagnostic Testing: Radiology Impression Brain CT 01/23/23 09:34 IMPRESSION: Chronic involutional changes of the brain. Electronically Signed: Brett Arango MD at 11:09 EDT , Chest/Abdomen/Pelvis CT 01/23/23 09:34 IMPRESSION: Dense and heterogeneous consolidation in the left upper lobe as described. Patchy infiltrate is also seen in the left lower lobe. Questionable nodular infiltration in the right lower lobe. Follow-up recommended. Hyperinflation and emphysematous changes. Electronically Signed: Brett Arango MD at 11:15 EDT , Chest X-Ray 01/24/23 05:50 IMPRESSION: No interval change Electronically Signed: Byron Tripathi MD at 9:07 EDT , Physical Exam Const General Appearance: patient mechanically ventilated HEENT normocephalic Neck no lymphadenopathy Resp Auscultation: rhonchi Cardio regular rate GI non-distended Auscultation: normoactive bowel sounds Palpation: soft Skin no rashes or lesions noted Neuro Sensorium / Orientation: sedated on vent Assessment & Plan Assessment/Plan (1) LAUREN (acute kidney injury): PLAN: Patient is recovering, creatinine coming down, potassium has improved, no significant acidosis. Continue with current care, avoid hypotension and dehydration as well as nephrotoxins.
[2023-01-24] MEDS: Vital AF 1.2 Cal Liquid 1,000 ML 55 ML GT (10:51)
[2023-01-24] MEDS: dexMEDEtomidine 400 MCG in 0.9% Normal Saline (100mL Bag) 96 ML 16 MCG CONT INF (10:52)
[2023-01-24] MEDS: Insulin Lispro 100 UNIT/ML INSULN.PEN SC ×3 (10:57→23:00)
[2023-01-24 11:23] LABS: Partial Thromboplast Time 54.4 Seconds (24.1-36.2)
[2023-01-24 11:26] LABS: Bedside Glucose 168 mg/dL (74-106)
[2023-01-24 11:27] LABS: Anion Gap 2 (5-15); BUN 92 mg/dL (7-18); BUN/Creat Ratio 67.6 RATIO (10-20); Calcium,Total 8.4 mg/dL (8.5-10.1); Chloride 118 mmol/L (98-107); Creatinine, Serum 1.36 mg/dL (0.70-1.30); EST Glomerular Filtration Rate 55 mL/min (>60); Est Glom Filt Rate - Afr Amer 67 mL/min (>60); Estimated Creatinine Clearance 45.82 ml/min; Glucose 188 mg/dL (74-106); Potassium 4.7 mmol/L (3.5-5.1); Sodium Level 153 mmol/L (136-145)
[2023-01-24] MEDS: fentaNYL drip 100 ML 20 MCG CONT INF (13:04)
--- NOTE | 2023-01-24 13:39 | PCM.PN.HOSP ---
Reason for Visit Reason for Visit: Shortness of breath Subjective Subjective Patient with worsening hypoxia. Required up titration of his oxygen and is now on 70% FiO2. PEEP is also up to 14 now. Bowel function is adequate he has had several bowel movements. CT from yesterday showed no findings as to why he has had ongoing fevers and worsening leukocytosis. Objective Data Objective Data Vital Signs: Vital Signs Temp Pulse Resp BP Pulse Ox O2 Del Method O2 Flow Rate 100.3 F H 91 18 100/52 L 93 Mechanical Ventilator 75 01/24/23 13:00 01/24/23 13:00 01/24/23 13:00 01/24/23 13:00 01/24/23 13:00 01/24/23 13:00 01/21/23 21:00 FiO2 70 01/24/23 13:00 Oxygen Flow Rate (L/min) 75 Oxygen Delivery Method Mechanical Ventilator Weight: 64.1 kg Body Mass Index (BMI) 21.4 Intake & Output: Intake and Output for Last 24 Hours 01/22/23 01/23/23 01/24/23 23:59 23:59 23:59 Intake Total 3671.68 / 3772.18 3344.87 / 3441.47 2070.83 / 2070.83 Output Total 3500 / 3500 3200 / 3200 1825 / 1825 Balance 171.68 / 272.18 144.87 / 241.47 245.83 / 245.83 Lab / Micro Data 01/24/23 03:45 01/24/23 11:05 Labs: Laboratory Results - last 24 hr 01/23/23 17:15: Potassium 4.4 01/23/23 18:28: POC Glucose 163 H 01/23/23 23:13: POC Glucose 185 H 01/24/23 03:45: WBC 30.0 H*, RBC 3.68 L, Hgb 10.7 L, Hct 35.0 L, MCV 95.1 H, MCH 29.1, MCHC 30.6 L, RDW Std Deviation 61.0 H, RDW Coeff of Debra 17.3 H, Plt Count 135 L, MPV 13.0 H, Neut % (Auto) Not Reportable, Absolute Neuts (auto) 28.2 H, Absolute Lymphs (auto) 0.00 L, Total Counted 100, Neutrophils % (Manual) 88 H, Band Neutrophils % 6 H, Lymphocytes % (Manual) 0 L, Monocytes % (Manual) 4, Metamyelocytes % 1, Myelocytes % 1 H, Nucleated RBCs/100 WBC 1, Diff Path Review September, Platelet Estimate ADEQUATE, RBC Morphology NORM C+C, APTT 49.1 H, Sodium 152 H, Potassium 4.4, Chloride 117 H, Carbon Dioxide 34.0 H, Anion Gap 1 L, BUN 89 H, Creatinine 1.36 H, Estim Creat Clear Calc 45.39, Est GFR (MDRD) Af Amer 67, Est GFR (MDRD) Non-Af 55 L, BUN/Creatinine Ratio 65.4 H, Glucose 156 H, Calcium 8.5, Total Bilirubin 0.30, AST 108 H, ALT 756 H, Alkaline Phosphatase 118 H, Total Protein 5.3 L, Albumin 1.3 L, Globulin 4.0, Albumin/Globulin Ratio 0.3 L 01/24/23 06:02: POC Glucose 136 H 01/24/23 07:51: POC Glucose 164 H 01/24/23 10:57: POC Glucose 168 H 01/24/23 11:05: APTT 54.4 H, Sodium 153 H, Potassium 4.7, Chloride 118 H, Carbon Dioxide 33.0 H, Anion Gap 2 L, BUN 92 H, Creatinine 1.36 H, Estim Creat Clear Calc 45.82, Est GFR (MDRD) Af Amer 67, Est GFR (MDRD) Non-Af 55 L, BUN/Creatinine Ratio 67.6 H, Glucose 188 H, Calcium 8.4 L Micro: Microbiology 01/22/23 10:00 Urine Catheter - Catheter Urine Culture - Final Culture exhibits no growth. 01/18/23 11:50 Blood Culture (Wb) - Port Blood Culture - Final No growth in 5 days. 01/18/23 11:50 Blood Culture (Wb) - Left Forearm Blood Culture - Final No growth in 5 days. 01/21/23 11:10 Blood Culture (Wb) - Right Forearm Blood Culture - Preliminary No growth in 48 hours. 01/21/23 11:00 Blood Culture (Wb) - Anticubital Left Blood Culture - Preliminary No growth in 48 hours. 01/16/23 19:43 Blood Culture (Wb) - Anticubital Left Blood Culture - Final No growth in 5 days. 01/16/23 20:14 Blood Culture (Wb) - Right Forearm Blood Culture - Final No growth in 5 days. 01/21/23 14:04 Mucosa - Nose Coronavirus COVID-19 PCR - Final 01/21/23 14:04 Mucosa - Nose Respiratory Panel (PCR) - Final 01/18/23 11:00 Sputum, Induced/Lukens Gram Stain - Final 01/18/23 11:00 Sputum, Induced/Lukens Respiratory Culture - Final Pseudomonas aeruginosa 01/17/23 22:30 Sputum, Expectorated/Coughed Gram Stain - Final 01/17/23 22:30 Sputum, Expectorated/Coughed Respiratory Culture - Final Pseudomonas aeruginosa 01/16/23 20:14 Urine, Clean Catch Urine Culture - Final Culture exhibits no growth. 01/17/23 00:45 Mucosa - Nasopharyngeal Coronavirus COVID-19 PCR - Final 01/16/23 00:45 Mucosa - Nasopharyngeal Respiratory Panel (PCR) - Final 01/17/23 00:27 Urine, Random Legionella Antigen - Final 01/17/23 00:27 Urine, Random Streptococcus pneumoniae Antigen (M - Final 01/16/23 19:50 Nasal Secretion SARS-CoV-2 & FLU Antigen (Rapid) - Final ABG Data ABG results: ABG 01/24/23 05:21 Specimen Type ART Sample Site R Radial pH 7.27 L Bicarbonate Actual 30.5 H Total CO2 33 Base Excess 4 H O2 Saturation 86 L O2 % 75.0 ABG pCO2 65.9 H ABG pO2 61 L Lino Test Positive Respiration Rate 18 O2 Delivery Device Adult Vent Vent Mode AC Tidal Volume 450.0 POC PEEP 12 Radiography Diagnostic Testing: Radiology Impression Chest X-Ray 01/24/23 05:50 IMPRESSION: No interval change Electronically Signed: Byron Tripathi MD at 9:07 EDT , Physical Exam Const Constitutional Narrative: Cachectic, chronically ill-appearing, older white male who appears much older than stated age lying in bed, currently intubated and sedated HEENT head/scalp atraumatic and moist oral mucous membranes HEENT Narrative: ET tube/OG in place Resp No normal respiratory effort, no retractions and no use of accessory muscles Resp Narrative: Diffusely diminished with scattered rhonchi Auscultation: rhonchi; Negative for rales or wheezes Cardio regular rate, regular rhythm, S1 normal heart sound, S2 normal heart sound, no murmurs, no rub, no gallops and no clicks GI normal to inspection, nondistended, normoactive bowel sounds, soft to palpation and non-tender Extremity Extremity Narrative: Pedal pulses are 2+, no significant lower extremity edema however left upper extremity is edematous with 2+ pitting Skin Skin Narrative: Left IJ in place-clean and dry Neuro Neuro Narrative: Intubated and sedated Psych Psych Narrative: Unable to examine due to intubation and sedation Assessment & Plan Assessment/Plan (1) Afib: QUALIFIERS: Atrial fibrillation type: persistent (not longstanding) Qualified Code(s): I48.19 - Other persistent atrial fibrillation (2) RVF (right ventricular failure): (3) Acute and chronic respiratory failure with hypoxia: (4) Severe malnutrition: (5) Elevated digoxin level: (6) Septic shock: (7) LAUREN (acute kidney injury): (8) Hyperkalemia: PLAN: Plan Acute hypoxic respiratory failure secondary to right-sided pseudomonal pneumonia/acute exacerbation of COPD -Intubated 01/18/2023 -Remains on significant vent settings with an FiO2 of 70% and PEEP of 14 -Allowing for permissive hypercapnia with ARDS protocol -Cultures showing Pseudomonas-on meropenem and vancomycin -Repeat blood cultures are pending -Urine cultures unremarkable -Echocardiogram shows significant right-sided heart failure and elevated pulmonary pressures -We will have to hold diuretics due to worsening renal function -Continue aggressive pulmonary toilet -Chest CT done on admission showed significant findings in left upper lobe that were new compared to previous -Overall prognosis is poor with severe pneumonia and COPD with multiple lung nodules -Pulmonary medicine/critical care following-appreciate input Septic shock due to the above -Levophed had been discontinued however he remains on and off of Levophed -Continue antibiotics as ordered--> continue meropenem/vancomycin -Patient with ongoing low-grade temperature elevations and leukocytosis which is just stable currently at 30,000 -He does have 6% bands -CT chest abdomen pelvis performed with no identifiable process found contributing to ongoing shock and sepsis other than his pneumonia -Continue low-dose diuretics as able -ID is following Shock liver -Amiodarone discontinued due to transaminase elevation -Transaminases are normalizing -Ammonia level was slightly elevated so lactulose was started -Liver ultrasound showed fatty infiltration with sludge in the gallbladder and minimal pericholecystic fluid with minimal ascites -Trend liver enzymes Hyperkalemia -Currently resolved however I would expect this to fluctuate as his pH fluctuates with permissive hypercapnia per ARDSnet protocol LAUREN -Slowly improving -Likely related to hypotensive episode and ischemic ATN -Continue to monitor -Gentle diuresis as able -No current need for renal replacement therapy -Nephrology is following Elevated digoxin level -Would avoid any further doses of digoxin for A-fib -Patient given calcium gluconate Pulmonary hypertension with RV dysfunction -Diuresis per pulmonary medicine New onset A-fib with RVR -Echocardiogram performed and shows RV dysfunction likely related to pulmonary issues at baseline -LV is normal -Suspect this was precipitated by pulmonary dysfunction -Continue heparin drip -Amiodarone discontinued due to transaminase elevation -No PE noted on presentation History of COPD -See above Pulmonary nodules -If patient survives will need follow-up CT after discharge Hypertension -Antihypertensives on hold due to pressor requirement -Monitor for ability to reinitiate DM-2 -Hemoglobin A1c is 6.1 -Blood sugars are markedly elevated with a fasting this morning of 261 -Basal insulin was increased to 20 units twice daily -Continue SSI but increase to high-dose -Every 6 hours SSI added -Trend blood sugars DVT/GI prophylaxis -Patient is now on a heparin drip -Protonix 40 daily Code Status -Full Code -Prognosis is extremely poor--> guardianship is being pursued Charges/Coding Visit Charges Inpatient E&M: 78327 Subs Hosp L1
[2023-01-24] MEDS: HEPARIN/D5w 25,000 UNITS 25,000 UNITS/250 ML IV.SOLN. 13 UNITS CONT INF (16:01)
[2023-01-24] MEDS: Vancomycin HCl 750 MG in 0.9% Normal Saline (250mL Bag) 250 ML 250 MG IV (16:01)
[2023-01-24 17:33] LABS: Bedside Glucose 193 mg/dL (74-106)
[2023-01-24 18:04] LABS: Partial Thromboplast Time 67.6 Seconds (24.1-36.2)
[2023-01-24] MEDS: dexMEDEtomidine 400 MCG in 0.9% Normal Saline (100mL Bag) 96 ML 8 MCG CONT INF (18:14)
[2023-01-24] MEDS: fentaNYL drip 100 ML 12.5 MCG CONT INF (18:57)
[2023-01-24] MEDS: Glycerin/Hypromellose/PEG400 15 ml Bottle 2 DRP EACH EYE (21:03)
--- NOTE | 2023-01-24 22:04 | NURSING ---
Attempted to reposition ETT from right side to middle, then left side of mouth unsuccessful for eliminating air leak. RT David Maciel called to bedside d/t audible air leak from around ETT. Air cuff feels to have appropriate inflation/resistance. ETT meek replaced, ETT positioned to 26cm at the lip w/RT. Pt only had slight loss in TV during air leak, maintained pulse ox and vic well. PCXR ordered for AM.
[2023-01-24 23:19] LABS: Bedside Glucose 210 mg/dL (74-106)
[2023-01-24 23:56] LABS: Partial Thromboplast Time 73.9 Seconds (24.1-36.2)
[2023-01-25] VITALS (37 sets, daily range): BP systolic 81–150; BP diastolic 51–105; PULSE 89–116; RESP 15–25; TEMP 36.8–38.3; O2SAT 90–97; BMI 21.3
[2023-01-25] MEDS: CHLORHEXIDINE GLUC 2% CLOTH 1 EACH TOWELETTE TOPICAL (01:52)
[2023-01-25] MEDS: 0.9% Saline Lock 10 ML Syringe IV ×4 (01:52→16:09)
[2023-01-25] MEDS: 0.9% Normal Saline (250mL Bag) 250 ML 15 ML IV (01:52)
[2023-01-25] MEDS: fentaNYL drip 100 ML 12.5 MCG CONT INF ×3 (02:38→19:25)
[2023-01-25] MEDS: Vital AF 1.2 Cal Liquid 1,000 ML 55 ML GT (05:02)
--- NOTE | 2023-01-25 05:45 | RAD_ITS ---
STUDY: X-RAY CHEST REASON FOR EXAM: Male, 72 years old. Hypoxia TECHNIQUE: 2 AP portable views COMPARISON: 01/24/2023 FINDINGS: Stable appearance of the ET tube, NG tube, left IJ central venous catheter and EKG leads Lungs are hyperextended with chronic interstitial changes and persistent left upper lobe pneumonia. There is increased opacification in the lingula suggesting developing infiltrate or atelectasis. Right lung remains free of a superimposed process. Normal size heart. Normal mediastinum and arti. Normal visualized pulmonary arteries. Normal visualized aortic arch and descending thoracic aorta. There are diffuse degenerative changes of the visualized thoracic spine. Normal visualized ribs, clavicles, and shoulders. There is no demonstrated abnormality of the visualized soft tissue structures of the upper abdomen. RAD/Chest 1 View (Portable) IMPRESSION: Hyperexpanded lungs with persistent left upper lobe pneumonia which may be cavitary, or there may be associated bronchiectatic changes Increased opacification in the lingula suggests early infiltrate or atelectasis Stable appearance of the support lines and tubes Electronically Signed: Byron Tripathi MD at 9:23 EDT ,
[2023-01-25 05:55] LABS: Allen Test Positive; Base Excess 6 mmol/L (-2 to +2); Bicarbonate 34.1 mmol/L (22-26); Blood Gas Specimen Type ART; Mode AC; O2 Delivery Device Adult Vent; PEEP 12; PO2 64 mmHG (75-100); RR 18; SITE R Radial; SO2 85 % (95-99); Total Carbon Dioxide 37 mmol/L; pCO2 84.9 mmHg (35-45); pH 7.21 (7.35-7.45)
[2023-01-25 05:57] LABS: Absolute Lymphocyte Count 0.35 X10^3/uL (0.83-4.51); Absolute Neutrophil Count 27.3 X10^3/uL (2.0-7.7); Basophil# 0.19 X10^3/uL; Basophil% 0.6 % (0-1); Hematocrit 36.6 % (40-54); Hemoglobin 11.1 g/dL (13.0-16.5); Lymphocyte # 0.35 X10^3/ul (0.83-4.51); Lymphocyte % 1.2 % (19-41); Mean Corp Hgb Conc 30.3 g/dL (32-36); Mean Corpuscular Hgb 29.3 pg (27.0-32.0); Mean Corpuscular Volume 96.6 fL (80-94); Mean Platelet Vol. 12.6 fl (6.2-12.0); Monocyte# 1.34 X10^3/uL; Monocyte% 4.4 % (0-10); NRBC Flagged by Analyzer 0.6 % (0-5); Neutrophil # 27.32 X10^3/uL (2.7-7.7); Neutrophil % 90.5 % (47-70); POSITIVE COUNT YES; POSITIVE DIFFERENTIAL YES; Platelet Count 154 K/mm3 (150-450); RBC Distribution Width CV 17.6 % (11.6-14.6); RBC Distribution Width SD 62.2 fl (35.1-43.9); Red Blood Count 3.79 M/mm3 (4.6-6.2)
[2023-01-25 06:08] LABS: Partial Thromboplast Time 80.9 Seconds (24.1-36.2)
[2023-01-25] MEDS: TITRATION PARAMETER CHANGE 1 EACH IV (06:13)
[2023-01-25] MEDS: Methylprednisolone Sod Succ 40 MG/ML VIAL IV ×4 (06:13→23:03)
[2023-01-25 06:15] LABS: ALB/GLOB Ratio 0.3 RATIO (0.9-2.4); AST(SGOT) 51 U/L (15-37); Alanine Aminotransfer ALT/SGPT 484 U/L (16-61); Albumin, Serum 1.3 g/dL (3.2-5.0); Alkaline Phosphatase 122 U/L (45-117); Anion Gap 1 (5-15); BUN 97 mg/dL (7-18); BUN/Creat Ratio 65.5 RATIO (10-20); Calcium,Total 8.4 mg/dL (8.5-10.1); Chloride 119 mmol/L (98-107); Creatinine, Serum 1.48 mg/dL (0.70-1.30); EST Glomerular Filtration Rate 50 mL/min (>60); Est Glom Filt Rate - Afr Amer 60 mL/min (>60); Estimated Creatinine Clearance 41.98 ml/min; Globulin 4.4 g/dL (2.2-4.2); Glucose 206 mg/dL (74-106); Potassium 5.4 mmol/L (3.5-5.1); Protein, Total 5.7 g/dL (6.4-8.2); Sodium Level 154 mmol/L (136-145)
[2023-01-25] MEDS: Glycerin/Hypromellose/PEG400 15 ml Bottle 2 DRP EACH EYE ×3 (06:15→23:06)
[2023-01-25] MEDS: dexMEDEtomidine 400 MCG in 0.9% Normal Saline (100mL Bag) 96 ML 8 MCG CONT INF (06:17)
[2023-01-25 06:38] LABS: Differential Indicated SCAN CRITERIA MET; White Blood Count 30.2 K/mm3 (4.4-11.0)
[2023-01-25] MEDS: Insulin Lispro 100 UNIT/ML INSULN.PEN SC ×4 (06:41→23:03)
[2023-01-25 07:05] LABS: Differential Comment SCANNED
[2023-01-25] MEDS: Ipratropium/Albuterol Sulfate 3 ML AMPUL.NEB INHALATION ×4 (07:25→20:15)
--- NOTE | 2023-01-25 07:33 | CPS ---
Per Dr. Luna, pushed tube into 27cm at the lip
--- NOTE | 2023-01-25 07:39 | PN.HOSP_ITS ---
Reason for Visit Reason for Visit: Shortness of breath Subjective Subjective Patient with what sounds to be like an air leak around his ET tube that developed overnight. Getting adequate tidal volumes. I did review the chest x- ray today as compared with previous and appears that his ET tube is been pulled back approximately 1 cm so we did go ahead and advance at 1 cm. Overall on less PEEP at 12 and FiO2 was just turned down to 65% as oxygen saturations were 90% on 70% FiO2. No other significant issues overnight. Objective Data Objective Data Vital Signs: Vital Signs Temp Pulse Resp BP Pulse Ox O2 Del Method O2 Flow Rate 98.7 F 91 18 86/57 L 96 Mechanical Ventilator 75 01/25/23 07:00 01/25/23 07:28 01/25/23 07:28 01/25/23 07:00 01/25/23 07:00 01/25/23 07:00 01/21/23 21:00 FiO2 65 01/25/23 07:28 Oxygen Flow Rate (L/min) 75 Oxygen Delivery Method Mechanical Ventilator Weight: 63.9 kg Body Mass Index (BMI) 21.3 Intake & Output: Intake and Output for Last 24 Hours 01/23/23 01/24/23 01/25/23 23:59 23:59 23:59 Intake Total 3344.87 / 3441.47 3901.86 / 3922.36 815.54 / 815.54 Output Total 3200 / 3200 2750 / 2750 550 / 550 Balance 144.87 / 241.47 1151.86 / 1172.36 265.54 / 265.54 Lab / Micro Data 01/25/23 05:50 01/25/23 05:50 Labs: Laboratory Results - last 24 hr 01/24/23 07:51: POC Glucose 164 H 01/24/23 10:57: POC Glucose 168 H 01/24/23 11:05: APTT 54.4 H, Sodium 153 H, Potassium 4.7, Chloride 118 H, Carbon Dioxide 33.0 H, Anion Gap 2 L, BUN 92 H, Creatinine 1.36 H, Estim Creat Clear Calc 45.82, Est GFR (MDRD) Af Amer 67, Est GFR (MDRD) Non-Af 55 L, BUN/Creatinine Ratio 67.6 H, Glucose 188 H, Calcium 8.4 L 01/24/23 17:16: POC Glucose 193 H 01/24/23 17:20: APTT 67.6 H 01/24/23 22:52: POC Glucose 210 H 01/24/23 23:40: APTT 73.9 H 01/25/23 05:50: WBC 30.2 H*, RBC 3.79 L, Hgb 11.1 L, Hct 36.6 L, MCV 96.6 H, MCH 29.3, MCHC 30.3 L, RDW Std Deviation 62.2 H, RDW Coeff of Debra 17.6 H, Plt Count 154, MPV 12.6 H, Immature Gran % (Auto) 3.300 H, Neut % (Auto) 90.5 H, Lymph % (Auto) 1.2 L, Baker % (Auto) 4.4, Eos % (Auto) 0.0, Baso % (Auto) 0.6, Absolute Neuts (auto) 27.3 H, Absolute Lymphs (auto) 0.35 L, Nucleated RBC % 0.6, Differential Comment SCANNED, Diff Path Review September, APTT 80.9 H, Sodium 154 H, Potassium 5.4 H, Chloride 119 H, Carbon Dioxide 34.0 H, Anion Gap 1 L, BUN 97 H, Creatinine 1.48 H, Estim Creat Clear Calc 41.98, Est GFR (MDRD) Af Amer 60, Est GFR (MDRD) Non-Af 50 L, BUN/Creatinine Ratio 65.5 H, Glucose 206 H, Calcium 8.4 L, Total Bilirubin 0.30, AST 51 H, ALT 484 H, Alkaline Phosphatase 122 H, Total Protein 5.7 L, Albumin 1.3 L, Globulin 4.4 H, Albumin/Globulin Ratio 0.3 L Micro: Microbiology 01/22/23 10:00 Urine Catheter - Catheter Urine Culture - Final Culture exhibits no growth. 01/18/23 11:50 Blood Culture (Wb) - Port Blood Culture - Final No growth in 5 days. 01/18/23 11:50 Blood Culture (Wb) - Left Forearm Blood Culture - Final No growth in 5 days. 01/21/23 11:10 Blood Culture (Wb) - Right Forearm Blood Culture - Preliminary No growth in 48 hours. 01/21/23 11:00 Blood Culture (Wb) - Anticubital Left Blood Culture - Preliminary No growth in 48 hours. 01/16/23 19:43 Blood Culture (Wb) - Anticubital Left Blood Culture - Final No growth in 5 days. 01/16/23 20:14 Blood Culture (Wb) - Right Forearm Blood Culture - Final No growth in 5 days. 01/21/23 14:04 Mucosa - Nose Coronavirus COVID-19 PCR - Final 01/21/23 14:04 Mucosa - Nose Respiratory Panel (PCR) - Final 01/18/23 11:00 Sputum, Induced/Lukens Gram Stain - Final 01/18/23 11:00 Sputum, Induced/Lukens Respiratory Culture - Final Pseudomonas aeruginosa 01/17/23 22:30 Sputum, Expectorated/Coughed Gram Stain - Final 01/17/23 22:30 Sputum, Expectorated/Coughed Respiratory Culture - Final Pseudomonas aeruginosa 01/16/23 20:14 Urine, Clean Catch Urine Culture - Final Culture exhibits no growth. 01/17/23 00:45 Mucosa - Nasopharyngeal Coronavirus COVID-19 PCR - Final 01/16/23 00:45 Mucosa - Nasopharyngeal Respiratory Panel (PCR) - Final 01/17/23 00:27 Urine, Random Legionella Antigen - Final 01/17/23 00:27 Urine, Random Streptococcus pneumoniae Antigen (M - Final 01/16/23 19:50 Nasal Secretion SARS-CoV-2 & FLU Antigen (Rapid) - Final ABG Data ABG results: ABG 01/25/23 05:49 Specimen Type ART Sample Site R Radial pH 7.21 L Bicarbonate Actual 34.1 H Total CO2 37 Base Excess 6 H O2 Saturation 85 L O2 % 70.0 ABG pCO2 84.9 H* ABG pO2 64 L Lino Test Positive Respiration Rate 18 O2 Delivery Device Adult Vent Vent Mode AC Tidal Volume 420.0 POC PEEP 12 Crit Call To/Read Back Yes Blood Gas Notified Whom Aljundi Blood Gas Notified Time 05:52:36 Radiography Diagnostic Testing: Radiology Impression Chest X-Ray 01/24/23 05:50 IMPRESSION: No interval change Electronically Signed: Byron Tripathi MD at 9:07 EDT , Physical Exam Const no apparent distress; Negative for healthy appearing Constitutional Narrative: Cachectic, chronically ill-appearing, older white male who appears much older than stated age lying in bed, currently intubated and sedated, nursing and respiratory therapy at bedside HEENT head/scalp atraumatic and moist oral mucous membranes HEENT Narrative: ET tube, OG in place Head and Scalp: normocephalic Resp No normal respiratory effort, no retractions and no use of accessory muscles Resp Narrative: Patient remains with scattered rhonchi and diminished otherwise Auscultation: rhonchi; Negative for rales or wheezes Cardio regular rate, regular rhythm, S1 normal heart sound, S2 normal heart sound, no murmurs, no rub, no gallops and no clicks GI normal to inspection, nondistended, normoactive bowel sounds, soft to palpation and non-tender Extremity no clubbing, cyanosis or edema Extremity Narrative: Pedal pulses are 2+, no significant lower extremity edema however left upper extremity is edematous with 2+ pitting Skin Skin Narrative: Left IJ in place-clean and dry Neuro Neuro Narrative: Intubated and sedated Psych Psych Narrative: Unable to examine due to intubation and sedation Assessment & Plan Assessment/Plan (1) Afib: QUALIFIERS: Atrial fibrillation type: persistent (not longstan ding) Qualified Code(s): I48.19 - Other persistent atrial fibrillation (2) RVF (right ventricular failure): (3) Acute and chronic respiratory failure with hypoxia: (4) Severe malnutrition: (5) Elevated digoxin level: (6) Septic shock: (7) LAUREN (acute kidney injury): (8) Hyperkalemia: PLAN: Plan Acute hypoxic respiratory failure secondary to right-sided pseudomonal pneumonia/acute exacerbation of COPD -Intubated 01/18/2023 -Remains on significant vent settings with an FiO2 of 65% and PEEP of 12 -Sounds like patient has a mild cuff leak but is getting adequate tidal volumes -ET tube appears to be withdrawn some so will advance 1 cm -Opening Machine Cleaner notified -Allowing for permissive hypercapnia with ARDS protocol -pH 7.21 so we will need to make vent adjustments today to decrease his hypercapnia--> automobile repossessor notified -Cultures showing Pseudomonas-on meropenem and vancomycin -Repeat blood cultures remain pending -Urine cultures unremarkable -Echocardiogram shows significant right-sided heart failure and elevated pulmonary pressures -We will have to hold diuretics due to worsening renal function -Continue aggressive pulmonary toilet -Chest CT done on admission showed significant findings in left upper lobe that were new compared to previous -Overall prognosis is poor with severe pneumonia and COPD with multiple lung nodules -Pulmonary medicine/critical care following-appreciate input Septic shock due to the above -Not currently requiring any Levophed -Continue antibiotics as ordered--> remains on meropenem/vancomycin - Tmax overnight was 101 -White count remains markedly elevated at 30,000 -CT chest abdomen pelvis performed with no identifiable process found contribu ting to ongoing shock and sepsis other than his pneumonia -Continue low-dose diuretics as able -ID is following Shock liver -Amiodarone discontinued due to transaminase elevation -Transaminases are normalizing-ALT is currently 484 and AST is 51 both still trending down -Ammonia level was slightly elevated so lactulose was started -Patient with good bowel movements -Liver ultrasound showed fatty infiltration with sludge in the gallbladder and minimal pericholecystic fluid with minimal ascites -Trend liver enzymes Hyperkalemia -Slightly elevated today likely related to his acidosis -I suspect once his acidosis is corrected his potassium will come down Hypernatremia/hyperchloremia -Slowly trending up -May need to consider the addition of dextrose--> we will leave to automobile repossessor as giving extra fluids can also make his ARDS worsen LAUREN -Slightly worse today however patient was diuresed yesterday -Likely related to hypotensive episode and ischemic ATN -Continue to monitor -Gentle diuresis as able per automobile repossessor -No current need for renal replacement therapy -Nephrology is following Elevated digoxin level -Would avoid any further doses of digoxin for A-fib -Patient given calcium gluconate Pulmonary hypertension with RV dysfunction -Diuresis per pulmonary medicine New onset A-fib with RVR -Echocardiogram performed and shows RV dysfunction likely related to pulmonary issues at baseline -LV is normal -Suspect this was precipitated by pulmonary dysfunction -Continue heparin drip -Amiodarone discontinued due to transaminase elevation -No PE noted on presentation History of COPD -See above Pulmonary nodules -If patient survives will need follow-up CT after discharge Hypertension -Antihypertensives on hold due to pressor requirement -Monitor for ability to reinitiate DM-2 -Hemoglobin A1c is 6.1 -Fasting blood sugar this morning was still greater than 200 so subcu insulin increase to 26 units twice daily -Continue SSI but increase to high-dose -Every 6 hours SSI added -Trend blood sugars DVT/GI prophylaxis -Patient is now on a heparin drip -Protonix 40 daily Code Status -Full Code -Prognosis is extremely poor--> guardianship is being pursued Charges/Coding Visit Charges Inpatient E&M: 26213 Subs Hosp L2
[2023-01-25 07:53] LABS: Bedside Glucose 194 mg/dL (74-106)
[2023-01-25] MEDS: Chlorhexidine 15 ML PO ×2 (08:41→21:12)
[2023-01-25] MEDS: Pantoprazole Sodium 40 MG in 0.9% Normal Saline (100mL MB+) 100 ML 330 MG IV (08:41)
[2023-01-25] MEDS: Meropenem 1 GM in 0.9% Normal Saline (100mL MB+) 100 ML IV ×2 (09:17→21:07)
--- NOTE | 2023-01-25 10:29 | PN.CC_ITS ---
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 Acute hypoxic and hypercapnic respiratory failure, requiring intubation on 01/18/2023. Currently behaving like ARDS 2. Septic shock secondary to left-sided Pseudomonas pneumonia 3. COPD exacerbation 4. Shock liver 5. HyperK, hyperNa 6. A-fib with RVR 7. Pulmonary hypertension with RV dysfunction 8. Tobacco use 9. Pulmonary nodules 10. Debility Plan * Patient was intubated and sedated on 01/18 due to worsening respiratory status and inability to tolerate BiPAP. * Patient is currently behaving like ARDS requiring high PEEP and FiO2 and difficulty oxygenating. This may be further worsening his pulmonary hypertension. * O2 requirements stabilized overnight since he was placed on his R side. CO2 increased but pH remains >7.2. Decreased peep to 10 today from 12 as peak pressure is trending up. FiO2 at 65%. Unable to administer lasix today as kidney function worsening. * Pt has an ARDS like picture. Allow permissive hypercapnia as long as pH at 7.2 or above in order to attempt to maintain lung protective vent settings. Plateau remains below 30 and peak pressure is trending up between 34-36. He remains at high risk of developing pneumothorax. * Due to his shock he developed shock liver. Amiodarone was discontinued. liver US shows no acute findings. Liver enzymes are trending down. Hold Digoxin due to LAUREN and elevated digoxin level. * He is currently on merrem and vanc due to worsening sepsis. CTchest/abd/pelvis showed no new findings. He continues to have L PNA * K worse today, will switch to nepro TF. Discussed with RD. Also increased water flushes today given worsening hyperNa * BS better controlled. Cont Lantus 20 twice daily * Continue Solu-Medrol and DuoNebs * He remains on heparin drip for A-fib * GI prophylaxis Protonix * Bowel Regimen MiraLAX and senna docusate daily * Chest CT done on this admission showing new findings in left upper lobe. Given recent CT chest in October with no findings on left upper lung, the patient's current presentation these changes are related to an infectious process. The right upper lobe scar seen on right lung in October and appears to be improving. Nodules in the right middle lobe appear to be stable from October 2022. However given his history patient remains high risk for malignancy and would benefit from repeat CT scan in 6 to 8 weeks to ensure resolution and further evaluation of nodules in right middle lobe if he survives ICU stay. * SW working to find blood relatives. At this time there is a half niece who lives in [place] and reportedly a son who the patient has not made contact with since the son was 5 years old and he's supposedly out of the [place]. Awaiting further recommendations from risk management. * Poor prognosis given unilateral pneumonia, sepsis with multiorgan failure incl uding LAUREN, A fib, shock liver and underlying severe COPD with multiple lung nodules Critical care time spent 38 minutes excluding procedures in addressing above problems. Subjective Subjective Hypoxia slightly improved with R side down. He remains off levophed Objective Data Objective Data Vital Signs: Vital Signs Temp Pulse Resp BP Pulse Ox O2 Del Method O2 Flow Rate 36.8 C 100 24 H 140/69 H 92 Mechanical Ventilator 75 01/25/23 10:00 01/25/23 10:00 01/25/23 10:00 01/25/23 10:00 01/25/23 10:00 01/25/23 10:00 01/21/23 21:00 FiO2 65 01/25/23 10:00 Oxygen Flow Rate (L/min) 75 Oxygen Delivery Method Mechanical Ventilator Weight: 63.9 kg Body Mass Index (BMI) 21.3 Intake & Output: Intake and Output for Last 24 Hours 01/23/23 01/24/23 01/25/23 23:59 23:59 23:59 Intake Total 3344.87 / 3441.47 3901.86 / 3922.36 1090.24 / 1090.24 Output Total 3200 / 3200 2750 / 2750 550 / 550 Balance 144.87 / 241.47 1151.86 / 1172.36 540.24 / 540.24 Lab / Micro Data 01/25/23 05:50 01/25/23 05:50 Labs: Laboratory Results - last 24 hr 01/24/23 10:57: POC Glucose 168 H 01/24/23 11:05: APTT 54.4 H, Sodium 153 H, Potassium 4.7, Chloride 118 H, Carbon Dioxide 33.0 H, Anion Gap 2 L, BUN 92 H, Creatinine 1.36 H, Estim Creat Clear Calc 45.82, Est GFR (MDRD) Af Amer 67, Est GFR (MDRD) Non-Af 55 L, BUN/Creatinine Ratio 67.6 H, Glucose 188 H, Calcium 8.4 L 01/24/23 17:16: POC Glucose 193 H 01/24/23 17:20: APTT 67.6 H 01/24/23 22:52: POC Glucose 210 H 01/24/23 23:40: APTT 73.9 H 01/25/23 05:50: WBC 30.2 H*, RBC 3.79 L, Hgb 11.1 L, Hct 36.6 L, MCV 96.6 H, MCH 29.3, MCHC 30.3 L, RDW Std Deviation 62.2 H, RDW Coeff of Debra 17.6 H, Plt Count 154, MPV 12.6 H, Immature Gran % (Auto) 3.300 H, Neut % (Auto) 90.5 H, Lymph % (Auto) 1.2 L, Hyde % (Auto) 4.4, Eos % (Auto) 0.0, Baso % (Auto) 0.6, Absolute Neuts (auto) 27.3 H, Absolute Lymphs (auto) 0.35 L, Nucleated RBC % 0.6, Differential Comment SCANNED, Diff Path Review September, APTT 80.9 H, Sodium 154 H, Potassium 5.4 H, Chloride 119 H, Carbon Dioxide 34.0 H, Anion Gap 1 L, BUN 97 H, Creatinine 1.48 H, Estim Creat Clear Calc 41.98, Est GFR (MDRD) Af Amer 60, Est GFR (MDRD) Non-Af 50 L, BUN/Creatinine Ratio 65.5 H, Glucose 206 H, Calcium 8.4 L, Total Bilirubin 0.30, AST 51 H, ALT 484 H, Alkaline Phosphatase 122 H, Total Protein 5.7 L, Albumin 1.3 L, Globulin 4.4 H, Albumin/Globulin Ratio 0.3 L 01/25/23 06:21: POC Glucose 194 H Micro: Microbiology 01/22/23 10:00 Urine Catheter - Catheter Urine Culture - Final Culture exhibits no growth. 01/18/23 11:50 Blood Culture (Wb) - Port Blood Culture - Final No growth in 5 days. 01/18/23 11:50 Blood Culture (Wb) - Left Forearm Blood Culture - Final No growth in 5 days. 01/21/23 11:10 Blood Culture (Wb) - Right Forearm Blood Culture - Preliminary No growth in 48 hours. 01/21/23 11:00 Blood Culture (Wb) - Anticubital Left Blood Culture - Preliminary No growth in 48 hours. 01/16/23 19:43 Blood Culture (Wb) - Anticubital Left Blood Culture - Final No growth in 5 days. 01/16/23 20:14 Blood Culture (Wb) - Right Forearm Blood Culture - Final No growth in 5 days. 01/21/23 14:04 Mucosa - Nose Coronavirus COVID-19 PCR - Final 01/21/23 14:04 Mucosa - Nose Respiratory Panel (PCR) - Final 01/18/23 11:00 Sputum, Induced/Lukens Gram Stain - Final 01/18/23 11:00 Sputum, Induced/Lukens Respiratory Culture - Final Pseudomonas aeruginosa 01/17/23 22:30 Sputum, Expectorated/Coughed Gram Stain - Final 01/17/23 22:30 Sputum, Expectorated/Coughed Respiratory Culture - Final Pseudomonas aeruginosa 01/16/23 20:14 Urine, Clean Catch Urine Culture - Final Culture exhibits no growth. 01/17/23 00:45 Mucosa - Nasopharyngeal Coronavirus COVID-19 PCR - Final 01/16/23 00:45 Mucosa - Nasopharyngeal Respiratory Panel (PCR) - Final 01/17/23 00:27 Urine, Random Legionella Antigen - Final 01/17/23 00:27 Urine, Random Streptococcus pneumoniae Antigen (M - Final 01/16/23 19:50 Nasal Secretion SARS-CoV-2 & FLU Antigen (Rapid) - Final ABG Data ABG results: ABG 01/25/23 05:49 Specimen Type ART Sample Site R Radial pH 7.21 L Bicarbonate Actual 34.1 H Total CO2 37 Base Excess 6 H O2 Saturation 85 L O2 % 70.0 ABG pCO2 84.9 H* ABG pO2 64 L Lino Test Positive Respiration Rate 18 O2 Delivery Device Adult Vent Vent Mode AC Tidal Volume 420.0 POC PEEP 12 Crit Call To/Read Back Yes Blood Gas Notified Whom Aljundi Blood Gas Notified Time 05:52:36 Radiography Diagnostic Testing: Radiology Impression Chest X-Ray 01/25/23 05:45 IMPRESSION: Hyperexpanded lungs with persistent left upper lobe pneumonia which may be cavitary, or there may be associated bronchiectatic changes Increased opacification in the lingula suggests early infiltrate or atelectasis Stable appearance of the support lines and tubes Electronically Signed: Byron Tripathi MD at 9:23 EDT , Physical Exam Narrative General intubated and sedated, critically ill looking Respiratory reduced air entry bilaterally, mechanical breath sounds Cardiac S1-S2, regular rate and rhythm GI abdomen soft and nontender MSK no lower extremity edema Skin no rashes Neuro intubated and sedated Charges/Coding Procedures Hospitalists Procedures: [id number] Critial Care 1st Hr
[2023-01-25] MEDS: Insulin Glargine-YFGN 100 UNIT/ML Pen 26 UNIT SC ×2 (11:07→23:00)
[2023-01-25 11:10] LABS: Bedside Glucose 209 mg/dL (74-106)
[2023-01-25] MEDS: NEPRO TUBE FEED 1,000 ML 40 ML GT (12:05)
[2023-01-25 12:22] LABS: Partial Thromboplast Time 60.9 Seconds (24.1-36.2)
[2023-01-25] MEDS: HEPARIN/D5w 25,000 UNITS 25,000 UNITS/250 ML IV.SOLN. 12 UNITS CONT INF (13:10)
[2023-01-25 16:42] LABS: Vancomycin, Trough Level 16.7 ug/mL (5.0-15.0)
[2023-01-25] MEDS: Vancomycin HCl 750 MG in 0.9% Normal Saline (250mL Bag) 250 ML 250 MG IV (17:27)
[2023-01-25] MEDS: dexMEDEtomidine 400 MCG in 0.9% Normal Saline (100mL Bag) 96 ML 9.6 MCG CONT INF (17:27)
--- NOTE | 2023-01-25 18:08 | PHA.PHARE_ITS ---
Consult Antibiotic Management Pharmacy has been consulted to manage selected antiobiotic: Vancomycin Type of Intervention Type of Consult: Follow-up Suspected Infection Suspected Infection: Sepsis and Pneumonia Prior Doses of Antibiotics Prior Doses of Antibiotics Received/Current Regimen: Currently on 750mg iv q24h. Labs Labs: Sodium 154 mmol/L (136-145) H 01/25/23 05:50 Potassium 5.4 mmol/L (3.5-5.1) H 01/25/23 05:50 Chloride 119 mmol/L (98-107) H 01/25/23 05:50 Carbon Dioxide 34.0 mmol/L (21.0-32.0) H 01/25/23 05:50 Anion Gap 1 (5-15) L 01/25/23 05:50 BUN 97 mg/dL (7-18) H 01/25/23 05:50 Creatinine 1.48 mg/dL (0.70-1.30) H 01/25/23 05:50 Est GFR (MDRD) Af Amer 60 mL/min (>60) 01/25/23 05:50 Est GFR (MDRD) Non-Af 50 mL/min (>60) L 01/25/23 05:50 BUN/Creatinine Ratio 65.5 RATIO (10-20) H 01/25/23 05:50 Glucose 206 mg/dL (74-106) H 01/25/23 05:50 Vancomycin Trough 16.7 ug/mL (5.0-15.0) H 01/25/23 16:10 Microbiology Microbiology: Microbiology 01/23/23 15:40 Blood Culture (Wb) - Anticubital Left Blood Culture - Preliminary No growth in 48 hours. 01/23/23 15:20 Blood Culture (Wb) - Left Wrist Blood Culture - Preliminary No growth in 48 hours. 01/22/23 10:00 Urine Catheter - Catheter Urine Culture - Final Culture exhibits no growth. 01/18/23 11:50 Blood Culture (Wb) - Port Blood Culture - Final No growth in 5 days. 01/18/23 11:50 Blood Culture (Wb) - Left Forearm Blood Culture - Final No growth in 5 days. 01/21/23 11:10 Blood Culture (Wb) - Right Forearm Blood Culture - Prelimina ry No growth in 48 hours. 01/21/23 11:00 Blood Culture (Wb) - Anticubital Left Blood Culture - Preliminary No growth in 48 hours. 01/16/23 19:43 Blood Culture (Wb) - Anticubital Left Blood Culture - Final No growth in 5 days. 01/16/23 20:14 Blood Culture (Wb) - Right Forearm Blood Culture - Final No growth in 5 days. 01/21/23 14:04 Mucosa - Nose Coronavirus COVID-19 PCR - Final 01/21/23 14:04 Mucosa - Nose Respiratory Panel (PCR) - Final 01/18/23 11:00 Sputum, Induced/Lukens Gram Stain - Final 01/18/23 11:00 Sputum, Induced/Lukens Respiratory Culture - Final Pseudomonas aeruginosa 01/17/23 22:30 Sputum, Expectorated/Coughed Gram Stain - Final 01/17/23 22:30 Sputum, Expectorated/Coughed Respiratory Culture - Final Pseudomonas aeruginosa 01/16/23 20:14 Urine, Clean Catch Urine Culture - Final Culture exhibits no growth. 01/17/23 00:45 Mucosa - Nasopharyngeal Coronavirus COVID-19 PCR - Final 01/16/23 00:45 Mucosa - Nasopharyngeal Respiratory Panel (PCR) - Final 01/17/23 00:27 Urine, Random Legionella Antigen - Final 01/17/23 00:27 Urine, Random Streptococcus pneumoniae Antigen (M - Final 01/16/23 19:50 Nasal Secretion SARS-CoV-2 & FLU Antigen (Rapid) - Final Dosing Weight Weight used for dosin.5 kg Estimated Creatinine Clearance Estimated Creatinine Clearance: 42 ml/min Goal Trough Goal Trough: 15-20 mcg/mL Pharmacy Plan for Drug Dosing Pharmacy Plan for Drug Dosing: Trough level today 24 hrs post last dose was 16.7 and in desired range of 15-20 mcg/ml. Renal labs ~same as 01.24.23. Recommend continuing same dose and get another trough in 3 days. Pharmacy Service will continue to monitor and adjust dosing as required. Follow-Up Labs Follow-Up Labs: Trough: Vancomycin (01.27.23 @1630 before 1700 dose)
[2023-01-25 19:04] LABS: Bedside Glucose 171 mg/dL (74-106)
[2023-01-25 19:35] LABS: Partial Thromboplast Time 49.7 Seconds (24.1-36.2)
[2023-01-25] MEDS: Heparin Injection (Vial) 5,000 UNIT/ML VIAL IV (21:05)
[2023-01-25 23:25] LABS: Bedside Glucose 163 mg/dL (74-106)
[2023-01-25] MEDS: Norepinephrine 8 MG in 0.9% Normal Saline (250mL Bag) 242 ML 3.8 MG CONT INF (23:30)
[2023-01-26] VITALS (43 sets, daily range): BP systolic 81–156; BP diastolic 49–98; PULSE 94–122; RESP 13–23; TEMP 36.8–37.3; O2SAT 90–99; BMI 21.6
[2023-01-26] MEDS: 0.9% Saline Lock 10 ML Syringe IV ×3 (03:05→15:56)
[2023-01-26] MEDS: Glycerin/Hypromellose/PEG400 15 ml Bottle 2 DRP EACH EYE ×2 (03:05→06:41)
[2023-01-26] MEDS: 0.9% Normal Saline (250mL Bag) 250 ML 15 ML IV (03:07)
[2023-01-26] MEDS: fentaNYL drip 100 ML 12.5 MCG CONT INF ×3 (03:08→19:35)
[2023-01-26] MEDS: dexMEDEtomidine 400 MCG in 0.9% Normal Saline (100mL Bag) 96 ML 9.6 MCG CONT INF (03:09)
[2023-01-26 03:10] LABS: Absolute Lymphocyte Count 0.29 X10^3/uL (0.83-4.51); Absolute Neutrophil Count 29.5 X10^3/uL (2.0-7.7); Basophil# 0.15 X10^3/uL; Basophil% 0.5 % (0-1); Eosinophil# 0.02 X10^3/uL; Eosinophils% 0.1 % (0-5); Hematocrit 35.8 % (40-54); Hemoglobin 10.8 g/dL (13.0-16.5); Lymphocyte # 0.29 X10^3/ul (0.83-4.51); Lymphocyte % 0.9 % (19-41); Mean Corp Hgb Conc 30.2 g/dL (32-36); Mean Corpuscular Hgb 29.3 pg (27.0-32.0); Mean Platelet Vol. 13.7 fl (6.2-12.0); Monocyte# 1.44 X10^3/uL; Monocyte% 4.4 % (0-10); NRBC Flagged by Analyzer 0.4 % (0-5); Neutrophil # 29.52 X10^3/uL (2.7-7.7); Neutrophil % 90.5 % (47-70); POSITIVE COUNT YES; POSITIVE DIFFERENTIAL YES; Platelet Count 152 K/mm3 (150-450); RBC Distribution Width CV 17.7 % (11.6-14.6); RBC Distribution Width SD 63.1 fl (35.1-43.9); Red Blood Count 3.69 M/mm3 (4.6-6.2); White Blood Count 32.6 K/mm3 (4.4-11.0)
[2023-01-26 03:19] LABS: Differential Indicated SCAN CRITERIA MET
[2023-01-26 03:24] LABS: Partial Thromboplast Time 75.7 Seconds (24.1-36.2)
[2023-01-26 03:44] LABS: Anion Gap 1 (5-15); BUN 103 mg/dL (7-18); BUN/Creat Ratio 76.9 RATIO (10-20); Calcium,Total 8.6 mg/dL (8.5-10.1); Chloride 121 mmol/L (98-107); Creatinine, Serum 1.34 mg/dL (0.70-1.30); EST Glomerular Filtration Rate 56 mL/min (>60); Est Glom Filt Rate - Afr Amer 68 mL/min (>60); Estimated Creatinine Clearance 46.36 ml/min; Glucose 158 mg/dL (74-106); Magnesium 3.2 mg/dL (1.6-2.6); Potassium 5.4 mmol/L (3.5-5.1); Sodium Level 157 mmol/L (136-145)
[2023-01-26 04:10] LABS: Anisocytosis 1+; Macrocytosis RARE
[2023-01-26 05:43] LABS: Allen Test Positive; Base Excess 8 mmol/L (-2 to +2); Bicarbonate 34.5 mmol/L (22-26); Blood Gas Specimen Type ART; Mode AC; O2 Delivery Device Adult Vent; PEEP 10; PO2 60 mmHG (75-100); RR 18; SITE R Radial; SO2 86 % (95-99); Total Carbon Dioxide 37 mmol/L; pCO2 70.1 mmHg (35-45)
--- NOTE | 2023-01-26 05:55 | RAD_ITS ---
EXAM: XR CHEST, 1 VIEW CLINICAL INDICATION: hypoxia hypoxia TECHNIQUE: Frontal view of the chest. COMPARISON: Chest x-ray 01/25/2023. FINDINGS: LUNGS AND PLEURAL SPACES: There are infiltrates in the left lung field which are not severely changed. There are fibrotic and emphysematous changes in the lungs, with most prominent emphysematous changes in the right upper lung field. No pneumothorax. No effusion. HEART: Unremarkable. Cardiac silhouette not enlarged. MEDIASTINUM: Central airways and mediastinal contour are unremarkable. BONES/JOINTS: There are multilevel degenerative changes in the visualized spine. SOFT TISSUES: Unremarkable. VASCULATURE: There is atherosclerotic calcification of the aortic arch. TUBES, LINES AND DEVICES: There is a nasogastric tube which extends at least as far as the body of the stomach. There is a left internal jugular central venous catheter with its tip in the superior vena cava. The endotracheal tube (ETT) is in satisfactory position with tip 7.1 cm above the linda. RAD/Chest 1 View (Portable) IMPRESSION: 1. Tubes are in adequate position. 2. Persistent left pulmonary infiltrates, not definitely changed. 3. Fibrotic and emphysematous changes in the lungs. Electronically Signed: Gordon Keller MD at 5:25 EDT ,
[2023-01-26] MEDS: Methylprednisolone Sod Succ 40 MG/ML VIAL IV (06:41)
[2023-01-26] MEDS: Insulin Lispro 100 UNIT/ML INSULN.PEN SC (06:41)
--- NOTE | 2023-01-26 06:41 | CPS ---
Critical value noted and Doctor notified
[2023-01-26] MEDS: TITRATION PARAMETER CHANGE 1 EACH IV (06:42)
[2023-01-26] MEDS: Ipratropium/Albuterol Sulfate 3 ML AMPUL.NEB INHALATION ×4 (06:52→18:41)
--- NOTE | 2023-01-26 07:10 | PN.CC_ITS ---
Assessment & Plan Assessment/Plan (1) Septic shock: PLAN: Plan RECOMMENDATIONS: 1. Continue to wean FiO2 and PEEP to maintain saturations at or above 90%. 2. Continue antimicrobials. 3. Continue tube feeds as tolerated. Increase free water flushes yet again. Continue to monitor chemistry profile daily. 4. Continue scheduled bronchodilators. 5. Okay to decrease IV Solu-Medrol to once daily. 6. Continue insulin and Accu-Cheks. 7. Continue appropriate GI prophylaxis. IMPRESSIONS: 1. Acute combined respiratory failure The patient has reported advanced a COPD which is currently in a state of exacerbation secondary to underlying pseudomonal pneumonia. The patient continues to have high ventilator requirements. The patient has been on the ventilator now for 8 days. He also has concurrent pulmonary hypertension. The patient appears to be tolerating right-sided positioning, given the extensive nature of his left-sided infiltrates. Plan to continue to wean FiO2 and PEEP as tolerated to maintain saturations at or above 90%. The patient's pH and peak pressures are acceptable this morning. Plan to continue supportive measures including antimicrobials, bronchodilators and steroids. Overall, however, the patient's prognosis is quite poor. We will likely need to pursue guardianship, as the patient does not have a medical/legal POA or any family. It is highly likely that he would require tracheostomy and PEG tube placement if aggressive measures are to be continued. 2. Septic shock Secondary to left-sided pseudomonal pneumonia. Continue antibiotics as noted above. The patient has been transiently requiring vasopressor support over the last 24 hours, but remains hemodynamically stable at the present time. Although the patient is overall net positive for the hospitalization, his tenuous hemodynamics make it difficult to proceed with any significant attempts at diuresis. 3. Hypernatremia/hyperchloremia/uremia Increase free water flushes as ordered. Continue to monitor electrolyte profile daily. 4. Shock liver Slowly improving with stabilization and hemodynamic status. Continue to monitor clinically. 5. Atrial fibrillation with RVR/pulmonary hypertension with RV dysfunction/history of tobacco dependency Complicates care, management, recovery and prognosis. Continue supportive measures as noted above. Continue tube feeds as tolerated. Social work and case management are currently working to identify guardianship needs to facilitate goals of care discussion. TIME: 39 minutes of critical care time, independent of procedures, was spent address ing the patient's acute combined respiratory failure, septic shock, hypernatremia, shock liver, review of all data and collaboration with the care team. Subjective Subjective The patient was seen and examined at the bedside this morning. Events from the last 24 hours have been reviewed. The patient is currently being maintained on assist control mode mechanical ventilation with an FiO2 requirement of 50% and PEEP of 10. He was transiently on Levophed overnight, but has since been weaned off of vasopressor support this morning. He is currently tolerating tube feeds. The patient is currently documented to be overall net +12.5 L for the hospitalization. White count remains elevated at 32,000. Arterial blood gas obtained this morning demonstrated a pH of 7.3 with a PCO2 of 70 and PO2 of 60. Chemistry profile was notable for a sodium of 157, potassium of 5.4, chloride of 121, bicarbonate of 35, BUN of 103 and creatinine of 1.34. Objective Data Objective Data The patient's most recent lab work, culture data and imaging studies have all been personally reviewed. Surface echocardiogram demonstrated an ejection fraction of 50% with a severely dilated RV and moderate global RV systolic dysfunction. Pulmonary artery systolic pressure was estimated to be 47 mmHg. Sputum culture dated January 18 was positive for Pseudomonas. Vital Signs: Vital Signs Temp Pulse Resp BP Pulse Ox O2 Del Method O2 Flow Rate 98.3 F 111 H 19 H 137/72 H 90 Mechanical Ventilator 75 01/26/23 04:00 01/26/23 06:53 01/26/23 06:53 01/26/23 06:00 01/26/23 06:53 01/26/23 04:00 01/21/23 21:00 FiO2 50 01/26/23 06:53 Oxygen Flow Rate (L/min) 75 Oxygen Delivery Method Mechanical Ventilator Weight: 142 lb 3.17 oz Body Mass Index (BMI) 21.6 Intake & Output: Intake and Output for Last 24 Hours 01/24/23 01/25/23 01/26/23 23:59 23:59 23:59 Intake Total 3901.86 / 3922.36 3741.06 / 3929.11 981.00 / 981.00 Output Total 2750 / 2750 1900 / 1900 700 / 700 Balance 1151.86 / 1172.36 1841.06 / 2029.11 281.00 / 281.00 Lab / Micro Data Attestation: I reviewed the patient's lab results. 01/26/23 03:00 01/26/23 03:00 Labs: Laboratory Results - last 24 hr 01/25/23 06:21: POC Glucose 194 H 01/25/23 10:49: POC Glucose 209 H 01/25/23 12:05: APTT 60.9 H 01/25/23 16:10: Vancomycin Trough 16.7 H 01/25/23 17:27: POC Glucose 171 H 01/25/23 18:45: APTT 49.7 H 01/25/23 23:00: POC Glucose 163 H 01/26/23 03:00: WBC 32.6 H*, RBC 3.69 L, Hgb 10.8 L, Hct 35.8 L, MCV 97.0 H, MCH 29.3, MCHC 30.2 L, RDW Std Deviation 63.1 H, RDW Coeff of Debra 17.7 H, Plt Count 152, MPV 13.7 H, Immature Gran % (Auto) 3.600 H, Neut % (Auto) 90.5 H, Lymph % (Auto) 0.9 L, [place] % (Auto) 4.4, Eos % (Auto) 0.1, Baso % (Auto) 0.5, Absolute Neuts (auto) 29.5 H, Absolute Lymphs (auto) 0.29 L, Nucleated RBC % 0.4, Diff Path Review May foll, Anisocytosis 1+, Macrocytosis RARE, APTT 75.7 H, Sodium 157 H, Potassium 5.4 H, Chloride 121 H, Carbon Dioxide 35.0 H, Anion Gap 1 L, BUN 103 H*, Creatinine 1.34 H, Estim Creat Clear Calc 46.36, Est GFR (MDRD) Af Amer 68, Est GFR (MDRD) Non-Af 56 L, BUN/Creatinine Ratio 76.9 H, Glucose 158 H, Calcium 8.6, Magnesium 3.2 H Micro: Microbiology 01/23/23 15:40 Blood Culture (Wb) - Anticubital Left Blood Culture - Preliminary No growth in 48 hours. 01/23/23 15:20 Blood Culture (Wb) - Left Wrist Blood Culture - Preliminary No growth in 48 hours. 01/22/23 10:00 Urine Catheter - Catheter Urine Culture - Final Culture exhibits no growth. 01/18/23 11:50 Blood Culture (Wb) - Port Blood Culture - Final No growth in 5 days. 01/18/23 11:50 Blood Culture (Wb) - Left Forearm Blood Culture - Final No growth in 5 days. 01/21/23 11:10 Blood Culture (Wb) - Right Forearm Blood Culture - Preliminary No growth in 48 hours. 01/21/23 11:00 Blood Culture (Wb) - Anticubital Left Blood Culture - Prelim inary No growth in 48 hours. 01/16/23 19:43 Blood Culture (Wb) - Anticubital Left Blood Culture - Final No growth in 5 days. 01/16/23 20:14 Blood Culture (Wb) - Right Forearm Blood Culture - Final No growth in 5 days. 01/21/23 14:04 Mucosa - Nose Coronavirus COVID-19 PCR - Final 01/21/23 14:04 Mucosa - Nose Respiratory Panel (PCR) - Final 01/18/23 11:00 Sputum, Induced/Lukens Gram Stain - Final 01/18/23 11:00 Sputum, Induced/Lukens Respiratory Culture - Final Pseudomonas aeruginosa 01/17/23 22:30 Sputum, Expectorated/Coughed Gram Stain - Final 01/17/23 22:30 Sputum, Expectorated/Coughed Respiratory Culture - Final Pseudomonas aeruginosa 01/16/23 20:14 Urine, Clean Catch Urine Culture - Final Culture exhibits no growth. 01/17/23 00:45 Mucosa - Nasopharyngeal Coronavirus COVID-19 PCR - Final 01/16/23 00:45 Mucosa - Nasopharyngeal Respiratory Panel (PCR) - Final 01/17/23 00:27 Urine, Random Legionella Antigen - Final 01/17/23 00:27 Urine, Random Streptococcus pneumoniae Antigen (M - Final 01/16/23 19:50 Nasal Secretion SARS-CoV-2 & FLU Antigen (Rapid) - Final ABG Data ABG results: ABG 01/26/23 05:38 Specimen Type ART Sample Site R Radial pH 7.30 L Bicarbonate Actual 34.5 H Total CO2 37 Base Excess 8 H O2 Saturation 86 L O2 % 55.0 ABG pCO2 70.1 H* ABG pO2 60 L Lino Test Positive Respiration Rate 18 O2 Delivery Device Adult Vent Vent Mode AC Tidal Volume 440.0 POC PEEP 10 Crit Call To/Read Back Yes Blood Gas Notified Time 05:40:05 Radiography Diagnostic Testing: Radiology Impression Chest X-Ray 01/25/23 05:45 IMPRESSION: Hyperexpanded lungs with persistent left upper lobe pneumonia which may be cavitary, or there may be associated bronchiectatic changes Increased opacification in the lingula suggests early infiltrate or atelectasis Stable appearance of the support lines and tubes Electronically Signed: Byron Tripathi MD at 9:23 EDT , Chest X-Ray 01/26/23 05:55 IMPRESSION: 1. Tubes are in adequate position. 2. Persistent left pulmonary infiltrates, not definitely changed. 3. Fibrotic and emphysematous changes in the lungs. Electronically Signed: Gordon Keller MD at 5:25 EDT , Physical Exam Const Constitutional Narrative: Intubated, sedated and mechanically ventilated. Chronically ill in appearance. No ventilator dyssynchrony. HEENT normocephalic and head/scalp atraumatic Mouth: endotracheal tube in place and OG tube in place Eyes PERRL and EOMs intact bilaterally Neck supple General: trachea midline and CVC in place Chest inspection of chest normal Resp Resp Narrative: Mechanical breath sounds bilaterally. Auscultation: diminished lung sounds Cardio S1 normal heart sound and S2 normal heart sound Rate: tachycardic GI normal to inspection, nondistended, normoactive bowel sounds Extremity General Extremity: edema; Negative for clubbing Skin no rashes or lesions noted Neuro Sensorium / Orientation: sedated on vent Charges/Coding Procedures Hospitalists Procedures: 55687 Critial Care 1st Hr
[2023-01-26 09:41] LABS: Pathologist Review Reviewed
[2023-01-26 10:01] LABS: Pathologist Review Reviewed
[2023-01-26] MEDS: Pantoprazole Sodium 40 MG in 0.9% Normal Saline (100mL MB+) 100 ML 330 MG IV (10:02)
[2023-01-26] MEDS: Polyethylene Glycol 3350 17 GM PACKET PO (10:05)
[2023-01-26] MEDS: Chlorhexidine 15 ML PO ×2 (10:05→20:49)
[2023-01-26] MEDS: Senna/Docusate Sodium 1 Tablet PO (10:05)
[2023-01-26] MEDS: CHLORHEXIDINE GLUC 2% CLOTH 1 EACH TOWELETTE TOPICAL (10:07)
[2023-01-26 10:10] LABS: Partial Thromboplast Time 68.8 Seconds (24.1-36.2)
[2023-01-26] MEDS: HEPARIN/D5w 25,000 UNITS 25,000 UNITS/250 ML IV.SOLN. 13 UNITS CONT INF (10:19)
[2023-01-26] MEDS: Meropenem 1 GM in 0.9% Normal Saline (100mL MB+) 100 ML IV ×2 (10:27→21:58)
--- NOTE | 2023-01-26 10:41 | PN_ITS ---
Subjective Subjective Patient seen and examined. He had a friend by his bedside. He remains intubated and sedated. Unable to do review of systems. His PEEP was reduced from 12 to 10 yesterday due to increasing peak pressures. He is tahycardic and tachypneic. Objective Data Objective Data Vital Signs: Vital Signs Temp Pulse Resp BP Pulse Ox O2 Del Method O2 Flow Rate 98.6 F 111 H 22 H 129/67 H 91 Mechanical Ventilator 75 01/26/23 09:00 01/26/23 09:00 01/26/23 09:00 01/26/23 09:00 01/26/23 09:00 01/26/23 09:00 01/21/23 21:00 FiO2 50 01/26/23 09:00 Oxygen Flow Rate (L/min) 75 Oxygen Delivery Method Mechanical Ventilator Weight: 142 lb 3.17 oz Body Mass Index (BMI) 21.6 Intake & Output: Intake and Output for Last 24 Hours 01/24/23 01/25/23 01/26/23 23:59 23:59 23:59 Intake Total 3901.86 / 3922.36 3741.06 / 3929.11 1246.27 / 1246.27 Output Total 2750 / 2750 1900 / 1900 925 / 925 Balance 1151.86 / 1172.36 1841.06 / 2029.11 321.27 / 321.27 Lab / Micro Data 01/26/23 03:00 01/26/23 03:00 Labs: Laboratory Results - last 24 hr 01/22/23 03:20: Diff Path Review Reviewed 01/23/23 04:25: Diff Path Review Reviewed 01/25/23 10:49: POC Glucose 209 H 01/25/23 12:05: APTT 60.9 H 01/25/23 16:10: Vancomycin Trough 16.7 H 01/25/23 17:27: POC Glucose 171 H 01/25/23 18:45: APTT 49.7 H 01/25/23 23:00: POC Glucose 163 H 01/26/23 03:00: WBC 32.6 H*, RBC 3.69 L, Hgb 10.8 L, Hct 35.8 L, MCV 97.0 H, MCH 29.3, MCHC 30.2 L, RDW Std Deviation 63.1 H, RDW Coeff of Debra 17.7 H, Plt Count 152, MPV 13.7 H, Immature Gran % (Auto) 3.600 H, Neut % (Auto) 90.5 H, Lymph % (Auto) 0.9 L, [place] % (Auto) 4.4, Eos % (Auto) 0.1, Baso % (Auto) 0.5, Absolute Neuts (auto) 29.5 H, Absolute Lymphs (auto) 0.29 L, Nucleated RBC % 0.4, Diff Path Review September, Anisocytosis 1+, Macrocytosis RARE, APTT 75.7 H, Sodium 157 H, Potassium 5.4 H, Chloride 121 H, Carbon Dioxide 35.0 H, Anion Gap 1 L, BUN 103 H*, Creatinine 1.34 H, Estim Creat Clear Calc 46.36, Est GFR (MDRD) Af Amer 68, Est GFR (MDRD) Non-Af 56 L, BUN/Creatinine Ratio 76.9 H, Glucose 158 H, Calcium 8.6, Magnesium 3.2 H 01/26/23 09:35: APTT 68.8 H Micro: Microbiology 01/23/23 15:40 Blood Culture (Wb) - Anticubital Left Blood Culture - Preliminary No growth in 48 hours. 01/23/23 15:20 Blood Culture (Wb) - Left Wrist Blood Culture - Preliminary No growth in 48 hours. 01/22/23 10:00 Urine Catheter - Catheter Urine Culture - Final Culture exhibits no growth. 01/18/23 11:50 Blood Culture (Wb) - Port Blood Culture - Final No growth in 5 days. 01/18/23 11:50 Blood Culture (Wb) - Left Forearm Blood Culture - Final No growth in 5 days. 01/21/23 11:10 Blood Culture (Wb) - Right Forearm Blood Culture - Preliminary No growth in 48 hours. 01/21/23 11:00 Blood Culture (Wb) - Anticubital Left Blood Culture - Preliminary No growth in 48 hours. 01/16/23 19:43 Blood Culture (Wb) - Anticubital Left Blood Culture - Final No growth in 5 days. 01/16/23 20:14 Blood Culture (Wb) - Right Forearm Blood Culture - Final No growth in 5 days. 01/21/23 14:04 Mucosa - Nose Coronavirus COVID-19 PCR - Final 01/21/23 14:04 Mucosa - Nose Respiratory Panel (PCR) - Final 01/18/23 11:00 Sputum, Induced/Lukens Gram Stain - Final 01/18/23 11:00 Sputum, Induced/Lukens Respiratory Culture - Final Pseudomonas aeruginosa 01/17/23 22:30 Sputum, Expectorated/Coughed Gram Stain - Final 01/17/23 22:30 Sputum, Expectorated/Coughed Respiratory Culture - Final Pseudomonas aeruginosa 01/16/23 20:14 Urine, Clean Catch Urine Culture - Final Culture exhibits no growth. 01/17/23 00:45 Mucosa - Nasopharyngeal Coronavirus COVID-19 PCR - Final 01/16/23 00:45 Mucosa - Nasopharyngeal Respiratory Panel (PCR) - Final 01/17/23 00:27 Urine, Random Legionella Antigen - Final 01/17/23 00:27 Urine, Random Streptococcus pneumoniae Antigen (M - Final 01/16/23 19:50 Nasal Secretion SARS-CoV-2 & FLU Antigen (Rapid) - Final ABG Data ABG results: ABG 01/24/23 01/26/23 05:09 05:38 Specimen Type ART ART Sample Site R Radial R Radial pH 7.31 L 7.30 L Bicarbonate Actual 30.9 H 34.5 H Total CO2 33 37 Base Excess 5 H 8 H O2 Saturation 86 L O2 % 75.0 55.0 ABG pCO2 61.1 H 70.1 H* ABG pO2 60 L Lino Test Positive Positive Respiration Rate 18 18 O2 Delivery Device Adult Vent Adult Vent Vent Mode AC AC Tidal Volume 450.0 440.0 POC PEEP 12 10 Crit Call To/Read Back Yes Blood Gas Notified Time 05:40:05 Radiography Diagnostic Testing: Radiology Impression Chest X-Ray 01/26/23 05:55 IMPRESSION: 1. Tubes are in adequate position. 2. Persistent left pulmonary infiltrates, not definitely changed. 3. Fibrotic and emphysematous changes in the lungs. Electronically Signed: Gordon Keller MD at 5:25 EDT Reading Location ID and State: [facility] / [place] , Service support , Physical Exam Const Constitutional Narrative: intubated, sedated, RASS score is -4 HEENT normocephalic and head/scalp atraumatic Mouth: dry mucous membranes Eyes PERRL Neck no lymphadenopathy Lymph Lymphatic: no lymphadenopathy noted and no lymphedema noted Resp Resp Narrative: intubated, sedated, diminished breath sounds bibasally, no wheezes or crackles. tachypneic Cardio regular rhythm, S1 normal heart sound, S2 normal heart sound and no murmurs Rate: tachycardic GI normal to inspection, nondistended, normoactive bowel sounds, soft to palpation and non-tender Extremity normal capillary refill and no clubbing, cyanosis or edema Skin General Skin Exam: no breakdown Neuro Neuro Narrative: sedated, RASS score is -4 Assessment & Plan Assessment/Plan (1) LAUREN (acute kidney injury): (2) Septic shock: (3) Severe malnutrition: (4) RVF (right ventricular failure): PLAN: Plan #Acute hypoxic respiratory failure due to COPD and pneumonia * remains intubated. Remains tachypneic and tachycardic * PEEP reduced to 10 from 12 yesterday due to concerns about increasing peak pressures * critical care on board * has been requiring levophed intermittently also * blood and sputum cultures growing Pseudomonas, and he is on IV vancomycin and IV meropenem. * requiring Tidal volume of 500 * continue broad spectrum antibiotics * continue pulmonary toileting * #Septic shock * due to pneumonia * on levophed intermittently; was on levophed for a few hours overnight, and now off levophed * on vancomycin and meropenem as listed above * WBC still remains elevated and is 32.6 today * ID on board * #Shock liver: * Amiodarone was discontinued due to elevation in AST and ALT. * ALT and AST are trending downwards. * Liver ultrasound showed fatty infiltration with sludge in the gallbladder minimal. * Cholecystic fluid with mild ascites. * On lactulose due to mildly elevated ammonia * #Hypernatremia: Fluid boluses increased as sodium is going upwards. Sodium is 157 today. May need to consider D5 water. #Hyperkalemia: K is 5.4. Will give kayexalate and monitor #LAUREN: * Improving. Creatinine is down to 1.34 today. * However has a markedly elevated BUN. With a BUN over creatinine ratio more than 20, this is concerning for possible occult GI bleed. * Hemoglobin is 10.8 though. Will monitor closely * D * #Elevated digoxin level: Digoxin discontinued. #New onset A-fib with RVR. Still tachycardic. Had right ventricular dysfunction which was thought to be due to pulmonary hypertensive. Amiodarone discontinued due to elevated liver enzymes. #Pulmonary nodules: Will need further work-up after discharge. #Type 2 diabetes mellitus: Has A1c of 6.1. Insulin sliding scale. Accu-Cheks every 6 hourly. Nutrition: On tube feeds DVT prophylaxis: On heparin drip o/a of afib. Prognosis: * Poor. Patient's only known living relative is a son in [place] and there has been difficulty getting into contact with him. Only other relatives some step nieces of his ex-. Risk management on board to help determine who has the ability to make decisions for him. Efforts being made to contact the son. Social work also on board. Charges/Coding Visit Charges Inpatient E&M: 06349 Subs Hosp L3
[2023-01-26] MEDS: Insulin Glargine-YFGN 100 UNIT/ML Pen 26 UNIT SC ×2 (11:34→23:00)
[2023-01-26 11:58] LABS: Bedside Glucose 141 mg/dL (74-106)
[2023-01-26 13:39] LABS: Pathologist Review Reviewed
[2023-01-26 13:42] LABS: Pathologist Review Reviewed
[2023-01-26 13:46] LABS: Pathologist Review Reviewed
--- NOTE | 2023-01-26 14:44 | PCM.PN.REN ---
Subjective Subjective On ventilator support. No overnight events. Objective Data Objective Data Vital Signs: Vital Signs Temp Pulse Resp BP Pulse Ox O2 Del Method O2 Flow Rate 99.0 F 109 H 14 95/62 91 Mechanical Ventilator 75 01/26/23 13:00 01/26/23 13:00 01/26/23 13:00 01/26/23 13:00 01/26/23 13:00 01/26/23 13:00 01/21/23 21:00 FiO2 50 01/26/23 13:00 Oxygen Flow Rate (L/min) 75 Oxygen Delivery Method Mechanical Ventilator Weight: 64.5 kg Body Mass Index (BMI) 21.6 Intake & Output: Intake and Output for Last 24 Hours 01/24/23 01/25/23 01/26/23 23:59 23:59 23:59 Intake Total 3901.86 / 3922.36 3741.06 / 3929.11 1685.47 / 1685.47 Output Total 2750 / 2750 1900 / 1900 1215 / 1215 Balance 1151.86 / 1172.36 1841.06 / 2029.11 470.47 / 470.47 Lab / Micro Data 01/26/23 03:00 01/26/23 03:00 Labs: Laboratory Results - last 24 hr 01/22/23 03:20: Diff Path Review Reviewed 01/23/23 04:25: Diff Path Review Reviewed 01/24/23 03:45: Diff Path Review Reviewed 01/25/23 05:50: Diff Path Review Reviewed 01/25/23 16:10: Vancomycin Trough 16.7 H 01/25/23 17:27: POC Glucose 171 H 01/25/23 18:45: APTT 49.7 H 01/25/23 23:00: POC Glucose 163 H 01/26/23 03:00: WBC 32.6 H*, RBC 3.69 L, Hgb 10.8 L, Hct 35.8 L, MCV 97.0 H, MCH 29.3, MCHC 30.2 L, RDW Std Deviation 63.1 H, RDW Coeff of Debra 17.7 H, Plt Count 152, MPV 13.7 H, Immature Gran % (Auto) 3.600 H, Neut % (Auto) 90.5 H, Lymph % (Auto) 0.9 L, Harris % (Auto) 4.4, Eos % (Auto) 0.1, Baso % (Auto) 0.5, Absolute Neuts (auto) 29.5 H, Absolute Lymphs (auto) 0.29 L, Nucleated RBC % 0.4, Diff Path Review Reviewed, Anisocytosis 1+, Macrocytosis RARE, APTT 75.7 H, Sodium 157 H, Potassium 5.4 H, Chloride 121 H, Carbon Dioxide 35.0 H, Anion Gap 1 L, BUN 103 H*, Creatinine 1.34 H, Estim Creat Clear Calc 46.36, Est GFR (MDRD) Af Amer 68, Est GFR (MDRD) Non-Af 56 L, BUN/Creatinine Ratio 76.9 H, Glucose 158 H, Calcium 8.6, Magnesium 3.2 H 01/26/23 09:35: APTT 68.8 H 01/26/23 11:33: POC Glucose 141 H Micro: Microbiology 01/21/23 11:10 Blood Culture (Wb) - Right Forearm Blood Culture - Final No growth in 5 days. 01/21/23 11:00 Blood Culture (Wb) - Anticubital Left Blood Culture - Final No growth in 5 days. 01/23/23 15:40 Blood Culture (Wb) - Anticubital Left Blood Culture - Preliminary No growth in 48 hours. 01/23/23 15:20 Blood Culture (Wb) - Left Wrist Blood Culture - Preliminary No growth in 48 hours. 01/22/23 10:00 Urine Catheter - Catheter Urine Culture - Final Culture exhibits no growth. 01/18/23 11:50 Blood Culture (Wb) - Port Blood Culture - Final No growth in 5 days. 01/18/23 11:50 Blood Culture (Wb) - Left Forearm Blood Culture - Final No growth in 5 days. 01/16/23 19:43 Blood Culture (Wb) - Anticubital Left Blood Culture - Final No growth in 5 days. 01/16/23 20:14 Blood Culture (Wb) - Right Forearm Blood Culture - Final No growth in 5 days. 01/21/23 14:04 Mucosa - Nose Coronavirus COVID-19 PCR - Final 01/21/23 14:04 Mucosa - Nose Respiratory Panel (PCR) - Final 01/18/23 11:00 Sputum, Induced/Lukens Gram Stain - Final 01/18/23 11:00 Sputum, Induced/Lukens Respiratory Culture - Final Pseudomonas aeruginosa 01/17/23 22:30 Sputum, Expectorated/Coughed Gram Stain - Final 01/17/23 22:30 Sputum, Expectorated/Coughed Respiratory Culture - Final Pseudomonas aeruginosa 01/16/23 20:14 Urine, Clean Catch Urine Culture - Final Culture exhibits no growth. 01/17/23 00:45 Mucosa - Nasopharyngeal Coronavirus COVID-19 PCR - Final 01/16/23 00:45 Mucosa - Nasopharyngeal Respiratory Panel (PCR) - Final 01/17/23 00:27 Urine, Random Legionella Antigen - Final 01/17/23 00:27 Urine, Random Streptococcus pneumoniae Antigen (M - Final 01/16/23 19:50 Nasal Secretion SARS-CoV-2 & FLU Antigen (Rapid) - Final ABG Data ABG results: ABG 01/24/23 01/26/23 05:09 05:38 Specimen Type ART ART Sample Site R Radial R Radial pH 7.31 L 7.30 L Bicarbonate Actual 30.9 H 34.5 H Total CO2 33 37 Base Excess 5 H 8 H O2 Saturation 86 L O2 % 75.0 55.0 ABG pCO2 61.1 H 70.1 H* ABG pO2 60 L Lino Test Positive Positive Respiration Rate 18 18 O2 Delivery Device Adult Vent Adult Vent Vent Mode AC AC Tidal Volume 450.0 440.0 POC PEEP 12 10 Crit Call To/Read Back Yes Blood Gas Notified Time 05:40:05 Radiography Diagnostic Testing: Radiology Impression Chest X-Ray 01/26/23 05:55 IMPRESSION: 1. Tubes are in adequate position. 2. Persistent left pulmonary infiltrates, not definitely changed. 3. Fibrotic and emphysematous changes in the lungs. Electronically Signed: Gordon Keller MD at 5:25 EDT Reading Location ID and State: [facility] / [place] , Service support , Physical Exam Narrative On ventilator support, no apparent distress S1, S2, rhythm and rate regular, mild tachycardia Lung sounds clear anteriorly Abdomen soft, positive bowel sounds Trace edema to bilateral arms and hands. No edema to bilateral lower legs or feet Indwelling Vargas catheter with clear yellow urine in bag Assessment & Plan Assessment/Plan (1) LAUREN (acute kidney injury): PLAN: - Nonoliguric acute kidney injury with presumed normal baseline serum creatinine. LAUREN multifactorial: sepsis, hypotension, A-fib with RVR with decreased renal perfusion. Noncontrast CT normal left kidney, nonobstructive calculus right kidney. Serum creatinine 1.2 on admission, improved 0.67 on 01/18, serum creatinine peaked 1.66 on 01/23 and today serum creatinine 1.34. Disproportionately elevated BUN possibly secondary to steroids, tube feeding. There is no acute indication for LOGISTICS ASSISTANT at this time. Given mild LAUREN recommend to try and avoid hypotension, intravascular volume depletion as well as nephrotoxins. -Mild hyperkalemia likely secondary to LAUREN. On Nepro tube feeding. Will give SPS 1 dose -Hypernatremia likely secondary to lack of free water intake. Free water flushes were increased. -acute combined respiratory failure/advanced COPD/pneumonia/pulmonary hypertension
[2023-01-26] MEDS: dexMEDEtomidine 400 MCG in 0.9% Normal Saline (100mL Bag) 96 ML 11.3 MCG CONT INF (15:02)
[2023-01-26] MEDS: NEPRO TUBE FEED 1,000 ML 40 ML GT (15:05)
[2023-01-26] MEDS: Sodium Polystyrene Sulfonate 15 GM/60 ML UDC PO (15:56)
[2023-01-26 16:06] LABS: Partial Thromboplast Time 78.6 Seconds (24.1-36.2)
--- NOTE | 2023-01-26 17:09 | CASEMGMT ---
Social Work Chart reviewed. Collaboration with DECAY CONTROL OPERATORMike Stover today after ICU rounds, who reports Dr. Berry is willing to complete statement of expert evaluation for patient. Spoke with Aaron BAEZ and received update on patient. Collaboration with Lesli in Risk Management of need to continue with efforts to establish decision maker for continued, and future plans of care for this patient. Determination made that [facility] can pursue efforts to find an emergency and/or temporary legal guardian for the patient. Discussed with Lesli about the 1/2 nieces who have been calling in and level of updates which can be given. Lesli also made aware there is a son somewhere, but no contact with the patient in years. This director underwriter sales and Lesli conferred with Aquilino Jansen, insurance defense attorney at [facility] [employer]. [employer] is willing to work on guardianship of this patient, pending no conflicts with said law firm. [employer] Inderjit will need the statement of expert evaluation completed by a physician in order to start court filings. Updated Denise, ICU Director, of planning. Denise will update ICU staff. To help guide staff moving forward, discussed with Denise the topic of updates to family. Due to patient being a verified full code, and per record the patient stating to NESTOR MONTILLA shortly after admission to have no emergency contacts and no one that wanted to involve for emergency contacts, nor desire to complete Advanced Directives staff do need to honor patient's wishes as much as possible. Due to lack of contact with the son in many years, and the far removed and multiple 1/2 nieces who live both in and out of state, general updates only would be the most appropriate if requested as the hospital works to establish a legal court appointed decision maker for this patient. This director underwriter sales called the patient's 1/2 niece Alicia Hwang ([phone]) to update to hospital pursuing an emergency guardian of the patient. Let Alicia know that general status updates can be provided if requested, but that staff would not call with updates. Provided this director underwriter sales's name and number if Alicia has questions for this director underwriter sales. During conversation, Alicia did express she did not want to be the person making the decisions as patient's friend Leonie Imeldalui, reportedly wanted to be the healthcare power of insurance defense attorney and this is reportedly what the patient wanted (this does not coincide though with information patient shared with staff before ventilation sedation, and there are no written directives to support this, so hospital unable to honor this reported request). Alicia made comment about giving Leonie this ability. Educated Alicia that it is not in Alicia's authority to give Leonie the POC, as this is only done by the patient, and in writing. Alicia expressed understanding. Alicia expressed it would take some pressure off to know that Alicia does not have to be the decision maker. Educated Alicia the next in line for family would be the patient's son Marcio. Educated that if the niece/nephew group were deemed as appropriate decision makers, without written directives, there would have to be a consensus of the group. Educated that a court appointed emergency and/or temporary guardian can make decisions, while the courts and/or attorneys have the ability to explore longer term needs such as if there are family willing/able/appropriate to be a longer term guardian. Alicia asked if the insurance defense attorney would be calling all of the family. Educated that uncertain whether the insurance defense attorney would do this or not, but the insurance defense attorney would be given the families' contact information to have. Reported Genealogy: Per Alicia, the patient's parents were to each other, and this was a second marriage for both. Each of patient's parents had children from their first marriages. The children from the first marriages had their own children, who are the patient's identified nieces and nephews (Alicia, Britney, Benjamin, and Terri), which is how Alicia describes herself, her siblings, and a cousin Terri to be half nieces/nephews to the patient. As far as patient's contact with son Marcio, Alicia reports to this director underwriter sales 4 years ago Alicia's found Marcio via a genealogy website, got patient in contact with Marcio. It is reported patient had not had any contact with Marcio in years, but Marcio did agree to talk to the patient 4 years ago. Alicia reports not sure what happened but at that time Marcio reportedly told the patient that wanted nothing to do with the patient. Secure Backline sent to Dr. Berry updating to have an identified libertarian willing to file for guardianship. Plan: Pursuing legal guardianship pending receipt of statement of expert evaluation. Social work continues to follow and assist. -MOSHE Flanagan
[2023-01-26] MEDS: Vancomycin HCl 750 MG in 0.9% Normal Saline (250mL Bag) 250 ML 250 MG IV (17:49)
--- NOTE | 2023-01-26 19:10 | PCM.PN.ID ---
Physical Exam Narrative On vent, intermittently on pressor. No fever Const Negative for alert Resp Effort and Inspection: mechanically ventilated Auscultation: rhonchi Cardio regular rate and regular rhythm GI soft to palpation, non-tender and non-distended Extremity General Extremity: Negative for edema Skin no rashes or lesions noted ID ID: Route of nutrition/ use of supplements: [] Nutritional Intake: [] IV Site: [] Vargas Catheter: [] Assessment & Plan Assessment/Plan (1) Septic shock: PLAN: septic shock due to pseudomonas pneumonia with end stage COPD - had been on cefepime. Hep panel neg. Repeat covid and resp pcr panel neg. Changed to meropenem 01/22. Added vanc 01/23. Now fever resolved, fiO2 better, wbc stable. Repeat cxs remain neg. Will follow, d/w nursing (2) CAP (community acquired pneumonia): QUALIFIERS: Laterality: left Lung location: upper lobe of lung Qualified Code(s): J18.9 - Pneumonia, unspecified organism
[2023-01-26 22:31] LABS: Bedside Glucose 127 mg/dL (74-106)
[2023-01-26] MEDS: dexMEDEtomidine 400 MCG in 0.9% Normal Saline (100mL Bag) 96 ML 14.5 MCG CONT INF (23:00)
[2023-01-26 23:25] LABS: Bedside Glucose 127 mg/dL (74-106)
[2023-01-27] VITALS (61 sets, daily range): BP systolic 61–164; BP diastolic 42–77; PULSE 86–128; RESP 15–25; TEMP 37.2–38.2; O2SAT 89–98; BMI 21.7
[2023-01-27] MEDS: Midazolam 2 MG/2 ML Syringe IV (01:16)
[2023-01-27] MEDS: 0.9% Saline Lock 10 ML Syringe IV ×3 (01:18→07:52)
--- NOTE | 2023-01-27 01:41 | NURSING ---
Pt became anxious during bath, moving head around and HR in the 120-150s, afib RVR. Attempted to titrate precedex with no effect. PRN versed given for agitation.
[2023-01-27] MEDS: fentaNYL drip 100 ML 12.5 MCG CONT INF ×3 (04:00→20:42)
[2023-01-27 04:16] LABS: Absolute Lymphocyte Count 0.59 X10^3/uL (0.83-4.51); Absolute Neutrophil Count 29.5 X10^3/uL (2.0-7.7); Basophil# 0.14 X10^3/uL; Basophil% 0.4 % (0-1); Eosinophil# 0.12 X10^3/uL; Eosinophils% 0.4 % (0-5); Hematocrit 35.3 % (40-54); Hemoglobin 10.5 g/dL (13.0-16.5); Lymphocyte # 0.59 X10^3/ul (0.83-4.51); Lymphocyte % 1.8 % (19-41); Mean Corp Hgb Conc 29.7 g/dL (32-36); Mean Corpuscular Hgb 28.9 pg (27.0-32.0); Mean Corpuscular Volume 97.2 fL (80-94); Mean Platelet Vol. 12.9 fl (6.2-12.0); Monocyte# 1.25 X10^3/uL; Monocyte% 3.8 % (0-10); NRBC Flagged by Analyzer 0.8 % (0-5); Neutrophil # 29.53 X10^3/uL (2.7-7.7); Neutrophil % 89.8 % (47-70); POSITIVE COUNT YES; POSITIVE DIFFERENTIAL YES; Platelet Count 161 K/mm3 (150-450); RBC Distribution Width CV 17.6 % (11.6-14.6); RBC Distribution Width SD 62.5 fl (35.1-43.9); Red Blood Count 3.63 M/mm3 (4.6-6.2); White Blood Count 32.9 K/mm3 (4.4-11.0)
[2023-01-27 04:38] LABS: Partial Thromboplast Time 78.8 Seconds (24.1-36.2)
[2023-01-27 04:40] LABS: Anion Gap -2 (5-15); BUN 100 mg/dL (7-18); BUN/Creat Ratio 74.6 RATIO (10-20); Calcium,Total 8.4 mg/dL (8.5-10.1); Chloride 123 mmol/L (98-107); Creatinine, Serum 1.34 mg/dL (0.70-1.30); EST Glomerular Filtration Rate 56 mL/min (>60); Est Glom Filt Rate - Afr Amer 68 mL/min (>60); Glucose 65 mg/dL (74-106); Potassium 5.4 mmol/L (3.5-5.1); Sodium Level 160 mmol/L (136-145)
[2023-01-27] MEDS: dexMEDEtomidine 1,000 MCG in 0.9% Normal Saline (250mL Bag) 240 ML 19.4 MCG CONT INF ×2 (04:40→18:02)
[2023-01-27 04:46] LABS: Differential Indicated SCAN CRITERIA MET
[2023-01-27] MEDS: CHLORHEXIDINE GLUC 2% CLOTH 1 EACH TOWELETTE TOPICAL (05:06)
[2023-01-27] MEDS: HEPARIN/D5w 25,000 UNITS 25,000 UNITS/250 ML IV.SOLN. 13 UNITS CONT INF ×2 (05:06→22:54)
[2023-01-27 05:13] LABS: Bedside Glucose 61 mg/dL (74-106)
[2023-01-27 05:19] LABS: Anisocytosis 1+; Macrocytosis 1+
[2023-01-27] MEDS: Digoxin 250 MCG/ML Ampul IV (05:20)
[2023-01-27] MEDS: Dextrose 50%-Water 25 GM/50 ML DISP.SYRIN IV (05:21)
--- NOTE | 2023-01-27 05:55 | RAD_ITS ---
STUDY: X-RAY CHEST REASON FOR EXAM: Male, 72 years old patient with hypoxia. TECHNIQUE: Single AP portable view of the chest. COMPARISON: Chest radiograph dated January 26, 2023. FINDINGS: Tip of endotracheal tube is below the aortic arch approximately 5 cm proximal to linda. Enteric tube is present with the distal end below the hemidiaphragm and in the right upper quadrant. The lungs are hyperexpanded. There is heterogeneous airspace disease in the left lung. There are lucencies visible in the left upper lobe process may be secondary to cavitation or pneumatoceles. There is also heterogeneous left basilar airspace consolidation and groundglass attenuation. There is also patchy right basilar groundglass attenuation. There are lucencies in the right upper lobe that may be secondary to emphysema, bleb or bulla. There appear to be small bilateral pleural effusions. Normal size heart. Normal mediastinum and arti. Normal visualized pulmonary arteries. There is atherosclerotic calcification of the aortic arch with tortuosity. There are diffuse degenerative changes of the visualized thoracic spine. Normal visualized ribs, clavicles, and shoulders. There is no demonstrated abnormality of the visualized soft tissue structures of the upper abdomen. RAD/Chest 1 View (Portable) IMPRESSION: Unchanged appearance of chest with what may represent multifocal pneumonia and/or pulmonary fibrosis and emphysema. Electronically Signed: Celina Trotter MD at 7:03 EDT ,
[2023-01-27] MEDS: Acetaminophen 650 MG/20 ML UDC GT (06:18)
[2023-01-27] MEDS: TITRATION PARAMETER CHANGE 1 EACH IV (06:36)
[2023-01-27] MEDS: Ipratropium/Albuterol Sulfate 3 ML AMPUL.NEB INHALATION ×4 (07:00→19:01)
--- NOTE | 2023-01-27 07:26 | PCM.PN.INT ---
Assessment & Plan Assessment/Plan (1) Septic shock: PLAN: Plan RECOMMENDATIONS: 1. Continue to wean FiO2 and PEEP to maintain saturations at or above 90%. 2. Continue antimicrobials. 3. Continue tube feeds as tolerated. 4. Continue free water flushes and start D5W given rising sodium. 5. Continue scheduled bronchodilators. 6. Continue Solu-Medrol once daily. 7. Continue insulin and Accu-Cheks. 8. Continue appropriate GI prophylaxis. 9. Establish legal guardianship. IMPRESSIONS: 1. Acute combined respiratory failure The patient has reported advanced a COPD which is currently in a state of exacerbation secondary to underlying pseudomonal pneumonia. The patient continues to have high ventilator requirements. The patient has been on the ventilator now for 9 days. He also has concurrent pulmonary hypertension. The patient appears to be tolerating right-sided positioning, given the extensive nature of his left-sided infiltrates. Plan to continue to wean FiO2 and PEEP as tolerated to maintain saturations at or above 90%. Plan to continue supportive measures including antimicrobials, bronchodilators and steroids. Overall, however, the patient's prognosis is quite poor. We will likely need to pursue guardianship, as the patient does not have a medical/legal POA or any family. It is highly likely that he would require tracheostomy and PEG tube placement if aggressive measures are to be continued. 2. Septic shock Secondary to left-sided pseudomonal pneumonia. Continue antibiotics as noted above. Continue vasopressor support, as needed, to maintain mean arterial pressure at or above 65 mmHg. Although the patient is overall net positive for the hospitalization, his tenuous hemodynamics make it difficult to proceed with any significant attempts at diuresis. 3. Hypernatremia/hyperchloremia/uremia Increase free water flushes as ordered and start D5W as ordered. Continue to monitor electrolyte profile daily. 4. Shock liver Slowly improving with stabilization and hemodynamic status. Continue to monitor clinically. 5. Atrial fibrillation with RVR/pulmonary hypertension with RV dysfunction/history of tobacco dependency Complicates care, management, recovery and prognosis. Continue supportive measures as noted above. Continue tube feeds as tolerated. Social work and case management are currently working to identify guardianship needs to facilitate goals of care discussion. TIME: 43 minutes of critical care time, independent of procedures, was spent addressing the patient's acute combined respiratory failure, septic shock, hypernatremia, shock liver, review of all data and collaboration with the care team. Subjective Subjective The patient was seen and examined at the bedside this morning. Events from the last 24 hours have been reviewed. The patient currently has a low-grade fever and remains on assist control mode mechanical ventilation with an FiO2 requirement of 60% and PEEP of 10. Overnight, the patient developed atrial fibrillation with RVR, which led to decompensation his hemodynamic status. Levophed had to be restarted and is currently infusing at 10 mcg/min. The patient is currently documented to be overall net +13.7 L for the hospitalization. White count remains elevated at 32,000. Sodium has increased to 160 with a potassium of 5.4, chloride of 123, bicarbonate of 39, BUN of 100 and creatinine of 1.34. I did complete a statement of expert evaluation this morning to obtain a legal guardian for the patient in order to detail a plan regarding goals of care. Objective Data Objective Data The patient's most recent lab work, culture data and imaging studies have all been personally reviewed. Surface echocardiogram demonstrated an ejection fraction of 50% with a severely dilated RV and moderate global RV systolic dysfunction. Pulmonary artery systolic pressure was estimated to be 47 mmHg. Sputum culture dated January 18 was positive for Pseudomonas. Vital Signs: Vital Signs Temp Pulse Resp BP Pulse Ox O2 Del Method O2 Flow Rate 100.5 F H 94 18 117/59 L 95 Mechanical Ventilator 75 01/27/23 07:00 01/27/23 07:00 01/27/23 07:00 01/27/23 07:00 01/27/23 07:00 01/27/23 07:00 01/21/23 21:00 FiO2 60 01/27/23 07:00 Oxygen Flow Rate (L/min) 75 Oxygen Delivery Method Mechanical Ventilator Weight: 142 lb 13.753 oz Body Mass Index (BMI) 21.7 Intake & Output: Intake and Output for Last 24 Hours 01/25/23 01/26/23 01/27/23 23:59 23:59 23:59 Intake Total 3741.06 / 3929.11 3286.68 / 3513.68 974.73 / 974.73 Output Total 1900 / 1900 2285 / 2285 450 / 450 Balance 1841.06 / 2029.11 1001.68 / 1228.68 524.73 / 524.73 Lab / Micro Data Attestation: I reviewed the patient's lab results. 01/27/23 04:03 01/27/23 04:03 Labs: Laboratory Results - last 24 hr 01/22/23 03:20: Diff Path Review Reviewed 01/23/23 04:25: Diff Path Review Reviewed 01/24/23 03:45: Diff Path Review Reviewed 01/25/23 05:50: Diff Path Review Reviewed 01/26/23 03:00: Diff Path Review Reviewed 01/26/23 09:35: APTT 68.8 H 01/26/23 11:33: POC Glucose 141 H 01/26/23 15:45: APTT 78.6 H 01/26/23 18:03: POC Glucose 127 H 01/26/23 22:59: POC Glucose 127 H 01/27/23 04:03: WBC 32.9 H*, RBC 3.63 L, Hgb 10.5 L, Hct 35.3 L, MCV 97.2 H, MCH 28.9, MCHC 29.7 L, RDW Std Deviation 62.5 H, RDW Coeff of Debra 17.6 H, Plt Count 161, MPV 12.9 H, Immature Gran % (Auto) 3.800 H, Neut % (Auto) 89.8 H, Lymph % (Auto) 1.8 L, [place] % (Auto) 3.8, Eos % (Auto) 0.4, Baso % (Auto) 0.4, Absolute Neuts (auto) 29.5 H, Absolute Lymphs (auto) 0.59 L, Nucleated RBC % 0.8, Diff Path Review May , Anisocytosis 1+, Macrocytosis 1+, APTT 78.8 H, Sodium 160 H, Potassium 5.4 H, Chloride 123 H, Carbon Dioxide 39.0 H, Anion Gap -2 L, BUN 100 H, Creatinine 1.34 H, Estim Creat Clear Calc 46.80, Est GFR (MDRD) Af Amer 68, Est GFR (MDRD) Non-Af 56 L, BUN/Creatinine Ratio 74.6 H, Glucose 65 L, Calcium 8.4 L, Magnesium 3.0 H 01/27/23 04:55: POC Glucose 61 L Micro: Microbiology 01/26/23 17:50 Sputum, Induced/Lukens Gram Stain - Preliminary 01/21/23 11:10 Blood Culture (Wb) - Right Forearm Blood Culture - Final No growth in 5 days. 01/21/23 11:00 Blood Culture (Wb) - Anticubital Left Blood Culture - Final No growth in 5 days. 01/23/23 15:40 Blood Culture (Wb) - Anticubital Left Blood Culture - Preliminary No growth in 48 hours. 01/23/23 15:20 Blood Culture (Wb) - Left Wrist Blood Culture - Preliminary No growth in 48 hours. 01/22/23 10:00 Urine Catheter - Catheter Urine Culture - Final Culture exhibits no growth. 01/18/23 11:50 Blood Culture (Wb) - Port Blood Culture - Final No growth in 5 days. 01/18/23 11:50 Blood Culture (Wb) - Left Forearm Blood Culture - Final No growth in 5 days. 01/16/23 19:43 Blood Culture (Wb) - Anticubital Left Blood Culture - Final No growth in 5 days. 01/16/23 20:14 Blood Culture (Wb) - Right Forearm Blood Culture - Final No growth in 5 days. 01/21/23 14:04 Mucosa - Nose Coronavirus COVID-19 PCR - Final 01/21/23 14:04 Mucosa - Nose Respiratory Panel (PCR) - Final 01/18/23 11:00 Sputum, Induced/Lukens Gram Stain - Final 01/18/23 11:00 Sputum, Induced/Lukens Respiratory Culture - Final Pseudomonas aeruginosa 01/17/23 22:30 Sputum, Expectorated/Coughed Gram Stain - Final 01/17/23 22:30 Sputum, Expectorated/Coughed Respiratory Culture - Final Pseudomonas aeruginosa 01/16/23 20:14 Urine, Clean Catch Urine Culture - Final Culture exhibits no growth. 01/17/23 00:45 Mucosa - Nasopharyngeal Coronavirus COVID-19 PCR - Final 01/16/23 00:45 Mucosa - Nasopharyngeal Respiratory Panel (PCR) - Final 01/17/23 00:27 Urine, Random Legionella Antigen - Final 01/17/23 00:27 Urine, Random Streptococcus pneumoniae Antigen (M - Final 01/16/23 19:50 Nasal Secretion SARS-CoV-2 & FLU Antigen (Rapid) - Final ABG Data ABG results: ABG 01/24/23 05:09 Specimen Type ART Sample Site R Radial pH 7.31 L Bicarbonate Actual 30.9 H Total CO2 33 Base Excess 5 H O2 % 75.0 ABG pCO2 61.1 H Lino Test Positive Respiration Rate 18 O2 Delivery Device Adult Vent Vent Mode AC Tidal Volume 450.0 POC PEEP 12 Radiography Diagnostic Testing: Radiology Impression Chest X-Ray 01/27/23 05:55 IMPRESSION: Unchanged appearance of chest with what may represent multifocal pneumonia and/or pulmonary fibrosis and emphysema. Electronically Signed: Celina Trotter MD at 7:03 EDT Reading Location ID and State: [facility] / [place] , Service support , Physical Exam Const Constitutional Narrative: Intubated, sedated and mechanically ventilated. Chronically ill in appearance. No ventilator dyssynchrony. HEENT normocephalic and head/scalp atraumatic Mouth: endotracheal tube in place and OG tube in place Eyes PERRL and EOMs intact bilaterally Neck supple General: trachea midline and CVC in place Chest inspection of chest normal Resp Resp Narrative: Mechanical breath sounds bilaterally. Auscultation: rhonchi and diminished lung sounds Cardio S1 normal heart sound and S2 normal heart sound Rate: tachycardic GI normal to inspection, nondistended, normoactive bowel sounds Extremity Extremity Narrative: Wrapped upper extremities General Extremity: edema; Negative for clubbing Skin no rashes or lesions noted Neuro Sensorium / Orientation: sedated on vent Charges/Coding Procedures Hospitalists Procedures: [id number] Critial Care 1st Hr
[2023-01-27] MEDS: Dextrose 5%-Water (1000mL Bag) 1,000 ML 100 ML IV ×2 (07:52→18:00)
[2023-01-27] MEDS: Chlorhexidine 15 ML PO ×2 (09:30→20:42)
[2023-01-27] MEDS: Pantoprazole Sodium 40 MG in 0.9% Normal Saline (100mL MB+) 100 ML 330 MG IV (09:30)
--- NOTE | 2023-01-27 09:30 | CASEMGMT ---
Statement of Expert Evaluation was sent to NAI Llanos and she will forward paperwork to the deputy prosecuting attorney. Pat Salazar TOP SPOTTER GISELE
[2023-01-27] MEDS: Methylprednisolone Sod Succ 40 MG/ML VIAL IV (09:31)
[2023-01-27] MEDS: Polyethylene Glycol 3350 17 GM PACKET GT (09:35)
[2023-01-27] MEDS: Senna/Docusate Sodium 1 Tablet GT (09:35)
--- NOTE | 2023-01-27 09:57 | PCM.PN.ID ---
Physical Exam Narrative Back on pressor, remains on vent, low grade fever Const no apparent distress Resp Effort and Inspection: mechanically ventilated Auscultation: rhonchi Cardio Rate: tachycardic GI soft to palpation, non-tender and non-distended Skin no rashes or lesions noted ID ID: Route of nutrition/ use of supplements: [] Nutritional Intake: [] IV Site: [] Vargas Catheter: [] Assessment & Plan Assessment/Plan (1) Septic shock: PLAN: septic shock due to pseudomonas pneumonia with end stage COPD - had been on cefepime. Hep panel neg. Repeat covid and resp pcr panel neg. Changed to meropenem 01/22. Added vanc 01/23. Repeat cxs remain neg. Wbc remains elevated, now again with rising temp this AM. Will send fungal sputum cx. Will follow, d/w nursing (2) CAP (community acquired pneumonia): QUALIFIERS: Laterality: left Lung location: upper lobe of lung Qualified Code(s): J18.9 - Pneumonia, unspecified organism
[2023-01-27] MEDS: Meropenem 1 GM in 0.9% Normal Saline (100mL MB+) 100 ML IV ×2 (09:59→21:16)
--- NOTE | 2023-01-27 10:42 | PCM.PN.REN ---
Subjective Subjective No apparent distress. Objective Data Objective Data Vital Signs: Vital Signs Temp Pulse Resp BP Pulse Ox O2 Del Method O2 Flow Rate 100.7 F H 91 18 101/60 93 Mechanical Ventilator 75 01/27/23 09:00 01/27/23 10:13 01/27/23 10:13 01/27/23 09:00 01/27/23 10:13 01/27/23 09:00 01/21/23 21:00 FiO2 80 01/27/23 10:13 Oxygen Flow Rate (L/min) 75 Oxygen Delivery Method Mechanical Ventilator Weight: 64.8 kg Body Mass Index (BMI) 21.7 Intake & Output: Intake and Output for Last 24 Hours 01/25/23 01/26/23 01/27/23 23:59 23:59 23:59 Intake Total 3741.06 / 3929.11 3286.68 / 3513.68 2104.53 / 2104.53 Output Total 1900 / 1900 2285 / 2285 450 / 450 Balance 1841.06 / 2029.11 1001.68 / 1228.68 1654.53 / 1654.53 Lab / Micro Data 01/27/23 04:03 01/27/23 04:03 Labs: Laboratory Results - last 24 hr 01/24/23 03:45: Diff Path Review Reviewed 01/25/23 05:50: Diff Path Review Reviewed 01/26/23 03:00: Diff Path Review Reviewed 01/26/23 11:33: POC Glucose 141 H 01/26/23 15:45: APTT 78.6 H 01/26/23 18:03: POC Glucose 127 H 01/26/23 22:59: POC Glucose 127 H 01/27/23 04:03: WBC 32.9 H*, RBC 3.63 L, Hgb 10.5 L, Hct 35.3 L, MCV 97.2 H, MCH 28.9, MCHC 29.7 L, RDW Std Deviation 62.5 H, RDW Coeff of Debra 17.6 H, Plt Count 161, MPV 12.9 H, Immature Gran % (Auto) 3.800 H, Neut % (Auto) 89.8 H, Lymph % (Auto) 1.8 L, [place] % (Auto) 3.8, Eos % (Auto) 0.4, Baso % (Auto) 0.4, Absolute Neuts (auto) 29.5 H, Absolute Lymphs (auto) 0.59 L, Nucleated RBC % 0.8, Diff Path Review May , Anisocytosis 1+, Macrocytosis 1+, APTT 78.8 H, Sodium 160 H, Potassium 5.4 H, Chloride 123 H, Carbon Dioxide 39.0 H, Anion Gap -2 L, BUN 100 H, Creatinine 1.34 H, Estim Creat Clear Calc 46.80, Est GFR (MDRD) Af Amer 68, Est GFR (MDRD) Non-Af 56 L, BUN/Creatinine Ratio 74.6 H, Glucose 65 L, Calcium 8.4 L, Magnesium 3.0 H 01/27/23 04:55: POC Glucose 61 L Micro: Microbiology 01/26/23 17:50 Sputum, Induced/Lukens Gram Stain - Final 01/26/23 17:50 Sputum, Induced/Lukens Respiratory Culture - Preliminary GNR Poss Pseudomonas sp 01/21/23 11:10 Blood Culture (Wb) - Right Forearm Blood Culture - Final No growth in 5 days. 01/21/23 11:00 Blood Culture (Wb) - Anticubital Left Blood Culture - Final No growth in 5 days. 01/23/23 15:40 Blood Culture (Wb) - Anticubital Left Blood Culture - Preliminary No growth in 48 hours. 01/23/23 15:20 Blood Culture (Wb) - Left Wrist Blood Culture - Preliminary No growth in 48 hours. 01/22/23 10:00 Urine Catheter - Catheter Urine Culture - Final Culture exhibits no growth. 01/18/23 11:50 Blood Culture (Wb) - Port Blood Culture - Final No growth in 5 days. 01/18/23 11:50 Blood Culture (Wb) - Left Forearm Blood Culture - Final No growth in 5 days. 01/16/23 19:43 Blood Culture (Wb) - Anticubital Left Blood Culture - Final No growth in 5 days. 01/16/23 20:14 Blood Culture (Wb) - Right Forearm Blood Culture - Final No growth in 5 days. 01/21/23 14:04 Mucosa - Nose Coronavirus COVID-19 PCR - Final 01/21/23 14:04 Mucosa - Nose Respiratory Panel (PCR) - Final 01/18/23 11:00 Sputum, Induced/Lukens Gram Stain - Final 01/18/23 11:00 Sputum, Induced/Lukens Respiratory Culture - Final Pseudomonas aeruginosa 01/17/23 22:30 Sputum, Expectorated/Coughed Gram Stain - Final 01/17/23 22:30 Sputum, Expectorated/Coughed Respiratory Culture - Final Pseudomonas aeruginosa 01/16/23 20:14 Urine, Clean Catch Urine Culture - Final Culture exhibits no growth. 01/17/23 00:45 Mucosa - Nasopharyngeal Coronavirus COVID-19 PCR - Final 01/16/23 00:45 Mucosa - Nasopharyngeal Respiratory Panel (PCR) - Final 01/17/23 00:27 Urine, Random Legionella Antigen - Final 01/17/23 00:27 Urine, Random Streptococcus pneumoniae Antigen (M - Final 01/16/23 19:50 Nasal Secretion SARS-CoV-2 & FLU Antigen (Rapid) - Final ABG Data ABG results: ABG 01/24/23 05:09 Specimen Type Cancelled Sample Site Cancelled pH Cancelled Bicarbonate Actual Cancelled Total CO2 Cancelled Base Excess Cancelled O2 Saturation Cancelled O2 % Cancelled ABG pCO2 Cancelled ABG pO2 Cancelled Lino Test Cancelled Respiration Rate Cancelled O2 Delivery Device Cancelled Liter Flow Cancelled Minute Volume Cancelled Vent Mode Cancelled Inspiratory Time Cancelled Expiratory Time Cancelled Tidal Volume Cancelled Mean Airway Pressure Cancelled POC PEEP Cancelled Peak Inspir Pressure Cancelled POC Pressure Suppt Cancelled Pressure Control Cancelled Pressure High Cancelled Pressure Low Cancelled Time High Cancelled Time Low Cancelled EPAP Cancelled IPAP Cancelled Blood Gas Comments Cancelled Crit Call To/Read Back Cancelled Blood Gas Notified Whom Cancelled Blood Gas Notified Time Cancelled Clinical Comments Cancelled Radiography Diagnostic Testing: Radiology Impression Chest X-Ray 01/27/23 05:55 IMPRESSION: Unchanged appearance of chest with what may represent multifocal pneumonia and/or pulmonary fibrosis and emphysema. Electronically Signed: Celina Trotter MD at 7:03 EDT Reading Location ID and State: [facility] / [place] , Service support , Physical Exam Narrative On ventilator support, no apparent distress S1, S2, rhythm and rate regular, mild tachycardia Lung sounds diminished Abdomen soft, positive bowel sounds Trace edema to bilateral arms and hands; wraps to b/l arms intact. No edema to bilateral lower legs or feet Indwelling Vargas catheter with clear yellow urine in bag Assessment & Plan Assessment/Plan (1) LAUREN (acute kidney injury): PLAN: - Nonoliguric acute kidney injury with presumed normal baseline serum creatinine. LAUREN multifactorial: sepsis, hypotension, A-fib with RVR with decreased renal perfusion. Noncontrast CT normal left kidney, nonobstructive calculus right kidney. Serum creatinine 1.2 on admission, improved 0.67 on 01/18, serum creatinine peaked 1.66 on 01/23, currently serum creatinine leveled off around 1.3 mg/dL. Disproportionately elevated BUN possibly secondary to steroids, tube feeding. Steroid frequency decreased, BUN peaked 103 and BUN 100 today. 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 Given mild LAUREN recommend to try and avoid hypotension, intravascular volume depletion as well as nephrotoxins. -Mild hyperkalemia likely secondary to LAUREN. On Nepro tube feeding. Will give Kayexalate 30 g today. -Hypernatremia likely secondary to lack of free water intake. Free water flushes were increased and patient started on D5W. -acute combined respiratory failure/advanced COPD/pneumonia/pulmonary hypertension
[2023-01-27] MEDS: Insulin Glargine-YFGN 100 UNIT/ML Pen 20 UNIT SC ×2 (11:53→21:18)
[2023-01-27] MEDS: Sodium Polystyrene Sulfonate 15 GM/60 ML UDC 30 GM PO (11:57)
[2023-01-27 12:13] LABS: Bedside Glucose 109 mg/dL (74-106)
--- NOTE | 2023-01-27 13:20 | PN_ITS ---
Subjective Subjective Patient seem and examined. He remains intubated and sedated. Sodium is up to 160 today. He remains on PEEP of 10 and Fio@ of 60%. he went into afib with RVR overnight, and became hypotensive. He is back on levophed. He is also hyperkalemic. Objective Data Objective Data Vital Signs: Vital Signs Temp Pulse Resp BP Pulse Ox O2 Del Method O2 Flow Rate 100.7 F H 91 18 101/60 93 Mechanical Ventilator 75 01/27/23 09:00 01/27/23 10:13 01/27/23 10:13 01/27/23 09:00 01/27/23 10:13 01/27/23 09:00 01/21/23 21:00 FiO2 80 01/27/23 10:13 Oxygen Flow Rate (L/min) 75 Oxygen Delivery Method Mechanical Ventilator Weight: 142 lb 13.753 oz Body Mass Index (BMI) 21.7 Intake & Output: Intake and Output for Last 24 Hours 01/25/23 01/26/23 01/27/23 23:59 23:59 23:59 Intake Total 3741.06 / 3929.11 3286.68 / 3513.68 2161.43 / 2161.43 Output Total 1900 / 1900 2285 / 2285 1450 / 1450 Balance 1841.06 / 2029.11 1001.68 / 1228.68 711.43 / 711.43 Lab / Micro Data 01/27/23 04:03 01/27/23 04:03 Labs: Laboratory Results - last 24 hr 01/24/23 03:45: Diff Path Review Reviewed 01/25/23 05:50: Diff Path Review Reviewed 01/26/23 03:00: Diff Path Review Reviewed 01/26/23 15:45: APTT 78.6 H 01/26/23 18:03: POC Glucose 127 H 01/26/23 22:59: POC Glucose 127 H 01/27/23 04:03: WBC 32.9 H*, RBC 3.63 L, Hgb 10.5 L, Hct 35.3 L, MCV 97.2 H, MCH 28.9, MCHC 29.7 L, RDW Std Deviation 62.5 H, RDW Coeff of Debra 17.6 H, Plt Count 161, MPV 12.9 H, Immature Gran % (Auto) 3.800 H, Neut % (Auto) 89.8 H, Lymph % (Auto) 1.8 L, [place] % (Auto) 3.8, Eos % (Auto) 0.4, Baso % (Auto) 0.4, Absolute Neuts (auto) 29.5 H, Absolute Lymphs (auto) 0.59 L, Nucleated RBC % 0.8, Diff Path Review May , Anisocytosis 1+, Macrocytosis 1+, APTT 78.8 H, Sodium 160 H, Potassium 5.4 H, Chloride 123 H, Carbon Dioxide 39.0 H, Anion Gap -2 L, BUN 100 H, Creatinine 1.34 H, Estim Creat Clear Calc 46.80, Est GFR (MDRD) Af Amer 68, Est GFR (MDRD) Non-Af 56 L, BUN/Creatinine Ratio 74.6 H, Glucose 65 L, Calcium 8.4 L, Magnesium 3.0 H 01/27/23 04:55: POC Glucose 61 L 01/27/23 11:53: POC Glucose 109 H Micro: Microbiology 01/26/23 17:50 Sputum, Induced/Lukens Gram Stain - Final 01/26/23 17:50 Sputum, Induced/Lukens Respiratory Culture - Preliminary GNR Poss Pseudomonas sp 01/21/23 11:10 Blood Culture (Wb) - Right Forearm Blood Culture - Final No growth in 5 days. 01/21/23 11:00 Blood Culture (Wb) - Anticubital Left Blood Culture - Final No growth in 5 days. 01/23/23 15:40 Blood Culture (Wb) - Anticubital Left Blood Culture - Preliminary No growth in 48 hours. 01/23/23 15:20 Blood Culture (Wb) - Left Wrist Blood Culture - Preliminary No growth in 48 hours. 01/22/23 10:00 Urine Catheter - Catheter Urine Culture - Final Culture exhibits no growth. 01/18/23 11:50 Blood Culture (Wb) - Port Blood Culture - Final No growth in 5 days. 01/18/23 11:50 Blood Culture (Wb) - Left Forearm Blood Culture - Final No growth in 5 days. 01/16/23 19:43 Blood Culture (Wb) - Anticubital Left Blood Culture - Final No growth in 5 days. 01/16/23 20:14 Blood Culture (Wb) - Right Forearm Blood Culture - Final No growth in 5 days. 01/21/23 14:04 Mucosa - Nose Coronavirus COVID-19 PCR - Final 01/21/23 14:04 Mucosa - Nose Respiratory Panel (PCR) - Final 01/18/23 11:00 Sputum, Induced/Lukens Gram Stain - Final 01/18/23 11:00 Sputum, Induced/Lukens Respiratory Culture - Final Pseudomonas aeruginosa 01/17/23 22:30 Sputum, Expectorated/Coughed Gram Stain - Final 01/17/23 22:30 Sputum, Expectorated/Coughed Respiratory Culture - Final Pseudomonas aeruginosa 01/16/23 20:14 Urine, Clean Catch Urine Culture - Final Culture exhibits no growth. 01/17/23 00:45 Mucosa - Nasopharyngeal Coronavirus COVID-19 PCR - Final 01/16/23 00:45 Mucosa - Nasopharyngeal Respiratory Panel (PCR) - Final 01/17/23 00:27 Urine, Random Legionella Antigen - Final 01/17/23 00:27 Urine, Random Streptococcus pneumoniae Antigen (M - Final 01/16/23 19:50 Nasal Secretion SARS-CoV-2 & FLU Antigen (Rapid) - Final ABG Data ABG results: ABG 01/24/23 05:09 Specimen Type Cancelled Sample Site Cancelled pH Cancelled Bicarbonate Actual Cancelled Total CO2 Cancelled Base Excess Cancelled O2 Saturation Cancelled O2 % Cancelled ABG pCO2 Cancelled ABG pO2 Cancelled Lino Test Cancelled Respiration Rate Cancelled O2 Delivery Device Cancelled Liter Flow Cancelled Minute Volume Cancelled Vent Mode Cancelled Inspiratory Time Cancelled Expiratory Time Cancelled Tidal Volume Cancelled Mean Airway Pressure Cancelled POC PEEP Cancelled Peak Inspir Pressure Cancelled POC Pressure Suppt Cancelled Pressure Control Cancelled Pressure High Cancelled Pressure Low Cancelled Time High Cancelled Time Low Cancelled EPAP Cancelled IPAP Cancelled Blood Gas Comments Cancelled Crit Call To/Read Back Cancelled Blood Gas Notified Whom Cancelled Blood Gas Notified Time Cancelled Clinical Comments Cancelled Radiography Diagnostic Testing: Radiology Impression Chest X-Ray 01/27/23 05:55 IMPRESSION: Unchanged appearance of chest with what may represent multifocal pneumonia and/or pulmonary fibrosis and emphysema. Electronically Signed: Celina Trotter MD at 7:03 EDT , Physical Exam Const Negative for healthy appearing Constitutional Narrative: intubated, sedated, RASS score remai -4 HEENT normocephalic and head/scalp atraumatic Mouth: dry mucous membranes Eyes PERRL Neck no lymphadenopathy Lymph Lymphatic: no lymphadenopathy noted and no lymphedema noted Resp No normal respiratory effort Resp Narrative: intubated, sedated, diminished breath sounds bibasally, no wheezes or crackles. tachypneic Auscultation: rhonchi; Negative for rales or wheezes Cardio regular rhythm, S1 normal heart sound, S2 normal heart sound, no murmurs, no rub, no gallops and no clicks Cardio Narrative: Mild tachycardia with regular rhythm Rate: tachycardic GI normal to inspection, nondistended, normoactive bowel sounds, soft to palpation and non-tender Extremity normal capillary refill and no clubbing, cyanosis or edema Extremity Narrative: Pedal pulses are 2+, no significant lower extremity edema however left upper extremity is edematous with 2+ pitting Skin Skin Narrative: Left IJ in place-clean and dry General Skin Exam: no breakdown Neuro Neuro Narrative: sedated, RASS score is -4 Psych Psych Narrative: intubated, and sedated. RASS score is -4 Assessment & Plan Assessment/Plan (1) LAUREN (acute kidney injury): (2) Septic shock: (3) Severe malnutrition: (4) RVF (right ventricular failure): PLAN: Plan #Acute hypoxic respiratory failure due to COPD and pneumonia * remains intubated. Remains tachypneic and tachycardic * critical care on board * has been requiring levophed intermittently also * blood and sputum cultures growing Pseudomonas, and he is on IV vancomycin and IV meropenem. * continue broad spectrum antibiotics * continue pulmonary toileting * #Septic shock * due to pneumonia * on levophed today. titrate to maintain MAP >65 * on vancomycin and meropenem as listed above * WBC still remains elevated and is 32.9 today * ID on board * #Shock liver: * Amiodarone was discontinued due to elevation in AST and ALT. * ALT and AST are trending downwards. * Liver ultrasound showed fatty infiltration with sludge in the gallbladder minimal. * Cholecystic fluid with mild ascites. * On lactulose due to mildly elevated ammonia * #Hypernatremia: sodium is up to 160 today. Started on D5W infusion today. Free water flushes increased. Trend sodium #Hyperkalemia: K is still 5.4. nephrology consulted o/a of hypernatremia and hy pokalemia #LAUREN: * Improving. Creatinine remains 1.34 today. * hb has remained stable and is 10.5 today. * #Elevated digoxin level: Digoxin discontinued. #New onset A-fib with RVR. * wenit into afib with RVR yesterday. * amiodarone dc'd due to shock liver * still going in and out of afib, likely driven by underlying infection. * #Pulmonary nodules: Will need further work-up after discharge. #Type 2 diabetes mellitus: Has A1c of 6.1. Insulin sliding scale. Accu-Cheks every 6 hourly. Nutrition: On tube feeds DVT prophylaxis: On heparin drip o/a of afib. Prognosis: * Poor. There is still difficulty getting in touch with his only living relative who is his son in [place]. Risk management on board and guardian been appointed for patient. Charges/Coding Visit Charges Inpatient E&M: 95711 Subs Hosp L3
[2023-01-27 15:17] LABS: Pathologist Review Reviewed
[2023-01-27] MEDS: NEPRO TUBE FEED 1,000 ML 40 ML GT (16:29)
[2023-01-27 17:42] LABS: Vancomycin, Trough Level 17.1 ug/mL (5.0-15.0)
[2023-01-27] MEDS: Vancomycin HCl 750 MG in 0.9% Normal Saline (250mL Bag) 250 ML 250 MG IV (17:58)
--- NOTE | 2023-01-27 18:00 | CASEMGMT ---
Social Work Statement of expert evaluation sent to Financial Institution Branch Manager Aquilino Jansen at [facility]. Provided all known family contact names/numbers/emails that are known. Financial Institution Branch Manager Inderjit will work on filing emergency guardianship. This blog writer conferred with the pending guardian, on thoughts regarding continued visitors; visitors who have been visiting throughout the stay. While corporate associate attorney is not yet the guardian, would not see an issue with visitors who have been visiting. Conferred with Denise Martinez ICU Director who will update the staff about okay for visitors; continue with only general updates if asked. Received call from patient's niece Alicia Eri who provided contact information for the niece named Terri Avelar. Alicia also provided patient's middle name as Lino. Updated Financial Institution Branch Manager Inderjit. Called Leonie Evindelfino, who has been a regular visitor to the patient, and is the niece of the patient's longtime partner (now ). Updated Leonie she may visit again, and reasoning behind visits being put on hold yesterday. Leonie in support of guardian for patient to help decision making move along. Loenie reports patient has reportedly expressed desire to be cremated and buried at [facility]. Supportive listening offered. Plan: Guardianship is being pursued. Once this is established, then next steps in plans of care can start to be looked at. SW actively following. -MOSHE Flanagan
[2023-01-27] MEDS: 0.9% Normal Saline (250mL Bag) 250 ML 15 ML IV (18:02)
[2023-01-27 18:25] LABS: Bedside Glucose 197 mg/dL (74-106)
[2023-01-27] MEDS: Insulin Lispro 100 UNIT/ML INSULN.PEN SC ×2 (18:42→22:48)
[2023-01-27] MEDS: Glycerin/Hypromellose/PEG400 15 ml Bottle 2 DRP EACH EYE (20:42)
--- NOTE | 2023-01-27 21:15 | PCM.RX.CS ---
Consult Antibiotic Management Pharmacy has been consulted to manage selected antiobiotic: Vancomycin Type of Intervention Type of Consult: Follow-up Suspected Infection Suspected Infection: Sepsis and Pneumonia Labs Labs: Sodium 160 mmol/L (136-145) H 01/27/23 04:03 Potassium 5.4 mmol/L (3.5-5.1) H 01/27/23 04:03 Chloride 123 mmol/L (98-107) H 01/27/23 04:03 Carbon Dioxide 39.0 mmol/L (21.0-32.0) H 01/27/23 04:03 Anion Gap -2 (5-15) L 01/27/23 04:03 BUN 100 mg/dL (7-18) H 01/27/23 04:03 Creatinine 1.34 mg/dL (0.70-1.30) H 01/27/23 04:03 Est GFR (MDRD) Af Amer 68 mL/min (>60) 01/27/23 04:03 Est GFR (MDRD) Non-Af 56 mL/min (>60) L 01/27/23 04:03 BUN/Creatinine Ratio 74.6 RATIO (10-20) H 01/27/23 04:03 Glucose 65 mg/dL (74-106) L 01/27/23 04:03 Vancomycin Trough 17.1 ug/mL (5.0-15.0) H 01/27/23 16:35 Microbiology Microbiology: Microbiology 01/26/23 17:50 Sputum, Induced/Lukens Gram Stain - Final 01/26/23 17:50 Sputum, Induced/Lukens Respiratory Culture - Preliminary GNR Poss Pseudomonas sp 01/21/23 11:10 Blood Culture (Wb) - Right Forearm Blood Culture - Final No growth in 5 days. 01/21/23 11:00 Blood Culture (Wb) - Anticubital Left Blood Culture - Final No growth in 5 days. 01/23/23 15:40 Blood Culture (Wb) - Anticubital Left Blood Culture - Preliminary No growth in 48 hours. 01/23/23 15:20 Blood Culture (Wb) - Left Wrist Blood Culture - Preliminary No growth in 48 hours. 01/22/23 10:00 Urine Catheter - Catheter Urine Culture - Final Culture exhibits no growth. 01/18/23 11:50 Blood Culture (Wb) - Port Blood Culture - Final No growth in 5 days. 01/18/23 11:50 Blood Culture (Wb) - Left Forearm Blood Culture - Final No growth in 5 days. 01/16/23 19:43 Blood Culture (Wb) - Anticubital Left Blood Culture - Final No growth in 5 days. 01/16/23 20:14 Blood Culture (Wb) - Right Forearm Blood Culture - Final No growth in 5 days. 01/21/23 14:04 Mucosa - Nose Coronavirus COVID-19 PCR - Final 01/21/23 14:04 Mucosa - Nose Respiratory Panel (PCR) - Final 01/18/23 11:00 Sputum, Induced/Lukens Gram Stain - Final 01/18/23 11:00 Sputum, Induced/Lukens Respiratory Culture - Final Pseudomonas aeruginosa 01/17/23 22:30 Sputum, Expectorated/Coughed Gram Stain - Final 01/17/23 22:30 Sputum, Expectorated/Coughed Respiratory Culture - Final Pseudomonas aeruginosa 01/16/23 20:14 Urine, Clean Catch Urine Culture - Final Culture exhibits no growth. 01/17/23 00:45 Mucosa - Nasopharyngeal Coronavirus COVID-19 PCR - Final 01/16/23 00:45 Mucosa - Nasopharyngeal Respiratory Panel (PCR) - Final 01/17/23 00:27 Urine, Random Legionella Antigen - Final 01/17/23 00:27 Urine, Random Streptococcus pneumoniae Antigen (M - Final 01/16/23 19:50 Nasal Secretion SARS-CoV-2 & FLU Antigen (Rapid) - Final Goal Trough Goal Trough: 15-20 mcg/mL Pharmacy Plan for Drug Dosing Pharmacy Plan for Drug Dosing: VANCOMYCIN LEVEL RECEIVED Current Vancomycin Dose: 750mg q24h (at 1700) Number of Doses Received: Vancomycin Level: 17.1 Hours Since Last Dose: 23 Renal Function: SrCr 1.34 Renal Function Trend: stable Lab/Micro: Vancomycin Plan/Comments: resulted trough of 17.1 is within ordered goal trough of 15-20. recommend continuing current dose of 750mg q24h. Trough 01/29/23 at 1630 Pending Level: 01/29/23 at 1630 Pharmacy Service will continue to monitor and adjust dosing as required. Follow-Up Labs Follow-Up Labs: Trough: Vancomycin (01/29/23 at 1630)
[2023-01-27 21:43] LABS: Bedside Glucose 186 mg/dL (74-106)
[2023-01-27] MEDS: Norepinephrine 8 MG in 0.9% Normal Saline (250mL Bag) 242 ML 3.8 MG CONT INF (22:53)
[2023-01-27 23:16] LABS: Bedside Glucose 202 mg/dL (74-106)
[2023-01-28] VITALS (39 sets, daily range): BP systolic 92–166; BP diastolic 44–94; PULSE 83–122; RESP 17–30; TEMP 37.4–38.4; O2SAT 83–95; BMI 23.0
[2023-01-28] MEDS: CHLORHEXIDINE GLUC 2% CLOTH 1 EACH TOWELETTE TOPICAL (03:53)
[2023-01-28] MEDS: Dextrose 5%-Water (1000mL Bag) 1,000 ML 100 ML IV ×3 (03:54→21:21)
[2023-01-28] MEDS: 0.9% Saline Lock 10 ML Syringe IV ×2 (04:03→17:49)
--- NOTE | 2023-01-28 04:29 | NURSING ---
Pt's sedation weaned down to better assess neurological function. At minimal sedation, pt still does not have a cough/gag reflex, pupils are fixed and pinpoint. Pt does possess corneal reflexes. Pt does not make any purposeful movements or follow commands. Pt moves bilateral feet back and forth, but is unable to follow direction to squeeze hands or move extremities on command. Pt is breathing above the ventilator's set rate.
[2023-01-28 04:36] LABS: Partial Thromboplast Time 81.1 Seconds (24.1-36.2)
[2023-01-28 05:07] LABS: Absolute Lymphocyte Count 0.64 X10^3/uL (0.83-4.51); Absolute Neutrophil Count 26.9 X10^3/uL (2.0-7.7); Basophil# 0.09 X10^3/uL; Basophil% 0.3 % (0-1); Differential Indicated SCAN CRITERIA MET; Eosinophils% 0.3 % (0-5); Hematocrit 34.3 % (40-54); Hemoglobin 10.2 g/dL (13.0-16.5); Lymphocyte # 0.64 X10^3/ul (0.83-4.51); Lymphocyte % 2.2 % (19-41); Mean Corp Hgb Conc 29.7 g/dL (32-36); Mean Corpuscular Hgb 28.9 pg (27.0-32.0); Mean Corpuscular Volume 97.2 fL (80-94); Monocyte# 1.29 X10^3/uL; Monocyte% 4.4 % (0-10); NRBC Flagged by Analyzer 0.2 % (0-5); Neutrophil # 26.87 X10^3/uL (2.7-7.7); Neutrophil % 90.6 % (47-70); POSITIVE DIFFERENTIAL YES; Platelet Count 132 K/mm3 (150-450); RBC Distribution Width CV 17.1 % (11.6-14.6); RBC Distribution Width SD 60.7 fl (35.1-43.9); Red Blood Count 3.53 M/mm3 (4.6-6.2); White Blood Count 29.6 K/mm3 (4.4-11.0)
[2023-01-28] MEDS: TITRATION PARAMETER CHANGE 1 EACH IV (05:21)
[2023-01-28 05:51] LABS: Anisocytosis 1+; Macrocytosis 1+; Platelet Estimate SLT DEC (ADEQ)
[2023-01-28] MEDS: dexMEDEtomidine 1,000 MCG in 0.9% Normal Saline (250mL Bag) 240 ML 20.6 MCG CONT INF ×2 (06:07→20:18)
[2023-01-28] MEDS: fentaNYL drip 100 ML 12.5 MCG CONT INF ×2 (06:13→16:26)
[2023-01-28 06:35] LABS: Bedside Glucose 142 mg/dL (74-106)
[2023-01-28] MEDS: Ipratropium/Albuterol Sulfate 3 ML AMPUL.NEB INHALATION ×5 (07:28→22:47)
[2023-01-28 07:30] LABS: Anion Gap -2 (5-15); BUN 87 mg/dL (7-18); BUN/Creat Ratio 71.9 RATIO (10-20); Calcium,Total 8.1 mg/dL (8.5-10.1); Chloride 117 mmol/L (98-107); Creatinine, Serum 1.21 mg/dL (0.70-1.30); EST Glomerular Filtration Rate 63 mL/min (>60); Est Glom Filt Rate - Afr Amer 76 mL/min (>60); Estimated Creatinine Clearance 54.96 ml/min; Glucose 157 mg/dL (74-106); Magnesium 2.5 mg/dL (1.6-2.6); Potassium 5.1 mmol/L (3.5-5.1); Sodium Level 153 mmol/L (136-145)
--- NOTE | 2023-01-28 09:58 | PN_ITS ---
Subjective Subjective Patient seen and examined. He remains intubated and sedated. FiO2 is 80% and PEEP remains 10. WBC is 29.6 and sodium is down to 153. Objective Data Objective Data Vital Signs: Vital Signs Temp Pulse Resp BP Pulse Ox O2 Del Method O2 Flow Rate 100 F H 94 19 H 97/47 L 91 Mechanical Ventilator 75 01/28/23 07:00 01/28/23 07:25 01/28/23 07:25 01/28/23 07:00 01/28/23 07:25 01/28/23 08:00 01/21/23 21:00 FiO2 80 01/28/23 08:00 Oxygen Flow Rate (L/min) 75 Oxygen Delivery Method Mechanical Ventilator Weight: 151 lb 3.794 oz Body Mass Index (BMI) 23.0 Intake & Output: Intake and Output for Last 24 Hours 01/26/23 01/27/23 01/28/23 23:59 23:59 23:59 Intake Total 3286.68 / 3513.68 4985.98 / 5021.68 1443.09 / 1443.09 Output Total 2285 / 2285 2900 / 2900 750 / 750 Balance 1001.68 / 1228.68 2085.98 / 2121.68 693.09 / 693.09 Lab / Micro Data 01/28/23 04:00 01/28/23 04:00 Labs: Laboratory Results - last 24 hr 01/27/23 04:00: WBC Cancelled, Corrected WBC Cancelled, RBC Cancelled, Hgb Cancelled, Hct Cancelled, MCV Cancelled, MCH Cancelled, MCHC Cancelled, RDW Std Deviation Cancelled, RDW Coeff of Debra Cancelled, Plt Count Cancelled, MPV Cancelled, Immature Gran % (Auto) Cancelled, Neut % (Auto) Cancelled, Lymph % (Auto) Cancelled, Bucks % (Auto) Cancelled, Eos % (Auto) Cancelled, Baso % (Auto) Cancelled, Absolute Neuts (auto) Cancelled, Absolute Lymphs (auto) Cancelled, Total Counted Cancelled, Neutrophils % (Manual) Cancelled, Band Neutrophils % Cancelled, Lymphocytes % (Manual) Cancelled, Monocytes % (Manual) Cancelled, Eosinophils % (Manual) Cancelled, Basophils % (Manual) Cancelled, Metamyelocytes % Cancelled, Myelocytes % Cancelled, Promyelocytes % Cancelled, Blast Cells % Cancelled, Plasma Cell % (Manual) Cancelled, Other Cells % Cancelled, Nucleated RBC % Cancelled, Nucleated RBCs/100 WBC Cancelled, Differential Comment Cancelled, Diff Path Review Cancelled, Hypersegmented Neuts Cancelled, Atypical Lymphocytes Cancelled, Reactive Lymphocytes Cancelled, Smudge Cells Cancelled, Toxic Granulation Cancelled, Toxic Vacuolation Cancelled, Dohle Bodies Cancelled, Terry Rods Cancelled, Platelet Estimate Cancelled, Plt Morphology Comment Cancelled, RBC Morphology Cancelled 01/27/23 04:00: RBC Morphology Cancelled, Polychromasia Cancelled, Hypochromasia Cancelled, Poikilocytosis Cancelled, Basophilic Stippling Cancelled, Anisocytosis Cancelled, Microcytosis Cancelled, Macrocytosis Cancelled, Spherocytes Cancelled, Sickle Cells Cancelled, Target Cells Cancelled, Tear Drop Cells Cancelled, Ovalocytes Cancelled, Stomatocytes Cancelled, [place] Bodies Cancelled, [place] Cells Cancelled, Bite Cells Cancelled, Crenated Cell Cancelled, Acanthocytes (Spur) Cancelled, Rouleaux Cancelled, Schistocytes Cancelled, Sodium Cancelled, Potassium Cancelled, Chloride Cancelled, Carbon Dioxide Cancelled, Anion Gap Cancelled, BUN Cancelled, Creatinine Cancelled, Estim Creat Clear Calc Cancelled, Est GFR (MDRD) Af Amer Cancelled, Est GFR (MDRD) Non-Af Cancelled, BUN/Creatinine Ratio Cancelled, Glucose Cancelled, Calcium Cancelled, Magnesium Cancelled 01/27/23 04:03: MCV 97.2 H, MCHC 29.7 L, Diff Path Review Reviewed 01/27/23 11:53: POC Glucose 109 H 01/27/23 16:35: Vancomycin Trough 17.1 H 01/27/23 18:07: POC Glucose 197 H 01/27/23 21:15: POC Glucose 186 H 01/27/23 22:48: POC Glucose 202 H 01/28/23 04:00: WBC 29.6 H, RBC 3.53 L, Hgb 10.2 L, Hct 34.3 L, MCV 97.2 H, MCH 28.9, MCHC 29.7 L, RDW Std Deviation 60.7 H, RDW Coeff of Debra 17.1 H, Plt Count 132 L, MPV 14.0 H, Immature Gran % (Auto) 2.200 H, Neut % (Auto) 90.6 H, Lymph % (Auto) 2.2 L, Bucks % (Auto) 4.4, Eos % (Auto) 0.3, Baso % (Auto) 0.3, Absolute Neuts (auto) 26.9 H, Absolute Lymphs (auto) 0.64 L, Nucleated RBC % 0.2, Platelet Estimate SLT DEC, Anisocytosis 1+, Macrocytosis 1+, APTT 81.1 H, Sodium 153 H, Potassium 5.1, Chloride 117 H, Carbon Dioxide 38.0 H, Anion Gap -2 L, BUN 87 H, Creatinine 1.21, Estim Creat Clear Calc 54.96, Est GFR (MDRD) Af Amer 76, Est GFR (MDRD) Non-Af 63, BUN/Creatinine Ratio 71.9 H, Glucose 157 H, Calcium 8.1 L, Magnesium 2.5 01/28/23 06:17: POC Glucose 142 H Micro: Microbiology 01/26/23 17:50 Sputum, Induced/Lukens Gram Stain - Final 01/26/23 17:50 Sputum, Induced/Lukens Respiratory Culture - Final Pseudomonas aeruginosa 01/21/23 11:10 Blood Culture (Wb) - Right Forearm Blood Culture - Final No growth in 5 days. 01/21/23 11:00 Blood Culture (Wb) - Anticubital Left Blood Culture - Final No growth in 5 days. 01/23/23 15:40 Blood Culture (Wb) - Anticubital Left Blood Culture - Preliminary No growth in 48 hours. 01/23/23 15:20 Blood Culture (Wb) - Left Wrist Blood Culture - Preliminary No growth in 48 hours. 01/22/23 10:00 Urine Catheter - Catheter Urine Culture - Final Culture exhibits no growth. 01/18/23 11:50 Blood Culture (Wb) - Port Blood Culture - Final No growth in 5 days. 01/18/23 11:50 Blood Culture (Wb) - Left Forearm Blood Culture - Final No growth in 5 days. 01/16/23 19:43 Blood Culture (Wb) - Anticubital Left Blood Culture - Final No growth in 5 days. 01/16/23 20:14 Blood Culture (Wb) - Right Forearm Blood Culture - Final No growth in 5 days. 01/21/23 14:04 Mucosa - Nose Coronavirus COVID-19 PCR - Final 01/21/23 14:04 Mucosa - Nose Respiratory Panel (PCR) - Final 01/18/23 11:00 Sputum, Induced/Lukens Gram Stain - Final 01/18/23 11:00 Sputum, Induced/Lukens Respiratory Culture - Final Pseudomonas aeruginosa 01/17/23 22:30 Sputum, Expectorated/Coughed Gram Stain - Final 01/17/23 22:30 Sputum, Expectorated/Coughed Respiratory Culture - Final Pseudomonas aeruginosa 01/16/23 20:14 Urine, Clean Catch Urine Culture - Final Culture exhibits no growth. 01/17/23 00:45 Mucosa - Nasopharyngeal Coronavirus COVID-19 PCR - Final 01/16/23 00:45 Mucosa - Nasopharyngeal Respiratory Panel (PCR) - Final 01/17/23 00:27 Urine, Random Legionella Antigen - Final 01/17/23 00:27 Urine, Random Streptococcus pneumoniae Antigen (M - Final 01/16/23 19:50 Nasal Secretion SARS-CoV-2 & FLU Antigen (Rapid) - Final Physical Exam Const Constitutional Narrative: intubated, sedated, RASS score remai -4 HEENT normocephalic and head/scalp atraumatic Mouth: dry mucous membranes Eyes PERRL Neck no lymphadenopathy Lymph Lymphatic: no lymphadenopathy noted and no lymphedema noted Resp No normal respiratory effort, no retractions and no use of accessory muscles Resp Narrative: intubated, sedated, diminished breath sounds bibasally, no wheezes or crackles. tachypneic Auscultation: rhonchi; Negative for rales or wheezes Cardio regular rate, regular rhythm, S1 normal heart sound, S2 normal heart sound, no murmurs, no rub, no gallops and no clicks Cardio Narrative: Mild tachycardia with regular rhythm Rate: tachycardic GI normal to inspection, nondistended, normoactive bowel sounds, soft to palpation and non-tender Extremity normal capillary refill and no clubbing, cyanosis or edema Extremity Narrative: Pedal pulses are 2+, no significant lower extremity edema however left upper extremity is edematous with 2+ pitting Skin Skin Narrative: Left IJ in place-clean and dry General Skin Exam: no breakdown Neuro Neuro Narrative: sedated, RASS score is -4 Psych Psych Narrative: intubated, and sedated. RASS score is -4 Assessment & Plan Assessment/Plan (1) LAUREN (acute kidney injury): (2) Septic shock: (3) Severe malnutrition: (4) RVF (right ventricular failure): PLAN: Plan #Acute hypoxic respiratory failure due to COPD and pneumonia * remains intubated. Remains tachypneic and tachycardic * critical care on board * on levophed * still on IV vancomycin and IV meropenem. * continue pulmonary toileting * #Septic shock * due to pneumonia * remains on levophed. titrate to maintain MAP >65 * on vancomycin and meropenem as listed above * WBC still remains elevated but is down slightly to 29.6 today * ID on board * #Shock liver: * Amiodarone was discontinued due to elevation in AST and ALT. * ALT and AST are trending downwards. * Liver ultrasound showed fatty infiltration with sludge in the gallbladder minimal. * Cholecystic fluid with mild ascites. * On lactulose due to mildly elevated ammonia * #Hypernatremia:sodium is down to 153 today from 160 yesterday after D5W was started yesterday. Continue D5W infusion #Hyperkalemia: K is down to 5.1 today. Will continue to monitor. #LAUREN: * resolved. cr is down to 1.21 today * * #Anemia * hb has remained stable and is 10.5 today. #Elevated digoxin level: Digoxin discontinued. #New onset A-fib with RVR. * HR still not very well controlled. Was 106 at time of my review. * still going in and out of afib, likely driven by underlying infection. * #Pulmonary nodules: Will need further work-up after discharge. #Type 2 diabetes mellitus: Has A1c of 6.1. Insulin sliding scale. Accu-Cheks every 6 hourly. Nutrition: On tube feeds DVT prophylaxis: On heparin drip o/a of afib. Prognosis: * Poor. Risk management on board and guardianship process has been initiated. Charges/Coding Visit Charges Inpatient E&M: 98118 Subs Hosp L3
[2023-01-28] MEDS: Chlorhexidine 15 ML PO ×2 (10:26→19:43)
[2023-01-28] MEDS: Pantoprazole Sodium 40 MG in 0.9% Normal Saline (100mL MB+) 100 ML 330 MG IV (10:29)
[2023-01-28] MEDS: Methylprednisolone Sod Succ 40 MG/ML VIAL IV (10:32)
[2023-01-28] MEDS: Senna/Docusate Sodium 1 Tablet GT (10:43)
[2023-01-28] MEDS: Polyethylene Glycol 3350 17 GM PACKET GT (10:43)
--- NOTE | 2023-01-28 10:59 | PCM.PN.INT ---
Assessment & Plan Assessment/Plan (1) Septic shock: PLAN: Plan RECOMMENDATIONS: 1. Continue to wean FiO2 and PEEP to maintain saturations at or above 90%. 2. Continue antimicrobials. 3. Continue tube feeds as tolerated. 4. Continue free water flushes and D5W. Continue to monitor daily sodium levels. 5. Continue scheduled bronchodilators. 6. Continue Solu-Medrol once daily. 7. Continue insulin and Accu-Cheks. 8. Continue appropriate GI prophylaxis. 9. Obtain follow-up ABG this morning. 10. Attempt gentle diuresis, despite vasopressor requirement. 11. Continue Levophed to maintain a mean arterial pressure at or above 65 mmHg. IMPRESSIONS: 1. Acute combined respiratory failure The patient has reported advanced a COPD which is currently in a state of exacerbation secondary to underlying pseudomonal pneumonia. The patient continues to have high ventilator requirements. The patient has been on the ventilator now for 9 days. He also has concurrent pulmonary hypertension. The patient appears to be tolerating right-sided positioning, given the extensive nature of his left-sided infiltrates. Plan to continue to wean FiO2 and PEEP as tolerated to maintain saturations at or above 90%. Plan to continue supportive measures including antimicrobials, bronchodilators and steroids. Overall, however, the patient's prognosis is quite poor. Legal guardianship was able to be established early this morning. I did have a very erendira discussion with the patient's legal guardian regarding prognosis and goals of care. Plan at this time to transition the patient to DNR CCA. There are plans for a court hearing on Thursday. If there is no significant improvement clinically by that time, consideration will be given to palliative withdrawal of life support and initiation of comfort care measures. At this time, the patient is too clinically unstable to be considered for tracheostomy and PEG tube placement. Plan to administer a small amount of diuretics today, given the patient's hypervolemia. 2. Septic shock Secondary to left-sided pseudomonal pneumonia. Continue antibiotics as noted above. Continue vasopressor support, as needed, to maintain mean arterial pressure at or above 65 mmHg. Although the patient is overall net positive for the hospitalization, his tenuous hemodynamics make it difficult to proceed with any significant attempts at diuresis. 3. Hypernatremia/hyperchloremia/uremia Continue free water flushes and D5W as ordered. Continue to monitor electrolyte profile daily. 4. Shock liver Slowly improving with stabilization and hemodynamic status. Continue to monitor clinically. 5. Atrial fibrillation with RVR/pulmonary hypertension with RV dysfunction/history of tobacco dependency Complicates care, management, recovery and prognosis. Continue supportive measures as noted above. Continue tube feeds as tolerated. Continue goals of care discussion with the patient's legal guardian. CODE STATUS: DNR CCA, following discussion with the patient's legal guardian this morning. TIME: 40 minutes of critical care time, independent of procedures, was spent addressing the patient's acute combined respiratory failure, septic shock, hypernatremia, shock liver, review of all data and collaboration with the care team. Subjective Subjective The patient was seen and examined at the bedside this morning. Events from the last 24 hours have been reviewed. The patient continues to require high ventilatory support with an FiO2 of 80% and PEEP of 10. The patient remains on low-dose Levophed at 5 mcg/min to maintain hemodynamic stability. He is overall net +16 L for the hospitalization. White count remains elevated at 30,000. Sodium has come down to 153. The patient has been tolerant of tube feeds. The patient was appointed a legal guardian this morning. I did call and speak with his legal guardian, Aquilino, and advised him of the patient's overall clinical state. We did have a discussion regarding goals of care. He is comfortable with transition to DNR CCA. He is scheduled to have a court hearing this Thursday regarding the patient's care and would like to wait until that time to make any further recommendations regarding potential withdrawal of life support and initiation of comfort care measures. I did advise his legal guardian that the patient is not a candidate to proceed with tracheostomy and PEG tube placement given his high ventilatory requirements. Objective Data Objective Data The patient's most recent lab work, culture data and imaging studies have all been personally reviewed. Surface echocardiogram demonstrated an ejection fraction of 50% with a severely dilated RV and moderate global RV systolic dysfunction. Pulmonary artery systolic pressure was estimated to be 47 mmHg. Sputum culture dated January 18 was positive for Pseudomonas. Vital Signs: Vital Signs Temp Pulse Resp BP Pulse Ox O2 Del Method O2 Flow Rate 100.8 F H 110 H 21 H 130/58 H 92 Mechanical Ventilator 75 01/28/23 10:01/28/23 10:01/28/23 10:01/28/23 10:01/28/23 10:00 01/28/23 10:00 01/21/23 21:00 FiO2 80 01/28/23 08:00 Oxygen Flow Rate (L/min) 75 Oxygen Delivery Method Mechanical Ventilator Weight: 151 lb 3.794 oz Body Mass Index (BMI) 23.0 Intake & Output: Intake and Output for Last 24 Hours 01/26/23 01/27/23 01/28/23 23:59 23:59 23:59 Intake Total 3286.68 / 3513.68 4985.98 / 5021.68 1465.67 / 1465.67 Output Total 2285 / 2285 2900 / 2900 750 / 750 Balance 1001.68 / 1228.68 2085.98 / 2121.68 715.67 / 715.67 Lab / Micro Data Attestation: I reviewed the patient's lab results. 01/28/23 04:00 01/28/23 04:00 Labs: Laboratory Results - last 24 hr 01/27/23 04:00: WBC Cancelled, Corrected WBC Cancelled, RBC Cancelled, Hgb Cancelled, Hct Cancelled, MCV Cancelled, MCH Cancelled, MCHC Cancelled, RDW Std Deviation Cancelled, RDW Coeff of Debra Cancelled, Plt Count Cancelled, MPV Cancelled, Immature Gran % (Auto) Cancelled, Neut % (Auto) Cancelled, Lymph % (Auto) Cancelled, [place] % (Auto) Cancelled, Eos % (Auto) Cancelled, Baso % (Auto) Cancelled, Absolute Neuts (auto) Cancelled, Absolute Lymphs (auto) Cancelled, Total Counted Cancelled, Neutrophils % (Manual) Cancelled, Band Neutrophils % Cancelled, Lymphocytes % (Manual) Cancelled, Monocytes % (Manual) Cancelled, Eosinophils % (Manual) Cancelled, Basophils % (Manual) Cancelled, Metamyelocytes % Cancelled, Myelocytes % Cancelled, Promyelocytes % Cancelled, Blast Cells % Cancelled, Plasma Cell % (Manual) Cancelled, Other Cells % Cancelled, Nucleated RBC % Cancelled, Nucleated RBCs/100 WBC Cancelled, Differential Comment Cancelled, Diff Path Review Cancelled, Hypersegmented Neuts Cancelled, Atypical Lymphocytes Cancelled, Reactive Lymphocytes Cancelled, Smudge Cells Cancelled, Toxic Granulation Cancelled, Toxic Vacuolation Cancelled, Dohle Bodies Cancelled, Terry Rods Cancelled, Platelet Estimate Cancelled, Plt Morphology Comment Cancelled, RBC Morphology Cancelled 01/27/23 04:00: RBC Morphology Cancelled, Polychromasia Cancelled, Hypochromasia Cancelled, Poikilocytosis Cancelled, Basophilic Stippling Cancelled, Anisocytosis Cancelled, Microcytosis Cancelled, Macrocytosis Cancelled, Spherocytes Cancelled, Sickle Cells Cancelled, Target Cells Cancelled, Tear Drop Cells Cancelled, Ovalocytes Cancelled, Stomatocytes Cancelled, [place] Bodies Cancelled, [place] Cells Cancelled, Bite Cells Cancelled, Crenated Cell Cancelled, Acanthocytes (Spur) Cancelled, Rouleaux Cancelled, Schistocytes Cancelled, Sodium Cancelled, Potassium Cancelled, Chloride Cancelled, Carbon Dioxide Cancelled, Anion Gap Cancelled, BUN Cancelled, Creatinine Cancelled, Estim Creat Clear Calc Cancelled, Est GFR (MDRD) Af Amer Cancelled, Est GFR (MDRD) Non-Af Cancelled, BUN/Creatinine Ratio Cancelled, Glucose Cancelled, Calcium Cancelled, Magnesium Cancelled 01/27/23 04:03: MCV 97.2 H, MCHC 29.7 L, Diff Path Review Reviewed 01/27/23 11:53: POC Glucose 109 H 01/27/23 16:35: Vancomycin Trough 17.1 H 01/27/23 18:07: POC Glucose 197 H 01/27/23 21:15: POC Glucose 186 H 01/27/23 22:48: POC Glucose 202 H 01/28/23 04:00: WBC 29.6 H, RBC 3.53 L, Hgb 10.2 L, Hct 34.3 L, MCV 97.2 H, MCH 28.9, MCHC 29.7 L, RDW Std Deviation 60.7 H, RDW Coeff of Debra 17.1 H, Plt Count 132 L, MPV 14.0 H, Immature Gran % (Auto) 2.200 H, Neut % (Auto) 90.6 H, Lymph % (Auto) 2.2 L, [place] % (Auto) 4.4, Eos % (Auto) 0.3, Baso % (Auto) 0.3, Absolute Neuts (auto) 26.9 H, Absolute Lymphs (auto) 0.64 L, Nucleated RBC % 0.2, Platelet Estimate SLT DEC, Anisocytosis 1+, Macrocytosis 1+, APTT 81.1 H, Sodium 153 H, Potassium 5.1, Chloride 117 H, Carbon Dioxide 38.0 H, Anion Gap -2 L, BUN 87 H, Creatinine 1.21, Estim Creat Clear Calc 54.96, Est GFR (MDRD) Af Amer 76, Est GFR (MDRD) Non-Af 63, BUN/Creatinine Ratio 71.9 H, Glucose 157 H, Calcium 8.1 L, Magnesium 2.5 01/28/23 06:17: POC Glucose 142 H Micro: Microbiology 01/26/23 17:50 Sputum, Induced/Lukens Gram Stain - Final 01/26/23 17:50 Sputum, Induced/Lukens Respiratory Culture - Final Pseudomonas aeruginosa 01/21/23 11:10 Blood Culture (Wb) - Right Forearm Blood Culture - Final No growth in 5 days. 01/21/23 11:00 Blood Culture (Wb) - Anticubital Left Blood Culture - Final No growth in 5 days. 01/23/23 15:40 Blood Culture (Wb) - Anticubital Left Blood Culture - Preliminary No growth in 48 hours. 01/23/23 15:20 Blood Culture (Wb) - Left Wrist Blood Culture - Preliminary No growth in 48 hours. 01/22/23 10:00 Urine Catheter - Catheter Urine Culture - Final Culture exhibits no growth. 01/18/23 11:50 Blood Culture (Wb) - Port Blood Culture - Final No growth in 5 days. 01/18/23 11:50 Blood Culture (Wb) - Left Forearm Blood Culture - Final No growth in 5 days. 01/16/23 19:43 Blood Culture (Wb) - Anticubital Left Blood Culture - Final No growth in 5 days. 01/16/23 20:14 Blood Culture (Wb) - Right Forearm Blood Culture - Final No growth in 5 days. 01/21/23 14:04 Mucosa - Nose Coronavirus COVID-19 PCR - Final 01/21/23 14:04 Mucosa - Nose Respiratory Panel (PCR) - Final 01/18/23 11:00 Sputum, Induced/Lukens Gram Stain - Final 01/18/23 11:00 Sputum, Induced/Lukens Respiratory Culture - Final Pseudomonas aeruginosa 01/17/23 22:30 Sputum, Expectorated/Coughed Gram Stain - Final 01/17/23 22:30 Sputum, Expectorated/Coughed Respiratory Culture - Final Pseudomonas aeruginosa 01/16/23 20:14 Urine, Clean Catch Urine Culture - Final Culture exhibits no growth. 01/17/23 00:45 Mucosa - Nasopharyngeal Coronavirus COVID-19 PCR - Final 01/16/23 00:45 Mucosa - Nasopharyngeal Respiratory Panel (PCR) - Final 01/17/23 00:27 Urine, Random Legionella Antigen - Final 01/17/23 00:27 Urine, Random Streptococcus pneumoniae Antigen (M - Final 01/16/23 19:50 Nasal Secretion SARS-CoV-2 & FLU Antigen (Rapid) - Final ABG Data ABG results: ABG 01/24/23 05:09 Specimen Type ART Sample Site R Radial pH 7.31 L Bicarbonate Actual 30.9 H Total CO2 33 Base Excess 5 H O2 % 75.0 ABG pCO2 61.1 H Lino Test Positive Respiration Rate 18 O2 Delivery Device Adult Vent Vent Mode AC Tidal Volume 450.0 POC PEEP 12 Radiography Diagnostic Testing: Radiology Impression Chest X-Ray 01/27/23 05:55 IMPRESSION: Unchanged appearance of chest with what may represent multifocal pneumonia and/or pulmonary fibrosis and emphysema. Electronically Signed: Celina Trotter MD at 7:03 EDT , Physical Exam Const Constitutional Narrative: Intubated, sedated and mechanically ventilated. Chronically ill in appearance. No ventilator dyssynchrony. HEENT normocephalic and head/scalp atraumatic Mouth: endotracheal tube in place and OG tube in place Eyes PERRL and EOMs intact bilaterally Neck supple General: trachea midline and CVC in place Chest inspection of chest normal Resp Resp Narrative: Mechanical breath sounds bilaterally. Auscultation: rhonchi and diminished lung sounds Cardio regular rate, regular rhythm, S1 normal heart sound and S2 normal heart sound GI normal to inspection, nondistended, normoactive bowel sounds Extremity Extremity Narrative: Wrapped upper extremities General Extremity: edema; Negative for clubbing Skin no rashes or lesions noted Neuro Sensorium / Orientation: sedated on vent Charges/Coding Procedures Hospitalists Procedures: [id number] [facility] Hr
[2023-01-28] MEDS: Meropenem 1 GM in 0.9% Normal Saline (100mL MB+) 100 ML IV ×2 (11:25→21:23)
[2023-01-28] MEDS: Insulin Glargine-YFGN 100 UNIT/ML Pen 20 UNIT SC ×2 (11:42→21:25)
--- NOTE | 2023-01-28 11:46 | CASEMGMT ---
Social Work - Guardianship Update Received notice from [employer] Aquilino Jansen. [facility] Probate court authorized 72 hour emergency guardianship for this patient, with a court hearing to be held on Thursday for determination of continuing for another 30 days. Obtained Aquilino's work and cell phones. Added to patient's EMR in the registration data field. Guardian Contact information: Work - [phone] Cell - [phone] Placed appointment of guardianship on the front of patient's chart. Updated Dr. Berry, Violeta Joseph RN, and Denise/ICU Director of guardianship update. Provided Dr. Berry with guardian's contact number. Plan: SW actively following and available to assist as needs arise in continued plans of care for this patient. -MOSHE Flanagan
[2023-01-28 11:56] LABS: Allen Test Positive; Base Excess 8 mmol/L (-2 to +2); Bicarbonate 34.4 mmol/L (22-26); Blood Gas Specimen Type ART; Mode AC; O2 Delivery Device Adult Vent; PEEP 10; PO2 53 mmHG (75-100); RR 18; SITE R Radial; SO2 80 % (95-99); Total Carbon Dioxide 37 mmol/L; pCO2 74.9 mmHg (35-45); pH 7.27 (7.35-7.45)
[2023-01-28 12:00] LABS: Partial Thromboplast Time 78.6 Seconds (24.1-36.2)
[2023-01-28 12:04] LABS: Bedside Glucose 143 mg/dL (74-106)
[2023-01-28] MEDS: Furosemide 40 MG/4 ML Vial IV (13:25)
--- NOTE | 2023-01-28 14:03 | PCM.PN.ID ---
Physical Exam Narrative Low grade fever, on vent Const no apparent distress Resp Effort and Inspection: mechanically ventilated Auscultation: diminished lung sounds Cardio regular rate and regular rhythm GI soft to palpation, non-tender and non-distended Skin no rashes or lesions noted ID ID: Route of nutrition/ use of supplements: [] Nutritional Intake: [] IV Site: [] Vargas Catheter: [] Assessment & Plan Assessment/Plan (1) Septic shock: PLAN: septic shock due to pseudomonas pneumonia with end stage COPD - had been on cefepime. Hep panel neg. Repeat covid and resp pcr panel neg. Changed to meropenem 01/22. Added vanc 01/23. Repeat cxs remain neg. Wbc remains elevated, now again with rising temp. Sputum again with pseudomonas. Now CCA. Will follow (2) CAP (community acquired pneumonia): QUALIFIERS: Laterality: left Lung location: upper lobe of lung Qualified Code(s): J18.9 - Pneumonia, unspecified organism
[2023-01-28] MEDS: Acetaminophen 650 MG/20 ML UDC GT (14:17)
--- NOTE | 2023-01-28 14:38 | PN.RENAL_ITS ---
Subjective Subjective Following for LAUREN and electrolyte abnormalities. The patient is intubated. Cannot do ROS. Objective Data Objective Data Vital Signs: Vital Signs Temp Pulse Resp BP Pulse Ox O2 Del Method O2 Flow Rate 100.9 F H 101 H 19 H 107/56 L 91 Mechanical Ventilator 75 01/28/23 12:00 01/28/23 12:00 01/28/23 12:00 01/28/23 12:00 01/28/23 12:00 01/28/23 12:00 01/21/23 21:00 FiO2 80 01/28/23 12:00 Oxygen Flow Rate (L/min) 75 Oxygen Delivery Method Mechanical Ventilator Weight: 68.6 kg Body Mass Index (BMI) 23.0 Intake & Output: Intake and Output for Last 24 Hours 01/26/23 01/27/23 01/28/23 23:59 23:59 23:59 Intake Total 3286.68 / 3513.68 4985.98 / 5021.68 3102.37 / 3102.37 Output Total 2285 / 2285 2900 / 2900 1800 / 1800 Balance 1001.68 / 1228.68 2085.98 / 2121.68 1302.37 / 1302.37 Lab / Micro Data 01/28/23 04:00 01/28/23 04:00 Labs: Laboratory Results - last 24 hr 01/27/23 04:00: WBC Cancelled, Corrected WBC Cancelled, RBC Cancelled, Hgb Cancelled, Hct Cancelled, MCV Cancelled, MCH Cancelled, MCHC Cancelled, RDW Std Deviation Cancelled, RDW Coeff of Debra Cancelled, Plt Count Cancelled, MPV Canc elled, Immature Gran % (Auto) Cancelled, Neut % (Auto) Cancelled, Lymph % (Auto) Cancelled, [place] % (Auto) Cancelled, Eos % (Auto) Cancelled, Baso % (Auto) Cancelled, Absolute Neuts (auto) Cancelled, Absolute Lymphs (auto) Cancelled, Total Counted Cancelled, Neutrophils % (Manual) Cancelled, Band Neutrophils % Cancelled, Lymphocytes % (Manual) Cancelled, Monocytes % (Manual) Cancelled, Eosinophils % (Manual) Cancelled, Basophils % (Manual) Cancelled, Metamyelocytes % Cancelled, Myelocytes % Cancelled, Promyelocytes % Cancelled, Blast Cells % Cancelled, Plasma Cell % (Manual) Cancelled, Other Cells % Cancelled, Nucleated RBC % Cancelled, Nucleated RBCs/100 WBC Cancelled, Differential Comment C ancelled, Diff Path Review Cancelled, Hypersegmented Neuts Cancelled, Atypical Lymphocytes Cancelled, Reactive Lymphocytes Cancelled, Smudge Cells Cancelled, Toxic Granulation Cancelled, Toxic Vacuolation Cancelled, Dohle Bodies Cancelled, Terry Rods Cancelled, Platelet Estimate Cancelled, Plt Morphology Comment Cancelled, RBC Morphology Cancelled 01/27/23 04:00: RBC Morphology Cancelled, Polychromasia Cancelled, Hypochromasia Cancelled, Poikilocytosis Cancelled, Basophilic Stippling Cancelled, Anisocytosis Cancelled, Microcytosis Cancelled, Macrocytosis Cancelled, Sphero cytes Cancelled, Sickle Cells Cancelled, Target Cells Cancelled, Tear Drop Cells Cancelled, Ovalocytes Cancelled, Stomatocytes Cancelled, Hernandes-[place]perial Bodies Cancelled, [place] Cells Cancelled, Bite Cells Cancelled, Crenated Cell Cancelled, Acanthocytes (Spur) Cancelled, Rouleaux Cancelled, Schistocytes Cancelled, Sodium Cancelled, Potassium Cancelled, Chloride Cancelled, Carbon Dioxide Cancelled, Anion Gap Cancelled, BUN Cancelled, Creatinine Cancelled, Estim Creat Clear Calc Cancelled, Est GFR (MDRD) Af Amer Cancelled, Est GFR (MDRD) Non-Af Cancelled, BUN/Creatinine Ratio Cancelled, Glucose Cancelled, Calcium Cancelled, Magnesium Cancelled 01/27/23 04:03: MCV 97.2 H, MCHC 29.7 L, Diff Path Review Reviewed 01/27/23 16:35: Vancomycin Trough 17.1 H 01/27/23 18:07: POC Glucose 197 H 01/27/23 21:15: POC Glucose 186 H 01/27/23 22:48: POC Glucose 202 H 01/28/23 04:00: WBC 29.6 H, RBC 3.53 L, Hgb 10.2 L, Hct 34.3 L, MCV 97.2 H, MCH 28.9, MCHC 29.7 L, RDW Std Deviation 60.7 H, RDW Coeff of Debra 17.1 H, Plt Count 132 L, MPV 14.0 H, Immature Gran % (Auto) 2.200 H, Neut % (Auto) 90.6 H, Lymph % (Auto) 2.2 L, [place] % (Auto) 4.4, Eos % (Auto) 0.3, Baso % (Auto) 0.3, Absolute Neuts (auto) 26.9 H, Absolute Lymphs (auto) 0.64 L, Nucleated RBC % 0.2, Platelet Estimate SLT DEC, Anisocytosis 1+, Macrocytosis 1+, APTT 81.1 H, Sodium 153 H, Potassium 5.1, Chloride 117 H, Carbon Dioxide 38.0 H, Anion Gap -2 L, BUN 87 H, Creatinine 1.21, Estim Creat Clear Calc 54.96, Est GFR (MDRD) Af Amer 76, Est GFR (MDRD) Non-Af 63, BUN/Creatinine Ratio 71.9 H, Glucose 157 H, Calcium 8.1 L, Magnesium 2.5 01/28/23 06:17: POC Glucose 142 H 01/28/23 11:39: POC Glucose 143 H 01/28/23 11:40: APTT 78.6 H Micro: Microbiology 01/26/23 17:50 Sputum, Induced/Lukens Gram Stain - Final 01/26/23 17:50 Sputum, Induced/Lukens Respiratory Culture - Final Pseudomonas aeruginosa 01/21/23 11:10 Blood Culture (Wb) - Right Forearm Blood Culture - Final No growth in 5 days. 01/21/23 11:00 Blood Culture (Wb) - Anticubital Left Blood Culture - Final No growth in 5 days. 01/23/23 15:40 Blood Culture (Wb) - Anticubital Left Blood Culture - Preliminary No growth in 48 hours. 01/23/23 15:20 Blood Culture (Wb) - Left Wrist Blood Culture - Preliminary No growth in 48 hours. 01/22/23 10:00 Urine Catheter - Catheter Urine Culture - Final Culture exhibits no growth. 01/18/23 11:50 Blood Culture (Wb) - Port Blood Culture - Final No growth in 5 days. 01/18/23 11:50 Blood Culture (Wb) - Left Forearm Blood Culture - Final No growth in 5 days. 01/16/23 19:43 Blood Culture (Wb) - Anticubital Left Blood Culture - Final No growth in 5 days. 01/16/23 20:14 Blood Culture (Wb) - Right Forearm Blood Culture - Final No growth in 5 days. 01/21/23 14:04 Mucosa - Nose Coronavirus COVID-19 PCR - Final 01/21/23 14:04 Mucosa - Nose Respiratory Panel (PCR) - Final 01/18/23 11:00 Sputum, Induced/Lukens Gram Stain - Final 01/18/23 11:00 Sputum, Induced/Lukens Respiratory Culture - Final Pseudomonas aeruginosa 01/17/23 22:30 Sputum, Expectorated/Coughed Gram Stain - Final 01/17/23 22:30 Sputum, Expectorated/Coughed Respiratory Culture - Final Pseudomonas aeruginosa 01/16/23 20:14 Urine, Clean Catch Urine Culture - Final Culture exhibits no growth. 01/17/23 00:45 Mucosa - Nasopharyngeal Coronavirus COVID-19 PCR - Final 01/16/23 00:45 Mucosa - Nasopharyngeal Respiratory Panel (PCR) - Final 01/17/23 00:27 Urine, Random Legionella Antigen - Final 01/17/23 00:27 Urine, Random Streptococcus pneumoniae Antigen (M - Final 01/16/23 19:50 Nasal Secretion SARS-CoV-2 & FLU Antigen (Rapid) - Final ABG Data ABG results: ABG 01/28/23 11:52 Specimen Type ART Sample Site R Radial pH 7.27 L Bicarbonate Actual 34.4 H Total CO2 37 Base Excess 8 H O2 Saturation 80 L O2 % 80.0 ABG pCO2 74.9 H* ABG pO2 53 L Lino Test Positive Respiration Rate 18 O2 Delivery Device Adult Vent Vent Mode AC Tidal Volume 440.0 POC PEEP 10 Crit Call To/Read Back Yes Blood Gas Notified Whom dr. shea Blood Gas Notified Time 11:54:10 Physical Exam Narrative On ventilator support, no apparent distress S1, S2, rhythm and rate regular, mild tachycardia Lung sounds diminished Abdomen soft, positive bowel sounds 2+ edema to bilateral arms and hands; wraps to b/l arms intact. No edema to bilateral lower legs or feet, anasarca Indwelling Vargas catheter with clear yellow urine in bag Const General Appearance: patient mechanically ventilated HEENT normocephalic Neck no lymphadenopathy Resp Auscultation: rhonchi Cardio regular rate GI non-distended Auscultation: normoactive bowel sounds Palpation: soft Skin no rashes or lesions noted Neuro Sensorium / Orientation: sedated on vent Assessment & Plan Assessment/Plan (1) LAUREN (acute kidney injury): PLAN: - Nonoliguric acute kidney injury with presumed normal baseline serum c reatinine. LAUREN multifactorial: sepsis, hypotension, A-fib with RVR with decreased renal perfusion. Noncontrast CT normal left kidney, nonobstructive calculus right kidney. Serum creatinine 1.2 on admission, improved 0.67 on 01/18, serum creatinine peaked 1.66 on 01/23, currently serum creatinine leveled off around 1.2-1.3 mg/dL the past 2 days. Disproportionately elevated BUN possibly secondary to steroids, tube feeding. Steroid frequency decreased, BUN peaked 103 and BUN 100 today. Also, I suspect that serum creatinine is likely overestimating his true renal function because of low muscle mass/cachexia. -There is no acute indication for [facility]IC[facility] at this time. In fact, I would not recommend starting dialysis in this patient given his poor functional status at baseline. Given mild LAUREN recommend to try and avoid hypotension, intravascular volume depletion as well as nephrotoxins. -Mild hyperkalemia likely secondary to LAUREN. On Nepro tube feeding. Potassium l evel is better today after receiving Kayexalate on 01/27/2023. -Hypernatremia likely secondary to lack of free water intake. Free water flushes were increased and patient started on D5W. Serum sodium is better today. We will continue to monitor. -acute combined respiratory failure/advanced COPD/pneumonia/pulmonary hypertension
[2023-01-28] MEDS: Vancomycin HCl 750 MG in 0.9% Normal Saline (250mL Bag) 250 ML 250 MG IV (16:49)
[2023-01-28] MEDS: 0.9% Normal Saline (250mL Bag) 250 ML 15 ML IV (16:49)
[2023-01-28] MEDS: Glycerin/Hypromellose/PEG400 15 ml Bottle 2 DRP EACH EYE (17:49)
[2023-01-28] MEDS: Insulin Lispro 100 UNIT/ML INSULN.PEN SC ×2 (17:49→22:46)
[2023-01-28] MEDS: NEPRO TUBE FEED 1,000 ML 40 ML GT (17:52)
[2023-01-28 18:05] LABS: Bedside Glucose 199 mg/dL (74-106)
[2023-01-28 18:15] LABS: Partial Thromboplast Time 89.8 Seconds (24.1-36.2)
[2023-01-28] MEDS: HEPARIN/D5w 25,000 UNITS 25,000 UNITS/250 ML IV.SOLN. 11 UNITS CONT INF (19:38)
[2023-01-28 23:06] LABS: Bedside Glucose 262 mg/dL (74-106)
[2023-01-29] VITALS (40 sets, daily range): BP systolic 64–190; BP diastolic 40–105; PULSE 73–115; RESP 16–23; TEMP 37.1–37.8; O2SAT 75–96; BMI 23.9
[2023-01-29] MEDS: 0.9% Saline Lock 10 ML Syringe IV ×2 (00:12→16:11)
[2023-01-29] MEDS: fentaNYL drip 100 ML 12.5 MCG CONT INF ×2 (00:17→06:55)
[2023-01-29] MEDS: Glycerin/Hypromellose/PEG400 15 ml Bottle 2 DRP EACH EYE ×2 (00:23→08:36)
[2023-01-29 00:34] LABS: Partial Thromboplast Time 89.6 Seconds (24.1-36.2)
[2023-01-29 03:56] LABS: Absolute Lymphocyte Count 0.51 X10^3/uL (0.83-4.51); Absolute Neutrophil Count 22.6 X10^3/uL (2.0-7.7); Basophil# 0.05 X10^3/uL; Basophil% 0.2 % (0-1); Differential Indicated SCAN CRITERIA MET; Eosinophil# 0.03 X10^3/uL; Eosinophils% 0.1 % (0-5); Hematocrit 27.5 % (40-54); Hemoglobin 8.3 g/dL (13.0-16.5); Lymphocyte # 0.51 X10^3/ul (0.83-4.51); Lymphocyte % 2.1 % (19-41); Mean Corp Hgb Conc 30.2 g/dL (32-36); Mean Corpuscular Hgb 28.9 pg (27.0-32.0); Mean Corpuscular Volume 95.8 fL (80-94); Mean Platelet Vol. 13.7 fl (6.2-12.0); Monocyte# 1.19 X10^3/uL; Monocyte% 4.8 % (0-10); NRBC Flagged by Analyzer 0.2 % (0-5); Neutrophil # 22.62 X10^3/uL (2.7-7.7); Neutrophil % 91.2 % (47-70); POSITIVE DIFFERENTIAL YES; Platelet Count 117 K/mm3 (150-450); RBC Distribution Width CV 16.8 % (11.6-14.6); RBC Distribution Width SD 58.5 fl (35.1-43.9); Red Blood Count 2.87 M/mm3 (4.6-6.2); White Blood Count 24.8 K/mm3 (4.4-11.0)
[2023-01-29 04:09] LABS: Anion Gap 1 (5-15); BUN 83 mg/dL (7-18); BUN/Creat Ratio 66.4 RATIO (10-20); Calcium,Total 7.9 mg/dL (8.5-10.1); Chloride 111 mmol/L (98-107); Creatinine, Serum 1.25 mg/dL (0.70-1.30); EST Glomerular Filtration Rate 61 mL/min (>60); Est Glom Filt Rate - Afr Amer 73 mL/min (>60); Glucose 172 mg/dL (74-106); Magnesium 2.4 mg/dL (1.6-2.6); Potassium 4.5 mmol/L (3.5-5.1); Sodium Level 148 mmol/L (136-145)
[2023-01-29 04:10] LABS: Anisocytosis 1+; Macrocytosis 1+; Platelet Estimate SLT DEC (ADEQ); Platelet Morphology LARGE
[2023-01-29] MEDS: Norepinephrine 8 MG in 0.9% Normal Saline (250mL Bag) 242 ML 9.4 MG CONT INF (04:42)
[2023-01-29] MEDS: CHLORHEXIDINE GLUC 2% CLOTH 1 EACH TOWELETTE TOPICAL (04:42)
[2023-01-29] MEDS: Insulin Lispro 100 UNIT/ML INSULN.PEN SC ×3 (05:06→17:08)
[2023-01-29 05:31] LABS: Bedside Glucose 166 mg/dL (74-106)
[2023-01-29] MEDS: dexMEDEtomidine 1,000 MCG in 0.9% Normal Saline (250mL Bag) 240 ML 22.3 MCG CONT INF (05:59)
[2023-01-29] MEDS: Dextrose 5%-Water (1000mL Bag) 1,000 ML 100 ML IV ×2 (05:59→15:49)
[2023-01-29] MEDS: Ipratropium/Albuterol Sulfate 3 ML AMPUL.NEB INHALATION ×5 (06:50→22:30)
[2023-01-29] MEDS: TITRATION PARAMETER CHANGE 1 EACH IV (06:52)
[2023-01-29 07:08] LABS: Partial Thromboplast Time 50.1 Seconds (24.1-36.2)
--- NOTE | 2023-01-29 07:22 | PCM.PN.INT ---
Assessment & Plan Assessment/Plan (1) Septic shock: PLAN: Plan RECOMMENDATIONS: 1. Continue to wean FiO2 and PEEP to maintain saturations at or above 90%. 2. Continue antimicrobials. 3. Continue tube feeds as tolerated. 4. Continue free water flushes and D5W. Continue to monitor daily sodium levels. 5. Continue scheduled bronchodilators. 6. Continue Solu-Medrol once daily. 7. Continue insulin and Accu-Cheks. 8. Continue appropriate GI prophylaxis. 9. Proceed with attempts at diuresis, Lasix 40 mg twice daily. 10. Continue Levophed to maintain a mean arterial pressure at or above 65 mmHg. IMPRESSIONS: 1. Acute combined respiratory failure The patient has reported advanced a COPD which is currently in a state of exacerbation secondary to underlying pseudomonal pneumonia. The patient continues to have high ventilator requirements. The patient has been on the ventilator now for 9 days. He also has concurrent pulmonary hypertension. The patient appears to be tolerating right-sided positioning, given the extensive nature of his left-sided infiltrates. Plan to continue to wean FiO2 and PEEP as tolerated to maintain saturations at or above 90%. Plan to continue supportive measures including antimicrobials, bronchodilators and steroids. Overall, however, the patient's prognosis is quite poor. Legal guardianship was able to be established. I did have a very erendira discussion with the patient's legal guardian regarding prognosis and goals of care. There are plans for a court hearing on Thursday. If there is no significant improvement clinically by that time, consideration will be given to palliative withdrawal of life support and initiation of comfort care measures. At this time, the patient is too clinically unstable to be considered for tracheostomy and PEG tube placement. Plan to proceed with attempts at diuresis today, as tolerated by hemodynamics and renal function. 2. Septic shock Secondary to left-sided pseudomonal pneumonia. Continue antibiotics as noted above. Continue vasopressor support, as needed, to maintain mean arterial pressure at or above 65 mmHg. 3. Hypernatremia/hyperchloremia/uremia Improving. Continue free water flushes and D5W as ordered. Continue to monitor electrolyte profile daily. 4. Shock liver Slowly improving with stabilization and hemodynamic status. Continue to monitor clinically. 5. Atrial fibrillation with RVR/pulmonary hypertension with RV dysfunction/history of tobacco dependency Complicates care, management, recovery and prognosis. Continue supportive measures as noted above. Continue tube feeds as tolerated. Continue goals of care discussion with the patient's legal guardian. CODE STATUS: DNR CCA, following discussion with the patient's legal guardian. TIME: 37 minutes of critical care time, independent of procedures, was spent addressing the patient's acute combined respiratory failure, septic shock, hypernatremia, shock liver, review of all data and collaboration with the care team. Subjective Subjective The patient was seen and examined at the bedside this morning. Events from the last 24 hours have been reviewed. The patient remains on assist control mode mechanical ventilation with an FiO2 requirement of 70% and PEEP of 10. He remains on low-dose Levophed at 5 mcg/min to maintain hemodynamic stability. Overall, the patient's clinical state has not changed much over the last 24 hours. White count remains elevated at 25,000. Sodium has improved to 148 with a chloride of 111 and bicarbonate of 36. Objective Data Objective Data The patient's most recent lab work, culture data and imaging studies have all been personally reviewed. Surface echocardiogram demonstrated an ejection fraction of 50% with a severely dilated RV and moderate global RV systolic dysfunction. Pulmonary artery systolic pressure was estimated to be 47 mmHg. Sputum culture dated January 18 was positive for Pseudomonas. Vital Signs: Vital Signs Temp Pulse Resp BP Pulse Ox O2 Del Method O2 Flow Rate 98.9 F 80 21 H 155/63 H 90 Mechanical Ventilator 75 01/29/23 07:00 01/29/23 07:00 01/29/23 07:00 01/29/23 07:00 01/29/23 07:00 01/29/23 07:00 01/21/23 21:00 FiO2 70 01/29/23 07:00 Oxygen Flow Rate (L/min) 75 Oxygen Delivery Method Mechanical Ventilator Weight: 157 lb 6.561 oz Body Mass Index (BMI) 23.9 Intake & Output: Intake and Output for Last 24 Hours 01/27/23 01/28/23 01/29/23 23:59 23:59 23:59 Intake Total 4985.98 / 5021.68 6120.90 / 6148.38 1844.00 / 1844.00 Output Total 2900 / 2900 3225 / 3225 Balance 2085.98 / 2121.68 2895.90 / 2923.38 1844.00 / 1844.00 Lab / Micro Data Attestation: I reviewed the patient's lab results. 01/29/23 03:45 01/29/23 03:45 Labs: Laboratory Results - last 24 hr 01/27/23 04:00: Sodium Cancelled, Potassium Cancelled, Chloride Cancelled, Carbon Dioxide Cancelled, Anion Gap Cancelled, BUN Cancelled, Creatinine Cancelled, Estim Creat Clear Calc Cancelled, Est GFR (MDRD) Af Amer Cancelled, Est GFR (MDRD) Non-Af Cancelled, BUN/Creatinine Ratio Cancelled, Glucose Cancelled, Calcium Cancelled, Magnesium Cancelled 01/28/23 04:00: Sodium 153 H, Potassium 5.1, Chloride 117 H, Carbon Dioxide 38.0 H, Anion Gap -2 L, BUN 87 H, Creatinine 1.21, Estim Creat Clear Calc 54.96, Est GFR (MDRD) Af Amer 76, Est GFR (MDRD) Non-Af 63, BUN/Creatinine Ratio 71.9 H, Glucose 157 H, Calcium 8.1 L, Magnesium 2.5 01/28/23 11:39: POC Glucose 143 H 01/28/23 11:40: APTT 78.6 H 01/28/23 17:45: APTT 89.8 H 01/28/23 17:46: POC Glucose 199 H 01/28/23 22:45: POC Glucose 262 H 01/29/23 00:13: APTT 89.6 H 01/29/23 03:45: WBC 24.8 H, RBC 2.87 L, Hgb 8.3 L, Hct 27.5 L, MCV 95.8 H, MCH 28.9, MCHC 30.2 L, RDW Std Deviation 58.5 H, RDW Coeff of Debra 16.8 H, Plt Count 117 L, MPV 13.7 H, Immature Gran % (Auto) 1.600 H, Neut % (Auto) 91.2 H, Lymph % (Auto) 2.1 L, [place] % (Auto) 4.8, Eos % (Auto) 0.1, Baso % (Auto) 0.2, Absolute Neuts (auto) 22.6 H, Absolute Lymphs (auto) 0.51 L, Nucleated RBC % 0.2, Platelet Estimate SLT DEC, Plt Morphology Comment LARGE, Anisocytosis 1+, Macrocytosis 1+, Sodium 148 H, Potassium 4.5, Chloride 111 H, Carbon Dioxide 36.0 H, Anion Gap 1 L, BUN 83 H, Creatinine 1.25, Estim Creat Clear Calc 53.20, Est GFR (MDRD) Af Amer 73, Est GFR (MDRD) Non-Af 61, BUN/Creatinine Ratio 66.4 H, Glucose 172 H, Calcium 7.9 L, Magnesium 2.4 01/29/23 05:05: POC Glucose 166 H 01/29/23 06:40: APTT 50.1 H Micro: Microbiology 01/23/23 15:20 Blood Culture (Wb) - Left Wrist Blood Culture - Final No growth in 5 days. 01/23/23 15:40 Blood Culture (Wb) - Anticubital Left Blood Culture - Final No growth in 5 days. 01/26/23 17:50 Sputum, Induced/Lukens Gram Stain - Final 01/26/23 17:50 Sputum, Induced/Lukens Respiratory Culture - Final Pseudomonas aeruginosa 01/21/23 11:10 Blood Culture (Wb) - Right Forearm Blood Culture - Final No growth in 5 days. 01/21/23 11:00 Blood Culture (Wb) - Anticubital Left Blood Culture - Final No growth in 5 days. 01/22/23 10:00 Urine Catheter - Catheter Urine Culture - Final Culture exhibits no growth. 01/18/23 11:50 Blood Culture (Wb) - Port Blood Culture - Final No growth in 5 days. 01/18/23 11:50 Blood Culture (Wb) - Left Forearm Blood Culture - Final No growth in 5 days. 01/16/23 19:43 Blood Culture (Wb) - Anticubital Left Blood Culture - Final No growth in 5 days. 01/16/23 20:14 Blood Culture (Wb) - Right Forearm Blood Culture - Final No growth in 5 days. 01/21/23 14:04 Mucosa - Nose Coronavirus COVID-19 PCR - Final 01/21/23 14:04 Mucosa - Nose Respiratory Panel (PCR) - Final 01/18/23 11:00 Sputum, Induced/Lukens Gram Stain - Final 01/18/23 11:00 Sputum, Induced/Lukens Respiratory Culture - Final Pseudomonas aeruginosa 01/17/23 22:30 Sputum, Expectorated/Coughed Gram Stain - Final 01/17/23 22:30 Sputum, Expectorated/Coughed Respiratory Culture - Final Pseudomonas aeruginosa 01/16/23 20:14 Urine, Clean Catch Urine Culture - Final Culture exhibits no growth. 01/17/23 00:45 Mucosa - Nasopharyngeal Coronavirus COVID-19 PCR - Final 01/16/23 00:45 Mucosa - Nasopharyngeal Respiratory Panel (PCR) - Final 01/17/23 00:27 Urine, Random Legionella Antigen - Final 01/17/23 00:27 Urine, Random Streptococcus pneumoniae Antigen (M - Final 01/16/23 19:50 Nasal Secretion SARS-CoV-2 & FLU Antigen (Rapid) - Final ABG Data ABG results: ABG 01/28/23 11:52 Specimen Type ART Sample Site R Radial pH 7.27 L Bicarbonate Actual 34.4 H Total CO2 37 Base Excess 8 H O2 Saturation 80 L O2 % 80.0 ABG pCO2 74.9 H* ABG pO2 53 L Lino Test Positive Respiration Rate 18 O2 Delivery Device Adult Vent Vent Mode AC Tidal Volume 440.0 POC PEEP 10 Crit Call To/Read Back Yes Blood Gas Notified Whom dr. shea Blood Gas Notified Time 11:54:10 Radiography Diagnostic Testing: Radiology Impression Chest X-Ray 01/27/23 05:55 IMPRESSION: Unchanged appearance of chest with what may represent multifocal pneumonia and/or pulmonary fibrosis and emphysema. Electronically Signed: Celina Trotter MD at 7:03 EDT Reading Location ID and State: [facility] / [place] , Service support , Physical Exam Const Constitutional Narrative: Intubated, sedated and mechanically ventilated. Chronically ill in appearance. No ventilator dyssynchrony. HEENT normocephalic and head/scalp atraumatic Mouth: endotracheal tube in place and OG tube in place Eyes PERRL and EOMs intact bilaterally Neck supple General: trachea midline and CVC in place Chest inspection of chest normal Resp Resp Narrative: Mechanical breath sounds bilaterally. Auscultation: rhonchi and diminished lung sounds Cardio regular rate, regular rhythm, S1 normal heart sound and S2 normal heart sound GI normal to inspection, nondistended, normoactive bowel sounds Extremity Extremity Narrative: Wrapped upper extremities General Extremity: edema; Negative for clubbing Skin no rashes or lesions noted Neuro Sensorium / Orientation: sedated on vent Charges/Coding Procedures Hospitalists Procedures: 15957 Critial Care 1st Hr
[2023-01-29] MEDS: Chlorhexidine 15 ML PO ×2 (08:35→22:36)
[2023-01-29] MEDS: Furosemide 40 MG/4 ML Vial IV ×2 (08:35→17:08)
[2023-01-29] MEDS: Methylprednisolone Sod Succ 40 MG/ML VIAL IV (08:35)
[2023-01-29] MEDS: Senna/Docusate Sodium 1 Tablet GT (08:35)
[2023-01-29] MEDS: Pantoprazole Sodium 40 MG in 0.9% Normal Saline (100mL MB+) 100 ML 330 MG IV (08:35)
[2023-01-29] MEDS: Polyethylene Glycol 3350 17 GM PACKET GT (08:35)
--- NOTE | 2023-01-29 09:18 | PCM.PN.REN ---
Subjective Subjective On vent Objective Data Objective Data Vital Signs: Vital Signs Temp Pulse Resp BP Pulse Ox O2 Del Method O2 Flow Rate 99 F 94 23 H 123/50 H 92 Mechanical Ventilator 75 01/29/23 08:00 01/29/23 09:14 01/29/23 09:14 01/29/23 08:00 01/29/23 09:14 01/29/23 08:00 01/21/23 21:00 FiO2 70 01/29/23 09:14 Oxygen Flow Rate (L/min) 75 Oxygen Delivery Method Mechanical Ventilator Weight: 71.4 kg Body Mass Index (BMI) 23.9 Intake & Output: Intake and Output for Last 24 Hours 01/27/23 01/28/23 01/29/23 23:59 23:59 23:59 Intake Total 4985.98 / 5021.68 6120.90 / 6148.38 2096.80 / 2096.80 Output Total 2900 / 2900 3225 / 3225 Balance 2085.98 / 2121.68 2895.90 / 2923.38 2096.80 / 2096.80 Lab / Micro Data 01/29/23 03:45 01/29/23 03:45 Labs: Laboratory Results - last 24 hr 01/28/23 11:39: POC Glucose 143 H 01/28/23 11:40: APTT 78.6 H 01/28/23 17:45: APTT 89.8 H 01/28/23 17:46: POC Glucose 199 H 01/28/23 22:45: POC Glucose 262 H 01/29/23 00:13: APTT 89.6 H 01/29/23 03:45: WBC 24.8 H, RBC 2.87 L, Hgb 8.3 L, Hct 27.5 L, MCV 95.8 H, MCH 28.9, MCHC 30.2 L, RDW Std Deviation 58.5 H, RDW Coeff of Debra 16.8 H, Plt Count 117 L, MPV 13.7 H, Immature Gran % (Auto) 1.600 H, Neut % (Auto) 91.2 H, Lymph % (Auto) 2.1 L, Harlan % (Auto) 4.8, Eos % (Auto) 0.1, Baso % (Auto) 0.2, Absolute Neuts (auto) 22.6 H, Absolute Lymphs (auto) 0.51 L, Nucleated RBC % 0.2, Platelet Estimate SLT DEC, Plt Morphology Comment LARGE, Anisocytosis 1+, Macrocytosis 1+, Sodium 148 H, Potassium 4.5, Chloride 111 H, Carbon Dioxide 36.0 H, Anion Gap 1 L, BUN 83 H, Creatinine 1.25, Estim Creat Clear Calc 53.20, Est GFR (MDRD) Af Amer 73, Est GFR (MDRD) Non-Af 61, BUN/Creatinine Ratio 66.4 H, Glucose 172 H, Calcium 7.9 L, Magnesium 2.4 01/29/23 05:05: POC Glucose 166 H 01/29/23 06:40: APTT 50.1 H Micro: Microbiology 01/23/23 15:20 Blood Culture (Wb) - Left Wrist Blood Culture - Final No growth in 5 days. 01/23/23 15:40 Blood Culture (Wb) - Anticubital Left Blood Culture - Final No growth in 5 days. 01/26/23 17:50 Sputum, Induced/Lukens Gram Stain - Final 01/26/23 17:50 Sputum, Induced/Lukens Respiratory Culture - Final Pseudomonas aeruginosa 01/21/23 11:10 Blood Culture (Wb) - Right Forearm Blood Culture - Final No growth in 5 days. 01/21/23 11:00 Blood Culture (Wb) - Anticubital Left Blood Culture - Final No growth in 5 days. 01/22/23 10:00 Urine Catheter - Catheter Urine Culture - Final Culture exhibits no growth. 01/18/23 11:50 Blood Culture (Wb) - Port Blood Culture - Final No growth in 5 days. 01/18/23 11:50 Blood Culture (Wb) - Left Forearm Blood Culture - Final No growth in 5 days. 01/16/23 19:43 Blood Culture (Wb) - Anticubital Left Blood Culture - Final No growth in 5 days. 01/16/23 20:14 Blood Culture (Wb) - Right Forearm Blood Culture - Final No growth in 5 days. 01/21/23 14:04 Mucosa - Nose Coronavirus COVID-19 PCR - Final 01/21/23 14:04 Mucosa - Nose Respiratory Panel (PCR) - Final 01/18/23 11:00 Sputum, Induced/Lukens Gram Stain - Final 01/18/23 11:00 Sputum, Induced/Lukens Respiratory Culture - Final Pseudomonas aeruginosa 01/17/23 22:30 Sputum, Expectorated/Coughed Gram Stain - Final 01/17/23 22:30 Sputum, Expectorated/Coughed Respiratory Culture - Final Pseudomonas aeruginosa 01/16/23 20:14 Urine, Clean Catch Urine Culture - Final Culture exhibits no growth. 01/17/23 00:45 Mucosa - Nasopharyngeal Coronavirus COVID-19 PCR - Final 01/16/23 00:45 Mucosa - Nasopharyngeal Respiratory Panel (PCR) - Final 01/17/23 00:27 Urine, Random Legionella Antigen - Final 01/17/23 00:27 Urine, Random Streptococcus pneumoniae Antigen (M - Final 01/16/23 19:50 Nasal Secretion SARS-CoV-2 & FLU Antigen (Rapid) - Final ABG Data ABG results: ABG 01/28/23 11:52 Specimen Type ART Sample Site R Radial pH 7.27 L Bicarbonate Actual 34.4 H Total CO2 37 Base Excess 8 H O2 Saturation 80 L O2 % 80.0 ABG pCO2 74.9 H* ABG pO2 53 L Lino Test Positive Respiration Rate 18 O2 Delivery Device Adult Vent Vent Mode AC Tidal Volume 440.0 POC PEEP 10 Crit Call To/Read Back Yes Blood Gas Notified Whom dr. shea Blood Gas Notified Time 11:54:10 Physical Exam Narrative On ventilator support, no apparent distress S1, S2, rhythm and rate regular, mild tachycardia Lung sounds diminished Abdomen soft, positive bowel sounds edema to b/l arms and legs Indwelling Vargas catheter with clear yellow urine in bag Assessment & Plan Assessment/Plan (1) LAUREN (acute kidney injury): PLAN: - Nonoliguric acute kidney injury with presumed normal baseline serum creatinine. LAUREN multifactorial: sepsis, hypotension, A-fib with RVR with decreased renal perfusion. Noncontrast CT normal left kidney, nonobstructive calculus right kidney. Serum creatinine 1.2 on admission, improved 0.67 on 01/18, serum creatinine peaked 1.66 on 01/23, currently serum creatinine leveled off around 1.2-1.3 mg/dL over past few days. Disproportionately elevated BUN possibly secondary to steroids, tube feeding. Steroid frequency decreased, BUN peaked 103 and BUN 100 today. Suspect that serum creatinine is likely overestimating his true renal function because of low muscle mass/cachexia. -There is no acute indication for CONFIGURATION RELEASE MANAGER at this time. We wound not recommend starting dialysis in this patient given his poor functional status at baseline. Given mild LAUREN recommend to try and avoid hypotension, intravascular volume depletion as well as nephrotoxins. -Mild hyperkalemia likely secondary to LAUREN. On Nepro tube feeding. Potassium level normal again today. He last received Kayexalate on 01/27/2023. He is also getting Lasix today. -Hypernatremia likely secondary to lack of free water intake. Free water flushes were increased and patient started on D5W. Can decrease IV fluid rate if okay with primary team and continue with free water flushes. Serum sodium is better today. Sodium peaked 160, today 148. We will continue to monitor. -acute combined respiratory failure/advanced COPD/pneumonia/pulmonary hypertension
[2023-01-29] MEDS: Meropenem 1 GM in 0.9% Normal Saline (100mL MB+) 100 ML IV ×2 (09:26→22:36)
--- NOTE | 2023-01-29 10:33 | PCM.PN.ID ---
Physical Exam Narrative Still fever overnight, on vent Const no apparent distress Resp Auscultation: rhonchi and diminished lung sounds Cardio regular rate and regular rhythm GI soft to palpation, non-tender and non-distended Skin no rashes or lesions noted ID ID: Route of nutrition/ use of supplements: [] Nutritional Intake: [] IV Site: [] Vargas Catheter: [] Assessment & Plan Assessment/Plan (1) Septic shock: PLAN: septic shock due to pseudomonas pneumonia with end stage COPD - had been on cefepime. Hep panel neg. Repeat covid and resp pcr panel neg. Changed to meropenem 01/22. Added vanc 01/23. Repeat cxs remain neg. Wbc remains elevated, now again with rising temp. Sputum again with pseudomonas. Now CCA. Wbc better today. Will follow (2) CAP (community acquired pneumonia): QUALIFIERS: Laterality: left Lung location: upper lobe of lung Qualified Code(s): J18.9 - Pneumonia, unspecified organism
--- NOTE | 2023-01-29 10:48 | PN_ITS ---
Subjective Subjective Patient seen and examined. He remains intubated and sedated; he remains on a PEEP of 10 and FiO2 of 70%. He also remains on levophed. Sodium has trended down to 148 today. Objective Data Objective Data Vital Signs: Vital Signs Temp Pulse Resp BP Pulse Ox O2 Del Method O2 Flow Rate 98.9 F 98 17 142/60 H 91 Mechanical Ventilator 75 01/29/23 10:00 01/29/23 10:00 01/29/23 10:00 01/29/23 10:45 01/29/23 10:00 01/29/23 10:00 01/21/23 21:00 FiO2 70 01/29/23 10:00 Oxygen Flow Rate (L/min) 75 Oxygen Delivery Method Mechanical Ventilator Weight: 157 lb 6.561 oz Body Mass Index (BMI) 23.9 Intake & Output: Intake and Output for Last 24 Hours 01/27/23 01/28/23 01/29/23 23:59 23:59 23:59 Intake Total 4985.98 / 5021.68 6120.90 / 6148.38 2542.58 / 2542.58 Output Total 2900 / 2900 3225 / 3225 950 / 950 Balance 2085.98 / 2121.68 2895.90 / 2923.38 1592.58 / 1592.58 Lab / Micro Data 01/29/23 03:45 01/29/23 03:45 Labs: Laboratory Results - last 24 hr 01/28/23 11:39: POC Glucose 143 H 01/28/23 11:40: APTT 78.6 H 01/28/23 17:45: APTT 89.8 H 01/28/23 17:46: POC Glucose 199 H 01/28/23 22:45: POC Glucose 262 H 01/29/23 00:13: APTT 89.6 H 01/29/23 03:45: WBC 24.8 H, RBC 2.87 L, Hgb 8.3 L, Hct 27.5 L, MCV 95.8 H, MCH 28.9, MCHC 30.2 L, RDW Std Deviation 58.5 H, RDW Coeff of Debra 16.8 H, Plt Count 117 L, MPV 13.7 H, Immature Gran % (Auto) 1.600 H, Neut % (Auto) 91.2 H, Lymph % (Auto) 2.1 L, Bacon % (Auto) 4.8, Eos % (Auto) 0.1, Baso % (Auto) 0.2, Absolute Neuts (auto) 22.6 H, Absolute Lymphs (auto) 0.51 L, Nucleated RBC % 0.2, Platelet Estimate SLT DEC, Plt Morphology Comment LARGE, Anisocytosis 1+, Macrocytosis 1+, Sodium 148 H, Potassium 4.5, Chloride 111 H, Carbon Dioxide 36.0 H, Anion Gap 1 L, BUN 83 H, Creatinine 1.25, Estim Creat Clear Calc 53.20, Est GFR (MDRD) Af Amer 73, Est GFR (MDRD) Non-Af 61, BUN/Creatinine Ratio 66.4 H , Glucose 172 H, Calcium 7.9 L, Magnesium 2.4 01/29/23 05:05: POC Glucose 166 H 01/29/23 06:40: APTT 50.1 H Micro: Microbiology 01/23/23 15:20 Blood Culture (Wb) - Left Wrist Blood Culture - Final No growth in 5 days. 01/23/23 15:40 Blood Culture (Wb) - Anticubital Left Blood Culture - Final No growth in 5 days. 01/26/23 17:50 Sputum, Induced/Lukens Gram Stain - Final 01/26/23 17:50 Sputum, Induced/Lukens Respiratory Culture - Final Pseudomonas aeruginosa 01/21/23 11:10 Blood Culture (Wb) - Right Forearm Blood Culture - Final No growth in 5 days. 01/21/23 11:00 Blood Culture (Wb) - Anticubital Left Blood Culture - Final No growth in 5 days. 01/22/23 10:00 Urine Catheter - Catheter Urine Culture - Final Culture exhibits no growth. 01/18/23 11:50 Blood Culture (Wb) - Port Blood Culture - Final No growth in 5 days. 01/18/23 11:50 Blood Culture (Wb) - Left Forearm Blood Culture - Final No growth in 5 days. 01/16/23 19:43 Blood Culture (Wb) - Anticubital Left Blood Culture - Final No growth in 5 days. 01/16/23 20:14 Blood Culture (Wb) - Right Forearm Blood Culture - Final No growth in 5 days. 01/21/23 14:04 Mucosa - Nose Coronavirus COVID-19 PCR - Final 01/21/23 14:04 Mucosa - Nose Respiratory Panel (PCR) - Final 01/18/23 11:00 Sputum, Induced/Lukens Gram Stain - Final 01/18/23 11:00 Sputum, Induced/Lukens Respiratory Culture - Final Pseudomonas aeruginosa 01/17/23 22:30 Sputum, Expectorated/Coughed Gram Stain - Final 01/17/23 22:30 Sputum, Expectorated/Coughed Respiratory Culture - Final Pseudomonas aeruginosa 01/16/23 20:14 Urine, Clean Catch Urine Culture - Final Culture exhibits no growth. 01/17/23 00:45 Mucosa - Nasopharyngeal Coronavirus COVID-19 PCR - Final 01/16/23 00:45 Mucosa - Nasopharyngeal Respiratory Panel (PCR) - Final 01/17/23 00:27 Urine, Random Legionella Antigen - Final 01/17/23 00:27 Urine, Random Streptococcus pneumoniae Antigen (M - Final 01/16/23 19:50 Nasal Secretion SARS-CoV-2 & FLU Antigen (Rapid) - Final ABG Data ABG results: ABG 01/28/23 11:52 Specimen Type ART Sample Site R Radial pH 7.27 L Bicarbonate Actual 34.4 H Total CO2 37 Base Excess 8 H O2 Saturation 80 L O2 % 80.0 ABG pCO2 74.9 H* ABG pO2 53 L Lino Test Positive Respiration Rate 18 O2 Delivery Device Adult Vent Vent Mode AC Tidal Volume 440.0 POC PEEP 10 Crit Call To/Read Back Yes Blood Gas Notified Whom dr. shea Blood Gas Notified Time 11:54:10 Physical Exam Const Negative for healthy appearing Constitutional Narrative: intubated, sedated, RASS score remains -4, cachectic HEENT normocephalic, head/scalp atraumatic and moist oral mucous membranes Eyes PERRL Neck no lymphadenopathy Lymph Lymphatic: no lymphadenopathy noted and no lymphedema noted Resp No normal respiratory effort, no retractions and no use of accessory muscles Resp Narrative: intubated, sedated, diminished breath sounds bibasally, no wheezes or crackles. tachypneic Auscultation: rhonchi; Negative for rales or wheezes Cardio regular rate, regular rhythm, S1 normal heart sound, S2 normal heart sound, no murmurs, no rub, no gallops and no clicks GI normal to inspection, nondistended, normoactive bowel sounds, soft to palpation and non-tender Extremity normal capillary refill and no clubbing, cyanosis or edema Skin Skin Narrative: Left IJ in place-clean and dry General Skin Exam: no breakdown Neuro Neuro Narrative: sedated, RASS score is -4 Psych Psych Narrative: intubated, and sedated. RASS score is -4 Assessment & Plan Assessment/Plan (1) LAUREN (acute kidney injury): (2) Septic shock: (3) Severe malnutrition: (4) RVF (right ventricular failure): PLAN: Plan #Acute hypoxic respiratory failure due to COPD and pneumonia * remains intubated. tachypnea and tachycardia have improved * critical care on board * on levophed * still on IV vancomycin and IV meropenem. * continue pulmonary toileting * #Septic shock * due to pneumonia * remains on levophed. titrate to maintain MAP >65 * on vancomycin and meropenem as listed above * WBC still remains elevated but is down to 24.8 today. * ID on board * #Shock liver: * Amiodarone was discontinued due to elevation in AST and ALT. * ALT and AST are trending downwards. * Liver ultrasound showed fatty infiltration with sludge in the gallbladder minimal. * Cholecystic fluid with mild ascites. * On lactulose due to mildly elevated ammonia * #Hypernatremia:resolving. Sodium is down to 148 today #Hyperkalemia:resolved. Potassium is 4.5 today. #LAUREN: * resolved. cr is down to 1.21 today #Anemia * hb has remained stable and is 10.5 today. #Elevated digoxin level: Digoxin discontinued. #New onset A-fib with RVR. * HR is improving. Will monitor. * #Pulmonary nodules: Will need further work-up after discharge. #Type 2 diabetes mellitus: Has A1c of 6.1. Insulin sliding scale. Accu-Cheks every 6 hourly. Nutrition: On tube feeds DVT prophylaxis: On heparin drip o/a of afib. Prognosis: * Poor. Now has a guardian in place for 72 hours. Guardianship to be extended for 30 days. Charges/Coding Visit Charges Inpatient E&M: 54543 [facility] L3
[2023-01-29] MEDS: Insulin Glargine-YFGN 100 UNIT/ML Pen 20 UNIT SC ×2 (11:27→22:36)
[2023-01-29 11:57] LABS: Bedside Glucose 184 mg/dL (74-106)
--- NOTE | 2023-01-29 13:06 | CASEMGMT ---
Social Work - Patient updates/Communication with others Spoke with patient's legal guardian, Title Vehicle Service Attendant Aquilino Jansen. Guardian is agreeable to allow Alicia Hernandez and Leonie Santana to have verbal updates on patient's care. Title Vehicle Service Attendant is also agreeable for Leonie to continue to be at patient's bedside. For staff reference and to verify who is calling in: Alicia Ramirez [phone] Leonie Santana [phone] Updated ICU staff. -MOSHE Flanagan
[2023-01-29] MEDS: fentaNYL drip 100 ML 15 MCG CONT INF ×2 (14:00→21:03)
[2023-01-29] MEDS: Heparin Injection (Vial) 5,000 UNIT/ML VIAL 5000 UNIT SC ×2 (14:12→22:36)
[2023-01-29] MEDS: NEPRO TUBE FEED 1,000 ML 40 ML GT (14:55)
[2023-01-29] MEDS: dexMEDEtomidine 1,000 MCG in 0.9% Normal Saline (250mL Bag) 240 ML 23.2 MCG CONT INF (16:10)
[2023-01-29 16:36] LABS: Vancomycin, Trough Level 15.7 ug/mL (5.0-15.0)
--- NOTE | 2023-01-29 16:50 | PCM.RX.CS ---
Consult Antibiotic Management Pharmacy has been consulted to manage selected antiobiotic: Vancomycin Type of Intervention Type of Consult: Follow-up Suspected Infection Suspected Infection: Sepsis and Pneumonia Prior Doses of Antibiotics Prior Doses of Antibiotics Received/Current Regimen: Vancomycin 750 mg IV given 01/26 @ 1749, 01/27 @ 1758, and 01/28 @ 1649. Labs Labs: Sodium 148 mmol/L (136-145) H 01/29/23 03:45 Potassium 4.5 mmol/L (3.5-5.1) 01/29/23 03:45 Chloride 111 mmol/L (98-107) H 01/29/23 03:45 Carbon Dioxide 36.0 mmol/L (21.0-32.0) H 01/29/23 03:45 Anion Gap 1 (5-15) L 01/29/23 03:45 BUN 83 mg/dL (7-18) H 01/29/23 03:45 Creatinine 1.25 mg/dL (0.70-1.30) 01/29/23 03:45 Est GFR (MDRD) Af Amer 73 mL/min (>60) 01/29/23 03:45 Est GFR (MDRD) Non-Af 61 mL/min (>60) 01/29/23 03:45 BUN/Creatinine Ratio 66.4 RATIO (10-20) H 01/29/23 03:45 Glucose 172 mg/dL (74-106) H 01/29/23 03:45 Vancomycin Trough 15.7 ug/mL (5.0-15.0) H 01/29/23 16:10 Microbiology Microbiology: Microbiology 01/23/23 15:20 Blood Culture (Wb) - Left Wrist Blood Culture - Final No growth in 5 days. 01/23/23 15:40 Blood Culture (Wb) - Anticubital Left Blood Culture - Final No growth in 5 days. 01/26/23 17:50 Sputum, Induced/Lukens Gram Stain - Final 01/26/23 17:50 Sputum, Induced/Lukens Respiratory Culture - Final Pseudomonas aeruginosa 01/21/23 11:10 Blood Culture (Wb) - Right Forearm Blood Culture - Final No growth in 5 days. 01/21/23 11:00 Blood Culture (Wb) - Anticubital Left Blood Culture - Final No growth in 5 days. 01/22/23 10:00 Urine Catheter - Catheter Urine Culture - Final Culture exhibits no growth. 01/18/23 11:50 Blood Culture (Wb) - Port Blood Culture - Final No growth in 5 days. 01/18/23 11:50 Blood Culture (Wb) - Left Forearm Blood Culture - Final No growth in 5 days. 01/16/23 19:43 Blood Culture (Wb) - Anticubital Left Blood Culture - Final No growth in 5 days. 01/16/23 20:14 Blood Culture (Wb) - Right Forearm Blood Culture - Final No growth in 5 days. 01/21/23 14:04 Mucosa - Nose Coronavirus COVID-19 PCR - Final 01/21/23 14:04 Mucosa - Nose Respiratory Panel (PCR) - Final 01/18/23 11:00 Sputum, Induced/Lukens Gram Stain - Final 01/18/23 11:00 Sputum, Induced/Lukens Respiratory Culture - Final Pseudomonas aeruginosa 01/17/23 22:30 Sputum, Expectorated/Coughed Gram Stain - Final 01/17/23 22:30 Sputum, Expectorated/Coughed Respiratory Culture - Final Pseudomonas aeruginosa 01/16/23 20:14 Urine, Clean Catch Urine Culture - Final Culture exhibits no growth. 01/17/23 00:45 Mucosa - Nasopharyngeal Coronavirus COVID-19 PCR - Final 01/16/23 00:45 Mucosa - Nasopharyngeal Respiratory Panel (PCR) - Final 01/17/23 00:27 Urine, Random Legionella Antigen - Final 01/17/23 00:27 Urine, Random Streptococcus pneumoniae Antigen (M - Final 01/16/23 19:50 Nasal Secretion SARS-CoV-2 & FLU Antigen (Rapid) - Final Dosing Weight Weight used for dosin.4 kg Estimated Creatinine Clearance Estimated Creatinine Clearance: 53 Goal Trough Goal Trough: 15-20 mcg/mL Pharmacy Plan for Drug Dosing Pharmacy Plan for Drug Dosing: Patients trough today was 15.7, will continue vancomycin 750 mg Q24H dosing with a trough in 4 days. Pharmacy Service will continue to monitor and adjust dosing as required. Follow-Up Labs Follow-Up Labs: Trough: Vancomycin Date/Time Labs Ordered Labs to be done on [date and time ordered]: 02/02/23 @ 1639
[2023-01-29] MEDS: Vancomycin HCl 750 MG in 0.9% Normal Saline (250mL Bag) 250 ML 250 MG IV (17:07)
[2023-01-29 17:33] LABS: Bedside Glucose 195 mg/dL (74-106)
[2023-01-29] MEDS: 0.9% Normal Saline (250mL Bag) 250 ML 15 ML IV (22:36)
--- NOTE | 2023-01-29 23:39 | NURSING ---
During initial assessment TF residuals obtained and the gastric content looked red as if it may be blood. Gastric occult ordered and sent to lab, lab called stating they had no way to run it so order was discontinued.
[2023-01-30] VITALS (53 sets, daily range): BP systolic 72–188; BP diastolic 41–132; PULSE 60–152; RESP 16–24; TEMP 36.9–37.6; O2SAT 87–99; BMI 24.0
[2023-01-30] MEDS: Dextrose 5%-Water (1000mL Bag) 1,000 ML 100 ML IV (00:13)
[2023-01-30 00:36] LABS: Bedside Glucose 145 mg/dL (74-106)
[2023-01-30] MEDS: Ipratropium/Albuterol Sulfate 3 ML AMPUL.NEB INHALATION ×5 (01:57→19:10)
[2023-01-30] MEDS: dexMEDEtomidine 1,000 MCG in 0.9% Normal Saline (250mL Bag) 240 ML 23.2 MCG CONT INF (03:29)
[2023-01-30] MEDS: fentaNYL drip 100 ML 15 MCG CONT INF ×3 (03:30→19:19)
[2023-01-30 03:41] LABS: Absolute Lymphocyte Count 0.65 X10^3/uL (0.83-4.51); Absolute Neutrophil Count 21.9 X10^3/uL (2.0-7.7); Basophil# 0.05 X10^3/uL; Basophil% 0.2 % (0-1); Eosinophil# 0.08 X10^3/uL; Eosinophils% 0.3 % (0-5); Hematocrit 28.5 % (40-54); Hemoglobin 8.6 g/dL (13.0-16.5); Lymphocyte # 0.65 X10^3/ul (0.83-4.51); Lymphocyte % 2.7 % (19-41); Mean Corp Hgb Conc 30.2 g/dL (32-36); Mean Corpuscular Hgb 28.7 pg (27.0-32.0); Mean Platelet Vol. 13.3 fl (6.2-12.0); Monocyte# 1.04 X10^3/uL; Monocyte% 4.3 % (0-10); NRBC Flagged by Analyzer 0 % (0-5); Neutrophil # 21.85 X10^3/uL (2.7-7.7); Neutrophil % 91.5 % (47-70); POSITIVE DIFFERENTIAL YES; Platelet Count 133 K/mm3 (150-450); RBC Distribution Width SD 55.7 fl (35.1-43.9); White Blood Count 23.9 K/mm3 (4.4-11.0)
[2023-01-30 03:42] LABS: Differential Indicated SCAN CRITERIA MET
[2023-01-30 04:03] LABS: Anisocytosis 1+; Platelet Estimate SLT DEC (ADEQ)
[2023-01-30 04:19] LABS: Anion Gap -2 (5-15); BUN 72 mg/dL (7-18); BUN/Creat Ratio 64.9 RATIO (10-20); Calcium,Total 7.9 mg/dL (8.5-10.1); Chloride 104 mmol/L (98-107); Creatinine, Serum 1.11 mg/dL (0.70-1.30); EST Glomerular Filtration Rate 70 mL/min (>60); Est Glom Filt Rate - Afr Amer 84 mL/min (>60); Estimated Creatinine Clearance 59.91 ml/min; Glucose 128 mg/dL (74-106); Magnesium 2.2 mg/dL (1.6-2.6); Potassium 4.1 mmol/L (3.5-5.1); Sodium Level 141 mmol/L (136-145)
[2023-01-30] MEDS: Heparin Injection (Vial) 5,000 UNIT/ML VIAL 5000 UNIT SC ×3 (05:10→21:09)
[2023-01-30] MEDS: TITRATION PARAMETER CHANGE 1 EACH IV (05:10)
[2023-01-30 05:32] LABS: Bedside Glucose 97 mg/dL (74-106)
--- NOTE | 2023-01-30 07:24 | PN.CC_ITS ---
Assessment & Plan Assessment/Plan (1) Septic shock: PLAN: Plan RECOMMENDATIONS: 1. Continue to wean FiO2 and PEEP to maintain saturations at or above 90%. 2. Continue antimicrobials per ID recommendations. 3. Continue tube feeds as tolerated. 4. Stop D5W. 5. Continue scheduled bronchodilators. 6. Continue Solu-Medrol once daily. 7. Continue insulin and Accu-Cheks. 8. Continue appropriate GI prophylaxis. 9. Continue attempts at diuresis as tolerated by hemodynamics and renal function. 10. Continue Levophed to maintain a mean arterial pressure at or above 65 mmHg. IMPRESSIONS: 1. Acute combined respiratory failure The patient has reported advanced a COPD which is currently in a state of exacerbation secondary to underlying pseudomonal pneumonia. The patient continues to have high ventilator requirements. The patient has been on the ventilator now for 9 days. He also has concurrent pulmonary hypertension. The patient appears to be tolerating right-sided positioning, given the extensive nature of his left-sided infiltrates. Plan to continue to wean FiO2 and PEEP as tolerated to maintain saturations at or above 90%. Plan to continue supportive measures including antimicrobials, bronchodilators and steroids. Overall, however, the patient's prognosis is quite poor. Legal guardianship was able to be established. I did have a very erendira discussion with the patient's legal guardian regarding prognosis and goals of care. There are plans for a court hearing later today. If there is no significant improvement clinically by that time, consideration will be given to palliative withdrawal of life support and initiation of comfort care measures. At this time, the patient is too clinically unstable to be considered for tracheostomy and PEG tube placement. Plan to proceed with attempts at further diuresis today, as tolerated by hemodynamics and renal function. 2. Septic shock Secondary to left-sided pseudomonal pneumonia. Continue antibiotics as noted above. Continue vasopressor support, as needed, to maintain mean arterial pressure at or above 65 mmHg. 3. Hypernatremia/hyperchloremia/uremia Resolved. Plan to discontinue D5W at this time. 4. Shock liver Slowly improving with stabilization and hemodynamic status. Continue to monitor clinically. 5. Atrial fibrillation with RVR/pulmonary hypertension with RV dysfunction/history of tobacco dependency Complicates care, management, recovery and prognosis. Continue supportive measures as noted above. Continue tube feeds as tolerated. Continue goals of care discussion with the patient's legal guardian. CODE STATUS: DNR CCA, following discussion with the patient's legal guardian. TIME: 33 minutes of critical care time, independent of procedures, was spent addressing the patient's acute combined respiratory failure, septic shock, hypernatremia, shock liver, review of all data and collaboration with the care team. Subjective Subjective The patient was seen and examined at the bedside this morning. Events from the last 24 hours have been reviewed. The patient remains on assist control mode of mechanical ventilation with an FiO2 requirement of 90% and PEEP of 10. The patient did receive IV Lasix x2 yesterday. White count remains elevated at 23,000. Chemistry profile was notable for a bicarbonate of 39. Creatinine remains within normal limits. Sodium is now within normal limits. The patient remains overall net positive for the hospitalization. Objective Data Objective Data The patient's most recent lab work, culture data and imaging studies have all been personally reviewed. Surface echocardiogram demonstrated an ejection fraction of 50% with a severely dilated RV and moderate global RV systolic dysfunction. Pulmonary artery systolic pressure was estimated to be 47 mmHg. Sputum culture dated January 18 was positive for Pseudomonas. Vital Signs: Vital Signs Temp Pulse Resp BP Pulse Ox O2 Del Method O2 Flow Rate 98.6 F 73 20 H 92/56 L 95 Mechanical Ventilator 75 01/30/23 07:00 01/30/23 07:17 01/30/23 07:17 01/30/23 07:00 01/30/23 07:17 01/30/23 07:00 01/21/23 21:00 FiO2 90 01/30/23 07:17 Oxygen Flow Rate (L/min) 75 Oxygen Delivery Method Mechanical Ventilator Weight: 158 lb 4.67 oz Body Mass Index (BMI) 24.0 Intake & Output: Intake and Output for Last 24 Hours 01/28/23 01/29/23 01/30/23 23:59 23:59 23:59 Intake Total 6120.90 / 6148.38 6043.76 / 6081.96 1615.06 / 1615.06 Output Total 3225 / 3225 4550 / 4550 400 / 400 Balance 2895.90 / 2923.38 1493.76 / 1531.96 1215.06 / 1215.06 Lab / Micro Data Attestation: I reviewed the patient's lab results. 01/30/23 03:25 01/30/23 03:25 Labs: Laboratory Results - last 24 hr 01/29/23 11:26: POC Glucose 184 H 01/29/23 16:10: Vancomycin Trough 15.7 H 01/29/23 17:06: POC Glucose 195 H 01/30/23 00:11: POC Glucose 145 H 01/30/23 03:25: WBC 23.9 H, RBC 3.00 L, Hgb 8.6 L, Hct 28.5 L, MCV 95.0 H, MCH 28.7, MCHC 30.2 L, RDW Std Deviation 55.7 H, RDW Coeff of Debra 16.0 H, Plt Count 133 L, MPV 13.3 H, Immature Gran % (Auto) 1.000 H, Neut % (Auto) 91.5 H, Lymph % (Auto) 2.7 L, [place] % (Auto) 4.3, Eos % (Auto) 0.3, Baso % (Auto) 0.2, Absolute Neuts (auto) 21.9 H, Absolute Lymphs (auto) 0.65 L, Nucleated RBC % 0, Platelet Estimate SLT DEC, Anisocytosis 1+, Sodium 141, Potassium 4.1, Chloride 104, Carbon Dioxide 39.0 H, Anion Gap -2 L, BUN 72 H, Creatinine 1.11, Estim Creat C lear Calc 59.91, Est GFR (MDRD) Af Amer 84, Est GFR (MDRD) Non-Af 70, BUN/Creatinine Ratio 64.9 H, Glucose 128 H, Calcium 7.9 L, Magnesium 2.2 01/30/23 05:04: POC Glucose 97 Micro: Microbiology 01/23/23 15:20 Blood Culture (Wb) - Left Wrist Blood Culture - Final No growth in 5 days. 01/23/23 15:40 Blood Culture (Wb) - Anticubital Left Blood Culture - Final No growth in 5 days. 01/26/23 17:50 Sputum, Induced/Lukens Gram Stain - Final 01/26/23 17:50 Sputum, Induced/Lukens Respiratory Culture - Final Pseudomonas aeruginosa 01/21/23 11:10 Blood Culture (Wb) - Right Forearm Blood Culture - Final No growth in 5 days. 01/21/23 11:00 Blood Culture (Wb) - Anticubital Left Blood Culture - Final No growth in 5 days. 01/22/23 10:00 Urine Catheter - Catheter Urine Culture - Final Culture exhibits no growth. 01/18/23 11:50 Blood Culture (Wb) - Port Blood Culture - Final No growth in 5 days. 01/18/23 11:50 Blood Culture (Wb) - Left Forearm Blood Culture - Final No growth in 5 days. 01/16/23 19:43 Blood Culture (Wb) - Anticubital Left Blood Culture - Final No growth in 5 days. 01/16/23 20:14 Blood Culture (Wb) - Right Forearm Blood Culture - Final No growth in 5 days. 01/21/23 14:04 Mucosa - Nose Coronavirus COVID-19 PCR - Final 01/21/23 14:04 Mucosa - Nose Respiratory Panel (PCR) - Final 01/18/23 11:00 Sputum, Induced/Lukens Gram Stain - Final 01/18/23 11:00 Sputum, Induced/Lukens Respiratory Culture - Final Pseudomonas aeruginosa 01/17/23 22:30 Sputum, Expectorated/Coughed Gram Stain - Final 01/17/23 22:30 Sputum, Expectorated/Coughed Respiratory Culture - Final Pseudomonas aeruginosa 01/16/23 20:14 Urine, Clean Catch Urine Culture - Final Culture exhibits no growth. 01/17/23 00:45 Mucosa - Nasopharyngeal Coronavirus COVID-19 PCR - Final 01/16/23 00:45 Mucosa - Nasopharyngeal Respiratory Panel (PCR) - Final 01/17/23 00:27 Urine, Random Legionella Antigen - Final 01/17/23 00:27 Urine, Random Streptococcus pneumoniae Antigen (M - Final 01/16/23 19:50 Nasal Secretion SARS-CoV-2 & FLU Antigen (Rapid) - Final ABG Data ABG results: ABG 01/28/23 11:52 Specimen Type ART Sample Site R Radial pH 7.27 L Bicarbonate Actual 34.4 H Total CO2 37 Base Excess 8 H O2 Saturation 80 L O2 % 80.0 ABG pCO2 74.9 H* ABG pO2 53 L Lino Test Positive Respiration Rate 18 O2 Delivery Device Adult Vent Vent Mode AC Tidal Volume 440.0 POC PEEP 10 Crit Call To/Read Back Yes Blood Gas Notified Whom dr. shea Blood Gas Notified Time 11:54:10 Radiography Diagnostic Testing: Radiology Impression Chest X-Ray 01/27/23 05:55 IMPRESSION: Unchanged appearance of chest with what may represent multifocal pneumonia and/or pulmonary fibrosis and emphysema. Electronically Signed: Celina Trotter MD at 7:03 EDT , Physical Exam Const Constitutional Narrative: Intubated, sedated and mechanically ventilated. Chronically ill in appearance. No ventilator dyssynchrony. HEENT normocephalic and head/scalp atraumatic Mouth: endotracheal tube in place and OG tube in place Eyes PERRL and EOMs intact bilaterally Neck supple General: trachea midline and CVC in place Chest inspection of chest normal Resp Resp Narrative: Mechanical breath sounds bilaterally. Auscultation: rhonchi and diminished lung sounds Cardio regular rate, regular rhythm, S1 normal heart sound and S2 normal heart sound GI normal to inspection, nondistended, normoactive bowel sounds Extremity Extremity Narrative: Wrapped upper extremities General Extremity: edema; Negative for clubbing Skin no rashes or lesions noted Neuro Sensorium / Orientation: sedated on vent Charges/Coding Procedures Hospitalists Procedures: 53930 Critial Care 1st Hr
[2023-01-30] MEDS: Furosemide 40 MG/4 ML Vial IV ×3 (07:58→21:09)
[2023-01-30 09:35] LABS: Phosphorus 5.3 mg/dL (2.5-4.9)
[2023-01-30] MEDS: Methylprednisolone Sod Succ 40 MG/ML VIAL IV (09:35)
[2023-01-30] MEDS: Senna/Docusate Sodium 1 Tablet GT (09:35)
[2023-01-30] MEDS: Polyethylene Glycol 3350 17 GM PACKET GT (09:35)
[2023-01-30] MEDS: Pantoprazole Sodium 40 MG in 0.9% Normal Saline (100mL MB+) 100 ML 330 MG IV (09:35)
[2023-01-30] MEDS: Chlorhexidine 15 ML PO ×2 (09:36→21:09)
[2023-01-30] MEDS: Meropenem 1 GM in 0.9% Normal Saline (100mL MB+) 100 ML IV ×2 (10:13→21:26)
--- NOTE | 2023-01-30 11:17 | PCM.PN.REN ---
Subjective Subjective no overnight events, on vent Objective Data Objective Data Vital Signs: Vital Signs Temp Pulse Resp BP Pulse Ox O2 Del Method O2 Flow Rate 98.7 F 104 H 22 H 143/60 H 92 Mechanical Ventilator 75 01/30/23 10:00 01/30/23 11:00 01/30/23 11:00 01/30/23 11:00 01/30/23 11:00 01/30/23 11:00 01/21/23 21:00 FiO2 90 01/30/23 11:00 Oxygen Flow Rate (L/min) 75 Oxygen Delivery Method Mechanical Ventilator Weight: 71.8 kg Body Mass Index (BMI) 24.0 Intake & Output: Intake and Output for Last 24 Hours 01/28/23 01/29/23 01/30/23 23:59 23:59 23:59 Intake Total 6120.90 / 6148.38 6043.76 / 6081.96 2896.85 / 2896.85 Output Total 3225 / 3225 4550 / 4550 400 / 400 Balance 2895.90 / 2923.38 1493.76 / 1531.96 2496.85 / 2496.85 Lab / Micro Data 01/30/23 03:25 01/30/23 03:25 Labs: Laboratory Results - last 24 hr 01/29/23 11:26: POC Glucose 184 H 01/29/23 16:10: Vancomycin Trough 15.7 H 01/29/23 17:06: POC Glucose 195 H 01/30/23 00:11: POC Glucose 145 H 01/30/23 03:25: WBC 23.9 H, RBC 3.00 L, Hgb 8.6 L, Hct 28.5 L, MCV 95.0 H, MCH 28.7, MCHC 30.2 L, RDW Std Deviation 55.7 H, RDW Coeff of Debra 16.0 H, Plt Count 133 L, MPV 13.3 H, Immature Gran % (Auto) 1.000 H, Neut % (Auto) 91.5 H, Lymph % (Auto) 2.7 L, [place] % (Auto) 4.3, Eos % (Auto) 0.3, Baso % (Auto) 0.2, Absolute Neuts (auto) 21.9 H, Absolute Lymphs (auto) 0.65 L, Nucleated RBC % 0, Platelet Estimate SLT DEC, Anisocytosis 1+, Sodium 141, Potassium 4.1, Chloride 104, Carbon Dioxide 39.0 H, Anion Gap -2 L, BUN 72 H, Creatinine 1.11, Estim Creat Clear Calc 59.91, Est GFR (MDRD) Af Amer 84, Est GFR (MDRD) Non-Af 70, BUN/Creatinine Ratio 64.9 H, Glucose 128 H, Calcium 7.9 L, Phosphorus 5.3 H, Magnesium 2.2 01/30/23 05:04: POC Glucose 97 Micro: Microbiology 01/23/23 15:20 Blood Culture (Wb) - Left Wrist Blood Culture - Final No growth in 5 days. 01/23/23 15:40 Blood Culture (Wb) - Anticubital Left Blood Culture - Final No growth in 5 days. 01/26/23 17:50 Sputum, Induced/Lukens Gram Stain - Final 01/26/23 17:50 Sputum, Induced/Lukens Respiratory Culture - Final Pseudomonas aeruginosa 01/21/23 11:10 Blood Culture (Wb) - Right Forearm Blood Culture - Final No growth in 5 days. 01/21/23 11:00 Blood Culture (Wb) - Anticubital Left Blood Culture - Final No growth in 5 days. 01/22/23 10:00 Urine Catheter - Catheter Urine Culture - Final Culture exhibits no growth. 01/18/23 11:50 Blood Culture (Wb) - Port Blood Culture - Final No growth in 5 days. 01/18/23 11:50 Blood Culture (Wb) - Left Forearm Blood Culture - Final No growth in 5 days. 01/16/23 19:43 Blood Culture (Wb) - Anticubital Left Blood Culture - Final No growth in 5 days. 01/16/23 20:14 Blood Culture (Wb) - Right Forearm Blood Culture - Final No growth in 5 days. 01/21/23 14:04 Mucosa - Nose Coronavirus COVID-19 PCR - Final 01/21/23 14:04 Mucosa - Nose Respiratory Panel (PCR) - Final 01/18/23 11:00 Sputum, Induced/Lukens Gram Stain - Final 01/18/23 11:00 Sputum, Induced/Lukens Respiratory Culture - Final Pseudomonas aeruginosa 01/17/23 22:30 Sputum, Expectorated/Coughed Gram Stain - Final 01/17/23 22:30 Sputum, Expectorated/Coughed Respiratory Culture - Final Pseudomonas aeruginosa 01/16/23 20:14 Urine, Clean Catch Urine Culture - Final Culture exhibits no growth. 01/17/23 00:45 Mucosa - Nasopharyngeal Coronavirus COVID-19 PCR - Final 01/16/23 00:45 Mucosa - Nasopharyngeal Respiratory Panel (PCR) - Final 01/17/23 00:27 Urine, Random Legionella Antigen - Final 01/17/23 00:27 Urine, Random Streptococcus pneumoniae Antigen (M - Final 01/16/23 19:50 Nasal Secretion SARS-CoV-2 & FLU Antigen (Rapid) - Final Physical Exam Narrative On ventilator support, no apparent distress S1, S2, rhythm and rate regular, mild tachycardia Lung sounds diminished with scattered rhonchi Abdomen soft, positive bowel sounds edema to b/l arms and legs Indwelling Vargas catheter with clear yellow urine in bag Assessment & Plan Assessment/Plan (1) LAUREN (acute kidney injury): PLAN: - Nonoliguric acute kidney injury with presumed normal baseline serum creatinine. LAUREN multifactorial: sepsis, hypotension, A-fib with RVR with decreased renal perfusion. Noncontrast CT normal left kidney, nonobstructive calculus right kidney. Serum creatinine 1.2 on admission, improved 0.67 on 01/18, serum creatinine peaked 1.66 on 01/23, currently serum creatinine leveled off around 1.1-1.3 mg/dL over past few days. Disproportionately elevated BUN possibly secondary to steroids, tube feeding. BUN improving. Steroid frequency decreased, BUN peaked 103. Suspect that serum creatinine is likely overestimating his true renal function because of low muscle mass/cachexia. -There is no acute indication for SPECIAL CERTIFICATE DICTATOR at this time. We wound not recommend starting dialysis in this patient given his poor functional status at baseline. Given mild LAUREN recommend to try and avoid hypotension, intravascular volume depletion as well as nephrotoxins. -Mild hyperkalemia likely secondary to LAUREN. On Nepro tube feeding. Potassium level normal again today. He last received Kayexalate on 01/27/2023. Patient is diuresing with Lasix, renal function stable with Lasix. -Hypernatremia likely secondary to lack of free water intake. Free water flushes were increased and patient started on D5W. Sodium normal today, off D5W, recommend to continue with free water flushes. Sodium peaked 160. We will continue to monitor. -acute combined respiratory failure/advanced COPD/pneumonia/pulmonary hypertension
[2023-01-30 11:48] LABS: Bedside Glucose 76 mg/dL (74-106)
--- NOTE | 2023-01-30 12:08 | PN_ITS ---
Subjective Subjective Patient seen and examined. He remains unchanged from yesterday. He remains intubated and sedated. He is not requiring FiO2 of 90% and PEEP remains at 10. WBC is still elevated at 23,000. Objective Data Objective Data Vital Signs: Vital Signs Temp Pulse Resp BP Pulse Ox O2 Del Method O2 Flow Rate 98.7 F 93 20 H 143/60 H 90 Mechanical Ventilator 75 01/30/23 10:00 01/30/23 11:43 01/30/23 11:43 01/30/23 11:00 01/30/23 11:43 01/30/23 11:00 01/21/23 21:00 FiO2 90 01/30/23 11:43 Oxygen Flow Rate (L/min) 75 Oxygen Delivery Method Mechanical Ventilator Weight: 158 lb 4.67 oz Body Mass Index (BMI) 24.0 Intake & Output: Intake and Output for Last 24 Hours 01/28/23 01/29/23 01/30/23 23:59 23:59 23:59 Intake Total 6120.90 / 6148.38 6043.76 / 6081.96 2902.68 / 2902.68 Output Total 3225 / 3225 4550 / 4550 900 / 900 Balance 2895.90 / 2923.38 1493.76 / 1531.96 68 / Lab / Micro Data 01/30/23 03:25 01/30/23 03:25 Labs: Laboratory Results - last 24 hr 01/29/23 16:10: Vancomycin Trough 15.7 H 01/29/23 17:06: POC Glucose 195 H 01/30/23 00:11: POC Glucose 145 H 01/30/23 03:25: WBC 23.9 H, RBC 3.00 L, Hgb 8.6 L, Hct 28.5 L, MCV 95.0 H, MCH 28.7, MCHC 30.2 L, RDW Std Deviation 55.7 H, RDW Coeff of Debra 16.0 H, Plt Count 133 L, MPV 13.3 H, Immature Gran % (Auto) 1.000 H, Neut % (Auto) 91.5 H, Lymph % (Auto) 2.7 L, [place] % (Auto) 4.3, Eos % (Auto) 0.3, Baso % (Auto) 0.2, Absolute Neuts (auto) 21.9 H, Absolute Lymphs (auto) 0.65 L, Nucleated RBC % 0, Platelet Estimate SLT DEC, Anisocytosis 1+, Sodium 141, Potassium 4.1, Chloride 104, Carbon Dioxide 39.0 H, Anion Gap -2 L, BUN 72 H, Creatinine 1.11, Estim Creat Clear Calc 59.91, Est GFR (MDRD) Af Amer 84, Est GFR (MDRD) Non-Af 70, BUN/Creatinine Ratio 64.9 H, Glucose 128 H, Calcium 7.9 L, Phosphorus 5.3 H, Magnesium 2.2 01/30/23 05:04: POC Glucose 97 01/30/23 11:20: POC Glucose 76 Micro: Microbiology 01/23/23 15:20 Blood Culture (Wb) - Left Wrist Blood Culture - Final No growth in 5 days. 01/23/23 15:40 Blood Culture (Wb) - Anticubital Left Blood Culture - Final No growth in 5 days. 01/26/23 17:50 Sputum, Induced/Lukens Gram Stain - Final 01/26/23 17:50 Sputum, Induced/Lukens Respiratory Culture - Final Pseudomonas aeruginosa 01/21/23 11:10 Blood Culture (Wb) - Right Forearm Blood Culture - Final No growth in 5 days. 01/21/23 11:00 Blood Culture (Wb) - Anticubital Left Blood Culture - Final No growth in 5 days. 01/22/23 10:00 Urine Catheter - Catheter Urine Culture - Final Culture exhibits no growth. 01/18/23 11:50 Blood Culture (Wb) - Port Blood Culture - Final No growth in 5 days. 01/18/23 11:50 Blood Culture (Wb) - Left Forearm Blood Culture - Final No growth in 5 days. 01/16/23 19:43 Blood Culture (Wb) - Anticubital Left Blood Culture - Final No growth in 5 days. 01/16/23 20:14 Blood Culture (Wb) - Right Forearm Blood Culture - Final No growth in 5 days. 01/21/23 14:04 Mucosa - Nose Coronavirus COVID-19 PCR - Final 01/21/23 14:04 Mucosa - Nose Respiratory Panel (PCR) - Final 01/18/23 11:00 Sputum, Induced/Lukens Gram Stain - Final 01/18/23 11:00 Sputum, Induced/Lukens Respiratory Culture - Final Pseudomonas aeruginosa 01/17/23 22:30 Sputum, Expectorated/Coughed Gram Stain - Final 01/17/23 22:30 Sputum, Expectorated/Coughed Respiratory Culture - Final Pseudomonas aeruginosa 01/16/23 20:14 Urine, Clean Catch Urine Culture - Final Culture exhibits no growth. 01/17/23 00:45 Mucosa - Nasopharyngeal Coronavirus COVID-19 PCR - Final 01/16/23 00:45 Mucosa - Nasopharyngeal Respiratory Panel (PCR) - Final 01/17/23 00:27 Urine, Random Legionella Antigen - Final 01/17/23 00:27 Urine, Random Streptococcus pneumoniae Antigen (M - Final 01/16/23 19:50 Nasal Secretion SARS-CoV-2 & FLU Antigen (Rapid) - Final Physical Exam Const Negative for healthy appearing Constitutional Narrative: intubated, sedated, RASS score remains -4, cachectic HEENT normocephalic and head/scalp atraumatic Mouth: dry mucous membranes Eyes PERRL Neck no lymphadenopathy Lymph Lymphatic: no lymphadenopathy noted and no lymphedema noted Resp No normal respiratory effort Resp Narrative: intubated, sedated, diminished breath sounds bibasally, no wheezes or crackles. tachypneic Auscultation: rhonchi; Negative for rales or wheezes Cardio regular rate, regular rhythm, S1 normal heart sound, S2 normal heart sound, no murmurs, no rub, no gallops and no clicks Rate: tachycardic GI normal to inspection, nondistended, normoactive bowel sounds, soft to palpation and non-tender Extremity normal capillary refill and no clubbing, cyanosis or edema Extremity Narrative: Pedal pulses are 2+, no significant lower extremity edema however left upper extremity is edematous with 2+ pitting Skin Skin Narrative: Left IJ in place-clean and dry General Skin Exam: no breakdown Neuro Neuro Narrative: sedated, RASS score is -4 Psych Psych Narrative: intubated, and sedated. RASS score is -4 Assessment & Plan Assessment/Plan (1) LAUREN (acute kidney injury): (2) Septic shock: (3) Severe malnutrition: (4) RVF (right ventricular failure): PLAN: Plan #Acute hypoxic respiratory failure due to COPD and pneumonia * remains intubated. tachypnea and tachycardia have improved * critical care on board * on levophed * still on IV vancomycin and IV meropenem. * continue pulmonary toileting * wbc still elevated and is 23 today. * #Septic shock * due to pneumonia * remains on levophed. titrate to maintain MAP >65 * on vancomycin and meropenem as listed above * WBC still remains elevated but is down to 23 tpday * ID on board * #Shock liver: * Amiodarone was discontinued due to elevation in AST and ALT. * ALT and AST are trending downwards. * Liver ultrasound showed fatty infiltration with sludge in the gallbladder minimal. * Cholecystic fluid with mild ascites. * On lactulose due to mildly elevated ammonia * #Hypernatremia:resolving. Sodium is down to 141 today #Hyperkalemia:resolved. Potassium is 4.1 today. #LAUREN: * resolved. #Anemia * hb has remained stable and is 10.5 today. #Elevated digoxin level: Digoxin discontinued. #New onset A-fib with RVR. * HR is improving. Will monitor. * #Pulmonary nodules: Will need further work-up after discharge. #Type 2 diabetes mellitus: Has A1c of 6.1. Insulin sliding scale. Accu-Cheks every 6 hourly. Nutrition: On tube feeds DVT prophylaxis: On heparin drip o/a of afib. Prognosis: * Poor. Now has a guardian in place for 72 hours. Guardianship to be extended for 30 days so decisions can be made about his medical care Charges/Coding Visit Charges Inpatient E&M: 45524 [facility] L3
[2023-01-30] MEDS: dexMEDEtomidine 1,000 MCG in 0.9% Normal Saline (250mL Bag) 240 ML 23.3 MCG CONT INF (12:26)
[2023-01-30] MEDS: Magnesium Citrate 300 ML GT (13:11)
--- NOTE | 2023-01-30 13:30 | EKG12_ITS ---
Test Reason : ARRYTHMIA Blood Pressure : / mmHG Vent. Rate : 157 BPM Atrial Rate : 074 BPM P-R Int : 000 ms QRS Dur : 138 ms QT Int : 310 ms P-R-T Axes : 000 119 010 degrees QTc Int : 501 ms Critical Test Result: High HR Atrial Fibrillation Right bundle branch block Abnormal ECG Confirmed by FRED MATOS, RENE ([id number]), dictionary editor ALEXEY MURILLO ([id number]) on 02/24/2023 1:30:12 PM Referred By: PANTERA Confirmed By:RENE IBARRA MD
[2023-01-30 13:58] LABS: Bedside Glucose 84 mg/dL (74-106)
[2023-01-30] MEDS: Amiodarone 150 MG in Dextrose 5%-Water (100mL Bag) 100 ML 600 MG IV BOLUS (14:18)
[2023-01-30] MEDS: Amiodarone 360 MG in Dextrose 5% Viaflo Bag 192.8 ML 33.3 MG CONT INF (14:30)
--- NOTE | 2023-01-30 16:49 | CASEMGMT ---
Social Work - Guardianship update Spoke with Veterinary Virus Serum Inspector Aquilino Jansen, Legal Guardian for the patient. Per Aquilino, the parish visitor conitinued the guardianshop for another 30 days. When the court documents are finished, updated copies will be sent to the hospital. This health science writer also let guardian and [facility] Biological Science Aide know that patient's support person Leonie has expressed concern for patient's remains when patient passes away, and that patient reportedly would like to be cremated and buried at [facility]. For any issues or developments over the next few days, Veterinary Virus Serum Inspector Inderjit can be reached by cell phone at [phone]. Plan: SW following. -MOSHE Flanagan
[2023-01-30 17:08] LABS: Bedside Glucose 115 mg/dL (74-106)
[2023-01-30 17:29] LABS: Bedside Glucose 68 mg/dL (74-106)
[2023-01-30] MEDS: NEPRO TUBE FEED 1,000 ML 40 ML GT (18:34)
[2023-01-30] MEDS: Amiodarone 360 MG in Dextrose 5% Viaflo Bag 192.8 ML 16.7 MG CONT INF (21:05)
[2023-01-30] MEDS: Insulin Lispro 100 UNIT/ML INSULN.PEN SC (23:42)
[2023-01-30] MEDS: Insulin Glargine-YFGN 100 UNIT/ML Pen 10 UNIT SC (23:43)
[2023-01-30] MEDS: dexMEDEtomidine 1,000 MCG in 0.9% Normal Saline (250mL Bag) 240 ML 26.9 MCG CONT INF (23:45)
[2023-01-31] VITALS (53 sets, daily range): BP systolic 75–183; BP diastolic 40–87; PULSE 72–104; RESP 13–24; TEMP 37.1–37.9; O2SAT 86–98; BMI 23.3
[2023-01-31 00:08] LABS: Bedside Glucose 156 mg/dL (74-106)
[2023-01-31] MEDS: fentaNYL drip 100 ML 15 MCG CONT INF ×2 (01:21→09:29)
[2023-01-31] MEDS: 0.9% Normal Saline (250mL Bag) 250 ML 15 ML IV ×2 (02:28→19:44)
[2023-01-31] MEDS: Norepinephrine 8 MG in 0.9% Normal Saline (250mL Bag) 242 ML 5.6 MG CONT INF (02:28)
[2023-01-31] MEDS: 0.9% Saline Lock 10 ML Syringe IV (05:02)
[2023-01-31] MEDS: Furosemide 40 MG/4 ML Vial IV ×3 (05:03→21:02)
[2023-01-31] MEDS: Heparin Injection (Vial) 5,000 UNIT/ML VIAL 5000 UNIT SC ×3 (05:03→21:03)
[2023-01-31 05:10] LABS: Absolute Lymphocyte Count 0.41 X10^3/uL (0.83-4.51); Absolute Neutrophil Count 18.4 X10^3/uL (2.0-7.7); Basophil# 0.03 X10^3/uL; Basophil% 0.2 % (0-1); Eosinophil# 0.13 X10^3/uL; Eosinophils% 0.7 % (0-5); Hematocrit 26.1 % (40-54); Hemoglobin 8.2 g/dL (13.0-16.5); Lymphocyte # 0.41 X10^3/ul (0.83-4.51); Lymphocyte % 2.1 % (19-41); Mean Corp Hgb Conc 31.4 g/dL (32-36); Mean Corpuscular Hgb 29.1 pg (27.0-32.0); Mean Corpuscular Volume 92.6 fL (80-94); Mean Platelet Vol. 13.9 fl (6.2-12.0); Monocyte# 0.87 X10^3/uL; Monocyte% 4.4 % (0-10); NRBC Flagged by Analyzer 0 % (0-5); Neutrophil # 18.35 X10^3/uL (2.7-7.7); POSITIVE DIFFERENTIAL YES; Platelet Count 125 K/mm3 (150-450); RBC Distribution Width CV 15.5 % (11.6-14.6); RBC Distribution Width SD 52.4 fl (35.1-43.9); Red Blood Count 2.82 M/mm3 (4.6-6.2); White Blood Count 19.9 K/mm3 (4.4-11.0)
[2023-01-31 05:11] LABS: Differential Indicated SCAN CRITERIA MET
[2023-01-31 05:22] LABS: Anion Gap 1 (5-15); BUN 71 mg/dL (7-18); BUN/Creat Ratio 60.7 RATIO (10-20); Calcium,Total 7.4 mg/dL (8.5-10.1); Chloride 101 mmol/L (98-107); Creatinine, Serum 1.17 mg/dL (0.70-1.30); EST Glomerular Filtration Rate 65 mL/min (>60); Est Glom Filt Rate - Afr Amer 79 mL/min (>60); Estimated Creatinine Clearance 56.84 ml/min; Glucose 150 mg/dL (74-106); Potassium 3.5 mmol/L (3.5-5.1); Sodium Level 142 mmol/L (136-145)
--- NOTE | 2023-01-31 06:05 | PN.CC_ITS ---
Assessment & Plan Assessment/Plan (1) Septic shock: PLAN: Plan RECOMMENDATIONS: 1. Continue to wean FiO2 and PEEP to maintain saturations at or above 90%. 2. Continue antimicrobials per ID recommendations. 3. Continue tube feeds as tolerated. 4. Continue scheduled bronchodilators. 5. Continue Solu-Medrol once daily. 6. Continue insulin and Accu-Cheks. 7. Continue appropriate GI prophylaxis. 8. Continue attempts at diuresis as tolerated by hemodynamics and renal function. 9. Obtain follow-up chest x-ray this morning. 10. Await decision regarding goals of care by the patient's medical legal guardian. IMPRESSIONS: 1. Acute combined respiratory failure The patient has reported advanced a COPD which is currently in a state of exacerbation secondary to underlying pseudomonal pneumonia. The patient continues to have high ventilator requirements. The patient has been on the ventilator now for 9 days. He also has concurrent pulmonary hypertension. The patient appears to be tolerating right-sided positioning, given the extensive nature of his left-sided infiltrates. Plan to continue to wean FiO2 and PEEP as tolerated to maintain saturations at or above 90%. Plan to continue supportive measures including antimicrobials, bronchodilators and steroids. Overall, however, the patient's prognosis is quite poor. Legal guardianship has been established. I did have a very erendira discussion with the patient's legal guardian regarding prognosis and goals of care. At this time, the patient is too clinically unstable to be considered for tracheostomy and PEG tube placement. Plan to proceed with attempts at further diuresis today, as tolerated by hemodynamics and renal function. We will need to discuss goals of care with the patient's medical legal guardian, given his overall lack of clinical improvemen t. 2. Septic shock Secondary to left-sided pseudomonal pneumonia. Continue antibiotics as noted above. Continue vasopressor support, as needed, to maintain mean arterial pressure at or above 65 mmHg. 3. Atrial fibrillation with RVR/pulmonary hypertension with RV dysfunction/history of tobacco dependency Complicates care, management, recovery and prognosis. Continue supportive measures as noted above. Continue tube feeds as tolerated. Continue goals of care discussion with the patient's legal guardian. CODE STATUS: DNR CCA, following discussion with the patient's legal guardian. TIME: 32 minutes of critical care time, independent of procedures, was spent addressing the patient's acute combined respiratory failure, septic shock, hypernatremia, shock liver, review of all data and collaboration with the care team. Subjective Subjective The patient was seen and examined at the bedside this morning. Events from the last 24 hours have been reviewed. The patient is currently afebrile and hemodynamically stable. The patient's oxygenation status has continued to decompensate, despite attempts at volume optimization. He is currently requiring assist-control mode mechanical ventilation with an FiO2 of 100% and PEEP of 14. His SPO2 remains tenuous. Legal guardianship was extended to [address] yesterday. The patient remains overall net +21.9 L for the hospitalization. He remains on scheduled IV Lasix every 8 hours. White count remains elevated at 20,000. Creatinine remains within normal limits. Objective Data Objective Data The patient's most recent lab work, culture data and imaging studies have all been personally reviewed. Surface echocardiogram demonstrated an ejection fraction of 50% with a severely dilated RV and moderate global RV systolic dysfunction. Pulmonary artery systolic pressure was estimated to be 47 mmHg. Sputum culture dated January 18 was positive for Pseudomonas. Vital Signs: Vital Signs Temp Pulse Resp BP Pulse Ox O2 Del Method O2 Flow Rate 100.2 F H 98 24 H 174/80 H 89 Mechanical Ventilator 90 01/31/23 03:00 01/31/23 05:40 01/31/23 05:40 01/31/23 03:45 01/31/23 05:40 01/31/23 03:51 01/30/23 13:00 FiO2 95 01/31/23 05:40 Oxygen Flow Rate (L/min) 90 Oxygen Delivery Method Mechanical Ventilator Weight: 158 lb 4.67 oz Body Mass Index (BMI) 24.0 Intake & Output: Intake and Output for Last 24 Hours 01/29/23 01/30/23 01/31/23 23:59 23:59 23:59 Intake Total 6043.76 / 6081.96 5627.57 / 5885.20 1312.82 / 1312.82 Output Total 4550 / 4550 3700 / 3700 1050 / 1050 Balance 1493.76 / 1531.96 1927.57 / 2185.20 262.82 / 262.82 Lab / Micro Data Attestation: I reviewed the patient's lab results. 01/31/23 05:00 01/31/23 05:00 Labs: Laboratory Results - last 24 hr 01/30/23 03:25: Phosphorus 5.3 H 01/30/23 11:20: POC Glucose 76 01/30/23 13:07: POC Glucose 68 L 01/30/23 13:36: POC Glucose 84 01/30/23 16:47: POC Glucose 115 H 01/30/23 23:39: POC Glucose 156 H 01/31/23 05:00: WBC 19.9 H, RBC 2.82 L, Hgb 8.2 L, Hct 26.1 L, MCV 92.6, MCH 29.1, MCHC 31.4 L, RDW Std Deviation 52.4 H, RDW Coeff of Debra 15.5 H, Plt Count 125 L, MPV 13.9 H, Immature Gran % (Auto) 0.600, Neut % (Auto) 92.0 H, Lymph % (Auto) 2.1 L, [place] % (Auto) 4.4, Eos % (Auto) 0.7, Baso % (Auto) 0.2, Absolute Neuts (auto) 18.4 H, Absolute Lymphs (auto) 0.41 L, Nucleated RBC % 0, Sodium 142, Potassium 3.5, Chloride 101, Carbon Dioxide 40.0 H, Anion Gap 1 L, BUN 71 H , Creatinine 1.17, Estim Creat Clear Calc 56.84, Est GFR (MDRD) Af Amer 79, Est GFR (MDRD) Non-Af 65, BUN/Creatinine Ratio 60.7 H, Glucose 150 H, Calcium 7.4 L Micro: Microbiology 01/23/23 15:20 Blood Culture (Wb) - Left Wrist Blood Culture - Final No growth in 5 days. 01/23/23 15:40 Blood Culture (Wb) - Anticubital Left Blood Culture - Final No growth in 5 days. 01/26/23 17:50 Sputum, Induced/Lukens Gram Stain - Final 01/26/23 17:50 Sputum, Induced/Lukens Respiratory Culture - Final Pseudomonas aeruginosa 01/21/23 11:10 Blood Culture (Wb) - Right Forearm Blood Culture - Final No growth in 5 days. 01/21/23 11:00 Blood Culture (Wb) - Anticubital Left Blood Culture - Final No growth in 5 days. 01/22/23 10:00 Urine Catheter - Catheter Urine Culture - Final Culture exhibits no growth. 01/18/23 11:50 Blood Culture (Wb) - Port Blood Culture - Final No growth in 5 days. 01/18/23 11:50 Blood Culture (Wb) - Left Forearm Blood Culture - Final No growth in 5 days. 01/16/23 19:43 Blood Culture (Wb) - Anticubital Left Blood Culture - Final No growth in 5 days. 01/16/23 20:14 Blood Culture (Wb) - Right Forearm Blood Culture - Final No growth in 5 days. 01/21/23 14:04 Mucosa - Nose Coronavirus COVID-19 PCR - Final 01/21/23 14:04 Mucosa - Nose Respiratory Panel (PCR) - Final 01/18/23 11:00 Sputum, Induced/Lukens Gram Stain - Final 01/18/23 11:00 Sputum, Induced/Lukens Respiratory Culture - Final Pseudomonas aeruginosa 01/17/23 22:30 Sputum, Expectorated/Coughed Gram Stain - Final 01/17/23 22:30 Sputum, Expectorated/Coughed Respiratory Culture - Final Pseudomonas aeruginosa 01/16/23 20:14 Urine, Clean Catch Urine Culture - Final Culture exhibits no growth. 01/17/23 00:45 Mucosa - Nasopharyngeal Coronavirus COVID-19 PCR - Final 01/16/23 00:45 Mucosa - Nasopharyngeal Respiratory Panel (PCR) - Final 01/17/23 00:27 Urine, Random Legionella Antigen - Final 01/17/23 00:27 Urine, Random Streptococcus pneumoniae Antigen (M - Final 01/16/23 19:50 Nasal Secretion SARS-CoV-2 & FLU Antigen (Rapid) - Final ABG Data ABG results: ABG 01/28/23 11:52 Specimen Type ART Sample Site R Radial pH 7.27 L Bicarbonate Actual 34.4 H Total CO2 37 Base Excess 8 H O2 Saturation 80 L O2 % 80.0 ABG pCO2 74.9 H* ABG pO2 53 L Lino Test Positive Respiration Rate 18 O2 Delivery Device Adult Vent Vent Mode AC Tidal Volume 440.0 POC PEEP 10 Crit Call To/Read Back Yes Blood Gas Notified Whom dr. shea Blood Gas Notified Time 11:54:10 Radiography Diagnostic Testing: Radiology Impression Chest X-Ray 01/27/23 05:55 IMPRESSION: Unchanged appearance of chest with what may represent multifocal pneumonia and/or pulmonary fibrosis and emphysema. Electronically Signed: Celina Trotter MD at 7:03 EDT , Physical Exam Const Constitutional Narrative: Intubated, sedated and mechanically ventilated. Chronically ill in appearance. HEENT normocephalic and head/scalp atraumatic Mouth: endotracheal tube in place and OG tube in place Eyes PERRL and EOMs intact bilaterally Neck supple General: trachea midline and CVC in place Chest inspection of chest normal Resp Resp Narrative: Mechanical breath sounds bilaterally. Auscultation: rhonchi and diminished lung sounds Cardio regular rate, regular rhythm, S1 normal heart sound and S2 normal heart sound GI normal to inspection, nondistended, normoactive bowel sounds Extremity Extremity Narrative: Wrapped upper extremities General Extremity: edema; Negative for clubbing Skin no rashes or lesions noted Neuro Sensorium / Orientation: sedated on vent Charges/Coding Procedures Hospitalists Procedures: 13080 Critial Care 1st Hr
--- NOTE | 2023-01-31 06:29 | RAD_ITS ---
STUDY: X-RAY CHEST REASON FOR EXAM: Male, 72 years old patient with increased FiO2 needs. TECHNIQUE: Single AP portable view of the chest. COMPARISON: Chest radiograph dated January 27, 2023. FINDINGS: Tip of endotracheal tube is located approximately 7.4 cm from the linda. Enteric tube is present with the distal and below the hemidiaphragms and below the inferior edge of the image. Cardiac monitoring leads are present. Left-sided central venous catheter is in place in the internal jugular vein and tip of a catheter is in the superior vena cava. Lungs are hyperexpanded. There is increasing left-sided airspace consolidation since previous study. There is also heterogeneous right basilar airspace disease. There are scattered lucencies in both lungs prior secondary to emphysema. Curvilinear opacity at the right upper lobe that may represent pulmonary fibrosis. There is increased lucency in the right upper lobe suggestive for severe emphysema. There are small bilateral pleural effusions. Normal size heart. Normal mediastinum and arti. There is prominence of the pulmonary hilar arteries without peripheral pulmonary vascular congestion, suggesting pulmonary hypertension. There is atherosclerotic calcification of the aortic arch with tortuosity. There are diffuse degenerative changes of the visualized thoracic spine. There are degenerative changes of both shoulders. There is no demonstrated abnormality of the visualized soft tissue structures of the upper abdomen. RAD/Chest 1 View (Portable) IMPRESSION: 1. Increasing left-sided airspace disease since previous study may represent pneumonia. 2. COPD. Electronically Signed: Celina Trotter MD at 6:59 EDT ,
[2023-01-31 06:42] LABS: Anisocytosis 1+; Differential Comment SCANNED
[2023-01-31 06:43] LABS: Stomatocyte 2+
[2023-01-31] MEDS: Ipratropium/Albuterol Sulfate 3 ML AMPUL.NEB INHALATION ×4 (06:51→19:01)
[2023-01-31] MEDS: Methylprednisolone Sod Succ 40 MG/ML VIAL IV (09:23)
[2023-01-31] MEDS: Pantoprazole Sodium 40 MG in 0.9% Normal Saline (100mL MB+) 100 ML 330 MG IV (09:24)
[2023-01-31] MEDS: Chlorhexidine 15 ML PO ×2 (09:26→21:02)
[2023-01-31] MEDS: Senna/Docusate Sodium 1 Tablet GT (09:26)
[2023-01-31] MEDS: Polyethylene Glycol 3350 17 GM PACKET GT (09:26)
[2023-01-31] MEDS: CHLORHEXIDINE GLUC 2% CLOTH 1 EACH TOWELETTE TOPICAL (09:27)
[2023-01-31] MEDS: Amiodarone 360 MG in Dextrose 5% Viaflo Bag 192.8 ML 16.7 MG CONT INF ×2 (09:30→20:32)
[2023-01-31] MEDS: dexMEDEtomidine 1,000 MCG in 0.9% Normal Saline (250mL Bag) 240 ML 26.2 MCG CONT INF ×2 (09:30→19:00)
[2023-01-31] MEDS: Meropenem 1 GM in 0.9% Normal Saline (100mL MB+) 100 ML IV ×2 (09:33→21:05)
--- NOTE | 2023-01-31 09:40 | PN_ITS ---
Subjective Subjective Patient seen and examined. He remains intubated and sedated. He is now requiring 100% FiO2 and PEEP of 14. He is now off the levophed. Legal guardiahnship has been extended to 30 days now. He is in cumulative positive balance by 21L. Objective Data Objective Data Vital Signs: Vital Signs Temp Pulse Resp BP Pulse Ox O2 Del Method O2 Flow Rate 99.7 F H 86 19 H 92/53 L 97 Mechanical Ventilator 90 01/31/23 07:00 01/31/23 09:08 01/31/23 09:08 01/31/23 07:00 01/31/23 09:08 01/31/23 07:00 01/30/23 13:00 FiO2 90 01/31/23 09:08 Oxygen Flow Rate (L/min) 90 Oxygen Delivery Method Mechanical Ventilator Weight: 153 lb 14.122 oz Body Mass Index (BMI) 23.3 Intake & Output: Intake and Output for Last 24 Hours 01/29/23 01/30/23 01/31/23 23:59 23:59 23:59 Intake Total 6043.76 / 6081.96 5627.57 / 5885.20 1531.94 / 1531.94 Output Total 4550 / 4550 3700 / 3700 2225 / 2225 Balance 1493.76 / 1531.96 1927.57 / 2185.20 -693.06 / -693.06 Lab / Micro Data 01/31/23 05:00 01/31/23 05:00 Labs: Laboratory Results - last 24 hr 01/30/23 11:20: POC Glucose 76 01/30/23 13:07: POC Glucose 68 L 01/30/23 13:36: POC Glucose 84 01/30/23 16:47: POC Glucose 115 H 01/30/23 23:39: POC Glucose 156 H 01/31/23 05:00: WBC 19.9 H, RBC 2.82 L, Hgb 8.2 L, Hct 26.1 L, MCV 92.6, MCH 29.1, MCHC 31.4 L, RDW Std Deviation 52.4 H, RDW Coeff of Debra 15.5 H, Plt Count 125 L, MPV 13.9 H, Immature Gran % (Auto) 0.600, Neut % (Auto) 92.0 H, Lymph % (Auto) 2.1 L, [place] % (Auto) 4.4, Eos % (Auto) 0.7, Baso % (Auto) 0.2, Absolute Neuts (auto) 18.4 H, Absolute Lymphs (auto) 0.41 L, Nucleated RBC % 0, Differential Comment SCANNED, Anisocytosis 1+, Stomatocytes 2+, Sodium 142, Potassium 3.5, Chloride 101, Carbon Dioxide 40.0 H, Anion Gap 1 L, BUN 71 H, Creatinine 1.17, Estim Creat Clear Calc 56.84, Est GFR (MDRD) Af Amer 79, Est GFR (MDRD) Non-Af 65, BUN/Creatinine Ratio 60.7 H, Glucose 150 H, Calcium 7.4 L Micro: Microbiology 01/23/23 15:20 Blood Culture (Wb) - Left Wrist Blood Culture - Final No growth in 5 days. 01/23/23 15:40 Blood Culture (Wb) - Anticubital Left Blood Culture - Final No growth in 5 days. 01/26/23 17:50 Sputum, Induced/Lukens Gram Stain - Final 01/26/23 17:50 Sputum, Induced/Lukens Respiratory Culture - Final Pseudomonas aeruginosa 01/21/23 11:10 Blood Culture (Wb) - Right Forearm Blood Culture - Final No growth in 5 days. 01/21/23 11:00 Blood Culture (Wb) - Anticubital Left Blood Culture - Final No growth in 5 days. 01/22/23 10:00 Urine Catheter - Catheter Urine Culture - Final Culture exhibits no growth. 01/18/23 11:50 Blood Culture (Wb) - Port Blood Culture - Final No growth in 5 days. 01/18/23 11:50 Blood Culture (Wb) - Left Forearm Blood Culture - Final No growth in 5 days. 01/16/23 19:43 Blood Culture (Wb) - Anticubital Left Blood Culture - Final No growth in 5 days. 01/16/23 20:14 Blood Culture (Wb) - Right Forearm Blood Culture - Final No growth in 5 days. 01/21/23 14:04 Mucosa - Nose Coronavirus COVID-19 PCR - Final 01/21/23 14:04 Mucosa - Nose Respiratory Panel (PCR) - Final 01/18/23 11:00 Sputum, Induced/Lukens Gram Stain - Final 01/18/23 11:00 Sputum, Induced/Lukens Respiratory Culture - Final Pseudomonas aeruginosa 01/17/23 22:30 Sputum, Expectorated/Coughed Gram Stain - Final 01/17/23 22:30 Sputum, Expectorated/Coughed Respiratory Culture - Final Pseudomonas aeruginosa 01/16/23 20:14 Urine, Clean Catch Urine Culture - Final Culture exhibits no growth. 01/17/23 00:45 Mucosa - Nasopharyngeal Coronavirus COVID-19 PCR - Final 01/16/23 00:45 Mucosa - Nasopharyngeal Respiratory Panel (PCR) - Final 01/17/23 00:27 Urine, Random Legionella Antigen - Final 01/17/23 00:27 Urine, Random Streptococcus pneumoniae Antigen (M - Final 01/16/23 19:50 Nasal Secretion SARS-CoV-2 & FLU Antigen (Rapid) - Final Radiography Diagnostic Testing: Radiology Impression Chest X-Ray 01/31/23 06:29 IMPRESSION: 1. Increasing left-sided airspace disease since previous study may represent pneumonia. 2. COPD. Electronically Signed: Celina Trotter MD at 6:59 EDT Reading Location ID and State: [address] [place] [address] , Service support , Physical Exam Const healthy appearing Constitutional Narrative: intubated, sedated, RASS score remains -4, cachectic HEENT normocephalic, head/scalp atraumatic and moist oral mucous membranes Eyes PERRL Neck no lymphadenopathy Lymph Lymphatic: no lymphadenopathy noted and no lymphedema noted Resp Resp Narrative: intubated, sedated, diminished breath sounds bibasally, no wheezes or crackles. tachypneic. On FiO2 of 100% and PEEP of 14. Auscultation: Negative for rales or wheezes Cardio regular rate, regular rhythm, S1 normal heart sound, S2 normal heart sound, no murmurs, no rub, no gallops and no clicks Rate: tachycardic GI normal to inspection, nondistended, normoactive bowel sounds, soft to palpation and non-tender Extremity normal capillary refill and no clubbing, cyanosis or edema Skin Skin Narrative: Left IJ in place-clean and dry General Skin Exam: no breakdown Neuro Neuro Narrative: sedated, RASS score is -4 Psych Psych Narrative: intubated, and sedated. RASS score is -4 Assessment & Plan Assessment/Plan (1) LAUREN (acute kidney injury): (2) Septic shock: (3) Severe malnutrition: (4) RVF (right ventricular failure): PLAN: Plan #Acute hypoxic respiratory failure due to COPD and pneumonia * remains intubated. now on FiO2 of 100% and PEEP of 14 * he is in cumulative positive balance by 21L * critical care on board * off levophed today * still on IV vancomycin and IV meropenem. * continue pulmonary toileting * continue diuresing as he can tolerate hemodynamically * wbc has trended down to 19.9 today * 2D echo showed EF of 50% and no regional wall motion wall abnormalities, and showed severely dilated RV and moderate global right ventricular systolic dysfunction as well as pulmonary artery systolic pressure of 47mmHg. * #Septic shock * due to Pseudomonas pneumonia * Off levophed today. titrate to maintain MAP >65 * on vancomycin and meropenem as listed above * WBC still remains elevated but is down to 19 today * ID on board * #Shock liver: * largely resolved. * #Thrombocytopenia: platelets have been trending downwards and is 125 today. Will monitor. * #Hypernatremia:resolved. #Hyperkalemia:resolved. Potassium is 4.1 today. #LAUREN: * resolved. #Anemia * Hb today is 8.2. Will monitor #Elevated digoxin level: Digoxin discontinued. #New onset A-fib with RVR. * currently on amiodarone drip. * #Pulmonary nodules: Will need further work-up after discharge. #Type 2 diabetes mellitus: Has A1c of 6.1. Insulin sliding scale. Accu-Cheks every 6 hourly. on lantus 10 units bid Nutrition: On tube feeds DVT prophylaxis: On heparin drip o/a of afib. Prognosis: * Poor. Guardianship extended for 30 days. Guardian to make decision about plan of care later. Charges/Coding Visit Charges Inpatient E&M: 59243 [facility] L[facility]
[2023-01-31] MEDS: Insulin Glargine-YFGN 100 UNIT/ML Pen 10 UNIT SC (11:56)
[2023-01-31] MEDS: Insulin Lispro 100 UNIT/ML INSULN.PEN SC ×2 (11:56→17:27)
[2023-01-31 12:11] LABS: Bedside Glucose 201 mg/dL (74-106)
[2023-01-31] MEDS: fentaNYL drip 100 ML 20 MCG CONT INF ×2 (15:37→20:31)
[2023-01-31 17:48] LABS: Bedside Glucose 229 mg/dL (74-106)
[2023-01-31] MEDS: NEPRO TUBE FEED 1,000 ML 40 ML GT (19:43)
[2023-01-31] MEDS: Glycerin/Hypromellose/PEG400 15 ml Bottle 2 DRP EACH EYE ×2 (19:48→21:08)
[2023-02-01] VITALS (10 sets, daily range): BP systolic 91–122; BP diastolic 51–62; PULSE 63–92; RESP 0–19; TEMP 37.6–37.9; O2SAT 95–98; BMI 23.5
[2023-02-01] MEDS: Glycerin/Hypromellose/PEG400 15 ml Bottle 2 DRP EACH EYE ×2 (00:26→04:57)
[2023-02-01] MEDS: Norepinephrine 8 MG in 0.9% Normal Saline (250mL Bag) 242 ML 22.5 MG CONT INF (00:26)
[2023-02-01] MEDS: Insulin Glargine-YFGN 100 UNIT/ML Pen 10 UNIT SC (00:26)
[2023-02-01] MEDS: Insulin Lispro 100 UNIT/ML INSULN.PEN SC (00:27)
[2023-02-01 00:49] LABS: Bedside Glucose 245 mg/dL (74-106)
[2023-02-01] MEDS: fentaNYL drip 100 ML 20 MCG CONT INF (01:15)
[2023-02-01] MEDS: dexMEDEtomidine 1,000 MCG in 0.9% Normal Saline (250mL Bag) 240 ML 26.2 MCG CONT INF (04:33)
[2023-02-01] MEDS: Furosemide 40 MG/4 ML Vial IV (04:57)
--- NOTE | 2023-02-01 05:54 | PCM.PN.INT ---
Assessment & Plan Assessment/Plan (1) Septic shock: PLAN: Plan RECOMMENDATIONS: 1. Proceed with terminal extubation and initiation of comfort care measures, per discussion with medical legal guardian. 2. CODE STATUS updated to DNR CC. 3. Orders for comfort care medications have been placed. IMPRESSIONS: 1. Acute combined respiratory failure The patient has reported advanced a COPD which is currently in a state of exacerbation secondary to underlying pseudomonal pneumonia. The patient continues to have high ventilator requirements. He also has concurrent pulmonary hypertension. The patient appears to be tolerating right-sided positioning, given the extensive nature of his left-sided infiltrates. Plan to continue to wean FiO2 and PEEP as tolerated to maintain saturations at or above 90%. Plan to continue supportive measures including antimicrobials, bronchodilators and steroids. Overall, however, the patient's prognosis is quite poor. Legal guardianship has been established. I did have a very erendira discussion with the patient's legal guardian regarding prognosis and goals of care. Plan at this time to proceed with terminal extubation and initiation of comfort care measures. 2. Septic shock Secondary to left-sided pseudomonal pneumonia. Continue antibiotics as noted above. Continue vasopressor support, as needed, to maintain mean arterial pressure at or above 65 mmHg. 3. Atrial fibrillation with RVR/pulmonary hypertension with RV dysfunction/history of tobacco dependency Complicates care, management, recovery and prognosis. Continue supportive measures as noted above. Continue tube feeds as tolerated. CODE STATUS: DNR CC, following discussion with the patient's legal guardian. This note was generated with [employer] dictation software. It may contain incorrect words, spelling, and punctuation that were not noted in checking the note before signing. Subjective Subjective The patient was seen and examined at the bedside this morning. Events from the last 24 hours have been reviewed. The patient remains clinically unchanged from yesterday. I did speak at length with the patient's medical legal guardian yesterday regarding the patient's overall prognosis and goals of care. Following my discussion with Aquilino, the decision was made to transition the patient to DNR comfort care measures and initiate terminal extubation. I have updated the patient's CODE STATUS this morning to DNR comfort care to reflect this discussion. Orders for comfort medications have been placed. Objective Data Objective Data The patient's most recent lab work, culture data and imaging studies have all been personally reviewed. Surface echocardiogram demonstrated an ejection fraction of 50% with a severely dilated RV and moderate global RV systolic dysfunction. Pulmonary artery systolic pressure was estimated to be 47 mmHg. Sputum culture dated January 18 was positive for Pseudomonas. Vital Signs: Vital Signs Temp Pulse Resp BP Pulse Ox O2 Del Method O2 Flow Rate 99.7 F H 71 18 106/55 L 98 Mechanical Ventilator 90 02/01/23 00:00 02/01/23 05:07 02/01/23 05:07 02/01/23 02:00 02/01/23 05:07 02/01/23 02:00 01/30/23 13:00 FiO2 100 02/01/23 05:07 Oxygen Flow Rate (L/min) 90 Oxygen Delivery Method Mechanical Ventilator Weight: 154 lb 15.759 oz Body Mass Index (BMI) 23.5 Intake & Output: Intake and Output for Last 24 Hours 01/30/23 01/31/23 02/01/23 23:59 23:59 23:59 Intake Total 5627.57 / 5885.20 4392.50 / 4719.09 1253.80 / 1253.80 Output Total 3700 / 3700 3300 / 4050 1300 / 1300 Balance 1927.57 / 2185.20 1092.50 / 669.09 -46.20 / -46.20 Lab / Micro Data Attestation: I reviewed the patient's lab results. 01/31/23 05:00 01/31/23 05:00 Labs: Laboratory Results - last 24 hr 01/31/23 05:00: Differential Comment SCANNED, Anisocytosis 1+, Stomatocytes 2+ 01/31/23 11:54: POC Glucose 201 H 01/31/23 17:26: POC Glucose 229 H 02/01/23 00:24: POC Glucose 245 H Micro: Microbiology 01/23/23 15:20 Blood Culture (Wb) - Left Wrist Blood Culture - Final No growth in 5 days. 01/23/23 15:40 Blood Culture (Wb) - Anticubital Left Blood Culture - Final No growth in 5 days. 01/26/23 17:50 Sputum, Induced/Lukens Gram Stain - Final 01/26/23 17:50 Sputum, Induced/Lukens Respiratory Culture - Final Pseudomonas aeruginosa 01/21/23 11:10 Blood Culture (Wb) - Right Forearm Blood Culture - Final No growth in 5 days. 01/21/23 11:00 Blood Culture (Wb) - Anticubital Left Blood Culture - Final No growth in 5 days. 01/22/23 10:00 Urine Catheter - Catheter Urine Culture - Final Culture exhibits no growth. 01/18/23 11:50 Blood Culture (Wb) - Port Blood Culture - Final No growth in 5 days. 01/18/23 11:50 Blood Culture (Wb) - Left Forearm Blood Culture - Final No growth in 5 days. 01/16/23 19:43 Blood Culture (Wb) - Anticubital Left Blood Culture - Final No growth in 5 days. 01/16/23 20:14 Blood Culture (Wb) - Right Forearm Blood Culture - Final No growth in 5 days. 01/21/23 14:04 Mucosa - Nose Coronavirus COVID-19 PCR - Final 01/21/23 14:04 Mucosa - Nose Respiratory Panel (PCR) - Final 01/18/23 11:00 Sputum, Induced/Lukens Gram Stain - Final 01/18/23 11:00 Sputum, Induced/Lukens Respiratory Culture - Final Pseudomonas aeruginosa 01/17/23 22:30 Sputum, Expectorated/Coughed Gram Stain - Final 01/17/23 22:30 Sputum, Expectorated/Coughed Respiratory Culture - Final Pseudomonas aeruginosa 01/16/23 20:14 Urine, Clean Catch Urine Culture - Final Culture exhibits no growth. 01/17/23 00:45 Mucosa - Nasopharyngeal Coronavirus COVID-19 PCR - Final 01/16/23 00:45 Mucosa - Nasopharyngeal Respiratory Panel (PCR) - Final 01/17/23 00:27 Urine, Random Legionella Antigen - Final 01/17/23 00:27 Urine, Random Streptococcus pneumoniae Antigen (M - Final 01/16/23 19:50 Nasal Secretion SARS-CoV-2 & FLU Antigen (Rapid) - Final ABG Data ABG results: ABG 01/28/23 11:52 Specimen Type ART Sample Site R Radial pH 7.27 L Bicarbonate Actual 34.4 H Total CO2 37 Base Excess 8 H O2 Saturation 80 L O2 % 80.0 ABG pCO2 74.9 H* ABG pO2 53 L Lino Test Positive Respiration Rate 18 O2 Delivery Device Adult Vent Vent Mode AC Tidal Volume 440.0 POC PEEP 10 Crit Call To/Read Back Yes Blood Gas Notified Whom dr. shea Blood Gas Notified Time 11:54:10 Radiography Diagnostic Testing: Radiology Impression Chest X-Ray 01/31/23 06:29 IMPRESSION: 1. Increasing left-sided airspace disease since previous study may represent pneumonia. 2. COPD. Electronically Signed: Celina Trotter MD at 6:59 EDT Reading Location ID and State: [address] [place] [address] , Service support , Physical Exam Const Constitutional Narrative: Intubated, sedated and mechanically ventilated. Chronically ill in appearance. HEENT normocephalic and head/scalp atraumatic Mouth: endotracheal tube in place and OG tube in place Eyes PERRL and EOMs intact bilaterally Neck supple General: trachea midline and CVC in place Chest inspection of chest normal Resp Resp Narrative: Mechanical breath sounds bilaterally. Auscultation: rhonchi and diminished lung sounds Cardio regular rate, regular rhythm, S1 normal heart sound and S2 normal heart sound GI normal to inspection, nondistended, normoactive bowel sounds Extremity Extremity Narrative: Wrapped upper extremities General Extremity: edema; Negative for clubbing Skin no rashes or lesions noted Neuro Sensorium / Orientation: sedated on vent Charges/Coding Visit Charges Inpatient E&M: 20715 Subs Hosp L3
[2023-02-01] MEDS: Morphine 2 MG/ML Syringe IV (06:45)
[2023-02-01] MEDS: LORazepam 2 MG/ML Syringe 1 MG IV (06:45)
[2023-02-01] MEDS: 0.9% Saline Lock 10 ML Syringe IV (06:52)
--- NOTE | 2023-02-01 06:58 | NURSING ---
Pt extubated to room air after given PRN doses of morphine 4mg and ativan 1mg IV
--- NOTE | 2023-02-01 15:18 | PCM.DEATH ---
Preliminary Cause of Preliminary Cause of Preliminary Cause of : acute cardiopulmonary arrest due to acute hypoxic respiratory failure due to community acquired pneumonia Date of Admission: 01/16/23 Date of : 02/01/23 Principle Diagnosis Problem List: Active and Suspected Problems (Updated 01/23/23 @ 15:[address] Nancy Luna, DO) Elevated digoxin level (Acute) Hyperkalemia (Acute) LAUREN (acute kidney injury) (Acute) Septic shock (Acute) Severe malnutrition (Acute) RVF (right ventricular failure) (Acute) Afib (Acute) Tobacco use (Acute) Agent orange exposure (Acute) CAP (community acquired pneumonia) (Acute) Pneumonia (Acute) Hospital Course Patient is a 72-year-old male with a past medical history as outlined which includes nicotine dependence, end stage COPD and chronic respiratory failure due 3L of oxygen and hypertension. He was admitted with a complaint of shortness of breath which was worsening and a cough productive of sputum. He had not been feeling well for several weeks prior to admission. He was admitted on 01/17/2023. He had seen his logistics service representative at the [place] about a few weeks ago and was given oral antibiotics. However he was desaturating at home and said he was going down to 74% on 3 L of oxygen at home. He therefore came into the ED. CTA of the chest showed evidence of infiltrates involving the left upper lung and also nodules in the right lung. He was admitted and managed for sepsis due to acute on chronic hypoxic respiratory failure due to COPD exacerbation and left-sided pneumonia. COVID test was negative. He was initially placed on IV Solu-Medrol and bronchodilators and started on IV ceftriaxone and azithromycin. However his shortness of breath worsened and pulmonology was consulted. He was transferred to the ICU. Patient had to be emergently intubated. Antibiotics were broadened to IV vancomycin and Zosyn. Hospital course was protracted by the respiratory failure and septic shock and he could not be weaned off the oxygen. He required Levophed to help maintain hemodynamic stability. Hospital course was also complicated by new onset A-fib with RVR he required amiodarone drip. Sputum cultures grew Pseudomonas. Antibiotics were switched to vancomycin and meropenem. Hospital course was also complicated by shock liver. He also had hyponatremia which resolved after he was given D5 water. Patient's only living relative, his son who lived in [place] could not be contacted. He therefore had to have a guardian appointed for him. The guardian was appointed and in light of patient's inability to be weaned off the oxygen and worsening state, decision was made to terminally extubate patient and he was terminally extubated on 02/01/2023 and at 7:12 AM. Cause of is acute pulmonary arrest due to acute hypoxic respiratory failure in the setting of community-acquired pneumonia. Visit Charges Inpatient E&M: 03123 Disch Hosp
--- NOTE | 2023-02-03 14:05 | CASEMGMT ---
Social Work 02.02.2023 This policy writer noted patient on Thursday02.01.23 at 0712. Confirmed with legal guardian, Aquilino Jansen, that his duties as guardian of person cease upon patient's . Aquilino will let the courts know of patient's passing. This policy writer spoke with niece Leonie Santana (niece of patient's late and skilled nursing partner). Leonie expressed thoughts and feelings regarding patient's passing, and not being called at time of patient's . Supportive listening and reflection offered. Allowed Leonie time to ventilate, and answered question as able. Leonie expresses that family uses [facility] home in [place], so this would be preference if can be taken into consideration. Leonie reports to have patient's DD214 discharge papers, and understands the [facility] may be bale to offer some burial benefits to patient. This policy writer spoke with [facility] Bookseamer [employer] about patient's status and conversations with family/support system so far. Okay for this policy writer to proceed working on release of patient's remains to the home. Spoke with Ordering Box Operator Tino Alves of [facility]. Tino nguyễn would be able to help assist with contact [facility] for indigent cremation if needed, as well as work with [facility] about possible burial benefits. Discussed patient's genealogy as this policy writer is aware and Tino indicated Alicia would be the person Tino would want to speak to first. This policy writer spoke with patient's niece Alicia Hwang of patient's passing. Alicia was aware from a phone call Alicia made yesterday. Alicia expressed thoughts and feelings regarding patient's passing and communication to Alicia about the passing. Supportive listening offered, validation of feelings, and reflection. Discussed conversation with Leonie today and desire to use [facility]. Discussed conversation with [facility] as well. Let Alicia know that [facility] will likely need to talk with Alicia, being a blood next of kin. Alicia agreed to call [facility]. Encouraged Alicia to communicate with Leonie, as Leonie is in [place], so that can work together for patient's arrangements. Educated about the DD214 and possible VA benefits. Called Leonie to update, and encouraged Leonie to work with Alicia on arrangements. Leonie agreed and took Alicia's number from this policy writer. 02.03.2023 Received call from [facility]ino at [facility]. Tino reports to have what is needed from Alicia. This policy writer confirmed patient's demographics and time of noted in record. Tino reports [facility] will come to [facility] to get patient's physical remains later today or tomorrow morning. This policy writer updated [facility] Nursing preparation department supervisor. No other services requested or indicated. -MOSHE Flanagan
== END 2023-02-01 09:14 | DRG 870 ==
LOC: ED 22:51 → PCU 23:05 → ICU 01-18 10:27
PROVIDERS: Internal Medicine; Internal Medicine Critical Care Medicine; Internal Medicine Infectious Disease; Nurse Practitioner Adult Health; Admitting Provider Family Medicine; Emergency Provider Student in an Organized Health Care Education/Training Program; Visit Provider Student in an Organized Health Care Education/Training Program
DX: A41.52 Sepsis due to Pseudomonas (principal); N17.0 Acute kidney failure with tubular necrosis; J96.21 Acute and chronic respiratory failure with hypoxia; K72.00 Acute and subacute hepatic failure without coma; R65.21 Severe sepsis with septic shock; J15.1 Pneumonia due to Pseudomonas; E43 Unspecified severe protein-calorie malnutrition; J96.22 Acute and chronic respiratory failure with hypercapnia; T17.598A Other foreign object in bronchus causing other injury, initial encounter; J47.0 Bronchiectasis with acute lower respiratory infection; I48.19 Other persistent atrial fibrillation; E87.1 Hypo-osmolality and hyponatremia; E87.0 Hyperosmolality and hypernatremia; E87.21 Acute metabolic acidosis; Z68.1 Body mass index [BMI] 19.9 or less, adult; E11.65 Type 2 diabetes mellitus with hyperglycemia; I11.0 Hypertensive heart disease with heart failure; I27.23 Pulmonary hypertension due to lung diseases and hypoxia; Z79.4 Long term (current) use of insulin; I50.810 Right heart failure, unspecified; I46.8 Cardiac arrest due to other underlying condition; D69.6 Thrombocytopenia, unspecified; F17.210 Nicotine dependence, cigarettes, uncomplicated; E87.5 Hyperkalemia; E87.8 Other disorders of electrolyte and fluid balance, not elsewhere classified; R91.8 Other nonspecific abnormal finding of lung field; R89.2 Abnormal level of other drugs, medicaments and biological substances in specimens from other organs, systems and tissues; Z66 Do not resuscitate; Z77.098 Contact with and (suspected) exposure to other hazardous, chiefly nonmedicinal, chemicals; Z99.81 Dependence on supplemental oxygen; Z79.01 Long term (current) use of anticoagulants
CPT/HCPCS: 31500; 31720; 36415; 36600; 70450; 71045; 71250; 71275; 74018; 74176; 76705; 80048; 80053; 80074; 80162; 80202; 81001; 82140; 82271; 82330; 82803; 82962; 83036; 83605; 83735; 84100; 84132; 84145; 84484; 85025; 85379; 85610; 85730; 87040; 87070; 87077; 87086; 87101; 87184; 87186; 87205; 87428; 87449; 87633; 87635; 87641; 93005; 93306; 93970; 94002; 94003; 94640; 94660; 94668; 94762; 97802; 97803; 99285; J2185; J2997; J7030; J7040; J7050; J7120; Q9967; A4216; J0612; J1940